=== PATIENT | female | born 1960 | race American Indian/Alaskan Native ===

== ENCOUNTER 2017-01-11 12:58 | Emergency (ER) | payer MEDICAID ==
[2017-01-11] MEDS ORDERED: MOTRIN PO ONE (14:55)
--- NOTE | 2017-01-11 14:58 | Emergency Department Report ---
Chief Complaint: Chest Pain Stated Complaint: SEVERE CHEST /BACK PAIN/ABD PAIN Time Seen by Provider: 01/11/17 14:52 - HPI History of Present Illness: 56-year-old -[place] female comes in complaint of chest pains in the both side of her chest since yesterday. She reports that she's been having a cough when she coughs her chest and rib cage hurts. Patient also complains of upper back pain she's had shortness of breathing some nausea denies any vomiting. She complains of upper abdominal pain but denies any vaginal bleeding or discharge and no painful urination. She does report that her she does have a nonproductive cough patient denies any fever or chills reports that the pain is getting worse when she coughs - Exam Vital Signs: Vital Signs 01/11/17 13:18 Temperature 98.5 F Pulse Rate 81 Respiratory 18 Rate Blood Pressure 140/59 O2 Sat by Pulse 97 Oximetry Physical Exam: Alert and oriented she does appear to be uncomfortable. Cardiac: Regular rate and rhythm respiratory clear to auscultation bilaterally abdomen soft nontender nondistended. Extremities 1+ edema bilateral MSE screening note: Focused history and physical exam performed. Due to findings the following was ordered: She has been evaluated by this provider in fast track. CXR x-rays CBC BMP troponin CK-MB has been ordered. Will be evaluated by a Main ER. ED Disposition for MSE Condition: Stable
--- NOTE | 2017-01-11 16:09 | XRay Report ---
Chest 2 views: Compared to 11/15/16. History: Chest pain with cough. Findings: Borderline cardiomegaly. Trachea is midline. Mild pulmonary venous congestion. No consolidation or pleural effusion. Impression: Probable mild pulmonary venous congestion.
[2017-01-11 21:11] LABS: Hemoglobin 13.9 gm/dl (10.1-14.3); Mean Corpuscular HGB Conc 32 % (30-34); Mean Corpuscular Hemoglobin 28 pg (28-32); Mean Corpuscular Volume 85 fl (79-97); Red Blood Count 5.07 M/mm3 (3.65-5.03); Red Cell Distribution Width 13.5 % (13.2-15.2); White Blood Count 4.9 K/mm3 (4.5-11.0)
[2017-01-11 21:15] LABS: Platelet Count 172 K/mm3 (140-440)
[2017-01-11 21:33] LABS: Alanine Aminotransferase 39 units/L (7-56); Albumin 4.2 g/dL (3.9-5); Albumin/Globulin Ratio 1.6 %; Alkaline Phosphatase 62 units/L (35-129); Anion Gap 23 mmol/L; BUN/Creatinine Ratio 14.44; Bilirubin,Total 0.2 mg/dL (0.1-1.2); Blood Urea Nitrogen 13 mg/dL (7-17); Calcium 9.1 mg/dL (8.4-10.2); Carbon Dioxide 21 mmol/L (22-30); Chloride 90.4 mmol/L (98-107); Creatine Kinase 240 units/L (30-135); Glucose 220 mg/dL (65-100); Potassium 4.6 mmol/L (3.6-5.0); Sodium 130 mmol/L (137-145); Total Protein 6.9 g/dL (6.3-8.2)
[2017-01-12] MEDS ORDERED: DILAUDID IV ONE (00:38)
[2017-01-12] MEDS ORDERED: PEPCID IV ONE (00:38)
[2017-01-12] MEDS ORDERED: ZOFRAN IV ONE (00:38)
[2017-01-12] MEDS ORDERED: DUONEB 0.5 MG-3 MG/3 ML SOLN IH ONE (00:40)
[2017-01-12 01:13] LABS: Bacteria,Urine 1+ /HPF (Negative); Bilirubin,Urine NEG (Negative); Blood,Urine SM (Negative); Ketones,Urine NEG (Negative); Leukocyte Esterase,Urine LG (Negative); Mucus,Urine FEW /HPF; Nitrite,Urine NEG (Negative); Protein,Urine <15 mg/dL mg/dL (Negative); Urobilinogen,Urine < 2.0 mg/dL (<2.0)
--- NOTE | 2017-01-12 01:26 | Ultrasound Report ---
FINAL REPORT PROCEDURE: US ABDOMEN LIMITED TECHNIQUE: Real-time sonography in multiple planes of the gallbladder fossa and CBD with imaging of the adjacent liver, pancreas, and right kidney was performed with image documentation. CPT 75719 HISTORY: ruq, epigastric pain COMPARISON: No prior studies are available for comparison. FINDINGS: Liver: Normal size and echotexture with no evidence of cystic or solid mass lesion. Gallbladder: There is sludge in the gallbladder. There is no wall thickening or pericholecystic fluid.. Intrahepatic bile ducts: Normal . Extrahepatic bile ducts: Normal . Pancreas: Normal as visualized with suboptimal depiction of the pancreatic tail. Right kidney: Normal echotexture. No focal renal mass, calculus, or hydronephrosis. Other: No free fluid. IMPRESSION: There is gallbladder sludge. There are no stones, wall thickening or pericholecystic fluid.
--- NOTE | 2017-01-12 01:39 | Emergency Department Report ---
ED General Adult HPI - General Chief complaint: Chest Pain Stated complaint: SEVERE CHEST /BACK PAIN/ABD PAIN Time Seen by Provider: 01/11/17 14:52 Source: patient Mode of arrival: Ambulatory Limitations: No Limitations - History of Present Illness Initial comments: 56-year-old female the past medical history CHF, COPD, CVA with residual left- sided defect, diabetes, GERD, CAD, and elevated cholesterol comes in with multiple complaints. Last several days patient has had a dry cough, bilateral rib pain worse with coughing and palpation, posterior thoracic pain worse with movement and palpation, epigastric and right upper quadrant pain worse with palpation. Pain overall rated 8/10 in intensity and described as aching. Positive nausea without vomiting. No reports of fever, dysuria, or diarrhea. Positive shortness of breath and wheezing reported. Patient had an outpatient stress test at [place] on the which she reports was normal. Patient taken Vicodin at home without pain relief. Patient states she did receive her flu shot. No reports of fever Severity scale (0 -10): 6 - Related Data Home Medications Medication Instructions Recorded Confirmed Last Taken Albuterol Sulfate [Proventil HFA] 1 - 2 puff IH Q4H PRN 08/01/13 09/27/16 Budesoni/Formotero 160-4.5(Nf) 2 puff IH BID 08/01/13 09/27/16 09/26/16 [Symbicort 160-4.5 (Nf)] Clopidogrel [Plavix] 75 mg PO DAILY 08/01/13 09/27/16 09/26/16 Ipratropium (Nf) [Atrovent HFA 2 puff IH Q6HR PRN 08/01/13 09/27/16 09/26/16 17MCG/PUFF] Isosorbide Mononitrate [Isosorbide 60 mg PO DAILY 08/01/13 09/27/16 09/26/16 Mononitrate ER (IMDUR)] Lisinopril [Zestril TAB] 10 mg PO DAILY 08/01/13 09/27/16 09/26/16 Metoprolol Xl [Metoprolol 50 mg PO DAILY 08/01/13 09/27/16 09/26/16 SUCCINATE ER TAB] metFORMIN [Glucophage] 1,000 mg PO BID 09/09/27/16 09/26/16 Aspirin 325 mg PO DAILY 07/16/16 09/27/16 09/26/16 HumuLIN 70-30 Vial 100 units SQ QPM 07/16/16 09/27/16 09/26/16 HumuLIN 70-30 Vial 190 units SQ Q8AM 07/16/16 09/27/16 09/26/16 Previous Rx's Medication Instructions Recorded Last Taken Type Pravastatin Sodium [Pravastatin] 20 mg PO QHS #30 tablet 08/03/13 09/26/16 Rx Fenofibrate [Tricor] 48 mg PO DAILY tablet 07/16/16 09/26/16 Rx Omeprazole 40 mg PO DAILY #30 capsule. 07/16/16 09/26/16 Rx Benzonatate [Tessalon Perles] 100 mg PO Q8HR #30 capsule 11/16/16 Unknown Rx HYDROcodone/APAP 5-325 [[place] 1 each PO Q6HR PRN #20 tablet 11/16/16 Unknown Rx 5/325] Levofloxacin [Levaquin] 750 mg PO QDAY #7 tablet 11/16/16 Unknown Rx Azithromycin [Zithromax Z-ANDREY] 1 dose PO DAILY 5 Days 01/12/17 Unknown Rx Benzonatate [Tessalon Perles] 100 mg PO Q8HR PRN #30 capsule 01/12/17 Unknown Rx Prednisone [predniSONE 10 mg 10 mg PO .TAPER #1 tab.ds.pk 01/12/17 Unknown Rx (6-Day Pack, 21 Tabs)] oxyCODONE /ACETAMINOPHEN [Percocet 1 tab PO Q6HR PRN #20 tablet 01/12/17 Unknown Rx 5/325] Allergies Allergy/AdvReac Type Severity Reaction Status Date / Time latex Allergy Unknown Unknown Unverified 07/31/13 19:18 Penicillins AdvReac Mild Rash Verified 01/11/17 15:01 green tomato Allergy Rash Uncoded 11/15/16 19:43 ED Review of Systems ROS: Stated complaint: SEVERE CHEST /BACK PAIN/ABD PAIN Other details as noted in HPI Comment: All other systems reviewed and negative Other: Constitutional: No fevers chills or weight loss Eyes: No eye pain visual changes or discharge ENT: No ear pain or throat pain Neck: Denies pain Respiratory: As per HPI Cardiovascular: As per HPI GI: As per HPI : Denies dysuria Musculoskeletal: Denies bjoint swelling Skin: Denies rash, lesions, erythema Neurologic: Positive frontal headache Psychiatric: Denies suicidal ideation, hallucinations ED Past Medical Hx - Past Medical History Previous Medical History?: Yes Hx Hypertension: Yes Hx CVA: Yes (left side weakness) Hx Heart Attack/AMI: Yes Hx Congestive Heart Failure: Yes Hx Diabetes: Yes Hx GERD: Yes Hx COPD: Yes Additional medical history: high cholesterol - Surgical History Past Surgical History?: Yes Additional Surgical History: tonsillectomy, , right ankle - Social History Smoking Status: Never Smoker Substance Use Type: None - Medications Home Medications: Home Medications Medication Instructions Recorded Confirmed Last Taken Type Albuterol Sulfate [Proventil HFA] 1 - 2 puff IH Q4H PRN 08/01/13 09/27/16 History Budesoni/Formotero 160-4.5(Nf) 2 puff IH BID 08/01/13 09/27/16 09/26/16 History [Symbicort 160-4.5 (Nf)] Clopidogrel [Plavix] 75 mg PO DAILY 08/01/13 09/27/16 09/26/16 History Ipratropium (Nf) [Atrovent HFA 2 puff IH Q6HR PRN 08/01/13 09/27/16 09/26/16 History 17MCG/PUFF] Isosorbide Mononitrate [Isosorbide 60 mg PO DAILY 08/01/13 09/27/16 09/26/16 History Mononitrate ER (IMDUR)] Lisinopril [Zestril TAB] 10 mg PO DAILY 08/01/13 09/27/16 09/26/16 History Metoprolol Xl [Metoprolol 50 mg PO DAILY 08/01/13 09/27/16 09/26/16 History SUCCINATE ER TAB] metFORMIN [Glucophage] 1,000 mg PO BID 08/01/13 09/27/16 09/26/16 History Pravastatin Sodium [Pravastatin] 20 mg PO QHS #30 tablet 08/03/13 09/27/1609/26 Rx Aspirin 325 mg PO DAILY 07/16/16 09/27/16 09/26/16 History Fenofibrate [Tricor] 48 mg PO DAILY tablet 07/16/16 09/27/16 09/26/16 Rx HumuLIN 70-30 Vial 100 units SQ QPM 07/16/16 09/27/16 09/26/16 History HumuLIN 70-30 Vial 190 units SQ Q8AM 07/16/16 09/27/16 09/26/16 History Omeprazole 40 mg PO DAILY #30 capsule. 07/16/16 09/27/16 09/26/16 Rx Benzonatate [Tessalon Perles] 100 mg PO Q8HR #30 capsule 11/16/16 Unknown Rx HYDROcodone/APAP 5-325 [[place] 1 each PO Q6HR PRN #20 tablet 11/16/16 Unknown Rx 5/325] Levofloxacin [Levaquin] 750 mg PO QDAY #7 tablet 11/16/16 Unknown Rx Azithromycin [Zithromax Z-ANDREY] 1 dose PO DAILY 5 Days 01/12/17 Unknown Rx Benzonatate [Tessalon Perles] 100 mg PO Q8HR PRN #30 capsule 01/12/17 Unknown Rx Prednisone [predniSONE 10 mg 10 mg PO .TAPER #1 tab.ds.pk 01/12/17 Unknown Rx (6-Day Pack, 21 Tabs)] oxyCODONE /ACETAMINOPHEN [Percocet 1 tab PO Q6HR PRN #20 tablet 01/12/17 Unknown Rx 5/325] ED Physical Exam - General Limitations: No Limitations - Other Other exam information: General: No limitations, patient is alert in no acute distress Head exam: Atraumatic, normocephalic Eyes exam: Normal appearance, nonicteric sclera ENT: Moist mucous membrane Neck exam: Normal inspection, full range of motion, no meningismus nontender Respiratory exam: Mild expiratory wheezing without tachypnea or accessory muscle use Left-sided rib tenderness and bilateral posterior thoracic tenderness Cardiovascular: Normal rate and rhythm, normal heart sounds Abdomen: Soft, nondistended, and right upper quadrant and epigastric tenderness , with normal bowel sounds, no rebound, or guarding Extremity: Full range of motion normal inspection no deformity Back: Normal Inspection, full range of motion, no tenderness Neurologic: Alert, oriented x3, cranial nerves intact, residual left-sided weakness at baseline per patient Psychiatric: normal affect, normal mood Skin: Warm, dry, intact ED Course Vital Signs 01/11/17 01/11/17 01/11/17 13:18 16:02 23:10 Temperature 98.5 F Pulse Rate 81 Respiratory 18 18 18 Rate Blood Pressure 140/59 Blood Pressure [Left] O2 Sat by Pulse 97 98 Oximetry 01/11/17 01/12/17 01/12/17 23:30 01:17 01:47 Temperature 98.8 F Pulse Rate 82 Respiratory 20 18 18 Rate Blood Pressure Blood Pressure 136/84 [Left] O2 Sat by Pulse 98 Oximetry 01/12/17 02:00 Temperature 98.7 F Pulse Rate 90 Respiratory 20 Rate Blood Pressure Blood Pressure 142/88 [Left] O2 Sat by Pulse 99 Oximetry - Reevaluation(s) Reevaluation #1: 01/12/17 01:52 She reports feeling better after ED treatment and is currently pain-free. Still has some mild residual wheezing therefore additional nebs ordered. ED Medical Decision Making - Lab Data Result diagrams: 01/11/17 14:54 01/11/17 20:54 Lab Results 01/11/17 01/11/17 01/12/17 Range/Units 14:54 20:54 00:36 WBC 4.9 (4.5-11.0) K/mm3 RBC 5.07 H (3.65-5.03) M/mm3 Hgb 13.9 (10.1-14.3) gm/dl Hct 43.0 H (30.3-42.9) % MCV 85 (79-97) fl MCH 28 (28-32) pg MCHC 32 (30-34) % RDW 13.5 (13.2-15.2) % Plt Count 172 (140-440) K/mm3 Sodium 130 L (137-145) mmol/L Potassium 4.6 (3.6-5.0) mmol/L Chloride 90.4 L (98-107) mmol/L Carbon Dioxide 21 L (22-30) mmol/L Anion Gap 23 mmol/L BUN 13 (7-17) mg/dL Creatinine 0.9 (0.7-1.2) mg/dL Estimated GFR > 60 ml/min BUN/Creatinine Ratio 14.44 % Glucose 220 H (65-100) mg/dL Calcium 9.1 (8.4-10.2) mg/dL Total Bilirubin 0.2 (0.1-1.2) mg/dL AST 31 (5-40) units/L ALT 39 (7-56) units/L Alkaline Phosphatase 62 (35-129) units/L Total Creatine Kinase 240 H (30-135) units/L CK-MB (CK-2) 2.0 (0.0-4.0) ng/mL CK-MB (CK-2) Rel Index 0.8 (0-4) Troponin T < 0.010 (0.00-0.029) ng/mL NT-Pro-B Natriuret Pep 32.74 (0-900) pg/mL Total Protein 6.9 (6.3-8.2) g/dL Albumin 4.2 (3.9-5) g/dL Albumin/Globulin Ratio 1.6 % Urine Color (Yellow) Urine Turbidity (Clear) Urine pH (5.0-7.0) Ur Specific [place] (1.003-1.030) Urine Protein (Negative) mg/dL Urine Glucose (UA) (Negative) mg/dL Urine Ketones (Negative) mg/dL Urine Blood (Negative) Urine Nitrite (Negative) Urine Bilirubin (Negative) Urine Urobilinogen (<2.0) mg/dL Ur Leukocyte Esterase (Negative) Urine WBC (Auto) (0.0-6.0) /HPF Urine RBC (Auto) (0.0-6.0) /HPF U Epithel Cells (Auto) (0-13.0) /HPF Urine Bacteria (Auto) (Negative) /HPF Urine Mucus /HPF 01/12/17 Range/Units 00:50 WBC (4.5-11.0) K/mm3 RBC (3.65-5.03) M/mm3 Hgb (10.1-14.3) gm/dl Hct (30.3-42.9) % MCV (79-97) fl MCH (28-32) pg MCHC (30-34) % RDW (13.2-15.2) % Plt Count (140-440) K/mm3 Sodium (137-145) mmol/L Potassium (3.6-5.0) mmol/L Chloride (98-107) mmol/L Carbon Dioxide (22-30) mmol/L Anion Gap mmol/L BUN (7-17) mg/dL Creatinine (0.7-1.2) mg/dL Estimated GFR ml/min BUN/Creatinine Ratio % Glucose (65-100) mg/dL Calcium (8.4-10.2) mg/dL Total Bilirubin (0.1-1.2) mg/dL AST (5-40) units/L ALT (7-56) units/L Alkaline Phosphatase (35-129) units/L Total Creatine Kinase (30-135) units/L CK-MB (CK-2) (0.0-4.0) ng/mL CK-MB (CK-2) Rel Index (0-4) Troponin T (0.00-0.029) ng/mL NT-Pro-B Natriuret Pep (0-900) pg/mL Total Protein (6.3-8.2) g/dL Albumin (3.9-5) g/dL Albumin/Globulin Ratio % Urine Color Straw (Yellow) Urine Turbidity Clear (Clear) Urine pH 6.0 (5.0-7.0) Ur Specific [place] 1.000 L (1.003-1.030) Urine Protein <15 mg/dl (Negative) mg/dL Urine Glucose (UA) >=500 (Negative) mg/dL Urine Ketones Neg (Negative) mg/dL Urine Blood Sm (Negative) Urine Nitrite Neg (Negative) Urine Bilirubin Neg (Negative) Urine Urobilinogen < 2.0 (<2.0) mg/dL Ur Leukocyte Esterase Lg (Negative) Urine WBC (Auto) 3.0 (0.0-6.0) /HPF Urine RBC (Auto) 9.0 (0.0-6.0) /HPF U Epithel Cells (Auto) 3.0 (0-13.0) /HPF Urine Bacteria (Auto) 1+ (Negative) /HPF Urine Mucus Few /HPF - Radiology Data Radiology results: report reviewed Chest x-ray: Probable mild pulmonary venous congestion. However, BNP is normal and previous x-rays reveal increased interstitial markings therefore likely chronic. No reports of infiltrate Abdominal ultrasound: There is gallbladder sludge. No cholecystitis - Medical Decision Making Patient has reproducible chest wall pain likely secondary to cough. No signs of RI and patient reports recent unremarkable stress test. Patient will be treated for biliary colic, COPD exacerbation, and acute bronchitis. Z-Andrey will be given addition to symptomatic treatment - Differential Diagnosis viral syndrome, pneumonia, bronchitis, sinusitis, cholecystitis, UTI Critical Care Time: No Critical care attestation.: If time is entered above; I have spent that time in minutes in the direct care of this critically ill patient, excluding procedure time. ED Disposition Clinical Impression: Acute bronchitis with COPD, Chest wall pain, Biliary colic Disposition: DISCHARGED TO HOME OR SELFCARE Is pt being admited?: No Does the pt Need Aspirin: No Condition: Stable Instructions: Chest Pain (ED), Biliary Colic (ED), Acute Bronchitis (ED) Additional Instructions: Take The medication as prescribed. Return if symptoms worsen. Prescriptions: Azithromycin [Zithromax Z-ANDREY] 1 dose PO DAILY 5 Days Benzonatate [Tessalon Perles] 100 mg PO Q8HR PRN #30 capsule PRN Reason: Cough oxyCODONE /ACETAMINOPHEN [Percocet 5/325] 1 tab PO Q6HR PRN #20 tablet PRN Reason: Pain Prednisone [predniSONE 10 mg (6-Day Pack, 21 Tabs)] 10 mg PO .TAPER #1 tab.ds.pk Referrals: PRIMARY CARE, [Primary Care Provider] - 3-5 Days Time of Disposition: 02:57
[2017-01-12] MEDS ORDERED: ZITHROMAX PO ONE (01:43)
[2017-01-12] MEDS ORDERED: PROVENTIL IH ONE (01:52)
[2017-01-12 02:07] VITALS: BP 142/88
== END 2017-01-12 03:21 | disposition home or self-care (01) ==
LOC: ED 12:58
DX: J44.0 Chronic obstructive pulmonary disease with (acute) lower respiratory infection (principal); J20.9 Acute bronchitis, unspecified; R07.89 Other chest pain; K80.50 Calculus of bile duct without cholangitis or cholecystitis without obstruction; I50.9 Heart failure, unspecified; I10 Essential (primary) hypertension; I63.9 Cerebral infarction, unspecified; E11.9 Type 2 diabetes mellitus without complications; K21.9 Gastro-esophageal reflux disease without esophagitis; E78.00 Pure hypercholesterolemia, unspecified; I25.10 Atherosclerotic heart disease of native coronary artery without angina pectoris; Z88.0 Allergy status to penicillin; Z91.040 Latex allergy status; Z91.018 Allergy to other foods; Z79.4 Long term (current) use of insulin
CPT/HCPCS: 36415; 71020; 76705; 80053; 81001; 82550; 82553; 83880; 84484; 85027; 93005; 93010; 96374; 96375; 99285; J1170; J2405; J2930

== ENCOUNTER 2018-11-17 16:47 | Inpatient (IN) | payer MEDICARE ==
[2018-11-17 17:40] LABS: Basophils # (Auto) 0.1 K/mm3 (0.0-0.1); Basophils % (Auto) 0.7 % (0.0-1.8); Eosinophils # (Auto) 0.3 K/mm3 (0.0-0.4); Eosinophils % (Auto) 3.7 % (0.0-4.3); Hematocrit 38.9 % (30.3-42.9); Hemoglobin 12.8 gm/dl (10.1-14.3); Lymphocytes % (Auto) 40.5 % (13.4-35.0); Mean Corpuscular HGB Conc 33 % (30-34); Mean Corpuscular Volume 83 fl (79-97); Monocytes # (Auto) 0.6 K/mm3 (0.0-0.8); Monocytes % (Auto) 8.3 % (0.0-7.3); Platelet Count 253 K/mm3 (140-440); Red Blood Count 4.67 M/mm3 (3.65-5.03); Red Cell Distribution Width 14.2 % (13.2-15.2)
[2018-11-17 17:53] LABS: INR 1.01 (0.87-1.13)
[2018-11-17 17:54] LABS: Partial Thromboplastin Time 23.4 Sec. (24.2-36.6)
[2018-11-17 17:59] LABS: BUN/Creatinine Ratio 18; Blood Urea Nitrogen 20 mg/dL (7-17); Calcium 9.8 mg/dL (8.4-10.2); Hemolysis Index 4
--- NOTE | 2018-11-17 18:11 | Emergency Department Report ---
ED Shortness of Breath HPI - General Chief Complaint: Dyspnea/Respdistress Stated Complaint: CHEST PAIN Time Seen by Provider: 11/17/18 18:08 Source: patient Mode of arrival: Ambulatory Limitations: No Limitations - History of Present Illness MD Complaint: shortness of breath, chest pain -: Gradual, days(s) (3) Severity: moderate Pain Scale: 5 Quality: dull, aching Consistency: constant Improves With: nothing Worsens With: nothing Known History Of: COPD, congestive heart failure Associated Symptoms: chest pain Treatments Prior to Arrival: none - Related Data Home Oxygen Therapy: Yes Home Oxygen Amount: 2 Liters Home Medications Medication Instructions Recorded Confirmed Last Taken Albuterol Sulfate [Proventil HFA] 1 - 2 puff IH Q4H PRN 08/01/13 11/17/18 09/18/18 Budesoni/Formotero 160-4.5(Nf) 2 puff IH BID 08/01/13 11/17/18 09/18/18 [Symbicort 160-4.5 (Nf)] Insulin NPH/Regular [NovoLIN 70/30] 150 unit SQ QPM 08/16/17 11/17/18 09/17/18 Insulin NPH/Regular [NovoLIN 70/30] 200 unit SQ QAM 08/16/17 11/17/18 09/17/18 Fluticasone [Flonase] 1 spray NS QDAY 11/17/18 11/17/18 Unknown ISOSORBIDE MONOnitrate [Imdur ER] 30 mg PO DAILY 11/17/18 11/17/18 Unknown Lisinopril [Prinivil] 10 mg PO DAILY 11/17/18 11/17/18 Unknown Metoprolol Succinate [Toprol Xl] 25 mg PO DAILY 11/17/18 11/17/18 Unknown NIFEdipine [Procardia] 3 tab PO DAILY 11/17/18 11/17/18 Unknown Nitroglycerin [Nitrostat] 0.4 mg SL Q5MIN PRN 11/17/18 11/17/18 Unknown Potassium Chloride [Klor-Con M20] 1 tab PO DAILY 11/17/18 11/17/18 Unknown Rosuvastatin (Nf) [Crestor] 2 tab PO DAILY 11/17/18 11/17/18 Unknown Torsemide [Demadex] 100 mg PO QDAY 11/17/18 11/17/18 Unknown Previous Rx's Medication Instructions Recorded Last Taken Type Aspirin [Adult Low Dose Aspirin EC] 81 mg PO DAILY #30 tablet. 08/20/17 09/18/18 Rx Clopidogrel [Plavix] 75 mg PO QDAY #30 tablet 08/20/17 09/18/18 Rx Allergies Allergy/AdvReac Type Severity Reaction Status Date / Time Penicillins Allergy Mild Rash Verified 09/18/18 13:37 latex Allergy Unknown Unknown Verified 01/24/18 09:36 green tomato Allergy Rash Uncoded 01/24/18 09:36 ED Review of Systems ROS: Stated complaint: CHEST PAIN Other details as noted in HPI Comment: All other systems reviewed and negative Constitutional: denies: chills, fever Eyes: denies: eye pain, eye discharge, vision change ENT: denies: ear pain, throat pain Respiratory: orthopnea, shortness of breath, SOB with exertion, SOB at rest, wheezing. denies: cough Cardiovascular: chest pain, edema. denies: palpitations Endocrine: no symptoms reported Gastrointestinal: denies: abdominal pain, nausea, diarrhea Genitourinary: denies: urgency, dysuria, discharge Musculoskeletal: denies: back pain, joint swelling, arthralgia Skin: denies: rash, lesions Neurological: headache. denies: weakness, paresthesias Psychiatric: denies: anxiety, depression Hematological/Lymphatic: denies: easy bleeding, easy bruising ED Past Medical Hx - Past Medical History Hx Hypertension: Yes Hx CVA: Yes (x4,left-sided weakness) Hx Heart Attack/AMI: Yes (2000) Hx Congestive Heart Failure: Yes Hx Diabetes: Yes Hx Deep Vein Thrombosis: Yes Hx GERD: Yes Hx Arthritis: Yes Hx Kidney Stones: No Hx Asthma: Yes Hx COPD: Yes Hx Tuberculosis: No Additional medical history: high cholesterol - Surgical History Hx Coronary Stent: Yes (x1) Additional Surgical History: tonsillectomy, , right ankle - Social History Smoking Status: Former Smoker Substance Use Type: None - Medications Home Medications: Home Medications Medication Instructions Recorded Confirmed Last Taken Type Albuterol Sulfate [Proventil HFA] 1 - 2 puff IH Q4H PRN 08/01/13 11/17/18 09/18/18 History Budesoni/Formotero 160-4.5(Nf) 2 puff IH BID 0911/17/18 09/18/18 History [Symbicort 160-4.5 (Nf)] Insulin NPH/Regular [NovoLIN 70/30] 150 unit SQ QPM 08/16/17 11/17/18 09/17/18 History Insulin NPH/Regular [NovoLIN 70/30] 200 unit SQ QAM 08/16/17 11/17/18 09/17/18 History Aspirin [Adult Low Dose Aspirin EC] 81 mg PO DAILY #30 tablet. 08/20/17 11/17/18 09/18/18 Rx Clopidogrel [Plavix] 75 mg PO QDAY #30 tablet 08/20/17 11/17/18 09/18/18 Rx Fluticasone [Flonase] 1 spray NS QDAY 11/17/18 11/17/18 Unknown History ISOSORBIDE MONOnitrate [Imdur ER] 30 mg PO DAILY 11/17/18 11/17/18 Unknown History Lisinopril [Prinivil] 10 mg PO DAILY 11/17/18 11/17/18 Unknown History Metoprolol Succinate [Toprol Xl] 25 mg PO DAILY 11/17/18 11/17/18 Unknown History NIFEdipine [Procardia] 3 tab PO DAILY 11/17/18 11/17/18 Unknown History Nitroglycerin [Nitrostat] 0.4 mg SL Q5MIN PRN 11/17/18 11/17/18 Unknown History Potassium Chloride [Klor-Con M20] 1 tab PO DAILY 11/17/18 11/17/18 Unknown History Rosuvastatin (Nf) [Crestor] 2 tab PO DAILY 11/17/18 11/17/18 Unknown History Torsemide [Demadex] 100 mg PO QDAY 11/17/18 11/17/18 Unknown History ED Physical Exam - General Limitations: No Limitations General appearance: alert, in no apparent distress - Head Head exam: Present: atraumatic, normocephalic - Eye Eye exam: Present: normal appearance, PERRL - ENT ENT exam: Present: normal exam, mucous membranes moist - Neck Neck exam: Present: normal inspection - Respiratory Respiratory exam: Present: respiratory distress, wheezes, rales, rhonchi - Cardiovascular Cardiovascular Exam: Present: regular rate, normal rhythm, normal heart sounds. Absent: systolic murmur, diastolic murmur, rubs, gallop - GI/Abdominal GI/Abdominal exam: Present: soft, distended, normal bowel sounds. Absent: tenderness, guarding, rebound - Extremities Exam Extremities exam: Present: normal inspection, full ROM, normal capillary refill, pedal edema (Trace) - Back Exam Back exam: Present: normal inspection - Neurological Exam Neurological exam: Present: alert, oriented X3, CN II-XII intact - Psychiatric Psychiatric exam: Present: normal affect, normal mood - Skin Skin exam: Present: warm, dry, intact, normal color. Absent: rash ED Course Vital Signs 11/17/18 11/17/18 11/17/18 17:01 18:19 18:52 Temperature 97.5 F L Pulse Rate 79 82 Pulse Rate [ Anterior] Respiratory 22 20 18 Rate Respiratory Rate [Anterior] Blood Pressure 112/41 Blood Pressure 141/80 [Left] O2 Sat by Pulse 100 99 Oximetry 11/17/18 11/17/18 20:15 21:33 Temperature 97.8 F Pulse Rate 69 Pulse Rate [ 70 Anterior] Respiratory 15 Rate Respiratory 18 Rate [Anterior] Blood Pressure Blood Pressure 97/56 [Left] O2 Sat by Pulse 97 Oximetry - Reevaluation(s) Reevaluation #1: 11/17/18 21:55 Patient refused ABG. - Consultations Consultation #1: 11/17/18 21:55 Dr Preston to admit. ED Medical Decision Making - Lab Data Result diagrams: 11/17/18 17:18 11/17/18 17:18 Lab Results 11/17/18 11/17/18 11/17/18 Range/Units 17:18 17:18 17:18 WBC 7.5 (4.5-11.0) K/mm3 RBC 4.67 (3.65-5.03) M/mm3 Hgb 12.8 (10.1-14.3) gm/dl Hct 38.9 (30.3-42.9) % MCV 83 (79-97) fl MCH 27 L (28-32) pg MCHC 33 (30-34) % RDW 14.2 (13.2-15.2) % Plt Count 253 (140-440) K/mm3 Lymph % (Auto) 40.5 H (13.4-35.0) % [place] % (Auto) 8.3 H (0.0-7.3) % Eos % (Auto) 3.7 (0.0-4.3) % Baso % (Auto) 0.7 (0.0-1.8) % Lymph # 3.0 (1.2-5.4) K/mm3 [place] # 0.6 (0.0-0.8) K/mm3 Eos # 0.3 (0.0-0.4) K/mm3 Baso # 0.1 (0.0-0.1) K/mm3 Seg Neutrophils % 46.8 (40.0-70.0) % Seg Neutrophils # 3.5 (1.8-7.7) K/mm3 PT (12.2-14.9) Sec. INR (0.87-1.13) APTT (24.2-36.6) Sec. Sodium 137 (137-145) mmol/L Potassium 4.3 (3.6-5.0) mmol/L Chloride 93.9 L (98-107) mmol/L Carbon Dioxide 30 (22-30) mmol/L Anion Gap 17 mmol/L BUN 20 H (7-17) mg/dL Creatinine 1.1 (0.7-1.2) mg/dL Estimated GFR > 60 ml/min BUN/Creatinine Ratio 18 % Glucose 96 (65-100) mg/dL Calcium 9.8 (8.4-10.2) mg/dL Troponin T < 0.010 (0.00-0.029) ng/mL NT-Pro-B Natriuret Pep 72.97 (0-900) pg/mL 11/17/ Range/Units 17:18 WBC (4.5-11.0) K/mm3 RBC (3.65-5.03) M/mm3 Hgb (10.1-14.3) gm/dl Hct (30.3-42.9) % MCV (79-97) fl MCH (28-32) pg MCHC (30-34) % RDW (13.2-15.2) % Plt Count (140-440) K/mm3 Lymph % (Auto) (13.4-35.0) % [place] % (Auto) (0.0-7.3) % Eos % (Auto) (0.0-4.3) % Baso % (Auto) (0.0-1.8) % Lymph # (1.2-5.4) K/mm3 [place] # (0.0-0.8) K/mm3 Eos # (0.0-0.4) K/mm3 Baso # (0.0-0.1) K/mm3 Seg Neutrophils % (40.0-70.0) % Seg Neutrophils # (1.8-7.7) K/mm3 PT 13.7 (12.2-14.9) Sec. INR 1.01 (0.87-1.13) APTT 23.4 L (24.2-36.6) Sec. Sodium (137-145) mmol/L Potassium (3.6-5.0) mmol/L Chloride (98-107) mmol/L Carbon Dioxide (22-30) mmol/L Anion Gap mmol/L BUN (7-17) mg/dL Creatinine (0.7-1.2) mg/dL Estimated GFR ml/min BUN/Creatinine Ratio % Glucose (65-100) mg/dL Calcium (8.4-10.2) mg/dL Troponin T (0.00-0.029) ng/mL NT-Pro-B Natriuret Pep (0-900) pg/mL - EKG Data -: EKG Interpreted by [facility] EKG shows normal: sinus rhythm Rate: normal (77) - EKG Data When compared to previous EKG there are: no significant change Interpretation: nonspecific ST-T wave michael 11/17/18 18:28 No STEMI. - Radiology Data Radiology results: report reviewed, image reviewed CXR showed increased pulmonary vascular markings and Cardiomegaly. - Medical Decision Making COPD Exacerbation. CHF. Chest pain. Critical Care Time: Yes Critical care time in (mins) excluding proc time.: 35 Critical care attestation.: If time is entered above; I have spent that time in minutes in the direct care of this critically ill patient, excluding procedure time. ED Disposition Clinical Impression: COPD exacerbation, SOB (shortness of breath) Chest pain Qualifiers: Chest pain type: unspecified Qualified Code(s): R07.9 - Chest pain, unspecified CHF (congestive heart failure) Qualifiers: Heart failure type: unspecified Heart failure chronicity: unspecified Qualified Code(s): I50.9 - Heart failure, unspecified COPD (chronic obstructive pulmonary disease) Qualifiers: COPD type: unspecified COPD Qualified Code(s): J44.9 - Chronic obstructive pulmonary disease, unspecified Disposition: 09 OP ADMIT IP TO THIS HOSP Is pt being admited?: Yes Does the pt Need Aspirin: Yes Condition: Stable Instructions: Chest Pain (ED), Chronic Obstructive Pulmonary Disease (ED), Chronic Bronchitis (ED) Referrals: PRIMARY CARE, [Primary Care Provider] - 3-5 Days Time of Disposition: 21:57
--- NOTE | 2018-11-17 18:13 | XRay Report ---
FINAL REPORT EXAM: XR CHEST ROUTINE 2V HISTORY: Shortness of breath TECHNIQUE: PA and lateral views of the chest Comparison: Chest x-ray dated July 15, [address] dated September 27, 2016 FINDINGS: There is prominence of the interstitial markings and the appearance of pulmonary emphysema in both nati ngs similar in appearance to the previous studies. The There is no evidence of focal infiltrate, pneumothorax or pleural fluid collection. The cardiac silhouette is enlarged similar in appearance to the previous study. The thoracic aorta and bony structures are unremarkable. IMPRESSION: 1. Prominence of the interstitial markings with evidence of pulmonary emphysema both lungs similar in appearance to the previous studies. 2. No definite evidence of an acute pulmonary process. If further imaging is required, CT may be help ful. 3. Enlarged cardiac silhouette not significantly changed.
[2018-11-17] MEDS ORDERED: LASIX IV ONE (18:26)
[2018-11-17] MEDS ORDERED: BABY ASPIRIN PO ONE (18:27)
[2018-11-17] MEDS ORDERED: PROVENTIL IH ONE (18:32)
[2018-11-17] MEDS ORDERED: ATROVENT IH ONE (18:32)
[2018-11-17] MEDS ORDERED: ZOFRAN IV ONE (18:33)
[2018-11-17] MEDS ORDERED: MORPHINE IV ONE (18:33)
[2018-11-17] MEDS ORDERED: SOLU-Medrol IV ONE (18:36)
[2018-11-17 18:52] LABS: Alanine Aminotransferase 31 units/L (7-56); Albumin 4.9 g/dL (3.9-5)
[2018-11-17 18:53] LABS: Bilirubin,Direct < 0.2 mg/dL (0-0.2)
[2018-11-17 19:39] LABS: Bilirubin,Urine NEG (Negative); Blood,Urine NEG (Negative); Color,Urine Straw (Yellow); Mucus,Urine FEW /HPF; Protein,Urine <15 mg/dL mg/dL (Negative); Urobilinogen,Urine < 2.0 mg/dL (<2.0)
--- NOTE | 2018-11-17 21:01 | Cat Scan Report ---
FINAL REPORT EXAM: CT ANGIO CHEST HISTORY: shortness of breath TECHNIQUE: Following administration of IV contrast axial helical imaging was performed through the c hest with sagittal coronal reformatted images and maximum intensity projection images obtained. Comparison: CT angiogram chest dated September 27, 2016 FINDINGS: There is bilateral pulmonary emphysema similar in appearance to the previous CT dated September 27 16. There is no significant change in the appearance of an approximately 4 millimeter nodule in the left upper lobe. There has been interval development of multiple pleural-based nodular densities in the lower lobes bi laterally, left greater than right. The largest measures approximately 1.6 centimeters in the maximum dimension. There is no evidence of pneumothorax or pleural fluid collection. The trachea and bronchi are patent. The heart is enlarged. There is the appearance of 2 coronary artery stents. The thoracic aorta is normal caliber. There are mildly prominent mediastinal lymph nodes. All appear to measure less than 1 centimeter in s ize. No filling defects are demonstrated within the pulmonary arteries to suggest the presence of pulmonar y artery emboli. The visualized portion the upper abdomen is notable for a calcified gallstone in the mildly distended gallbladder. The bony structures are unremarkable in appearance. IMPRESSION: 1. Pulmonary emphysema. 2. Interval development of pleural based nodular densities lower lobes bilaterally, left greater than right. Infectious and noninfectious etiologies need to be considered. If these are considered to be infectious in etiology, follow-up to resolution is recommended. If thes e are not considered to be infectious in etiology, referral to pulmonology for further evaluation is recommended. 3. No evidence of pulmonary artery emboli. 4. Cardiomegaly with evidence of coronary artery stents. 5. Gallstone within the gallbladder.
--- NOTE | 2018-11-17 23:30 | History and Physical Report ---
History of Present Illness Date of examination: 11/17/18 Date of admission: 11/17/18 21:59 Chief complaint: Shortness of breath History of present illness: Patient is a 58 yo black woman with a history of HTN, CVA with LHP, [place], CHF, EF 56% on stress test in 2017, DM, GERD, HLD, Nicotine Dependence, Obesity, CAD and end stage COPD on 2 liters of home O2 who presents severe constant progressive worsening sob x 3 days associated with nonproductive cough, bilater al jaw pains, decrease urinary outpatient. She denies chest pains to me but had in the past. She was here in September for chest pains and she also has been to [facility] for similar symptoms in October 2018. Also there is not aggravating or relieving factors to the sob. Pt denies fever, chills, palpitation, productive cough, BRBPR, Syncope, hemoptysis, prolonged immobility/travel, individual/family history of DVT/PE, or recent ill contacts. PMH: as hpi, also prolonged QT PSH: x 2, tonsillectomy, cardiac cath, right ankle surgery SH: quit smoking 2 year ago, drinks 2 beers weekly, no illegal drugs FH: mother had chf, cva at age 63, father of heart attack age 65, sister with CHF in 56yo, son age 29 of fatal arrhythmia ROS: Constitutional: denies: fever ENT: denies: throat or neck pain, +mild sore throat Respiratory: +cough, shortness of breath Cardiovascular: denies: chest pain Endocrine: denies unexplained weight loss or gain Gastrointestinal: denies: abdominal pain, nausea Genitourinary: denies: dysuria Rectal: denies no incontinence, no bleeding, no itching, no discharge Musculoskeletal: denies swelling, +myaglia, muscle weakness Skin: denies: rash Neurological: denies: headache Hematological/Lymphatic: denies: easy bleeding or easy bruising Allergic/Immunologic: no urticaria, no allergic rhinitis, no anaphylaxis Psych: denies sadness or hopelessness, SI/HI Gen: chronic debilitated, WDWN, NAD, Awake, Alert, Orientated HEENT: NCAT, EOMI, PERRL, OP Clear Neck: supple, no adenopathy, no thyromegaly, no JVD CVS/Heart: RRR, normal S1S2, pulses present bilaterally Chest/Lungs: diminished bs bilateral Symmetrical chest expansion, good air entry bilaterally GI/Abdomen: soft, NTND, good bowel sounds, no guarding or rebound /Bladder: no suprapubic tenderness, no CVA or paraspinal tenderness Extermity/Skin: trace leg edema, no obvious rash MSK: FROM x 3, weaker on the left from old stroke Neuro: CN 2-12 grossly intact, no new focal deficits Psych: calm Medications and Allergies Allergies Allergy/AdvReac Type Severity Reaction Status Date / Time Penicillins Allergy Mild Rash Verified 09/18/18 13:37 latex Allergy Unknown Unknown Verified 01/24/18 09:36 green tomato Allergy Rash Uncoded 01/24/18 09:36 Home Medications Medication Instructions Recorded Confirmed Last Taken Type Albuterol Sulfate [Proventil HFA] 1 - 2 puff IH Q4H PRN 08/01/13 11/17/18 09/18/18 History Budesoni/Formotero 160-4.5(Nf) 2 puff IH BID 08/01/13 11/17/18 09/18/18 History [Symbicort 160-4.5 (Nf)] Insulin NPH/Regular [NovoLIN 70/30] 150 unit SQ QPM 08/16/17 11/17/18 09/17/18 History Insulin NPH/Regular [NovoLIN 70/30] 200 unit SQ QAM 08/16/17 11/17/18 09/17/18 History Aspirin [Adult Low Dose Aspirin EC] 81 mg PO DAILY #30 tablet. 08/20/17 11/17/18 09/18/18 Rx Clopidogrel [Plavix] 75 mg PO QDAY #30 tablet 08/20/17 11/17/18 09/18/18 Rx Fluticasone [Flonase] 1 spray NS QDAY 11/17/18 11/17/18 Unknown History ISOSORBIDE MONOnitrate [Imdur ER] 30 mg PO DAILY 11/17/18 11/17/18 Unknown History Lisinopril [Prinivil] 10 mg PO DAILY 11/17/18 11/17/18 Unknown History Metoprolol Succinate [Toprol Xl] 25 mg PO DAILY 11/17/18 11/17/18 Unknown History NIFEdipine [Procardia] 3 tab PO DAILY 11/17/18 11/17/18 Unknown History Nitroglycerin [Nitrostat] 0.4 mg SL Q5MIN PRN 11/17/18 11/17/18 Unknown History Potassium Chloride [Klor-Con M20] 1 tab PO DAILY 11/17/18 11/17/18 Unknown History Rosuvastatin (Nf) [Crestor] 2 tab PO DAILY 11/17/18 11/17/18 Unknown History Torsemide [Demadex] 100 mg PO QDAY 11/17/18 11/17/18 Unknown History Exam - Constitutional Vitals: Temp Pulse Resp BP Pulse Ox 97.8 F 74 12 97/56 98 11/17/18 21:33 11/17/18 23:00 11/17/18 23:00 11/17/18 23:00 11/17/18 23:00 Results - Labs CBC & Chem 7: 11/17/18 17:18 11/17/18 17:18 Labs: Abnormal lab results 11/17/18 11/17/18 11/17/18 Range/Units 17:18 17:18 17:18 MCH 27 L (28-32) pg Lymph % (Auto) 40.5 H (13.4-35.0) % [place] % (Auto) 8.3 H (0.0-7.3) % APTT 23.4 L (24.2-36.6) Sec. Chloride 93.9 L (98-107) mmol/L BUN 20 H (7-17) mg/dL Assessment and Plan Patient is a 58 yo black woman with a history of HTN, CVA with LHP, [place], CHF, EF 56% on stress test in 2017, DM, GERD, HLD, Nicotine Dependence, Obesity, CAD and end stage COPD on 2 liters of home O2 who presents severe constant progressive worsening sob x 3 days associated with nonproductive cough, bilate ral jaw pains, decrease urinary outpatient. She denies chest pains to me but had in the past. She was here in September for chest pains and she also has been to [facility] for similar symptoms in October 2018. Also there is not aggravating or relieving factors to the sob. Pt denies fever, chills, palpitation, productive cough, BRBPR, Syncope, hemoptysis, prolonged immobility/travel, individual/family history of DVT/PE, or recent ill contacts. * CTA chest IMPRESSION: 1. Pulmonary emphysema. 2. Interval development of pleural based nodular densities lower lobes bilaterally, left greater than right. Infectious and noninfectious etiologies need to be considered. If these are considered to be infectious in etiology, follow-up to resolution is recommended. If these are not considered to be infectious in etiology, referral to pulmonology for further evaluation is recommended. 3. No evidence of pulmonary artery emboli. 4. Cardiomegaly with evidence of coronary artery stents. 5. Gallstone within the gallbladder. * 2v CXR IMPRESSION: 1. Prominence of the interstitial markings with evidence of pulmonary emphysema both lungs similar in appearance to the previous studies. 2. No definite evidence of an acute pulmonary process. If further imaging is required, CT may be helpful. 3. Enlarged cardiac silhouette not significantly changed. Acute on chronic hypoxic respiratory failure due to copd +/- diastolic heart failure: increase o2 supplementation and daily pulse ox, treat the copd Lung nodules: consult Pulmonary Acute COPD exacerbation: iv steroids, duoneb, abx (PCN allergies) Acute on chronic diastolic heart failure, mild: diuretics per home regimen, consult Cardiology, check pro-bnp and another Troponin T Hypertension: continue home regimen DVT prophylaxis: sq heparin full code Home reconciliation: done, procardia dose needs verifying Disposition: inpatient tele admission
[2018-11-18] MEDS: TYLENOL PO PRN (01:51)
[2018-11-18] MEDS: SOLU-Medrol IV SCH ×3 (01:51→18:00)
[2018-11-18 06:29] LABS: Hematocrit 36.8 % (30.3-42.9); Hemoglobin 12.2 gm/dl (10.1-14.3); Mean Corpuscular HGB Conc 33 % (30-34); Mean Corpuscular Volume 83 fl (79-97); Platelet Count 260 K/mm3 (140-440); Red Blood Count 4.43 M/mm3 (3.65-5.03)
[2018-11-18 06:53] LABS: BUN/Creatinine Ratio 19; Blood Urea Nitrogen 29 mg/dL (7-17); Calcium 9.1 mg/dL (8.4-10.2); Hemolysis Index 13
--- NOTE | 2018-11-18 09:36 | Progress Note ---
Assessment and Plan Assessment and plan: --Chronic Hypoxic Respiratory Failure; Due to COPD exacerbation, continue oxygen and nebulizers IV steroids IV antibiotics --Acute on chronic diastolic congestive heart failure;LVEF 56%[09/2018] Continue anti-failure medications, cardiology evaluation if needed Patient had negative recent stress test 2 months ago Negative heart cath one year ago --Hyperkalemia; calcium chloride, Kayexalate Closely monitor electrolytes --Pseudohyponatremia; secondary to hypoglycemia Closely monitor electrolytes and blood sugars --Acute kidney injury; due to vasomotor nephropathy Hold diuretics, closely monitor renal function, avoid nephrotoxins --Type 2 diabetes mellitus; on high doses of long-acting insulin at home Accu-Chek sliding scale coverage and ADA diet and insulin 7030 Check A1c --Hypertension; moderate control, continue current antihypertensives and when necessary medications --Morbid obesity; BMI 44.6, advised diet modification, weight reduction when stable --DVT prophylaxis; Lovenox Closely monitor the patient and adjust management as needed History Interval history: Patient examination medical records reviewed unControlled blood sugars, Noncompliant with diet Vital signs noted Hospitalist Physical - Constitutional Vitals: Temp Pulse Resp BP Pulse Ox 97.6 F 68 18 122/56 97 11/18/18 08:05 11/18/18 08:05 11/18/18 08:05 11/18/18 08:05 11/18/18 08:05 General appearance: Present: no acute distress, well-nourished, obese - EENT Eyes: Present: PERRL, EOM intact - Neck Neck: Present: supple, normal ROM - Respiratory Respiratory effort: normal Respiratory: bilateral: diminished, negative: rales, rhonchi, wheezing - Cardiovascular Rhythm: regular Heart Sounds: Present: S1 & S2 - Extremities Extremities: no ischemia, No edema - Abdominal General gastrointestinal: soft, non-tender, non-distended, normal bowel sounds - Integumentary Integumentary: Present: clear, warm - Psychiatric Psychiatric: appropriate mood/affect, cooperative - Neurologic Neurologic: CNII-XII intact, moves all extremities Results - Labs CBC & Chem 7: 11/18/18 05:44 11/19/18 05:07 Labs: Laboratory Last Values WBC 8.3 K/mm3 (4.5-11.0) 11/18/18 05:44 RBC 4.43 M/mm3 (3.65-5.03) 11/18/18 05:44 Hgb 12.2 gm/dl (10.1-14.3) 11/18/18 05:44 Hct 36.8 % (30.3-42.9) 11/18/18 05:44 MCV 83 fl (79-97) 11/18/18 05:44 MCH 28 pg (28-32) 11/18/18 05:44 MCHC 33 % (30-34) 11/18/18 05:44 RDW 14.0 % (13.2-15.2) 11/18/18 05:44 Plt Count 260 K/mm3 (140-440) 11/18/18 05:44 Lymph % (Auto) 40.5 % (13.4-35.0) H 11/17/18 17:18 [place] % (Auto) 8.3 % (0.0-7.3) H 11/17/18 17:18 Eos % (Auto) 3.7 % (0.0-4.3) 11/17/18 17:18 Baso % (Auto) 0.7 % (0.0-1.8) 11/17/18 17:18 Lymph # 3.0 K/mm3 (1.2-5.4) 11/17/18 17:18 [place] # 0.6 K/mm3 (0.0-0.8) 11/17/18 17:18 Eos # 0.3 K/mm3 (0.0-0.4) 11/17/18 17:18 Baso # 0.1 K/mm3 (0.0-0.1) 11/17/18 17:18 Seg Neutrophils % 46.8 % (40.0-70.0) 11/17/18 17:18 Seg Neutrophils # 3.5 K/mm3 (1.8-7.7) 11/17/18 17:18 PT 13.7 Sec. (12.2-14.9) 11/17/18 17:18 INR 1.01 (0.87-1.13) 11/17/18 17:18 APTT 23.4 Sec. (24.2-36.6) L 11/17/18 17:18 Sodium 132 mmol/L (137-145) L 11/18/18 05:44 Potassium 6.0 mmol/L (3.6-5.0) H D 11/18/18 05:44 Chloride 89.2 mmol/L (98-107) L 11/18/18 05:44 Carbon Dioxide 25 mmol/L (22-30) 11/18/18 05:44 Anion Gap 24 mmol/L 11/18/18 05:44 BUN 29 mg/dL (7-17) H 11/18/18 05:44 Creatinine 1.5 mg/dL (0.7-1.2) H 11/18/18 05:44 Estimated GFR 43 ml/min 11/18/18 05:44 BUN/Creatinine Ratio 19 % 11/18/18 05:44 Glucose 446 mg/dL (65-100) H 11/18/18 05:44 POC Glucose 365 (70-105) H 11/18/18 06:01 Calcium 9.1 mg/dL (8.4-10.2) 11/18/18 05:44 Total Bilirubin 0.30 mg/dL (0.1-1.2) 11/17/18 17:18 Direct Bilirubin < 0.2 mg/dL (0-0.2) 11/17/18 17:18 Indirect Bilirubin 0.1 mg/dL 11/17/18 17:18 AST 31 units/L (5-40) 11/17/18 17:18 ALT 31 units/L (7-56) 11/17/18 17:18 Alkaline Phosphatase 54 units/L (35-129) 11/17/18 17:18 Troponin T < 0.010 ng/mL (0.00-0.029) 11/18/18 05:44 NT-Pro-B Natriuret Pep 106.0 pg/mL (0-900) 11/18/18 05:44 Total Protein 7.6 g/dL (6.3-8.2) 11/17/18 17:18 Albumin 4.9 g/dL (3.9-5) 11/17/18 17:18 Albumin/Globulin Ratio 1.8 % 11/17/18 17:18 Urine Color Straw (Yellow) 11/17/18 19:20 Urine Turbidity Clear (Clear) 11/17/18 19:20 Urine pH 5.0 (5.0-7.0) 12/31/18 19:20 Ur Specific [place] 1.006 (1.003-1.030) 11/17/18 19:20 Urine Protein <15 mg/dl mg/dL (Negative) 11/17/18 19:20 Urine Glucose (UA) Neg mg/dL (Negative) 11/17/18 19:20 Urine Ketones Neg mg/dL (Negative) 11/17/18 19:20 Urine Blood Neg (Negative) 11/17/18 19:20 Urine Nitrite Neg (Negative) 11/17/18 19:20 Urine Bilirubin Neg (Negative) 11/17/18 19:20 Urine Urobilinogen < 2.0 mg/dL (<2.0) 11/17/18 19:20 Ur Leukocyte Esterase Neg (Negative) 11/17/18 19:20 Urine WBC (Auto) 1.0 /HPF (0.0-6.0) 11/17/18 19:20 Urine RBC (Auto) 3.0 /HPF (0.0-6.0) 11/17/18 19:20 U Epithel Cells (Auto) 3.0 /HPF (0-13.0) 11/17/18 19:20 Urine Mucus Few /HPF 11/17/18 19:20
--- NOTE | 2018-11-18 09:43 | Consultation ---
History of Present Illness Consult date: 11/18/18 Consult reason: shortness of breath History of present illness: Patient is a 58 yo black woman with a history of HTN, CVA with LHP, DC, CHF, EF 56% on stress test in 2017 with no sig ischemia or necrosis, DM, GERD, HLD,former smoker having quit 2 yr ago, Obesity, CAD,>?s/p remote mi,COPD on 2 liters of home O2 who presents severe constant progressive worsening sob x 3 days associated with nonproductive cough. Currently states she hurts all over.She was here in September for chest pains and she also has been to [facility] for similar symptoms in October 2018. ECG demonstrates sinus rhythm with no acute changes Past History Past Medical History: other (see hpi) Social history: denies: smoking (former smoker) Family history: CAD, stroke Medications and Allergies Allergies Allergy/AdvReac Type Severity Reaction Status Date / Time Penicillins Allergy Mild Rash Verified 09/18/18 13:37 latex Allergy Unknown Unknown Verified 01/24/18 09:36 green tomato Allergy Rash Uncoded 01/24/18 09:36 Home Medications Medication Instructions Recorded Confirmed Last Taken Type Albuterol Sulfate [Proventil HFA] 1 - 2 puff IH Q4H PRN 08/01/13 11/17/18 09/18/18 History Budesoni/Formotero 160-4.5(Nf) 2 puff IH BID 08/01/13 11/17/18 09/18/18 History [Symbicort 160-4.5 (Nf)] Insulin NPH/Regular [NovoLIN 70/30] 150 unit SQ QPM 08/16/17 11/17/18 09/17/18 History Insulin NPH/Regular [NovoLIN 70/30] 200 unit SQ QAM 08/16/17 11/17/18 09/17/18 History Aspirin [Adult Low Dose Aspirin EC] 81 mg PO DAILY #30 tablet. 08/20/17 11/17/18 09/18/18 Rx Clopidogrel [Plavix] 75 mg PO QDAY #30 tablet 08/20/17 11/17/18 09/18/18 Rx Fluticasone [Flonase] 1 spray NS QDAY 11/17/18 11/17/18 Unknown History ISOSORBIDE MONOnitrate [Imdur ER] 30 mg PO DAILY 11/17/18 11/17/18 Unknown History Lisinopril [Prinivil] 10 mg PO DAILY 11/17/18 11/17/18 Unknown History Metoprolol Succinate [Toprol Xl] 25 mg PO DAILY 11/17/18 11/17/18 Unknown History NIFEdipine [Procardia] 3 tab PO DAILY 11/17/18 11/17/18 Unknown History Nitroglycerin [Nitrostat] 0.4 mg SL Q5MIN PRN 11/17/18 11/17/18 Unknown History Potassium Chloride [Klor-Con M20] 1 tab PO DAILY 11/17/18 11/17/18 Unknown History Rosuvastatin (Nf) [Crestor] 2 tab PO DAILY 11/17/18 11/17/18 Unknown History Torsemide [Demadex] 100 mg PO QDAY 11/17/18 11/17/18 Unknown History Active Meds: Active Medications Acetaminophen (Tylenol) 650 mg PO Q6H PRN PRN Reason: Non Cardiac Pain or Temp>100.5 Last Admin: 11/18/18 01:51 Dose: 650 mg Documented by: Albuterol/Ipratropium (Duoneb *Not For Prn Use*) 1 ampul IH TIDRT [facility] Arformoterol Tartrate (Brovana Nebu) 15 mcg IH Q12HRT [facility] Aspirin (Halfprin Ec) 81 mg PO DAILY [facility] Atorvastatin Calcium (Lipitor) 80 mg PO QHS [facility] Budesonide (Pulmicort) 1 mg IH Q12HRT [facility] Clopidogrel Bisulfate (Plavix) 75 mg PO QDAY [facility] Fluticasone Propionate (Flonase) 50 mcg NS QDAY [facility] Heparin Sodium (Porcine) (Heparin) 5,000 unit SUB-Q Q12HR [facility] Levofloxacin/Dextrose (Levaquin 750mg/150ml) 750 mg in 150 mls @ 100 mls/hr IV Q24HR [facility]; Protocol Calcium Chloride 1,000 mg/ (Sodium Chloride) 110 mls @ 660 mls/hr IV ONCE ONE Stop: 11/18/18 10:09 Isosorbide Mononitrate (Imdur) 30 mg PO DAILY [facility] Lisinopril (Zestril) 10 mg PO DAILY [facility] Methylprednisolone Sodium Succinate (Solu-Medrol) 40 mg IV Q8H [facility] Last Admin: 11/18/18 01:51 Dose: 40 mg Documented by: Metoprolol Succinate (Toprol Xl) 25 mg PO DAILY [facility] Torsemide (Demadex) 100 mg PO QDAY [facility] Review of Systems Constitutional: no fever, no chills Eyes: bilateral: blurred vision (denies) Ears, nose, mouth and throat: no epistaxis Cardiovascular: no chest pain, no syncope Respiratory: shortness of breath, no hemoptysis Gastrointestinal: no abdominal pain Genitourinary Female: no flank pain Musculoskeletal: other (pain all over) Integumentary: no rash Neurological: no paralysis Psychiatric: no anxiety Endocrine: no cold intolerance, no heat intolerance Hematologic/Lymphatic: no easy bruising Allergic/Immunologic: no urticaria Physical Examination Vital Signs Temp Pulse Resp BP Pulse Ox 97.5 F L 79 22 112/41 100 11/17/18 17:01 11/17/18 17:01 11/17/18 17:01 11/17/18 17:01 11/17/18 17:01 General appearance: no acute distress HEENT: Positive: PERRL, Normocephaly Neck: Positive: neck supple, Carotid Upstroke (normal bilat). Negative: JVD/HJR, Bruit Cardiac: Positive: Reg Rate and Rhythm. Negative: S3 Lungs: Positive: Decreased Breath Sounds Neuro: Positive: Grossly Intact Abdomen: Positive: Soft. Negative: Tender Skin: Negative: Rash Extremities: Present: Other (periph pulses intact). Absent: edema Results 11/18/18 05:44 11/18/18 05:44 Cardiac Enzymes 11/17/18 Range/Units 17:18 AST 31 (5-40) units/L Coagulation 11/17/18 Range/Units 17:18 PT 13.7 (12.2-14.9) Sec. INR 1.01 (0.87-1.13) APTT 23.4 L (24.2-36.6) Sec. CBC 11/17/18 11/18/18 Range/Units 17:18 05:44 WBC 7.5 8.3 (4.5-11.0) K/mm3 RBC 4.67 4.43 (3.65-5.03) M/mm3 Hgb 12.8 12.2 (10.1-14.3) gm/dl Hct 38.9 36.8 (30.3-42.9) % Plt Count 253 260 (140-440) K/mm3 Lymph # 3.0 (1.2-5.4) K/mm3 [place] # 0.6 (0.0-0.8) K/mm3 Eos # 0.3 (0.0-0.4) K/mm3 Baso # 0.1 (0.0-0.1) K/mm3 Comprehensive Metabolic Panel 11/17/18 11/17/18 11/18/18 Range/Units 17:18 17:18 05:44 Sodium 137 132 L (137-145) mmol/L Potassium 4.3 6.0 H D (3.6-5.0) mmol/L Chloride 93.9 L 89.2 L (98-107) mmol/L Carbon Dioxide 30 25 (22-30) mmol/L BUN 20 H 29 H (7-17) mg/dL Creatinine 1.1 1.5 H (0.7-1.2) mg/dL Glucose 96 446 H (65-100) mg/dL Calcium 9.8 9.1 (8.4-10.2) mg/dL Direct Bilirubin < 0.2 (0-0.2) mg/dL Indirect Bilirubin 0.1 mg/dL AST 31 (5-40) units/L ALT 31 (7-56) units/L Alkaline Phosphatase 54 (35-129) units/L Total Protein 7.6 (6.3-8.2) g/dL Albumin 4.9 (3.9-5) g/dL Assessment and Plan pts sob appears to be resp in origin diastolic lv dysfunction could be a contributing factor given morbid obesity agree with current mgt agree with pulm consult
[2018-11-18] MEDS ORDERED: ROSUVASTATIN PO SCH (10:00)
[2018-11-18] MEDS ORDERED: CALCIUM CHLORIDE 1,000 MG in NACL 0.9% 100 ML IV ONE (10:00)
[2018-11-18] MEDS ORDERED: DEMADEX PO SCH (10:00)
[2018-11-18] MEDS ORDERED: K-DUR PO SCH (10:00)
[2018-11-18] MEDS ORDERED: NON-FORMULARY (Budesoni/Formotero 160-4.5(Nf) 2 PUFF) IH SCH (10:00)
[2018-11-18] MEDS: BROVANA NEBU IH SCH ×2 (10:08→21:21)
[2018-11-18] MEDS: PULMICORT IH SCH ×2 (10:09→21:21)
[2018-11-18] MEDS: DUONEB *Not for PRN Use IH SCH ×3 (10:09→21:23)
[2018-11-18] MEDS: FLONASE NS SCH (12:04)
[2018-11-18] MEDS: PLAVIX PO SCH (12:07)
[2018-11-18] MEDS: HumaLOG SUB-Q SCH ×3 (13:00→22:15)
[2018-11-18] MEDS ORDERED: KIONEX PO ONE (13:00)
[2018-11-18] MEDS: ZESTRIL PO SCH (13:10)
[2018-11-18] MEDS: IMDUR PO SCH (13:11)
[2018-11-18] MEDS: HALFPRIN EC PO SCH (13:11)
[2018-11-18] MEDS: LEVAQUIN 750MG/150ML 750 MG/150 ML BAG IV SCH (13:16)
[2018-11-18] MEDS: TOPROL XL PO SCH (13:48)
[2018-11-18] MEDS: KIONEX PO ONE ×2 (13:49→15:58)
[2018-11-18] MEDS: MORPHINE IV PRN (16:30)
[2018-11-18] MEDS: MILK OF MAGNESIA PO PRN (22:14)
[2018-11-19] MEDS ORDERED: D50W (25GM) Syringe IV PRN ×2 (00:16→00:20)
[2018-11-19] MEDS: HumaLOG SUB-Q SCH ×5 (00:54→21:35)
[2018-11-19] MEDS: HEPARIN SUB-Q SCH ×3 (00:54→21:29)
[2018-11-19] MEDS: SOLU-Medrol IV SCH ×3 (01:03→20:54)
[2018-11-19 06:14] LABS: Calcium 8.9 mg/dL (8.4-10.2)
[2018-11-19] MEDS: LEVAQUIN 750MG/150ML 750 MG/150 ML BAG IV SCH (09:31)
[2018-11-19] MEDS: HALFPRIN EC PO SCH (09:32)
[2018-11-19] MEDS: TOPROL XL PO SCH (09:32)
[2018-11-19] MEDS: IMDUR PO SCH (09:32)
[2018-11-19] MEDS: PLAVIX PO SCH (09:32)
[2018-11-19] MEDS: ZESTRIL PO SCH (09:32)
[2018-11-19] MEDS: FLONASE NS SCH (09:33)
[2018-11-19] MEDS: PULMICORT IH SCH ×2 (09:46→21:13)
[2018-11-19] MEDS: BROVANA NEBU IH SCH ×2 (09:46→21:13)
[2018-11-19] MEDS: DUONEB *Not for PRN Use IH SCH ×3 (09:46→21:13)
--- NOTE | 2018-11-19 12:14 | Progress Note ---
Assessment and Plan Assessment: Dyspnea Pulmonary nodules HTN CAD s/p PCI to the ostial LAD in 12/2017 DM Obesity COPD ALEXANDER H/o CVA Plan: s/p lexiscan MPI stress test 09/19/2018 which was negative. Echo done 02/2018 showed EF 45-50%, grade 2 diastolic dysfunction, trace MR. pts sob appears to be resp in origin. chest CTA shows interval development of pleural based nodular densities in lower lobes bilaterally, L>R. diastolic lv dysfunction could be a contributing factor given morbid obesity agree with current mgt agree with pulm consult The patient has been seen in conjunction with Dr. De León who agree with the assessment and plan of care. Subjective Date of service: 11/19/18 Principal diagnosis: dyspnea Interval history: pt resting comfortably in bed, states SOB improving. Objective Last Vital Signs Temp 98.2 F 11/19/18 11:15 Pulse 67 11/19/18 11:15 Resp 20 11/19/18 11:15 BP 142/45 11/19/18 11:15 Pulse Ox 98 11/19/18 11:15 - Physical Examination General: No Apparent Distress HEENT: Positive: PERRL, Normocephaly Neck: Positive: neck supple, Carotid Upstroke (normal bilat). Negative: JVD/HJR, Bruit Cardiac: Positive: Reg Rate and Rhythm, S1/S2 Lungs: Positive: Decreased Breath Sounds Neuro: Positive: Grossly Intact Abdomen: Positive: Soft. Negative: Tender Skin: Negative: Rash Extremities: Present: Other (periph pulses intact). Absent: edema - Labs and Meds Comprehensive Metabolic Panel 11/19/18 Range/Units 05:07 Sodium 132 L (137-145) mmol/L Potassium 5.1 H (3.6-5.0) mmol/L Chloride 91.1 L (98-107) mmol/L Carbon Dioxide 25 (22-30) mmol/L BUN 36 H (7-17) mg/dL Creatinine 1.5 H (0.7-1.2) mg/dL Glucose 478 H (65-100) mg/dL Calcium 8.9 (8.4-10.2) mg/dL - Imaging and Cardiology EKG: report reviewed, image reviewed Echo: report reviewed ( 02/2018 showed EF 45-50%, grade 2 diastolic dysfunction, trace MR. ) Cardiac cath: report reviewed (PCI to the ostial LAD in 12/2017)
--- NOTE | 2018-11-19 12:37 | Progress Note ---
Assessment and Plan Assessment and plan: Laboratory lipase 58-year-old female patient was admitted through emergency room with worsening shortness of breath, acute on chronic diastolic congestive heart failure, uncontrolled blood sugars. Patient is on very high doses of 7030 insulin at home Patient is noncompliant with diet, optimize insulin dose, A1c 10.2 Symptoms slightly improved, possible discharge home in 1-2 days if stable with a home health nurse Assessment and plan: --Type 2 diabetes mellitus; patient is on high doses of long-acting insulin at home [70/30 insulin 200 units a.m., 150 units p.m.] Noncompliant with diet, eats a lot of outside food, increase 70/30 to 100 units twice a day Advised to comply with diet and exercise, HbA1c 10.2 --Chronic Hypoxic Respiratory Failure; Due to COPD exacerbation, o2,nebulizers, tapering IV steroids, IV antibiotics --Acute on chronic diastolic congestive heart failure;LVEF 56%[09/2018] Continue anti-failure medications, cardiology following Patient had negative recent stress test 2 months ago Negative heart cath one year ago, symptoms significantly improved --Hyperkalemia; calcium chloride, Kayexalate,Improved --Pseudohyponatremia; secondary to hyperglycemia Optimize medications, follow electrolytes --Acute kidney injury; due to vasomotor nephropathy Hold diuretics, closely monitor renal function, avoid nephrotoxins --Hypertension; moderate control, continue current antihypertensives and when necessary medications --Morbid obesity; BMI 44.6, advised diet modification, weight reduction when stable --DVT prophylaxis; Lovenox Closely monitor the patient and adjust management as needed Plan of care reviewed with the patient and her nurse History Interval history: Patient seen and examined medical records reviewed Patient feels slightly better The patient has stable from a fall outside food Blood sugars uncontrolled, optimize insulin dose Alert awake oriented 3 Vital signs noted Hospitalist Physical - Constitutional Vitals: Temp Pulse Resp BP Pulse Ox 98.2 F 67 20 142/45 98 11/19/18 11:15 11/19/18 11:15 11/19/18 11:15 11/19/18 11:15 11/19/18 11:15 General appearance: Present: no acute distress, obese (morbidly obese) - EENT Eyes: Present: PERRL, EOM intact - Neck Neck: Present: supple, normal ROM - Respiratory Respiratory effort: normal Respiratory: bilateral: diminished, negative: rales, rhonchi, wheezing - Cardiovascular Rhythm: regular Heart Sounds: Present: S1 & S2 - Extremities Extremities: no ischemia, No edema - Abdominal General gastrointestinal: soft, non-tender, non-distended, normal bowel sounds - Integumentary Integumentary: Present: clear, warm - Psychiatric Psychiatric: appropriate mood/affect, cooperative - Neurologic Neurologic: CNII-XII intact, moves all extremities Results - Labs CBC & Chem 7: 11/18/18 05:44 11/19/18 05:07 Labs: Laboratory Last Values WBC 8.3 K/mm3 (4.5-11.0) 11/18/18 05:44 RBC 4.43 M/mm3 (3.65-5.03) 11/18/18 05:44 Hgb 12.2 gm/dl (10.1-14.3) 11/18/18 05:44 Hct 36.8 % (30.3-42.9) 11/18/18 05:44 MCV 83 fl (79-97) 11/18/18 05:44 MCH 28 pg (28-32) 11/18/18 05:44 MCHC 33 % (30-34) 11/18/18 05:44 RDW 14.0 % (13.2-15.2) 11/18/18 05:44 Plt Count 260 K/mm3 (140-440) 11/18/18 05:44 Lymph % (Auto) 40.5 % (13.4-35.0) H 11/17/18 17:18 [place] % (Auto) 8.3 % (0.0-7.3) H 11/17/18 17:18 Eos % (Auto) 3.7 % (0.0-4.3) 11/17/18 17:18 Baso % (Auto) 0.7 % (0.0-1.8) 11/17/18 17:18 Lymph # 3.0 K/mm3 (1.2-5.4) 11/17/18 17:18 [place] # 0.6 K/mm3 (0.0-0.8) 11/17/18 17:18 Eos # 0.3 K/mm3 (0.0-0.4) 11/17/18 17:18 Baso # 0.1 K/mm3 (0.0-0.1) 11/17/18 17:18 Seg Neutrophils % 46.8 % (40.0-70.0) 11/17/18 17:18 Seg Neutrophils # 3.5 K/mm3 (1.8-7.7) 11/17/18 17:18 PT 13.7 Sec. (12.2-14.9) 11/17/18 17:18 INR 1.01 (0.87-1.13) 11/17/18 17:18 APTT 23.4 Sec. (24.2-36.6) L 11/17/18 17:18 Sodium 132 mmol/L (137-145) L 11/19/18 05:07 Potassium 5.1 mmol/L (3.6-5.0) H 11/19/18 05:07 Chloride 91.1 mmol/L (98-107) L 11/19/18 05:07 Carbon Dioxide 25 mmol/L (22-30) 11/19/18 05:07 Anion Gap 21 mmol/L 11/19/18 05:07 BUN 36 mg/dL (7-17) H 11/19/18 05:07 Creatinine 1.5 mg/dL (0.7-1.2) H 11/19/18 05:07 Estimated GFR 43 ml/min 11/19/18 05:07 BUN/Creatinine Ratio 24 % 11/19/18 05:07 Glucose 478 mg/dL (65-100) H 11/19/18 05:07 POC Glucose 342 (70-105) H 11/19/18 11:05 Hemoglobin A1c 10.2 % (4-6) H 11/19/18 05:07 Calcium 8.9 mg/dL (8.4-10.2) 11/19/18 05:07 Total Bilirubin 0.30 mg/dL (0.1-1.2) 11/17/18 17:18 Direct Bilirubin < 0.2 mg/dL (0-0.2) 11/17/18 17:18 Indirect Bilirubin 0.1 mg/dL 11/17/18 17:18 AST 31 units/L (5-40) 11/17/18 17:18 ALT 31 units/L (7-56) 11/17/18 17:18 Alkaline Phosphatase 54 units/L (35-129) 11/17/18 17:18 Troponin T < 0.010 ng/mL (0.00-0.029) 11/18/18 05:44 NT-Pro-B Natriuret Pep 106.0 pg/mL (0-900) 11/18/18 05:44 Total Protein 7.6 g/dL (6.3-8.2) 11/17/18 17:18 Albumin 4.9 g/dL (3.9-5) 11/17/18 17:18 Albumin/Globulin Ratio 1.8 % 11/17/18 17:18 Urine Color Straw (Yellow) 11/17/18 19:20 Urine Turbidity Clear (Clear) 11/17/18 19:20 Urine pH 5.0 (5.0-7.0) 11/17/18 19:20 Ur Specific [place] 1.006 (1.003-1.030) 11/17/18 19:20 Urine Protein <15 mg/dl mg/dL (Negative) 11/17/18 19:20 Urine Glucose (UA) Neg mg/dL (Negative) 11/17/18 19:20 Urine Ketones Neg mg/dL (Negative) 11/17/18 19:20 Urine Blood Neg (Negative) 11/17/18 19:20 Urine Nitrite Neg (Negative) 11/17/18 19:20 Urine Bilirubin Neg (Negative) 11/17/18 19:20 Urine Urobilinogen < 2.0 mg/dL (<2.0) 11/17/18 19:20 Ur Leukocyte Esterase Neg (Negative) 11/17/18 19:20 Urine WBC (Auto) 1.0 /HPF (0.0-6.0) 11/17/18 19:20 Urine RBC (Auto) 3.0 /HPF (0.0-6.0) 11/17/18 19:20 U Epithel Cells (Auto) 3.0 /HPF (0-13.0) 11/17/18 19:20 Urine Mucus Few /HPF 11/17/18 19:20
--- NOTE | 2018-11-19 19:11 | Consultation ---
History of Present Illness Consult date: 11/19/18 Reason for consult: dyspnea, cough, chest pain, COPD History of present illness: PULMONARY CONSULTATION DR. ESCOBAR THANK YOU FOR ASKING US TO PARTICIPATE IN THE CARE OF THIS PATIENT. Patient is a 58 yo black woman with a history of HTN, CVA with LHP, ID, CHF, EF 56% on stress test in 2017, DM, GERD, HLD, Nicotine Dependence, Obesity, CAD and end stage COPD on 2 liters of home O2 who presents severe constant progressive worsening sob x 3 days associated with nonproductive cough, bilateral jaw pains, decrease urinary outpatient. She denies chest pains . She was here in September for chest pains and she also has been to [facility] for similar symptoms in October 2018. Also there is not aggravating or relieving factors to the sob. Pt denies fever, chills, palpitation, productive cough, BRBPR, Syncope, hemoptysis, prolonged immobility/travel, individual/family history of DVT/PE, or recent ill contacts. PATIENT HAS HISTORY OF SMOKING 1 PACK A DAY X 20 YEARS. Stopped smoking 2 years ago. History of drug abuse. Stopped many years ago. Denies alcohol abuse. 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 Allergic to pencillin and Latex. CHEST XRAY DONE 11/17/18 IMPRESSION: 1. Prominence of the interstitial markings with evidence of pulmonary emphysema both lungs similar in appearance to the previous studies. 2. No definite evidence of an acute pulmonary process. If further imaging is required, CT may be helpful. 3. Enlarged cardiac silhouette not significantly changed. CT ANGIO OF CHEST DONE 11/17/18 IMPRESSION: 1. Pulmonary emphysema. 2. Interval development of pleural based nodular densities lower lobes romana aterally, left greater than right. Infectious and noninfectious etiologies need to be considered. If these are considered to be infectious in etiology, follow-up to resolution is recommended. If these are not considered to be infectious in etiology, further evaluation is recommended. 3. No evidence of pulmonary artery emboli. 4. Cardiomegaly with evidence of coronary artery stents. 5. Gallstone within the gallbladder. Past History Past Medical History: CAD, COPD, other (see hpi) Social history: smoking Family history: CAD, stroke Medications and Allergies Allergies Allergy/AdvReac Type Severity Reaction Status Date / Time Penicillins Allergy Mild Rash Verified 09/18/18 13:37 latex Allergy Unknown Unknown Verified 01/24/18 09:36 green tomato Allergy Rash Uncoded 01/24/18 09:36 Home Medications Medication Instructions Recorded Confirmed Last Taken Type Albuterol Sulfate [Proventil HFA] 1 - 2 puff IH Q4H PRN 08/01/13 11/17/18 09/18/18 History Budesoni/Formotero 160-4.5(Nf) 2 puff IH BID 08/01/13 11/17/18 09/18/18 History [Symbicort 160-4.5 (Nf)] Insulin NPH/Regular [NovoLIN 70/30] 150 unit SQ QPM 08/16/17 11/17/18 09/17/18 History Insulin NPH/Regular [NovoLIN 70/30] 200 unit SQ QAM 08/16/17 11/17/18 09/17/18 History Aspirin [Adult Low Dose Aspirin EC] 81 mg PO DAILY #30 tablet. 08/20/17 11/17/18 09/18/18 Rx Clopidogrel [Plavix] 75 mg PO QDAY #30 tablet 08/20/17 11/17/18 09/18/18 Rx Fluticasone [Flonase] 1 spray NS QDAY 11/17/18 11/17/18 Unknown History ISOSORBIDE MONOnitrate [Imdur ER] 30 mg PO DAILY 11/17/18 11/17/18 Unknown History Lisinopril [Prinivil] 10 mg PO DAILY 11/17/18 11/17/18 Unknown History Metoprolol Succinate [Toprol Xl] 25 mg PO DAILY 11/17/18 11/17/18 Unknown History NIFEdipine [Procardia] 3 tab PO DAILY 11/17/18 11/17/18 Unknown History Nitroglycerin [Nitrostat] 0.4 mg SL Q5MIN PRN 11/17/18 11/17/18 Unknown History Potassium Chloride [Klor-Con M20] 1 tab PO DAILY 11/17/18 11/17/18 Unknown History Rosuvastatin (Nf) [Crestor] 2 tab PO DAILY 11/17/18 11/17/18 Unknown History Torsemide [Demadex] 100 mg PO QDAY 11/17/18 11/17/18 Unknown History Active Meds: Active Medications Acetaminophen (Tylenol) 650 mg PO Q6H PRN PRN Reason: Non Cardiac Pain or Temp>100.5 Last Admin: 11/18/18 01:51 Dose: 650 mg Documented by: Albuterol/Ipratropium (Duoneb *Not For Prn Use*) 1 ampul IH TIDRT [facility] Last Admin: 11/19/18 14:54 Dose: 1 ampul Documented by: Arformoterol Tartrate (Brovana Nebu) 15 mcg IH Q12HRT [facility] Last Admin: 11/19/18 09:46 Dose: 15 mcg Documented by: Aspirin (Halfprin Ec) 81 mg PO DAILY [facility] Last Admin: 11/19/18 09:32 Dose: 81 mg Documented by: Atorvastatin Calcium (Lipitor) 80 mg PO QHS [facility] Last Admin: 11/18/18 22:14 Dose: 80 mg Documented by: Budesonide (Pulmicort) 1 mg IH Q12HRT [facility] Last Admin: 11/19/18 09:46 Dose: 1 mg Documented by: Clopidogrel Bisulfate (Plavix) 75 mg PO QDAY [facility] Last Admin: 11/19/18 09:32 Dose: 75 mg Documented by: Dextrose (D50w (25gm) Syringe) 50 ml IV PRN PRN PRN Reason: Hypoglycemia Fluticasone Propionate (Flonase) 50 mcg NS QDAY [facility] Last Admin: 11/19/18 09:33 Dose: 50 mcg Documented by: Heparin Sodium (Porcine) (Heparin) 5,000 unit SUB-Q Q12HR [facility] Last Admin: 11/19/18 09:32 Dose: 5,000 unit Documented by: Levofloxacin/Dextrose (Levaquin 750mg/150ml) 750 mg in 150 mls @ 100 mls/hr IV Q24HR [facility]; Protocol Last Admin: 11/19/18 09:31 Dose: 100 mls/hr Documented by: Insulin Human Isoph/Insulin Regular (Humulin 70/30) 100 unit SUB-Q BIDDIAB [facility] Insulin Human Lispro (Humalog) 0 unit SUB-Q ACHS [facility]; Protocol Last Admin: 11/19/18 17:13 Dose: 10 unit Documented by: Isosorbide Mononitrate (Imdur) 30 mg PO DAILY [facility] Last Admin: 11/19/18 09:32 Dose: 30 mg Documented by: Lisinopril (Zestril) 10 mg PO DAILY [facility] Last Admin: 11/19/18 09:32 Dose: 10 mg Documented by: Magnesium Hydroxide (Milk Of Magnesia) 30 ml PO QDAY PRN PRN Reason: Constipation Last Admin: 11/18/18 22:14 Dose: 30 ml Documented by: Methylprednisolone Sodium Succinate (Solu-Medrol) 40 mg IV Q12H [facility] Metoprolol Succinate (Toprol Xl) 25 mg PO DAILY [facility] Last Admin: 11/19/18 09:32 Dose: 25 mg Documented by: Morphine Sulfate (Morphine) 2 mg IV Q6HR PRN PRN Reason: Pain, Moderate (4-6) Last Admin: 11/18/18 16:30 Dose: 2 mg Documented by: Review of Systems All systems: negative Physical Examination Vital signs: Vital Signs Temp Pulse Resp BP Pulse Ox 97.5 F L 79 22 112/41 100 11/17/18 17:01 11/17/18 17:01 11/17/18 17:01 11/17/18 17:01 11/17/18 17:01 General appearance: no acute distress, alert Eyes: non-icteric ENT: oropharynx moist Neck: supple, no JVD Ascultation: Bilateral: diminished breath sounds Cardiovascular: regular rate and rhythm Gastrointestinal: normoactive bowel sounds, soft, non-tender Integumentary: normal Extremities: no cyanosis, no edema, pink and warm Musculoskeletal: no deformities Gait: poor gait normal mental status, non-focal exam, pupils equal and round, CN II-XII normal anxious Results - Laboratory Findings CBC and BMP: 11/18/18 05:44 11/19/18 05:07 PT/INR, D-dimer PT 13.7 Sec. (12.2-14.9) 11/17/18 17:18 INR 1.01 (0.87-1.13) 11/17/18 17:18 Abnormal lab findings: Abnormal Labs 11/17/18 11/17/18 11/17/18 17:18 17:18 17:18 MCH 27 L Lymph % (Auto) 40.5 H [place] % (Auto) 8.3 H APTT 23.4 L Sodium Potassium Chloride 93.9 L BUN 20 H Creatinine Glucose POC Glucose Hemoglobin A1c 11/18/18 11/18/18 11/18/18 05:44 06:01 11:42 MCH Lymph % (Auto) [place] % (Auto) APTT Sodium 132 L Potassium 6.0 H D Chloride 89.2 L BUN 29 H Creatinine 1.5 H Glucose 446 H POC Glucose 365 H 429 H Hemoglobin A1c 11/18/18 11/18/18 11/18/18 16:21 20:46 23:47 MCH Lymph % (Auto) [place] % (Auto) APTT Sodium Potassium Chloride BUN Creatinine Glucose POC Glucose 406 H 433 H 359 H Hemoglobin A1c 11/19/18 11/19/18 11/19/18 05:07 05:07 05:44 MCH Lymph % (Auto) [place] % (Auto) APTT Sodium 132 L Potassium 5.1 H Chloride 91.1 L BUN 36 H Creatinine 1.5 H Glucose 478 H POC Glucose 385 H Hemoglobin A1c 10.2 H 11/19/18 11/19/18 11:05 16:00 MCH Lymph % (Auto) [place] % (Auto) APTT Sodium Potassium Chloride BUN Creatinine Glucose POC Glucose 342 H 425 H Hemoglobin A1c - Diagnostic Findings Chest x-ray: report reviewed, image reviewed CT scan - chest: report reviewed, image reviewed Assessment and Plan Patient is a 58 yo black woman with a history of HTN, CVA with LHP, ID, CHF, EF 56% on stress test in 2017, DM, GERD, HLD, Nicotine Dependence, Obesity, CAD and end stage COPD on 2 liters of home O2 who presents severe constant progressive worsening sob x 3 days associated with nonproductive cough, bilateral jaw pains, decrease urinary outpatient. She denies chest pains . She was here in September for chest pains and she also has been to [facility] for similar symptoms in October 2018. Also there is not aggravating or relieving factors to the sob. Pt denies fever, chills, palpitation, productive cough, BRBPR, Syncope, hemoptysis, prolonged immobility/travel, individual/family history of DVT/PE, or recent ill contacts. PATIENT HAS HISTORY OF SMOKING 1 PACK A DAY X 20 YEARS. Stopped smoking 2 years ago. History of drug abuse. Stopped many years ago. Denies alcohol abuse. 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 Allergic to pencillin and Latex. CHEST XRAY DONE 11/17/18 IMPRESSION: 1. Prominence of the interstitial markings with evidence of pulmonary emphysema both lungs similar in appearance to the previous studies. 2. No definite evidence of an acute pulmonary process. If further imaging is required, CT may be helpful. 3. Enlarged cardiac silhouette not significantly changed. CT ANGIO OF CHEST DONE 11/17/18 IMPRESSION: 1. Pulmonary emphysema. 2. Interval development of pleural based nodular densities lower lobes bilaterally, left greater than right. Infectious and noninfectious etiologies need to be considered. If these are considered to be infectious in etiology, follow-up to resolution is recommended. If these are not considered to be infectious in etiology, further evaluation is recommended. 3. No evidence of pulmonary artery emboli. 4. Cardiomegaly with evidence of coronary artery stents. 5. Gallstone within the gallbladder. - Patient Problems (1) COPD (chronic obstructive pulmonary disease) Current Visit: Yes Status: Acute Qualifiers: COPD type: unspecified COPD Qualified Code(s): J44.9 - Chronic obstructive pulmonary disease, unspecified Plan to address problem: O2 2 litres via nasal canula. Albuterol/atrovent aerosol treatments q 6 hours Continue I/V solumedrol. Continue S/C Heparin. Recommend Famotidine. Continue Levaquin. (2) CHF (congestive heart failure) Current Visit: Yes Status: Acute Qualifiers: Heart failure type: unspecified Heart failure chronicity: unspecified Qualified Code(s): I50.9 - Heart failure, unspecified Plan to address problem: Management as per cardiology. (3) Acute chest pain Current Visit: No Status: Acute Plan to address problem: Management as per cardiology. (4) Acute respiratory failure Current Visit: No Status: Acute Plan to address problem: O2 2 litres via nasal canula. Albuterol/atrovent aerosol treatments q 6 hours Continue I/V solumedrol. Continue S/C Heparin. Recommend Famotidine Continue levaquin. (5) Lung nodules Current Visit: Yes Status: Acute Plan to address problem: Pleural based nodules. If no improvement after treatment, may consider percutaneous needle biopsy of chest lesion.
[2018-11-20] MEDS: SOLU-Medrol IV SCH ×2 (05:20→18:18)
[2018-11-20] MEDS: BROVANA NEBU IH SCH ×2 (07:41→20:15)
[2018-11-20] MEDS: PULMICORT IH SCH ×2 (07:41→20:15)
[2018-11-20] MEDS: MORPHINE IV PRN ×2 (08:29→18:18)
[2018-11-20] MEDS: DUONEB *Not for PRN Use IH SCH ×3 (08:38→20:16)
[2018-11-20] MEDS: HumaLOG SUB-Q SCH ×4 (08:38→21:32)
--- NOTE | 2018-11-20 09:31 | Progress Note ---
Assessment and Plan Acute on Chronic Hypoxic Respiratory Failure AE-COPD Acute on chronic diastolic congestive heart failure; LVEF 56%[09/2018] Hyperkalemia Hyponatremia Acute kidney injury Type 2 diabetes mellitus Hypertension Morbid obesity; BMI 44.6, -Continue supplemental oxygen therapy -Heart failure measures -VTE prophylaxis -Bronchodilators -Antibiotics for severe AE-COPD -Accucheck with glycemic control -Life style modifications and weight loss -Short steroid course in view of heart failure and poorly controlled DM. Inhaled/nebulized steroids -Medical management of hyperkalemia Subjective Date of service: 11/20/18 Principal diagnosis: dyspnea Interval history: 58-year-old female patient was admitted through emergency room with worsening shortness of breath. Admitted with acute on chronic diastolic congestive heart failure, uncontrolled blood sugars. Seen and examined. Vitals, labs, medications, chart reviewed. Continues to have shortness of breath, on supplemental oxygen but denies any chest pain at this time. States her care is received at [facility] and she is has an appointment for tomorrow, which she had to cancel. Was on home oxygen Objective Vital Signs - 12hr 11/19/18 11/19/18 11/20/18 21:37 23:59 04:33 Temperature 98.0 F 98.6 F Pulse Rate Pulse Rate [ 66 Anterior] Respiratory 17 18 Rate Respiratory 18 Rate [Anterior] Blood Pressure 132/67 121/53 O2 Sat by Pulse Oximetry 11/20/18 11/20/18 07:42 08:10 Temperature 98.4 F Pulse Rate 70 Pulse Rate [ 70 Anterior] Respiratory 20 Rate Respiratory 17 Rate [Anterior] Blood Pressure 137/60 O2 Sat by Pulse 99 98 Oximetry Constitutional: alert, appears uncomfortable Eyes: non-icteric ENT: oropharynx moist Neck: supple, no JVD Effort: mildly labored Ascultation: Bilateral: diminished breath sounds, wheezes (basilar on forced expiration) Cardiovascular: regular rate and rhythm, other (S1,S2) Gastrointestinal: normoactive bowel sounds, soft, non-tender Integumentary: normal Extremities: no cyanosis, no edema, pink and warm Neurologic: normal mental status, non-focal exam, pupils equal and round, CN II- XII normal Psychiatric: mood appropriate, affect normal CBC and BMP: 11/18/18 05:44 11/21/18 09:51 ABG, PT/INR, D-dimer: PT/INR, D-dimer PT 13.7 Sec. (12.2-14.9) 11/17/18 17:18 INR 1.01 (0.87-1.13) 11/17/18 17:18 Abnormal lab findings: Abnormal Labs 11/17/18 11/17/18 11/17/18 17:18 17:18 17:18 MCH 27 L Lymph % (Auto) 40.5 H [place] % (Auto) 8.3 H APTT 23.4 L Sodium Potassium Chloride 93.9 L BUN 20 H Creatinine Glucose POC Glucose Hemoglobin A1c 11/18/18 11/18/18 11/18/18 05:44 06:01 11:42 MCH Lymph % (Auto) [place] % (Auto) APTT Sodium 132 L Potassium 6.0 H D Chloride 89.2 L BUN 29 H Creatinine 1.5 H Glucose 446 H POC Glucose 365 H 429 H Hemoglobin A1c 11/18/18 11/18/18 11/18/18 16:21 20:46 23:47 MCH Lymph % (Auto) [place] % (Auto) APTT Sodium Potassium Chloride BUN Creatinine Glucose POC Glucose 406 H 433 H 359 H Hemoglobin A1c 11/19/18 11/19/18 11/19/18 05:07 05:07 05:44 MCH Lymph % (Auto) [place] % (Auto) APTT Sodium 132 L Potassium 5.1 H Chloride 91.1 L BUN 36 H Creatinine 1.5 H Glucose 478 H POC Glucose 385 H Hemoglobin A1c 10.2 H 11/19/18 11/19/18 11/19/18 11:05 16:00 21:35 MCH Lymph % (Auto) [place] % (Auto) APTT Sodium Potassium Chloride BUN Creatinine Glucose POC Glucose 342 H 425 H 305 H Hemoglobin A1c 11/20/18 06:33 MCH Lymph % (Auto) [place] % (Auto) APTT Sodium Potassium Chloride BUN Creatinine Glucose POC Glucose 279 H Hemoglobin A1c Chest x-ray: image reviewed Allied health notes reviewed: nursing
[2018-11-20] MEDS: TOPROL XL PO SCH (10:16)
[2018-11-20] MEDS: HEPARIN SUB-Q SCH ×2 (10:16→21:32)
[2018-11-20] MEDS: HALFPRIN EC PO SCH (10:16)
[2018-11-20] MEDS: LEVAQUIN 750MG/150ML 750 MG/150 ML BAG IV SCH (10:16)
[2018-11-20] MEDS: PLAVIX PO SCH (10:16)
[2018-11-20] MEDS: IMDUR PO SCH (10:16)
[2018-11-20] MEDS: ZESTRIL PO SCH (10:16)
[2018-11-20] MEDS: FLONASE NS SCH (10:17)
--- NOTE | 2018-11-20 10:26 | Progress Note ---
Assessment and Plan Assessment: Acute heart failure with preserved EF - nearing/at euvolemia Acute on chronic respiratory failure Pulmonary nodules MABEL HTN CAD s/p PCI to the ostial LAD in 12/2017 DM Obesity COPD ALEXANDER H/o CVA Plan: s/p lexiscan MPI stress test 09/19/2018 which was negative. Echo done 02/2018 showed EF 45-50%, grade 2 diastolic dysfunction, trace MR. Follow pulmonary recs. Agree with present cardiac management. Await repeat BMP. The patient has been seen in conjunction with Dr. De León who agree with the assessment and plan of care. Subjective Date of service: 11/20/18 Principal diagnosis: dyspnea Interval history: pt sitting comfortably at bedside, states SOB nearly resolved. Objective Last Vital Signs Temp 98.4 F 11/20/18 08:10 Pulse 70 11/20/18 08:10 Resp 20 11/20/18 08:10 BP 137/60 11/20/18 08:10 Pulse Ox 98 11/20/18 08:10 - Physical Examination General: No Apparent Distress HEENT: Positive: PERRL, Normocephaly Neck: Positive: neck supple, Carotid Upstroke (normal bilat). Negative: JVD/HJR, Bruit Cardiac: Positive: Reg Rate and Rhythm, S1/S2 Lungs: Positive: Decreased Breath Sounds Neuro: Positive: Grossly Intact Abdomen: Positive: Soft. Negative: Tender Skin: Negative: Rash Extremities: Present: Other (periph pulses intact). Absent: edema - Imaging and Cardiology EKG: report reviewed, image reviewed Echo: report reviewed ( 02/2018 showed EF 45-50%, grade 2 diastolic dysfunction, trace MR. ) Cardiac cath: report reviewed (PCI to the ostial LAD in 12/2017)
[2018-11-20 10:45] LABS: Calcium 8.9 mg/dL (8.4-10.2)
--- NOTE | 2018-11-20 15:30 | Progress Note ---
Subjective Date of service: 11/20/18 Principal diagnosis: dyspnea Objective - Constitutional Vitals: Vital Signs - 12hr 11/20/18 11/20/18 11/20/18 04:33 07:42 08:10 Temperature 98.6 F 98.4 F Pulse Rate 70 Pulse Rate [ 70 Anterior] Respiratory 18 20 Rate Respiratory 17 Rate [Anterior] Blood Pressure 121/53 137/60 O2 Sat by Pulse 99 98 Oximetry 11/20/18 11:05 Temperature 97.9 F Pulse Rate 71 Pulse Rate [ Anterior] Respiratory 20 Rate Respiratory Rate [Anterior] Blood Pressure 141/63 O2 Sat by Pulse 100 Oximetry - Labs CBC & Chem 7: 11/18/18 05:44 11/20/18 10:06 Labs: Abnormal lab results 11/19/18 11/19/18 11/20/18 Range/Units 16:00 21:35 06:33 Sodium (137-145) mmol/L Chloride (98-107) mmol/L BUN (7-17) mg/dL Creatinine (0.7-1.2) mg/dL Glucose (65-100) mg/dL POC Glucose 425 H 305 H 279 H (70-105) 11/20/18 11/20/18 Range/Units 10:06 11:06 Sodium 133 L (137-145) mmol/L Chloride 90.6 L (98-107) mmol/L BUN 29 H (7-17) mg/dL Creatinine 1.4 H (0.7-1.2) mg/dL Glucose 395 H (65-100) mg/dL POC Glucose 356 H (70-105)
--- NOTE | 2018-11-20 16:23 | Progress Note ---
Assessment and Plan /Type 2 diabetes mellitus; uncontrolled patient is on high doses of long-acting insulin at home [70/30 insulin 200 units a.m., 150 units p.m.] Noncompliant with diet, adjust 70/30 to her home dose Advised to comply with diet and exercise, HbA1c 10.2 /Acute Chronic Hypoxic Respiratory Failure; Due to COPD exacerbation, cont o2,nebulizers, tapering IV steroids, IV antibiotics /Acute on chronic diastolic congestive heart failure; LVEF 56%[09/2018] Cardiology following Patient had negative recent stress test 2 months ago Negative heart cath one year ago, symptoms significantly improved medical Mx for now and optimized meds /Hyperkalemia; s/p calcium chloride, Kayexalate, cont to monitor /Pseudohyponatremia; secondary to hyperglycemia Optimize insulin, follow electrolytes /Acute kidney injury; due to vasomotor nephropathy Hold diuretics, closely monitor renal function, avoid nephrotoxins if no improvement, consult renal /Hypertension; moderately controled, continue current antihypertensives and when necessary medications /Morbid obesity; BMI 44.6, advised diet modification, weight reduction /DVT prophylaxis; Lovenox Closely monitor the patient and adjust management as needed Plan of care reviewed with the patient and her nurse possible d/c when BG improves and k level stabilizes Brief history: 58-year-old female patient was admitted through emergency room with worsening shortness of breath. Admitted with acute on chronic diastolic congestive heart failure, uncontrolled blood sugars. Patient is on very high doses of 7030 insulin at home, Patient is noncompliant with diet, optimize insulin dose, A1c 10.2. possible discharge home in 1-2 days if stable with a home health nurse. Subjective Date of service: 11/20/18 Principal diagnosis: dyspnea Interval history: Pt seen and examined Continue to c/o SOB, BG remained elevated Denies any chest pain Objective - Constitutional Vitals: Vital Signs - 12hr 11/20/18 11/20/18 11/20/18 04:33 07:42 08:10 Temperature 98.6 F 98.4 F Pulse Rate 70 Pulse Rate [ 70 Anterior] Respiratory 18 20 Rate Respiratory 17 Rate [Anterior] Blood Pressure 121/53 137/60 O2 Sat by Pulse 99 98 Oximetry 11/20/18 11/20/18 11/20/18 11:05 15:25 16:04 Temperature 97.9 F 97.9 F Pulse Rate 71 79 96 H Pulse Rate [ Anterior] Respiratory 20 20 Rate Respiratory Rate [Anterior] Blood Pressure 141/63 117/54 O2 Sat by Pulse 100 96 Oximetry General appearance: Present: no acute distress, obese - EENT Eyes: PERRL, EOM intact ENT: hearing intact, clear oral mucosa Ears: bilateral: normal - Neck Neck: supple, normal ROM - Respiratory Respiratory effort: normal Respiratory: bilateral: CTA - Cardiovascular Rhythm: regular Heart Sounds: Present: S1 & S2. Absent: gallop, rub Extremities: pulses intact, normal color, Full ROM Extremity abnormal: edema (trace) - Gastrointestinal General gastrointestinal: Present: soft, non-tender, non-distended, normal bowel sounds - Integumentary Integumentary: clear, warm, dry - Musculoskeletal Musculoskeletal: 1, strength equal bilaterally - Neurologic Neurologic: moves all extremities - Psychiatric Psychiatric: memory intact, appropriate mood/affect, intact judgment & insight - Labs CBC & Chem 7: 11/18/18 05:44 11/21/18 09:51 Labs: Abnormal lab results 11/19/18 11/19/18 11/20/18 Range/Units 16:00 21:35 06:33 Sodium (137-145) mmol/L Chloride (98-107) mmol/L BUN (7-17) mg/dL Creatinine (0.7-1.2) mg/dL Glucose (65-100) mg/dL POC Glucose 425 H 305 H 279 H (70-105) 11/20/18 11/20/18 Range/Units 10:06 11:06 Sodium 133 L (137-145) mmol/L Chloride 90.6 L (98-107) mmol/L BUN 29 H (7-17) mg/dL Creatinine 1.4 H (0.7-1.2) mg/dL Glucose 395 H (65-100) mg/dL POC Glucose 356 H (70-105) - Imaging and cardiology Chest x-ray: report reviewed CT scan - chest: report reviewed
[2018-11-20] MEDS: MILK OF MAGNESIA PO PRN (18:33)
[2018-11-21] MEDS: SOLU-Medrol IV SCH ×2 (06:30→17:01)
[2018-11-21] MEDS: HumaLOG SUB-Q SCH ×4 (08:04→22:15)
[2018-11-21] MEDS: MORPHINE IV PRN ×2 (08:05→17:00)
[2018-11-21] MEDS: PULMICORT IH SCH ×2 (08:58→21:12)
[2018-11-21] MEDS: BROVANA NEBU IH SCH ×2 (08:58→21:12)
[2018-11-21] MEDS: DUONEB *Not for PRN Use IH SCH ×3 (08:58→21:13)
--- NOTE | 2018-11-21 08:58 | Progress Note ---
Assessment and Plan Acute on Chronic Hypoxic Respiratory Failure AE-COPD Acute on chronic diastolic congestive heart failure;LVEF 56%[09/2018] Hyperkalemia Hyponatremia Acute kidney injury Type 2 diabetes mellitus Hypertension Morbid obesity; BMI 44.6 -Continue supplemental oxygen therapy -Heart failure measures -VTE prophylaxis -Bronchodilators -Antibiotics for severe AE-COPD to compelte 5 day course -Accucheck with glycemic control -Life style modifications and weight loss -PT/OT to increase activity -Will need pulmonary rehab as outpatient -Influenza and pneumonia vaccination per protocol -Start steroid taper -Medical management of hyperkalemia Subjective Date of service: 11/21/18 Principal diagnosis: dyspnea Interval history: 58-year-old female patient was admitted through emergency room with worsening shortness of breath. Admitted with acute on chronic diastolic congestive heart failure, uncontrolled blood sugars. Seen and examined. Vitals, labs, medications, chart reviewed. Continues to have shortness of breath but improving, on supplemental oxygen but denies any chest pain at this time. Objective Vital Signs - 12hr 11/20/18 11/20/18 11/21/18 23:32 23:35 04:11 Temperature 97.6 F 98.3 F 98.3 F Pulse Rate Respiratory 17 17 17 Rate Blood Pressure 99/33 130/77 125/61 O2 Sat by Pulse Oximetry 11/21/18 08:17 Temperature 98.2 F Pulse Rate 64 Respiratory 20 Rate Blood Pressure 132/43 O2 Sat by Pulse 100 Oximetry Constitutional: no acute distress, alert Eyes: non-icteric ENT: oropharynx moist Neck: supple, no JVD Effort: mildly labored Ascultation: Bilateral: diminished breath sounds Cardiovascular: regular rate and rhythm, other (S1,S2) Gastrointestinal: normoactive bowel sounds, soft, non-tender Integumentary: normal Extremities: no cyanosis, no edema, pink and warm Neurologic: normal mental status, non-focal exam, pupils equal and round, CN II- XII normal Psychiatric: anxious CBC and BMP: 11/18/18 05:44 11/21/18 09:51 ABG, PT/INR, D-dimer: PT/INR, D-dimer PT 13.7 Sec. (12.2-14.9) 11/17/18 17:18 INR 1.01 (0.87-1.13) 11/17/18 17:18 Abnormal lab findings: Abnormal Labs 11/17/18 11/17/18 11/17/18 17:18 17:18 17:18 MCH 27 L Lymph % (Auto) 40.5 H [place] % (Auto) 8.3 H APTT 23.4 L Sodium Potassium Chloride 93.9 L BUN 20 H Creatinine Glucose POC Glucose Hemoglobin A1c 11/18/18 11/18/18 11/18/18 05:44 06:01 11:42 MCH Lymph % (Auto) [place] % (Auto) APTT Sodium 132 L Potassium 6.0 H D Chloride 89.2 L BUN 29 H Creatinine 1.5 H Glucose 446 H POC Glucose 365 H 429 H Hemoglobin A1c 11/18/18 11/18/18 11/18/18 16:21 20:46 23:47 MCH Lymph % (Auto) [place] % (Auto) APTT Sodium Potassium Chloride BUN Creatinine Glucose POC Glucose 406 H 433 H 359 H Hemoglobin A1c 11/19/18 11/19/18 11/19/18 05:07 05:07 05:44 MCH Lymph % (Auto) [place] % (Auto) APTT Sodium 132 L Potassium 5.1 H Chloride 91.1 L BUN 36 H Creatinine 1.5 H Glucose 478 H POC Glucose 385 H Hemoglobin A1c 10.2 H 11/19/18 11/19/18 11/19/18 11:05 16:00 21:35 MCH Lymph % (Auto) [place] % (Auto) APTT Sodium Potassium Chloride BUN Creatinine Glucose POC Glucose 342 H 425 H 305 H Hemoglobin A1c 11/20/18 11/20/18 11/20/18 06:33 10:06 11:06 MCH Lymph % (Auto) [place] % (Auto) APTT Sodium 133 L Potassium Chloride 90.6 L BUN 29 H Creatinine 1.4 H Glucose 395 H POC Glucose 279 H 356 H Hemoglobin A1c 11/20/18 11/20/18 11/21/18 15:25 20:58 06:31 MCH Lymph % (Auto) [place] % (Auto) APTT Sodium Potassium Chloride BUN Creatinine Glucose POC Glucose 344 H 216 H 241 H Hemoglobin A1c Allied health notes reviewed: nursing
[2018-11-21] MEDS: IMDUR PO SCH (09:00)
[2018-11-21] MEDS: ZESTRIL PO SCH (09:00)
[2018-11-21] MEDS: HALFPRIN EC PO SCH (09:00)
[2018-11-21] MEDS: HEPARIN SUB-Q SCH ×2 (09:00→21:55)
[2018-11-21] MEDS: PLAVIX PO SCH (09:00)
[2018-11-21] MEDS: TOPROL XL PO SCH (09:00)
[2018-11-21] MEDS: LEVAQUIN 750MG/150ML 750 MG/150 ML BAG IV SCH (09:01)
[2018-11-21] MEDS: FLONASE NS SCH (09:08)
[2018-11-21] MEDS: MILK OF MAGNESIA PO PRN (09:10)
[2018-11-21 11:34] LABS: Calcium 9.2 mg/dL (8.4-10.2)
--- NOTE | 2018-11-21 11:51 | Progress Note ---
Assessment and Plan Assessment: Acute heart failure with preserved EF - nearing/at euvolemia Acute on chronic respiratory failure Pulmonary nodules MABEL HTN CAD s/p PCI to the ostial LAD in 12/2017 DM Obesity COPD ALEXANDER H/o CVA Plan: Currently stable cardiac status. Pt may discharge home from cardiology standpoint on home cardiac regimen. Follow pulmonary recs. Recommend pt follow up in our office with Dr. De León within 3-5 days of hospital discharge ([phone]). The patient has been seen in conjunction with Dr. De León who agree with the assessment and plan of care. Subjective Date of service: 11/21/18 Principal diagnosis: dyspnea Interval history: pt sitting comfortably at bedside, states SOB nearly resolved. Objective Last Vital Signs Temp 98.2 F 11/21/18 08:17 Pulse 69 11/21/18 09:20 Resp 18 11/21/18 09:20 BP 132/43 11/21/18 08:17 Pulse Ox 97 11/21/18 09:01 - Physical Examination General: No Apparent Distress HEENT: Positive: PERRL, Normocephaly Neck: Positive: neck supple, Carotid Upstroke (normal bilat). Negative: JVD/HJR, Bruit Cardiac: Positive: Reg Rate and Rhythm, S1/S2 Lungs: Positive: Decreased Breath Sounds Neuro: Positive: Grossly Intact Abdomen: Positive: Soft. Negative: Tender Skin: Negative: Rash Extremities: Present: Other (periph pulses intact). Absent: edema - Labs and Meds Comprehensive Metabolic Panel 11/21/18 Range/Units 09:51 Sodium 134 L (137-145) mmol/L Potassium 5.4 H (3.6-5.0) mmol/L Chloride 94.0 L (98-107) mmol/L Carbon Dioxide 26 (22-30) mmol/L BUN 26 H (7-17) mg/dL Creatinine 1.2 (0.7-1.2) mg/dL Glucose 339 H (65-100) mg/dL Calcium 9.2 (8.4-10.2) mg/dL - Imaging and Cardiology EKG: report reviewed, image reviewed Echo: report reviewed ( 02/2018 showed EF 45-50%, grade 2 diastolic dysfunction, trace MR. ) Cardiac cath: report reviewed (PCI to the ostial LAD in 12/2017) - Telemetry EKG Rhythm: Sinus Rhythm
[2018-11-21] MEDS ORDERED: KIONEX PO PRN (13:11)
--- NOTE | 2018-11-21 15:20 | Progress Note ---
Assessment and Plan /Hyperkalemia; s/p calcium chloride, cont Kayexalate as needed - give 15mg today, cont to monitor /Type 2 diabetes mellitus; uncontrolled patient is on high doses of long-acting insulin at home [70/30 insulin 200 units a.m., 150 units p.m.] Noncompliant with diet, adjust 70/30 to better control BG, kiko steroid Advised to comply with diet and exercise, HbA1c 10.2 /Acute on Chronic Hypoxic Respiratory Failure; Due to COPD exacerbation, cont o2,nebulizers, tapering IV steroids, IV antibiotics patient on 2l home O2 /Acute on chronic diastolic congestive heart failure; LVEF 56%[09/2018] Cardiology following Patient had negative recent stress test 2 months ago Negative heart cath one year ago, symptoms significantly improved medical Mx for now and optimize meds /Pseudohyponatremia; secondary to hyperglycemia Optimize insulin, follow electrolytes /Acute kidney injury; due to vasomotor nephropathy Hold diuretics, closely monitor renal function, avoid nephrotoxins if no improvement, will consult renal /Hypertension; moderately controled, continue current antihypertensives and when necessary medications /Morbid obesity; BMI 44.6, advised diet modification, weight reduction /DVT prophylaxis; Lovenox Closely monitor the patient and adjust management as needed Plan of care reviewed with the patient and her nurse possible d/c when BG improves and k level stabilizes PT consult Brief history: 58-year-old female patient was admitted through emergency room with worsening shortness of breath. Admitted with acute on chronic diastolic congestive heart failure, uncontrolled blood sugars. Patient is on very high doses of 7030 insulin at home, Patient is noncompliant with diet, optimize insulin dose, A1c 10.2. possible discharge home when K level improves and BG stabilizes Physical exam: General appearance: Present: no acute distress, obese - EENT Eyes: PERRL, EOM intact ENT: hearing intact, clear oral mucosa Ears: bilateral: normal - Neck Neck: supple, normal ROM - Respiratory Respiratory effort: normal Respiratory: bilateral: CTA - Cardiovascular Rhythm: regular Heart Sounds: Present: S1 & S2. Absent: gallop, rub Extremities: pulses intact, normal color, Full ROM Extremity abnormal: edema (trace) - Gastrointestinal General gastrointestinal: Present: soft, non-tender, non-distended, normal bowel sounds - Integumentary Integumentary: clear, warm, dry - Musculoskeletal Musculoskeletal: 1, strength equal bilaterally - Neurologic Neurologic: moves all extremities - Psychiatric Psychiatric: memory intact, appropriate mood/affect, intact judgment & insight Subjective Date of service: 11/21/18 Principal diagnosis: dyspnea Interval history: Pt seen and examined Continue to c/o SOB with exertion, BG improved, K level 5.5 today Denies any chest pain Objective - Constitutional Vitals: Vital Signs - 12hr 11/21/18 11/21/18 11/21/18 04:11 08:17 08:59 Temperature 98.3 F 98.2 F Pulse Rate 64 Pulse Rate [ 71 Anterior] Respiratory 17 20 Rate Respiratory 20 Rate [Anterior] Blood Pressure 125/61 132/43 O2 Sat by Pulse 100 Oximetry 11/21/18 11/21/18 09:01 09:20 Temperature Pulse Rate Pulse Rate [ 69 Anterior] Respiratory Rate Respiratory 18 Rate [Anterior] Blood Pressure O2 Sat by Pulse 97 Oximetry - Labs CBC & Chem 7: 11/18/18 05:44 11/22/18 13:21 Labs: Abnormal lab results 11/20/18 11/20/18 11/21/18 Range/Units 15:25 20:58 06:31 Sodium (137-145) mmol/L Potassium (3.6-5.0) mmol/L Chloride (98-107) mmol/L BUN (7-17) mg/dL Glucose (65-100) mg/dL POC Glucose 344 H 216 H 241 H (70-105) 11/21/18 11/21/18 Range/Units 09:51 11:50 Sodium 134 L (137-145) mmol/L Potassium 5.4 H (3.6-5.0) mmol/L Chloride 94.0 L (98-107) mmol/L BUN 26 H (7-17) mg/dL Glucose 339 H (65-100) mg/dL POC Glucose 267 H (70-105)
[2018-11-22] MEDS: MORPHINE IV PRN ×2 (03:45→20:25)
[2018-11-22] MEDS: SOLU-Medrol IV SCH (05:10)
[2018-11-22] MEDS: HumaLOG SUB-Q SCH ×4 (08:30→23:02)
[2018-11-22] MEDS: BROVANA NEBU IH SCH ×2 (10:26→20:00)
[2018-11-22] MEDS: HALFPRIN EC PO SCH (10:26)
[2018-11-22] MEDS: LEVAQUIN 750MG/150ML 750 MG/150 ML BAG IV SCH (10:26)
[2018-11-22] MEDS: TOPROL XL PO SCH (10:27)
[2018-11-22] MEDS: PLAVIX PO SCH (10:27)
[2018-11-22] MEDS: IMDUR PO SCH (10:27)
[2018-11-22] MEDS: PULMICORT IH SCH ×2 (10:27→20:00)
[2018-11-22] MEDS: HEPARIN SUB-Q SCH ×2 (10:27→23:02)
[2018-11-22] MEDS: ZESTRIL PO SCH (10:27)
[2018-11-22] MEDS: FLONASE NS SCH (10:28)
[2018-11-22] MEDS: TYLENOL PO PRN (12:30)
--- NOTE | 2018-11-22 13:57 | Progress Note ---
Assessment and Plan Acute on Chronic Hypoxemic Respiratory Failure AE-COPD Acute on chronic diastolic congestive heart failure;LVEF 56%[09/2018] Hyperkalemia Hyponatremia Acute kidney injury Type 2 diabetes mellitus Hypertension Morbid obesity; BMI 44.6 - give Kayexalate 30 gms p.o. now - mag citrate tonight if no BM - deploy BIPAP 14/8 qhs - Continue supplemental oxygen therapy to keep sats > 90% - Heart failure measures - VTE prophylaxis - Bronchodilators - Antibiotics for severe AE-COPD to compelte 5 day course - Accucheck with glycemic control - Life style modifications and weight loss - PT/OT to increase activity - Will need pulmonary rehab as outpatient - Influenza and pneumonia vaccination per protocol - Start steroid taper - Medical management of hyperkalemia ... re-evaluate in am & prn Subjective Date of service: 11/22/18 Principal diagnosis: Ac on Ch Hypoxemic Resp Failure; AE-COPD; Ac on Ch HFpEF; Hyperkalemia Interval history: Patient is seen today for: Acute on Chronic Hypoxemic Respiratory Failure; AE- COPD; Acute on chronic diastolic congestive heart failure;LVEF 56%[09/2018]; Hyperkalemia; ALEXANDER Seen and examined at bedside; 24hour events reviewed; nursing and respiratory care staff consulted; no adverse overnight events reported to me; states she remains constipated; breathing is a little better; remains on oxygen; also states she is on home CPAP; no N/V/F/C Objective Vital Signs - 12hr 11/22/18 11/22/18 11/22/18 03:45 04:15 04:48 Temperature 98.1 F Pulse Rate 64 Pulse Rate [ Anterior] Respiratory 18 18 20 Rate Respiratory Rate [Anterior] Blood Pressure 120/50 O2 Sat by Pulse 97 Oximetry 11/22/18 11/22/18 11/22/18 08:35 10:24 10:43 Temperature 98.6 F Pulse Rate 69 Pulse Rate [ 72 Anterior] Respiratory 18 Rate Respiratory 18 Rate [Anterior] Blood Pressure 100/50 O2 Sat by Pulse 98 100 Oximetry 11/22/18 10:45 Temperature Pulse Rate Pulse Rate [ 74 Anterior] Respiratory Rate Respiratory 16 Rate [Anterior] Blood Pressure O2 Sat by Pulse Oximetry Constitutional: no acute distress, alert, other (middle aged AAF morbidly obese with mildly increased respiratory effort at rest) Eyes: non-icteric ENT: oropharynx moist, other (mallampatti 3) Neck: supple, no JVD, other (large neck circumference) Effort: mildly labored Ascultation: Bilateral: diminished breath sounds, rhonchi (inspiratory in bases) Percussion: Bilateral: not dull Cardiovascular: regular rate and rhythm, other (S1,S2) Gastrointestinal: normoactive bowel sounds, soft, non-tender, non-distended Integumentary: normal Extremities: no cyanosis, no edema, pulses normal, no ischemia or petechiae Neurologic: normal mental status, non-focal exam, pupils equal and round, CN II- XII normal Psychiatric: mood appropriate, affect normal CBC and BMP: 11/18/18 05:44 11/22/18 13:21 ABG, PT/INR, D-dimer: PT/INR, D-dimer PT 13.7 Sec. (12.2-14.9) 11/17/18 17:18 INR 1.01 (0.87-1.13) 11/17/18 17:18 Abnormal lab findings: Abnormal Labs 11/17/18 11/17/18 11/17/18 17:18 17:18 17:18 MCH 27 L Lymph % (Auto) 40.5 H [place] % (Auto) 8.3 H APTT 23.4 L Sodium Potassium Chloride 93.9 L BUN 20 H Creatinine Glucose POC Glucose Hemoglobin A1c 11/18/18 11/18/18 11/18/18 05:44 06:01 11:42 MCH Lymph % (Auto) [place] % (Auto) APTT Sodium 132 L Potassium 6.0 H D Chloride 89.2 L BUN 29 H Creatinine 1.5 H Glucose 446 H POC Glucose 365 H 429 H Hemoglobin A1c 11/18/18 11/18/18 11/18/18 16:21 20:46 23:47 MCH Lymph % (Auto) [place] % (Auto) APTT Sodium Potassium Chloride BUN Creatinine Glucose POC Glucose 406 H 433 H 359 H Hemoglobin A1c 11/19/18 11/19/18 11/19/18 05:07 05:07 05:44 MCH Lymph % (Auto) [place] % (Auto) APTT Sodium 132 L Potassium 5.1 H Chloride 91.1 L BUN 36 H Creatinine 1.5 H Glucose 478 H POC Glucose 385 H Hemoglobin A1c 10.2 H 01/01/0611/19/18 11/19/18 11:05 16:00 21:35 MCH Lymph % (Auto) [place] % (Auto) APTT Sodium Potassium Chloride BUN Creatinine Glucose POC Glucose 342 H 425 H 305 H Hemoglobin A1c 11/20/18 11/20/18 11/20/18 06:33 10:06 11:06 MCH Lymph % (Auto) [place] % (Auto) APTT Sodium 133 L Potassium Chloride 90.6 L BUN 29 H Creatinine 1.4 H Glucose 395 H POC Glucose 279 H 356 H Hemoglobin A1c 11/20/18 11/20/18 11/21/18 15:25 20:58 06:31 MCH Lymph % (Auto) [place] % (Auto) APTT Sodium Potassium Chloride BUN Creatinine Glucose POC Glucose 344 H 216 H 241 H Hemoglobin A1c 11/21/18 11/21/18 11/21/18 09:51 11:50 15:53 MCH Lymph % (Auto) [place] % (Auto) APTT Sodium 134 L Potassium 5.4 H Chloride 94.0 L BUN 26 H Creatinine Glucose 339 H POC Glucose 267 H 294 H Hemoglobin A1c 11/21/18 11/22/18 11/22/18 21:56 05:45 11:38 MCH Lymph % (Auto) [place] % (Auto) APTT Sodium Potassium Chloride BUN Creatinine Glucose POC Glucose 260 H 235 H 287 H Hemoglobin A1c Chest x-ray: image reviewed (nasilar increased intersttial markings) Allied health notes reviewed: nursing
[2018-11-22 13:58] LABS: BUN/Creatinine Ratio 25; Blood Urea Nitrogen 28 mg/dL (7-17); Calcium 8.8 mg/dL (8.4-10.2); Hemolysis Index 45
[2018-11-22] MEDS ORDERED: CITRATE OF MAGNESIA PO ONE (15:01)
[2018-11-22] MEDS ORDERED: KIONEX PO STA (15:01)
[2018-11-22] MEDS: DUONEB *Not for PRN Use IH SCH ×3 (15:55→20:01)
[2018-11-22] MEDS: MIRALAX 3350 PO SCH (17:29)
--- NOTE | 2018-11-22 18:05 | Progress Note ---
Assessment and Plan /Hyperkalemia; s/p calcium chloride, Kayexalate - give another 30mg kayexalate today, cont to monitor /Type 2 diabetes mellitus; uncontrolled patient is on high doses of long-acting insulin at home [70/30 insulin 200 units a.m., 150 units p.m.] Noncompliant with diet, adjust 70/30 to better control BG, kiko steroid Advised to comply with diet and exercise, HbA1c 10.2 /Acute on Chronic Hypoxic Respiratory Failure; Due to COPD exacerbation, cont o2,nebulizers, tapering IV steroids, IV antibiotics patient on 2l home O2, place on BiPAP as needed /Acute on chronic diastolic congestive heart failure; LVEF 56%[09/2018] Cardiology following Patient had negative recent stress test 2 months ago Negative heart cath one year ago, symptoms significantly improved medical Mx for now and optimize meds /Pseudohyponatremia; secondary to hyperglycemia Optimize insulin, follow electrolytes /Acute kidney injury; due to vasomotor nephropathy Hold diuretics, closely monitor renal function, avoid nephrotoxins if no improvement, will consult renal /Hypertension; moderately controled, continue current antihypertensives and when necessary medications /Morbid obesity; BMI 44.6, advised diet modification, weight reduction /DVT prophylaxis; Lovenox Closely monitor the patient and adjust management as needed Plan of care reviewed with the patient and her nurse possible d/c when BG improves and k level stabilizes PT consult Brief history: 58-year-old female patient was admitted through emergency room with worsening shortness of breath. Admitted with acute on chronic diastolic congestive heart failure, uncontrolled blood sugars. Patient is on very high doses of 7030 insulin at home, Patient is noncompliant with diet, optimize insulin dose, A1c 10.2. possible discharge home when K level improves and BG stabilizes Physical exam: General appearance: Present: no acute distress, obese - EENT Eyes: PERRL, EOM intact ENT: hearing intact, clear oral mucosa Ears: bilateral: normal - Neck Neck: supple, normal ROM - Respiratory Respiratory effort: normal Respiratory: bilateral: CTA - Cardiovascular Rhythm: regular Heart Sounds: Present: S1 & S2. Absent: gallop, rub Extremities: pulses intact, normal color, Full ROM Extremity abnormal: edema (trace) - Gastrointestinal General gastrointestinal: Present: soft, non-tender, non-distended, normal bowel sounds - Integumentary Integumentary: clear, warm, dry - Musculoskeletal Musculoskeletal: 1, strength equal bilaterally - Neurologic Neurologic: moves all extremities - Psychiatric Psychiatric: memory intact, appropriate mood/affect, intact judgment & insight Subjective Date of service: 11/22/18 Principal diagnosis: dyspnea Interval history: Pt seen and examined Continue to c/o SOB with exertion, BG improved, K level still elevated Denies any chest pain Objective - Constitutional Vitals: Vital Signs - 12hr 11/22/18 11/22/18 11/22/18 08:35 10:24 10:43 Temperature 98.6 F Pulse Rate 69 Pulse Rate [ 72 Anterior] Respiratory 18 Rate Respiratory 18 Rate [Anterior] Blood Pressure 100/50 O2 Sat by Pulse 98 100 Oximetry 11/22/18 11/22/18 11/22/18 10:45 15:56 16:03 Temperature Pulse Rate Pulse Rate [ 74 80 73 Anterior] Respiratory Rate Respiratory 16 20 18 Rate [Anterior] Blood Pressure O2 Sat by Pulse Oximetry - Labs CBC & Chem 7: 11/18/18 05:44 11/23/18 04:43 Labs: Abnormal lab results 11/21/18 11/21/18 11/22/18 Range/Units 15:53 21:56 05:45 Sodium (137-145) mmol/L Potassium (3.6-5.0) mmol/L Chloride (98-107) mmol/L BUN (7-17) mg/dL Glucose (65-100) mg/dL POC Glucose 294 H 260 H 235 H (70-105) 11/22/18 11/22/18 Range/Units 11:38 13:21 Sodium 128 L (137-145) mmol/L Potassium 5.2 H (3.6-5.0) mmol/L Chloride 90.8 L (98-107) mmol/L BUN 28 H (7-17) mg/dL Glucose 404 H (65-100) mg/dL POC Glucose 287 H (70-105)
[2018-11-22] MEDS: COLACE PO SCH (22:54)
[2018-11-23 05:12] LABS: BUN/Creatinine Ratio 22; Blood Urea Nitrogen 24 mg/dL (7-17); Calcium 8.6 mg/dL (8.4-10.2); Hemolysis Index 15
[2018-11-23] MEDS: HumaLOG SUB-Q SCH ×3 (08:02→17:06)
[2018-11-23] MEDS: MORPHINE IV PRN ×2 (08:11→14:24)
[2018-11-23] MEDS: DUONEB *Not for PRN Use IH SCH ×2 (08:55→14:00)
[2018-11-23] MEDS: BROVANA NEBU IH SCH (08:55)
[2018-11-23] MEDS: PULMICORT IH SCH (08:55)
[2018-11-23] MEDS ORDERED: DELTASONE PO SCH (10:00)
[2018-11-23] MEDS: ZESTRIL PO SCH (10:18)
[2018-11-23] MEDS: MIRALAX 3350 PO SCH (10:18)
[2018-11-23] MEDS: HALFPRIN EC PO SCH (10:18)
[2018-11-23] MEDS: HEPARIN SUB-Q SCH (10:19)
[2018-11-23] MEDS: LEVAQUIN 750MG/150ML 750 MG/150 ML BAG IV SCH (10:19)
[2018-11-23] MEDS: COLACE PO SCH (10:19)
[2018-11-23] MEDS: IMDUR PO SCH (10:19)
[2018-11-23] MEDS: TOPROL XL PO SCH (10:25)
[2018-11-23] MEDS: PLAVIX PO SCH (10:25)
[2018-11-23] MEDS: FLONASE NS SCH (10:35)
--- NOTE | 2018-11-23 12:54 | Progress Note ---
Assessment and Plan Acute on Chronic Hypoxemic Respiratory Failure AE-COPD Acute on chronic diastolic congestive heart failure;LVEF 56%[09/2018] Hyperkalemia Hyponatremia Acute kidney injury Type 2 diabetes mellitus Hypertension Morbid obesity; BMI 44.6 - continue BIPAP 14/8 qhs - Continue supplemental oxygen therapy to keep sats > 90% - Heart failure measures - VTE prophylaxis - Bronchodilators - Antibiotics for severe AE-COPD to compelte 5 day course - Accucheck with glycemic control - Life style modifications and weight loss - PT/OT to increase activity - Will need pulmonary rehab as outpatient - Influenza and pneumonia vaccination per protocol - Start steroid taper - Medical management of hyperkalemia ... re-evaluate in am & prn Subjective Date of service: 11/23/18 Principal diagnosis: Ac on Ch Hypoxemic Resp Failure; AE-COPD; Ac on Ch HFpEF; Hyperkalemia Interval history: Patient is seen today for: Acute on Chronic Hypoxemic Respiratory Failure; AE- COPD; Acute on chronic diastolic congestive heart failure;LVEF 56%[09/2018]; Hyperkalemia; ALEXANDER Seen and examined at bedside; 24hour events reviewed; nursing and respiratory care staff consulted; no adverse overnight events reported to me; had a light BM; feels better; denies acute chest pains; NO N/V/F/C Objective Vital Signs - 12hr 11/23/18 11/23/18 11/23/18 04:24 08:32 08:55 Temperature 98.1 F 97.9 F Pulse Rate 61 69 Pulse Rate [ 76 Anterior] Respiratory 16 20 Rate Respiratory 18 Rate [Anterior] Blood Pressure 110/44 131/50 O2 Sat by Pulse 98 100 Oximetry 11/23/18 11/23/18 11/23/18 09:03 10:00 10:18 Temperature Pulse Rate Pulse Rate [ 78 Anterior] Respiratory Rate Respiratory 18 Rate [Anterior] Blood Pressure 131/50 O2 Sat by Pulse 98 Oximetry 11/23/18 11/23/18 10:19 10:25 Temperature Pulse Rate Pulse Rate [ Anterior] Respiratory Rate Respiratory Rate [Anterior] Blood Pressure 131/50 131/52 O2 Sat by Pulse Oximetry Constitutional: no acute distress, alert, other (middle aged AAF morbidly obese with mildly increased respiratory effort at rest) Eyes: non-icteric ENT: oropharynx moist, other (mallampatti 3) Neck: supple, no JVD, other (large neck circumference) Effort: mildly labored Ascultation: Bilateral: diminished breath sounds, rhonchi (inspiratory in bases) Percussion: Bilateral: not dull Cardiovascular: regular rate and rhythm, other (S1,S2) Gastrointestinal: normoactive bowel sounds, soft, non-tender, non-distended Integumentary: normal Extremities: no cyanosis, no edema, pulses normal, no ischemia or petechiae Neurologic: normal mental status, non-focal exam, pupils equal and round, CN II- XII normal Psychiatric: mood appropriate, affect normal CBC and BMP: 11/18/18 05:44 11/23/18 04:43 ABG, PT/INR, D-dimer: PT/INR, D-dimer PT 13.7 Sec. (12.2-14.9) 11/17/18 17:18 INR 1.01 (0.87-1.13) 11/17/18 17:18 Abnormal lab findings: Abnormal Labs 11/17/18 11/17/18 11/17/18 17:18 17:18 17:18 MCH 27 L Lymph % (Auto) 40.5 H [place] % (Auto) 8.3 H APTT 23.4 L Sodium Potassium Chloride 93.9 L Carbon Dioxide BUN 20 H Creatinine Glucose POC Glucose Hemoglobin A1c 11/18/18 11/18/18 11/18/18 05:44 06:01 11:42 MCH Lymph % (Auto) [place] % (Auto) APTT Sodium 132 L Potassium 6.0 H D Chloride 89.2 L Carbon Dioxide BUN 29 H Creatinine 1.5 H Glucose 446 H POC Glucose 365 H 429 H Hemoglobin A1c 11/18/18 11/18/18 11/18/18 16:21 20:46 23:47 MCH Lymph % (Auto) [place] % (Auto) APTT Sodium Potassium Chloride Carbon Dioxide BUN Creatinine Glucose POC Glucose 406 H 433 H 359 H Hemoglobin A1c 11/19/18 11/19/18 11/19/18 05:07 05:07 05:44 MCH Lymph % (Auto) [place] % (Auto) APTT Sodium 132 L Potassium 5.1 H Chloride 91.1 L Carbon Dioxide BUN 36 H Creatinine 1.5 H Glucose 478 H POC Glucose 385 H Hemoglobin A1c 10.2 H 11/19/18 11/19/18 11/19/18 11:05 16:00 21:35 MCH Lymph % (Auto) [place] % (Auto) APTT Sodium Potassium Chloride Carbon Dioxide BUN Creatinine Glucose POC Glucose 342 H 425 H 305 H Hemoglobin A1c 11/20/18 11/20/18 11/20/18 06:33 10:06 11:06 MCH Lymph % (Auto) [place] % (Auto) APTT Sodium 133 L Potassium Chloride 90.6 L Carbon Dioxide BUN 29 H Creatinine 1.4 H Glucose 395 H POC Glucose 279 H 356 H Hemoglobin A1c 11/20/18 11/20/18 11/21/18 15:25 20:58 06:31 MCH Lymph % (Auto) [place] % (Auto) APTT Sodium Potassium Chloride Carbon Dioxide BUN Creatinine Glucose POC Glucose 344 H 216 H 241 H Hemoglobin A1c 11/21/18 11/21/18 11/21/18 09:51 11:50 15:53 MCH Lymph % (Auto) [place] % (Auto) APTT Sodium 134 L Potassium 5.4 H Chloride 94.0 L Carbon Dioxide BUN 26 H Creatinine Glucose 339 H POC Glucose 267 H 294 H Hemoglobin A1c 11/21/18 11/22/18 11/22/18 21:56 05:45 11:38 MCH Lymph % (Auto) [place] % (Auto) APTT Sodium Potassium Chloride Carbon Dioxide BUN Creatinine Glucose POC Glucose 260 H 235 H 287 H Hemoglobin A1c 11/22/18 11/22/18 11/22/18 13:21 16:27 21:10 MCH Lymph % (Auto) [place] % (Auto) APTT Sodium 128 L Potassium 5.2 H Chloride 90.8 L Carbon Dioxide BUN 28 H Creatinine Glucose 404 H POC Glucose 306 H 227 H Hemoglobin A1c 11/23/18 11/23/18 04:43 05:30 MCH Lymph % (Auto) [place] % (Auto) APTT Sodium 136 L D Potassium Chloride 96.8 L Carbon Dioxide 31 H D BUN 24 H Creatinine Glucose 177 H POC Glucose 131 H Hemoglobin A1c Allied health notes reviewed: nursing
--- NOTE | 2018-11-23 13:51 | Discharge Summary ---
Providers - Providers Date of Admission: 11/17/18 21:59 Date of discharge: 11/23/18 Attending physician: DOMINGO HERNANDEZ 11/18/18 00:54 Consult to Physician [CONS] Routine Comment: Consulting Provider: MÓNICA PEPPER Physician Instructions: Reason For Exam: lung nodules 11/18/18 00:56 Consult to Physician [CONS] Routine Comment: Consulting Provider: DALIA LOCKWOOD Physician Instructions: Reason For Exam: Evaluate for heart failure 11/19/18 00:16 Consult to Dietitian/Nutrition [CONS] Routine Physician Instructions: Reason For Exam: Reason for Consult: Diet education 11/19/18 00:20 Consult to Dietitian/Nutrition [CONS] Routine Physician Instructions: Reason For Exam: Reason for Consult: Diet education 11/21/18 15:37 Physical Therapy Evaluation and Treat [CONS] Routine Comment: Reason For Exam: placement Primary care physician: ANNUAL GREENHOUSE MANAGER Hospitalization Condition: Stable Pertinent studies: CTA chest: 1. Pulmonary emphysema. 2. Interval development of pleural based nodular densities lower lobes bilaterally, left greater than right. Infectious and noninfectious etiologies need to be considered. If these are considered to be infectious in etiology, follow-up to resolution is recommended. If these are not considered to be infectious in etiology, referral to pulmonology for further evaluation is recommended. 3. No evidence of pulmonary artery emboli. 4. Cardiomegaly with evidence of coronary artery stents. 5. Gallstone within the gallbladder. CXR 1. Prominence of the interstitial markings with evidence of pulmonary emphysema both lungs similar in appearance to the previous studies. 2. No definite evidence of an acute pulmonary process. If further imaging is required, CT may be helpful. 3. Enlarged cardiac silhouette not significantly changed. Hospital course: Brief history: 58-year-old female patient was admitted through emergency room with worsening shortness of breath. Admitted with acute on chronic diastolic congestive heart failure, uncontrolled blood sugars. Patient is on very high doses of 70/30 insulin at home, Patient is noncompliant with diet, counselled, optimized insulin dose, A1c 10.2. Discharged home after K level improved and BG stabilized. discharge diagnosis and management: /Hyperkalemia; likely med induced s/p calcium chloride, Kayexalate - resolved /Type 2 diabetes mellitus; uncontrolled patient is on high doses of long-acting insulin at home [70/30 insulin 200 units a.m., 150 units p.m.] Noncompliant with diet, adjusted 70/30 to better control BG, Advised to comply with diet and exercise, HbA1c 10.2 /Acute on Chronic Hypoxic Respiratory Failure; Due to COPD exacerbation, managed with o2,nebulizers, tapering IV steroids, IV antibiotics and BiPAP as needed patient on 2l home O2, /Lung nodules ?, noted on CT chest, pleural based thickening ? 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 /Acute on chronic diastolic congestive heart failure; LVEF 56%[09/2018] Cardiology was following Patient had negative recent stress test 2 months ago Negative heart cath one year ago, symptoms significantly improved medical Mx for now and optimized meds will cont lasix as needed for edema /Pseudohyponatremia; secondary to hyperglycemia Optimized insulin, followed electrolytes, resolved /Acute kidney injury; due to vasomotor nephropathy Held diuretics, closely monitored renal function, avoided nephrotoxins /Hypertension; moderately controlled, stable with BB, imdur /Morbid obesity; BMI 44.6, advised diet modification, weight reduction /DVT prophylaxis; Lovenox Physical exam: General appearance: Present: no acute distress, obese - EENT Eyes: PERRL, EOM intact ENT: hearing intact, clear oral mucosa Ears: bilateral: normal - Neck Neck: supple, normal ROM - Respiratory Respiratory effort: normal Respiratory: bilateral: CTA - Cardiovascular Rhythm: regular Heart Sounds: Present: S1 & S2. Absent: gallop, rub Extremities: pulses intact, normal color, Full ROM Extremity abnormal: edema (trace) - Gastrointestinal General gastrointestinal: Present: soft, non-tender, non-distended, normal bowel sounds - Integumentary Integumentary: clear, warm, dry - Musculoskeletal Musculoskeletal: 1, strength equal bilaterally - Neurologic Neurologic: moves all extremities - Psychiatric Psychiatric: memory intact, appropriate mood/affect, intact judgment & insight Disposition: DC-01 TO HOME OR SELFCARE Time spent for discharge: 34 minutes Core Measure Documentation - Palliative Care Palliative Care/ Comfort Measures: Not Applicable - Core Measures Any of the following diagnoses?: history only Exam - Constitutional Vitals: Temp Pulse Resp BP Pulse Ox 97.9 F 78 18 131/52 98 11/23/18 08:32 11/23/18 09:03 11/23/18 09:03 11/23/18 10:25 11/23/18 10:00 Plan Activity: advance as tolerated (with walker) Weight Bearing Status: Non-Weight Bearing Diet: low fat, diabetic Special Instructions: record daily BP diary, record blood sugar diary, smoking cessation Prescriptions: Furosemide [Lasix TAB] 40 mg PO QDAY PRN #30 tablet PRN Reason: Edema predniSONE [Deltasone] 10 mg PO QDAY #5 tab
[2018-11-23 14:40] VITALS: BP 101/52
[2018-11-23] MEDS: MILK OF MAGNESIA PO PRN (17:14)
== END 2018-11-23 19:11 | disposition home or self-care (01) | DRG 291 ==
LOC: ED 16:47 → 4A 21:59
PROVIDERS: ADMIT Internal Medicine; ATTEND Internal Medicine
DX: I11.0 Hypertensive heart disease with heart failure (principal); N17.0 Acute kidney failure with tubular necrosis; J96.21 Acute and chronic respiratory failure with hypoxia; J44.1 Chronic obstructive pulmonary disease with (acute) exacerbation; E87.1 Hypo-osmolality and hyponatremia; Z68.42 Body mass index [BMI] 45.0-49.9, adult; I69.354 Hemiplegia and hemiparesis following cerebral infarction affecting left non-dominant side; I50.33 Acute on chronic diastolic (congestive) heart failure; E11.649 Type 2 diabetes mellitus with hypoglycemia without coma; E87.5 Hyperkalemia; E66.01 Morbid (severe) obesity due to excess calories; G47.33 Obstructive sleep apnea (adult) (pediatric); R91.1 Solitary pulmonary nodule; K21.9 Gastro-esophageal reflux disease without esophagitis; I25.10 Atherosclerotic heart disease of native coronary artery without angina pectoris; M19.90 Unspecified osteoarthritis, unspecified site; Z91.11 Patient's noncompliance with dietary regimen; Z71.3 Dietary counseling and surveillance; Z99.81 Dependence on supplemental oxygen; I25.2 Old myocardial infarction; Z87.891 Personal history of nicotine dependence; Z72.89 Other problems related to lifestyle; Z82.49 Family history of ischemic heart disease and other diseases of the circulatory system; Z82.3 Family history of stroke; Z91.040 Latex allergy status; Z88.0 Allergy status to penicillin; Z91.018 Allergy to other foods; Z79.82 Long term (current) use of aspirin; Z79.899 Other long term (current) drug therapy; Z79.4 Long term (current) use of insulin; Z86.718 Personal history of other venous thrombosis and embolism
CPT/HCPCS: 36415; 71046; 71275; 80048; 80076; 81001; 82962; 83036; 83880; 84484; 85025; 85027; 85610; 85730; 93005; 93010; 94640; 94760; G0378; A9270-GY; G8978-GP; G8979-GP; G8980-GP; J1644; J1815; J1940; J1956; J2270; J2405; J2920; J2930; J7512; Q9967

== ENCOUNTER 2019-03-10 21:00 | Inpatient (IN) | payer MEDICARE ==
[2019-03-10] MEDS ORDERED: PROVENTIL IH ONE (21:07)
[2019-03-10] MEDS ORDERED: SOLU-Medrol IV ONE (21:08)
--- NOTE | 2019-03-10 21:10 | Emergency Department Report ---
Chief Complaint: Chest Pain Stated Complaint: CHEST PAIN, HEADACHE, ABDOMINAL PAIN - HPI History of Present Illness: PROGRESSIVE SOB ON HER HOME OXYGEN 2L NC OFF AND ON WORSE TONIGHT SEE EMR NO HOME STEROIDS TO MAIN MSE screening note: Focused history and physical exam performed. Due to findings the following was ordered: ED Disposition for MSE Condition: Stable
[2019-03-10 21:43] LABS: Basophils # (Auto) 0.1 K/mm3 (0.0-0.1); Basophils % (Auto) 1.2 % (0.0-1.8); Eosinophils # (Auto) 0.3 K/mm3 (0.0-0.4); Hematocrit 34.8 % (30.3-42.9); Hemoglobin 12.2 gm/dl (10.1-14.3); Lymphocytes # (Auto) 3.5 K/mm3 (1.2-5.4); Lymphocytes % (Auto) 40.4 % (13.4-35.0); Mean Corpuscular HGB Conc 35 % (30-34); Mean Corpuscular Volume 82 fl (79-97); Monocytes # (Auto) 0.7 K/mm3 (0.0-0.8); Monocytes % (Auto) 8.2 % (0.0-7.3); Platelet Count 317 K/mm3 (140-440); Red Blood Count 4.23 M/mm3 (3.65-5.03); Red Cell Distribution Width 13.9 % (13.2-15.2)
[2019-03-10 22:03] LABS: Alanine Aminotransferase 24 units/L (7-56); Albumin 4.7 g/dL (3.9-5); BUN/Creatinine Ratio 18; Blood Urea Nitrogen 28 mg/dL (7-17); Calcium 9.9 mg/dL (8.4-10.2); Hemolysis Index 14
--- NOTE | 2019-03-10 22:28 | XRay Report ---
PROCEDURE: XR CHEST ROUTINE 2V TECHNIQUE: PA and lateral chest radiographs were obtained. HISTORY: Chest Pain COMPARISONS: None. FINDINGS: Heart: Mild degree cardiomegaly is noted. Mediastinum/Vessels: Normal. Lungs/Pleural space: Normal. Bony thorax: No acute osseous abnormality. IMPRESSION: Mild degree cardiomegaly No acute pulmonary infiltrate. This document is electronically signed by Dennys Grant MD., March 10 2019 10:26:28 PM ET
[2019-03-10] MEDS ORDERED: LASIX IV ONE (23:47)
[2019-03-10] MEDS ORDERED: MORPHINE IV ONE (23:48)
[2019-03-10] MEDS ORDERED: ZOFRAN IV ONE (23:48)
--- NOTE | 2019-03-10 23:54 | Emergency Department Report ---
ED Chest Pain HPI - General Chief Complaint: Chest Pain Stated Complaint: CHEST PAIN, HEADACHE, ABDOMINAL PAIN Time Seen by Provider: 03/10/19 21:10 Source: patient Mode of arrival: Ambulatory Limitations: No Limitations - History of Present Illness Initial Comments: Patient is 58 years old female with history of COPD, congestive heart failure, diabetes and hypertension. Patient also had a coronary artery disease with a stent put in last year. Patient presented to the ER complaining of chest pain and shortness of breath since last night. Patient was released from [facility] 3 weeks ago for same symptoms. Patient denied any cough, fever or chills. No nausea or vomiting. MD Complaint: chest pain -: Last night Onset: during rest Pain Location: substernal Severity scale (0 -10): 5 Quality: heaviness Improves With: nothing Worsens With: nothing - Related Data Home Medications Medication Instructions Recorded Confirmed Last Taken Albuterol Sulfate [Proventil HFA] 1 - 2 puff IH Q4H PRN 08/01/13 11/17/18 09/18/18 Budesoni/Formotero 160-4.5(Nf) 2 puff IH BID 08/01/13 11/17/18 09/18/18 [Symbicort 160-4.5 (Nf)] Insulin NPH/Regular [NovoLIN 70/30] 150 unit SQ QPM 08/16/17 11/17/18 09/17/18 Insulin NPH/Regular [NovoLIN 70/30] 200 unit SQ QAM 08/16/17 11/17/18 09/17/18 Fluticasone [Flonase] 1 spray NS QDAY 11/17/18 11/17/18 Unknown ISOSORBIDE MONOnitrate [Imdur ER] 30 mg PO DAILY 11/17/18 11/17/18 Unknown Metoprolol Succinate [Toprol Xl] 25 mg PO DAILY 11/17/18 11/17/18 Unknown Nitroglycerin [Nitrostat] 0.4 mg SL Q5MIN PRN 11/17/18 11/17/18 Unknown Rosuvastatin (Nf) [Crestor] 2 tab PO DAILY 11/17/18 11/17/18 Unknown Glipizide/Metformin HCl 1,000 mg PO BID 11/19/18 11/19/18 11/17/18 [glipiZIDE-Metformin 5-500 mg] 1000 Previous Rx's Medication Instructions Recorded Last Taken Type Aspirin [Adult Low Dose Aspirin EC] 81 mg PO DAILY #30 tablet. 08/20/17 09/18/18 Rx Clopidogrel [Plavix] 75 mg PO QDAY #30 tablet 08/20/17 09/18/18 Rx Furosemide [Lasix TAB] 40 mg PO QDAY PRN #30 tablet 11/23/18 Unknown Rx predniSONE [Deltasone] 10 mg PO QDAY #5 tab 11/23/18 Unknown Rx Allergies Allergy/AdvReac Type Severity Reaction Status Date / Time Penicillins Allergy Mild Rash Verified 09/18/18 13:37 latex Allergy Unknown Unknown Verified 01/24/18 09:36 green tomato Allergy Rash Uncoded 01/24/18 09:36 Heart Score - HEART Score History: Moderately suspicious EKG: Non-specific Age: 45-65 Risk factors: > 3 risk factors or hx of atherosclerotic disease Troponin: < normal limit HEART Score: 5 - Critical Actions Critical Actions: 4-6 pts:12-16.6% risk of adverse cardiac event. Should be admitted ED Review of Systems ROS: Stated complaint: CHEST PAIN, HEADACHE, ABDOMINAL PAIN Other details as noted in HPI Comment: All other systems reviewed and negative Constitutional: denies: chills, fever Respiratory: cough, shortness of breath, SOB with exertion, SOB at rest. denies: wheezing Cardiovascular: chest pain. denies: palpitations Gastrointestinal: denies: abdominal pain, nausea, vomiting, diarrhea, constipation, hematemesis Musculoskeletal: denies: back pain Neurological: denies: headache, weakness, numbness, paresthesias, confusion, abnormal gait ED Past Medical Hx - Past Medical History Previous Medical History?: Yes Hx Hypertension: Yes Hx CVA: Yes (x4,left-sided weakness) Hx Heart Attack/AMI: Yes Hx Congestive Heart Failure: Yes Hx Diabetes: Yes Hx Deep Vein Thrombosis: Yes Hx GERD: Yes Hx Arthritis: Yes Hx Kidney Stones: No Hx Asthma: Yes Hx COPD: Yes (Home O2 2L) Hx Tuberculosis: No Additional medical history: high cholesterol - Surgical History Past Surgical History?: Yes Hx Coronary Stent: Yes Additional Surgical History: tonsillectomy, , right ankle - Social History Smoking Status: Never Smoker Substance Use Type: None - Medications Home Medications: Home Medications Medication Instructions Recorded Confirmed Last Taken Type Albuterol Sulfate [Proventil HFA] 1 - 2 puff IH Q4H PRN 08/01/13 11/17/18 09/18/18 History Budesoni/Formotero 160-4.5(Nf) 2 puff IH BID 08/01/13 11/17/18 09/18/18 History [Symbicort 160-4.5 (Nf)] Insulin NPH/Regular [NovoLIN 70/30] 150 unit SQ QPM 08/16/17 11/17/18 09/17/18 History Insulin NPH/Regular [NovoLIN 70/30] 200 unit SQ QAM 08/16/17 11/17/18 09/17/18 History Aspirin [Adult Low Dose Aspirin EC] 81 mg PO DAILY #30 tablet. 08/20/17 11/17/18 09/18/18 Rx Clopidogrel [Plavix] 75 mg PO QDAY #30 tablet 08/20/17 11/17/18 09/18/18 Rx Fluticasone [Flonase] 1 spray NS QDAY 11/17/18 11/17/18 Unknown History ISOSORBIDE MONOnitrate [Imdur ER] 30 mg PO DAILY 11/17/18 11/17/18 Unknown History Metoprolol Succinate [Toprol Xl] 25 mg PO DAILY 11/17/18 11/17/18 Unknown History Nitroglycerin [Nitrostat] 0.4 mg SL Q5MIN PRN 11/17/18 11/17/18 Unknown History Rosuvastatin (Nf) [Crestor] 2 tab PO DAILY 11/17/18 11/17/18 Unknown History Glipizide/Metformin HCl 1,000 mg PO BID 11/19/18 11/19/18 11/17/18 History [glipiZIDE-Metformin 5-500 mg] 1000 Furosemide [Lasix TAB] 40 mg PO QDAY PRN #30 tablet 11/23/18 Unknown Rx predniSONE [Deltasone] 10 mg PO QDAY #5 tab 11/23/18 Unknown Rx ED Physical Exam - General Limitations: No Limitations General appearance: alert, in no apparent distress - Head Head exam: Present: atraumatic, normocephalic, normal inspection - Eye Eye exam: Present: normal appearance, PERRL - ENT ENT exam: Present: normal exam, normal orophraynx, mucous membranes moist - Neck Neck exam: Present: normal inspection, full ROM. Absent: tenderness, meningismus, lymphadenopathy, thyromegaly - Respiratory Respiratory exam: Present: normal lung sounds bilaterally - Cardiovascular Cardiovascular Exam: Present: regular rate, normal rhythm, normal heart sounds - GI/Abdominal GI/Abdominal exam: Present: soft, normal bowel sounds. Absent: distended, tenderness, guarding, rebound, rigid, organomegaly, mass, bruit, pulsatile mass, hernia - Extremities Exam Extremities exam: Present: normal inspection, full ROM, normal capillary refill, pedal edema. Absent: calf tenderness - Back Exam Back exam: Present: normal inspection, full ROM. Absent: CVA tenderness (R), CVA tenderness (L), muscle spasm, rash noted - Neurological Exam Neurological exam: Present: alert, oriented X3, CN II-XII intact, normal gait, reflexes normal - Skin Skin exam: Present: warm, intact, normal color ED Course Vital Signs 03/10/19 21:06 Temperature 98.0 F Pulse Rate 77 Respiratory 16 Rate Blood Pressure 120/63 O2 Sat by Pulse 99 Oximetry DAVE score - Dave Score Age > 65: (0) No Aspirin use within the Past 7 Days: (1) Yes 3 or more CAD Risk Factors: (1) Yes 2 or more Angina events in past 24 hrs: (1) Yes Known CAD with more than 50% Stenosis: (0) No Elevated Cardiac Markers: (0) No ST Deviation Greater than 0.5mm: (0) No DAVE Score: 3 ED Medical Decision Making - Lab Data Result diagrams: 03/10/19 21:22 03/10/19 21:22 - EKG Data -: EKG Interpreted by De EKG shows normal: sinus rhythm Rate: normal - EKG Data Interpretation: no acute changes - Radiology Data Radiology results: report reviewed Chest x-ray showed cardiomegaly and mild pulmonary congestion. - Medical Decision Making Patient is 58 years old female with history of COPD, congestive heart failure, diabetes and hypertension. Patient also had a coronary artery disease with a s tent put in last year. Patient presented to the ER complaining of chest pain and shortness of breath since last night. Patient was released from [facility] 3 weeks ago for same symptoms. Patient denied any cough, fever or chills. No nausea or vomiting. EKG did not show any ST elevation. First set of troponin is negative. Chest x- ray is unremarkable. I discussed the patient is Dr. Rehman, he agreed to admit the patient to medical service. Critical care attestation.: If time is entered above; I have spent that time in minutes in the direct care of this critically ill patient, excluding procedure time. ED Disposition Clinical Impression: Chest pain Disposition: OP ADMIT IP TO THIS HOSP Is pt being admited?: Yes Condition: Stable Instructions: Chest Pain (ED)
[2019-03-11] MEDS ORDERED: SOLU-Medrol ONE (00:33)
[2019-03-11] MEDS ORDERED: ZOFRAN IV PRN (06:28)
[2019-03-11] MEDS ORDERED: NITROSTAT SL PRN (06:29)
[2019-03-11] MEDS ORDERED: TYLENOL PO PRN (06:30)
[2019-03-11] MEDS ORDERED: MORPHINE ONE (06:44)
[2019-03-11] MEDS: MORPHINE IV PRN (06:46)
[2019-03-11 08:31] LABS: Bilirubin,Urine NEG (Negative); Blood,Urine NEG (Negative); Color,Urine Straw (Yellow); Hyaline Casts,Urine 1 /LPF; Protein,Urine <15 mg/dL mg/dL (Negative); Urobilinogen,Urine < 2.0 mg/dL (<2.0)
--- NOTE | 2019-03-11 09:54 | Consultation ---
History of Present Illness Consult date: 03/11/19 Requesting physician: LINDA LEUNG Consult reason: chest pain History of present illness: The pt is a 58 YO female with a past medical history of CAD s/p PCI to the ostial LAD in 12/2017, HFpEF, HTN, DM, COPD, CVA x4, CKD, heart failure, ALEXANDER, former smoker. She is followed in our office by Dr. De León. She presented with complaints of chest pain, SOB and generalized swelling for several days prior to arrival and low BPs associated with some dizziness for several week prior to arrival. She describes her chest pain as an intermittent midsternal pressure which is aggravated by deep inspiration. She denies any palpitations, n/v, diaphoresis or syncope. Of note, pt recently discharged from [place] following treatment for HFpEF, MABEL, chest pain. Echo done 12/2018 showed EF 50%, mild LVH, mildly dilated LA, trace MR. Cotton MPI stress test 09/19/2018 which was negative. Past History Past Medical History: CAD, diabetes, heart failure, hypertension Medications and Allergies Allergies Allergy/AdvReac Type Severity Reaction Status Date / Time Penicillins Allergy Mild Rash Verified 09/18/18 13:37 latex Allergy Unknown Unknown Verified 01/24/18 09:36 green tomato Allergy Rash Uncoded 01/24/18 09:36 Home Medications Medication Instructions Recorded Confirmed Last Taken Type Albuterol Sulfate [Proventil HFA] 1 - 2 puff IH Q4H PRN 08/01/13 03/11/19 09/18/18 History Insulin NPH/Regular [NovoLIN 70/30] 150 unit SQ QPM 08/16/17 03/11/19 09/17/18 History ISOSORBIDE MONOnitrate [Imdur ER] 30 mg PO DAILY 11/17/18 03/11/19 Unknown History Albuterol 90 mcg INHALATION PRN 03/11/19 03/11/19 Unknown History Aspirin [Adult Aspirin] 81 mg PO DAILY 03/11/19 03/11/19 Unknown History Clopidogrel [Plavix] 75 mg PO DAILY 03/11/19 03/11/19 Unknown History Flonase 50 mcg INHALATION DAILY 03/11/19 03/11/19 Unknown History Insulin Regular, Human [Humulin R 200 units SUB-Q PCHS 03/11/19 03/11/19 Unknown History U-500 Kwikpen] Lisinopril [Zestril TAB] 10 mg PO DAILY 03/11/19 03/11/19 Unknown History Metoprolol Xl [Metoprolol 25 mg PO DAILY 03/11/19 03/11/19 Unknown History SUCCINATE ER TAB] Nitroglycerin 0.4 mg PO PRN 03/11/19 03/11/19 Unknown History Potassium Chloride 40 meq PO DAILY 03/11/19 03/11/19 Unknown History Rosuvastatin Calcium 40 mg PO HS 03/11/19 03/11/19 Unknown History Symbicort 160-4.5 Mcg Inhaler 1 - 2 puff INHALATION BID 03/11/19 03/11/19 Unknown History Torsemide [Demadex] 100 tab PO DAILY 03/11/19 03/11/19 Unknown History metOLazone [Metolazone] 5 mg PO 2XW 03/11/19 03/11/19 Unknown History Active Meds: Active Medications Acetaminophen (Tylenol) 650 mg PO Q4H PRN PRN Reason: Headache Aspirin (Aspirin) 325 mg PO QDAY REPLACED BY [facility] Heparin Sodium (Porcine) (Heparin) 5,000 unit SUB-Q Q12HR REPLACED BY [facility] Morphine Sulfate (Morphine) 2 mg IV Q3H PRN PRN Reason: Pain, Moderate (4-6) Last Admin: 03/11/19 06:46 Dose: 2 mg Documented by: Nitroglycerin (Nitrostat) 0.4 mg SL .Q5MIN PRN PRN Reason: Chest Pain Nitroglycerin (Nitro-Bid 2%) 0.5 inch TP QIDNTG REPLACED BY [facility]; Protocol Ondansetron HCl (Zofran) 4 mg IV Q8H PRN PRN Reason: Nausea And Vomiting Review of Systems Constitutional: no fever, no chills, no sweats Ears, nose, mouth and throat: no ear pain, no nose pain, no sinus pressure, no sinus pain Cardiovascular: chest pain, orthopnea, lightheadedness, shortness of breath, dyspnea on exertion, paroxysmal nocturnal dyspnea, decreased exercise tolerance, no palpitations, no rapid/irregular heart beat, no edema, no syncope, no high blood pressure Respiratory: shortness of breath, dyspnea on exertion, no cough, no congestion, no wheezing, no pain on inspiration Gastrointestinal: no abdominal pain, no nausea, no vomiting, no diarrhea, no constipation, no change in bowel habits Genitourinary Female: no dyspareunia, no dysmenorrhea, no pelvic pain, no flank pain, no dysuria, no urinary frequency Musculoskeletal: no neck stiffness, no neck pain, no shooting arm pain, no arm numbness/tingling, no low back pain, no shooting leg pain Integumentary: no rash, no pruritis, no redness, no sores, no wounds Neurological: no head injury, no paralysis, no weakness, no parathesias, no numbness, no tingling, no seizures, no syncope Psychiatric: no anxiety Endocrine: no cold intolerance, no heat intolerance Hematologic/Lymphatic: no easy bruising, no easy bleeding Allergic/Immunologic: no urticaria, no wheezing Physical Examination Vital Signs Temp Pulse Resp BP Pulse Ox 98.0 F 77 16 120/63 99 03/10/19 21:06 03/10/19 21:06 03/10/19 21:06 03/10/19 21:06 03/10/19 21:06 General appearance: no acute distress HEENT: Positive: PERRL, Normocephaly, Mucus Membranes Moist Neck: Positive: neck supple, trachea midline Cardiac: Positive: Reg Rate and Rhythm, S1/S2 Lungs: Positive: Decreased Breath Sounds Neuro: Positive: Grossly Intact Abdomen: Positive: Soft. Negative: Tender Skin: Negative: Rash, Wound Musculoskeletal: No Pain Extremities: Present: edema (trace BLE) Results 03/10/19 21:22 03/11/19 08:15 Cardiac Enzymes 03/10/19 Range/Units 21:22 AST 28 (5-40) units/L CBC 03/10/19 Range/Units 21:22 WBC 8.6 (4.5-11.0) K/mm3 RBC 4.23 (3.65-5.03) M/mm3 Hgb 12.2 (10.1-14.3) gm/dl Hct 34.8 (30.3-42.9) % Plt Count 317 (140-440) K/mm3 Lymph # 3.5 (1.2-5.4) K/mm3 [place] # 0.7 (0.0-0.8) K/mm3 Eos # 0.3 (0.0-0.4) K/mm3 Baso # 0.1 (0.0-0.1) K/mm3 Comprehensive Metabolic Panel 03/10/19 03/11/19 Range/Units 21:22 08:15 Sodium 128 L 121 L D (137-145) mmol/L Potassium 4.5 6.3 H* D (3.6-5.0) mmol/L Chloride 86.2 L 83.1 L (98-107) mmol/L Carbon Dioxide 23 22 (22-30) mmol/L BUN 28 H 37 H (7-17) mg/dL Creatinine 1.6 H 1.9 H (0.7-1.2) mg/dL Glucose 119 H 450 H (65-100) mg/dL Calcium 9.9 9.0 (8.4-10.2) mg/dL AST 28 (5-40) units/L ALT 24 (7-56) units/L Alkaline Phosphatase 47 (35-129) units/L Total Protein 7.6 (6.3-8.2) g/dL Albumin 4.7 (3.9-5) g/dL - Imaging and Cardiology Echo: report reviewed (12/2018 showed EF 50%, mild LVH, mildly dilated LA, trace MR. ) EKG: report reviewed, image reviewed EKG interpretations - Telemetry EKG Rhythm: Sinus Rhythm - EKG Sinus rhythms and dysrhythmias: sinus rhythm Assessment and Plan Acute heart failure with preserved EF Echo done 12/2018 showed EF 50%, mild LVH, mildly dilated LA, trace MR. Cont ASA 81, plavix, statin, Toprol XL. Hold Imdur in setting of recent reported hypotension. Hold home ACEI in setting of renal insufficiency and hyperkalemia. Initiate 1500mL fluid restriction and obtain strict I&Os and daily weights. Will defer volume optimization to nephrology in setting of renal insufficiency and hyperkalemia. MABEL on ? CKD / Hyperkalemia Await nephrology consultation. Monitor renal indices. Hyponatermia Chest pain - ? pleuritic Pt reports pain is aggravated by deep inspiration. Pain currently resolved. Lexiscan MPI stress test 09/19/2018 which was negative. ECG with NAF. Haider negative for AMI. H/o HTN Pt reports episodes of hypotension and dizziness recently. Will cautiously resume home medication regimen and monitor. CAD s/p PCI to the ostial LAD in 12/2017 Cont ASA 81, plavix, statin, Toprol XL. Hold Imdur in setting of recent reported hypotension. COPD / Chronic respiratory failure H/o pulmonary nodules HTN DM Obesity ALEXANDER H/o CVA The patient has been seen in conjunction with Dr. Adame who agree with the assessment and plan of care.
[2019-03-11] MEDS ORDERED: ASPIRIN PO SCH (10:00)
--- NOTE | 2019-03-11 10:11 | History and Physical Report ---
CHIEF COMPLAINT: Chest pain. HISTORY OF PRESENT ILLNESS: The patient is a 58-year-old female with multiple medical problems including COPD, congestive heart failure, diabetes mellitus, hypertension, presented with complaint of chest pain going on for about 24 hours. Pain is pressure like in the precordial and retrosternal area and is associated with shortness of breath. The patient was released from [facility] about 3 weeks ago for the same symptoms and also had cardiac catheterization done in January at [facility] and also stress test done before the cardiac catheterization for the same complaint. There is no history of fever or chills. No history of cough and no history of nausea or vomiting. PAST MEDICAL HISTORY: Pertinent for hypertension, cerebrovascular accident with left sided weakness, coronary artery disease, status post myocardial infarction, congestive heart failure, diabetes mellitus, deep vein thrombosis. Also, the patient has past history of gastroesophageal reflux disease, arthritis, asthma, COPD, home O2 dependent, high cholesterol. PAST SURGICAL HISTORY: Pertinent for coronary stent placement, tonsillectomy, , right ankle surgery. FAMILY HISTORY: Noncontributory. SOCIAL HISTORY: The patient does not smoke, does not drink alcohol, and does not use illicit drugs. MEDICATIONS: The patient is on albuterol inhaler 1-2 puffs every 4 hours and Symbicort 2 puffs by inhalation twice daily. The patient is on 70/30 insulin NPH/regular 150 units subcutaneous in the night and 200 units subcutaneous in the morning. The patient is also on aspirin 81 mg by mouth daily, Plavix 75 mg by mouth daily, fluticasone 1 spray nasally daily. The patient is on isosorbide mononitrate 30 mg by mouth daily and metoprolol succinate 25 mg by mouth daily. The patient is also on Nitrostat 0.4 sublingual every 5 minutes as needed for chest pain and on Crestor 2 tablets by mouth daily. The patient is also on glipizide/metformin 5/500 one by mouth twice daily. The patient is on Lasix 40 mg by mouth daily and prednisone 10 mg daily. It is not clear whether the patient is still taking prednisone. ALLERGIES: The patient is allergic to PENICILLIN, LATEX, and GREEN TOMATO. REVIEW OF SYSTEMS: CONSTITUTIONAL: There is no fever, no chills, no diaphoresis. HEENT: There is no headache or sore throat. CARDIOVASCULAR SYSTEM: Chest pain is present. No orthopnea. RESPIRATORY SYSTEM: Shortness of breath is present. No cough. GASTROINTESTINAL SYSTEM: There is no nausea, no vomiting, no abdominal pain, diarrhea, or constipation. NEUROLOGICAL SYSTEM: There is no numbness, no dizziness, no altered mental status. MUSCULOSKELETAL SYSTEM: There is no joint pain or swelling. DERMATOLOGICAL SYSTEM: There is no skin rash or itching. GENITOURINARY SYSTEM: There is no dysuria, hematuria, or flank pain. Rest of system review is normal. PHYSICAL EXAMINATION: GENERAL: At the time of exam, the patient was found to be alert, oriented x 3, and not in acute distress. VITAL SIGNS: Shows temperature of 98 degrees Fahrenheit, pulse of 77, respirations 16, blood pressure 120/63, O2 sat of 99% on room air. HEENT: Showed pupils to be equal, round, reactive to light and accommodating. Extraocular muscles are intact. NECK: Neck is supple with no JVD or carotid bruit. CARDIOVASCULAR SYSTEM: Showed normal first and second heart sounds with no gallops or murmurs. RESPIRATORY SYSTEM: Show good air entry on both sides of the lung with no abnormal breath sounds. GASTROINTESTINAL SYSTEM: Show abdomen to be full, soft, nontender with no organomegaly or rigidity. NEUROLOGIC: Shows no focal deficits. MUSCULOSKELETAL SYSTEM: Show no joint swelling or tenderness. DERMATOLOGICAL SYSTEM: Show no skin rash. GENITOURINARY SYSTEM: Showing no costovertebral angle tenderness. PERTINENT LABORATORY AND IMAGING STUDIES: The patient had chest x-ray done that shows mild degree of cardiomegaly with no active pulmonary infiltrates. Lab results: The patient has CBC done that shows normal white count, normal hemoglobin and normal hematocrit with CBC differential showing elevated lymphocyte count of 40.4% and elevated monocyte count of 8.2%. The patient's chemistry shows low sodium of 128, elevated BUN of 28, and elevated creatinine of 1.6. Troponin level came back normal. Brain natriuretic peptide level was unremarkable. DIAGNOSES: 1. Chest pain. 2. Hyponatremia. 3. Acute kidney injury. PLAN OF CARE: 1. The patient will be admitted to telemetry. 2. The patient will have serial cardiac enzymes involving troponin, total CK, and CK-MB checked q. 6 hours x 2 more levels. 3. The patient will have Cardiology consult with Dr. Goldman for management of chest pain with a history of recent cardiac catheterization and stress test. 4. The patient will have Nephrology consult with Ton Merritt for acute kidney injury with hyponatremia. 5. The patient will be on morphine 2 mg IV q. 3 hours as needed for pain and IV Zofran 4 mg q. 8 hours for nausea and vomiting. 6. The patient will be on nitro paste half inch to anterior chest wall q.i.d. and Nitrostat 0.4 mg sublingual every 5 minutes as needed for chest pain. Also, the patient will be on Tylenol 650 mg by mouth every 4 hours for fever and headache and will be on aspirin 325 mg by mouth daily. 7. The patient will be on oxygen via nasal cannula at 2 liters per minute. 8. The patient will be on heparin 5000 units subcutaneous q. 12 hours for DVT prophylaxis. 9. The patient will be on oxygen by nasal cannula at 2 liters per minute. JOB# [id number] OCN/NTS
[2019-03-11] MEDS ORDERED: HEPARIN ONE (10:32)
[2019-03-11] MEDS ORDERED: ASPIRIN ONE ×2 (10:32→10:33)
[2019-03-11] MEDS ORDERED: NITRO-BID 2% TP ONE ×2 (10:32→15:35)
[2019-03-11] MEDS: NITRO-BID 2% TP SCH ×3 (10:37→18:06)
[2019-03-11] MEDS: HEPARIN SUB-Q SCH ×2 (10:37→21:36)
[2019-03-11] MEDS ORDERED: KIONEX PO ONE (11:30)
[2019-03-11] MEDS: FLORINEF PO SCH (12:41)
[2019-03-11] MEDS ORDERED: NACL 0.9% 1000 ML 1,000 ML ONE (13:15)
--- NOTE | 2019-03-11 14:11 | Event Note ---
Date: 03/11/19
[2019-03-11] MEDS ORDERED: CALCIUM GLUCONATE 1,000 MG in NACL 0.9% 100 ML IV ONE ×2 (15:00→18:00)
[2019-03-11] MEDS ORDERED: NACL 0.9% IV ONE (15:15)
[2019-03-11] MEDS: NACL 0.9% 1000 ML 1,000 ML IV SCH (15:18)
--- NOTE | 2019-03-11 15:24 | Consultation ---
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. She reports she has been admitted congestive heart failure in December and in January was discharged on metolazone 5 mg on Saturday and and torsemide 100 mg daily and lisinopril She received a dose of Lasix in the emergency room with worsening creatinine 1.6-1.9, potassium elevated she denies any was in shortness of prednisone extremity edema denies any ongoing orthopnea or PND he received her last dose of metolazone on Saturday and she was only given 7 pills Past History Past Medical History: CAD, diabetes, heart failure, hypertension Medications and Allergies Allergies Allergy/AdvReac Type Severity Reaction Status Date / Time Penicillins Allergy Mild Rash Verified 09/18/18 13:37 latex Allergy Unknown Unknown Verified 01/24/18 09:36 green tomato Allergy Rash Uncoded 01/24/18 09:36 Home Medications Medication Instructions Recorded Confirmed Last Taken Type Albuterol Sulfate [Proventil HFA] 1 - 2 puff IH Q4H PRN 08/01/13 03/11/19 09/18/18 History Insulin NPH/Regular [NovoLIN 70/30] 150 unit SQ QPM 08/16/17 03/11/19 09/17/18 History ISOSORBIDE MONOnitrate [Imdur ER] 30 mg PO DAILY 11/17/18 03/11/19 Unknown History Albuterol 90 mcg INHALATION PRN 03/11/19 03/11/19 Unknown History Aspirin [Adult Aspirin] 81 mg PO DAILY 03/11/19 03/11/19 Unknown History Clopidogrel [Plavix] 75 mg PO DAILY 03/11/19 03/11/19 Unknown History Flonase 50 mcg INHALATION DAILY 03/11/19 03/11/19 Unknown History Insulin Regular, Human [Humulin R 200 units SUB-Q PCHS 03/11/19 03/11/19 Unknown History U-500 Kwikpen] Lisinopril [Zestril TAB] 10 mg PO DAILY 03/11/19 03/11/19 Unknown History Metoprolol Xl [Metoprolol 25 mg PO DAILY 03/11/19 03/11/19 Unknown History SUCCINATE ER TAB] Nitroglycerin 0.4 mg PO PRN 03/11/19 03/11/19 Unknown History Potassium Chloride 40 meq PO DAILY 03/11/19 03/11/19 Unknown History Rosuvastatin Calcium 40 mg PO HS 03/11/19 03/11/19 Unknown History Symbicort 160-4.5 Mcg Inhaler 1 - 2 puff INHALATION BID 03/11/19 03/11/19 Unknown History Torsemide [Demadex] 100 tab PO DAILY 03/11/19 03/11/19 Unknown History metOLazone [Metolazone] 5 mg PO 2XW 03/11/19 03/11/19 Unknown History Active Meds: Active Medications Acetaminophen (Tylenol) 650 mg PO Q4H PRN PRN Reason: Headache Aspirin (Baby Aspirin) 81 mg PO QDAY [facility] Atorvastatin Calcium (Lipitor) 80 mg PO QHS [facility] Clopidogrel Bisulfate (Plavix) 75 mg PO DAILY [facility] Fludrocortisone Acetate (Florinef) 0.2 mg PO QDAY [facility] Last Admin: 03/11/19 12:41 Dose: 0.2 mg Documented by: Heparin Sodium (Porcine) (Heparin) 5,000 unit SUB-Q Q12HR [facility] Last Admin: 03/11/19 10:37 Dose: 5,000 unit Documented by: Sodium Chloride (Nacl 0.9% 1000 Ml) 1,000 mls @ 100 mls/hr IV DIRECT [facility] Sodium Chloride (Nacl 0.9% 250ml) 300 mls @ 999 mls/hr IV ONCE ONE Stop: 03/11/19 15:33 Metoprolol Succinate (Toprol Xl) 25 mg PO DAILY [facility] Morphine Sulfate (Morphine) 2 mg IV Q3H PRN PRN Reason: Pain, Moderate (4-6) Last Admin: 03/11/19 06:46 Dose: 2 mg Documented by: Nitroglycerin (Nitrostat) 0.4 mg SL .Q5MIN PRN PRN Reason: Chest Pain Nitroglycerin (Nitro-Bid 2%) 0.5 inch TP QIDNTG [facility]; Protocol Last Admin: 03/11/19 10:37 Dose: 0.5 inch Documented by: Ondansetron HCl (Zofran) 4 mg IV Q8H PRN PRN Reason: Nausea And Vomiting Review of Systems Constitutional: weight loss Ears, nose, mouth and throat: no deferred, no ear pain Cardiovascular: no chest pain, no orthopnea, no shortness of breath Respiratory: no cough, no cough with sputum Gastrointestinal: no abdominal pain, no nausea, no vomiting Genitourinary Female: no dyspareunia, no dysmenorrhea Musculoskeletal: no neck stiffness, no neck pain Integumentary: no deferred, no rash Psychiatric: no anxiety, no memory loss Endocrine: no cold intolerance, no heat intolerance Hematologic/Lymphatic: no easy bruising Allergic/Immunologic: no urticaria Exam - Vital Signs Vital signs: Vital Signs Temp Pulse Resp BP Pulse Ox 98.0 F 77 16 120/63 99 03/10/19 21:06 03/10/19 21:06 03/10/19 21:06 03/10/19 21:06 03/10/19 21:06 - General Appearance General appearance: well-developed, well-nourished EENT: ATNC, PERRL, mucous membranes moist Neck: Present: neck supple Respiratory: Clear to Ascultation Heart: regular, S1S2 Gastrointestinal: Present: normal, normoactive bowel sounds Integumentary: no rash Neurologic: alert and oriented x3, CN 3-12 intact Musculoskeletal: Present: deferred, deformities Psychiatric: mood/affect appropriate Results - Lab Results 03/10/19 21:22 03/11/19 08:15 Most recent lab results Calcium 9.0 mg/dL (8.4-10.2) 03/11/19 08:15 - Image Kidney/bladder ultrasound: other (I reviewed chest x-ray without any overt edema) Assessment and Plan - Patient Problems (1) Acute kidney injury Current Visit: Yes Status: Acute Plan to address problem: Acute kidney injury Baseline creatinine unknown Current creatinine 1.9 mg/dl worsening Recent worsening renal function as well as over diuresis Chest x-ray is relatively clear and she has no overt edema We'll give a gentle bolus and then fluids at 100 mL an hour Recommend holding all diuretics for now hold JOSE inhibitor as well We'll obtain renal ultrasound Recheck renal function panel (2) CHF (congestive heart failure) Current Visit: No Status: Acute Qualifiers: Heart failure type: unspecified Heart failure chronicity: unspecified Qualified Code(s): I50.9 - Heart failure, unspecified Plan to address problem: Congestive heart failure she's not in acute exacerbation Will hold diuretics Cardiology following (3) COPD (chronic obstructive pulmonary disease) Current Visit: No Status: Acute Qualifiers: COPD type: unspecified COPD Qualified Code(s): J44.9 - Chronic obstructive pulmonary disease, unspecified Plan to address problem: COPD on home oxygen 2 L oxygen saturation 99 She has received Solu-Medrol Monitor respiratory status (4) Hyponatremia Current Visit: Yes Status: Acute Plan to address problem: Hyponatremia Na: 121 2/2 electrolyte loss with diuretics appears volume down on exam Fluid hydration as above. (5) Hyperkalemia, diminished renal excretion Current Visit: Yes Status: Acute Plan to address problem: Hyperkalemia secondary to acute kidney injury will give fludrocortisone 0.2mg po once Will give kayexalate Stop potassium chloride supplementation fluid hydration.
[2019-03-11 16:01] LABS: Calcium 8.9 mg/dL (8.4-10.2)
[2019-03-11] MEDS ORDERED: HumuLIN R IV ONE (16:49)
[2019-03-11] MEDS ORDERED: ZAROXOLYN PO SCH (17:00)
[2019-03-11] MEDS ORDERED: NACL 0.9% 500 ML 500 ML IV ONE (17:30)
--- NOTE | 2019-03-11 17:56 | History and Physical Report ---
History of Present Illness Date of admission: 03/11/19 00:50 Past History Past Medical History: CAD, diabetes, heart failure, hypertension Medications and Allergies Allergies Allergy/AdvReac Type Severity Reaction Status Date / Time Penicillins Allergy Mild Rash Verified 09/18/18 13:37 latex Allergy Unknown Unknown Verified 01/24/18 09:36 green tomato Allergy Rash Uncoded 01/24/18 09:36 Home Medications Medication Instructions Recorded Confirmed Last Taken Type Albuterol Sulfate [Proventil HFA] 1 - 2 puff IH Q4H PRN 08/01/13 03/11/19 09/18/18 History Insulin NPH/Regular [NovoLIN 70/30] 150 unit SQ QPM 08/16/17 03/11/19 09/17/18 History ISOSORBIDE MONOnitrate [Imdur ER] 30 mg PO DAILY 11/17/18 03/11/19 Unknown History Albuterol 90 mcg INHALATION PRN 03/11/19 03/11/19 Unknown History Aspirin [Adult Aspirin] 81 mg PO DAILY 03/11/19 03/11/19 Unknown History Clopidogrel [Plavix] 75 mg PO DAILY 03/11/19 03/11/19 Unknown History Flonase 50 mcg INHALATION DAILY 03/11/19 03/11/19 Unknown History Insulin Regular, Human [Humulin R 200 units SUB-Q PCHS 03/11/19 03/11/19 Unknown History U-500 Kwikpen] Lisinopril [Zestril TAB] 10 mg PO DAILY 03/11/19 03/11/19 Unknown History Metoprolol Xl [Metoprolol 25 mg PO DAILY 03/11/19 03/11/19 Unknown History SUCCINATE ER TAB] Nitroglycerin 0.4 mg PO PRN 03/11/19 03/11/19 Unknown History Potassium Chloride 40 meq PO DAILY 03/11/19 03/11/19 Unknown History Rosuvastatin Calcium 40 mg PO HS 03/11/19 03/11/19 Unknown History Symbicort 160-4.5 Mcg Inhaler 1 - 2 puff INHALATION BID 03/11/19 03/11/19 Unknown History Torsemide [Demadex] 100 tab PO DAILY 03/11/19 03/11/19 Unknown History metOLazone [Metolazone] 5 mg PO 2XW 04/24/19 04/24/19 Unknown History Active Meds: Active Medications Acetaminophen (Tylenol) 650 mg PO Q4H PRN PRN Reason: Headache Aspirin (Baby Aspirin) 81 mg PO QDAY [facility] Aspirin (Halfprin Ec) 81 mg PO DAILY [facility] Atorvastatin Calcium (Lipitor) 40 mg PO QHS [facility] Clopidogrel Bisulfate (Plavix) 75 mg PO DAILY [facility] Fludrocortisone Acetate (Florinef) 0.2 mg PO QDAY [facility] Last Admin: 03/11/19 12:41 Dose: 0.2 mg Documented by: Heparin Sodium (Porcine) (Heparin) 5,000 unit SUB-Q Q12HR [facility] Last Admin: 03/11/19 10:37 Dose: 5,000 unit Documented by: Sodium Chloride (Nacl 0.9% 1000 Ml) 1,000 mls @ 150 mls/hr IV DIRECT [facility] Last Admin: 03/11/19 15:18 Dose: 100 mls/hr Documented by: Sodium Chloride (Nacl 0.9% 500 Ml) 500 mls @ 999 mls/hr IV ONCE ONE Stop: 03/11/19 18:00 Calcium Gluconate 1,000 mg/ (Sodium Chloride) 110 mls @ 660 mls/hr IV ONCE ONE Stop: 03/11/19 18:09 Insulin Human Isoph/Insulin Regular (Humulin 70/30) 100 unit SUB-Q BIDDIAB [facility] Insulin Human Lispro (Humalog) 0 unit SUB-Q ACHS [facility]; Protocol Isosorbide Mononitrate (Imdur) 30 mg PO DAILY [facility] Metoprolol Succinate (Toprol Xl) 25 mg PO DAILY [facility] Morphine Sulfate (Morphine) 2 mg IV Q3H PRN PRN Reason: Pain, Moderate (4-6) Last Admin: 03/11/19 06:46 Dose: 2 mg Documented by: Nitroglycerin (Nitrostat) 0.4 mg SL .Q5MIN PRN PRN Reason: Chest Pain Nitroglycerin (Nitro-Bid 2%) 0.5 inch TP QIDNTG [facility]; Protocol Last Admin: 03/11/19 15:34 Dose: 0.5 inch Documented by: Ondansetron HCl (Zofran) 4 mg IV Q8H PRN PRN Reason: Nausea And Vomiting Exam - Constitutional Vitals: Temp Pulse Resp BP Pulse Ox 97.4 F L 83 16 114/51 100 03/11/19 17:38 03/11/19 17:38 03/11/19 17:38 03/11/19 17:38 03/11/19 17:38 Results - Labs CBC & Chem 7: 03/10/19 21:22 03/11/19 14:46 Labs: Abnormal lab results 03/10/19 03/10/19 03/11/19 Range/Units 21:22 21:22 08:15 MCHC 35 H (30-34) % Lymph % (Auto) 40.4 H (13.4-35.0) % [place] % (Auto) 8.2 H (0.0-7.3) % POC ABG pH (7.35-7.45) POC ABG pO2 (80-105) Sodium 128 L (137-145) mmol/L Potassium (3.6-5.0) mmol/L Chloride 86.2 L (98-107) mmol/L Carbon Dioxide (22-30) mmol/L BUN 28 H (7-17) mg/dL Creatinine 1.6 H (0.7-1.2) mg/dL Glucose 119 H (65-100) mg/dL POC Glucose (70-105) Total Creatine Kinase 290 H (30-135) units/L 03/11/19 03/11/19 03/11/19 Range/Units 08:15 10:00 14:46 MCHC (30-34) % Lymph % (Auto) (13.4-35.0) % [place] % (Auto) (0.0-7.3) % POC ABG pH 7.337 L (7.35-7.45) POC ABG pO2 64 L (80-105) Sodium 121 L D 117 L* (137-145) mmol/L Potassium 6.3 H* D 6.4 H* (3.6-5.0) mmol/L Chloride 83.1 L 76.7 L (98-107) mmol/L Carbon Dioxide 20 L (22-30) mmol/L BUN 37 H 43 H (7-17) mg/dL Creatinine 1.9 H 2.1 H (0.7-1.2) mg/dL Glucose 450 H 606 H* (65-100) mg/dL POC Glucose (70-105) Total Creatine Kinase (30-135) units/L 03/11/19 Range/Units 17:47 MCHC (30-34) % Lymph % (Auto) (13.4-35.0) % [place] % (Auto) (0.0-7.3) % POC ABG pH (7.35-7.45) POC ABG pO2 (80-105) Sodium (137-145) mmol/L Potassium (3.6-5.0) mmol/L Chloride (98-107) mmol/L Carbon Dioxide (22-30) mmol/L BUN (7-17) mg/dL Creatinine (0.7-1.2) mg/dL Glucose (65-100) mg/dL POC Glucose > 500 H (70-105) Total Creatine Kinase (30-135) units/L
--- NOTE | 2019-03-11 17:56 | Progress Note ---
Assessment and Plan Assessment and plan: --Atypical chest pain; rule out acute coronary syndrome Serial cardiac enzymes, cardiac medications, cardiology evaluated the patient --Hyperglycemia/hyperosmolar nonketotic state; Vigorous IV hydration, Accu-Cheks, sliding scale coverage, long-acting insulin Patient is on a high-dose of 70/30 insulin 200 units every morning 150 subcutaneous p.m., Hemoglobin A1c more than 10, diabetic education --Pseudohyponatremia ; due to severe hypoglycemia Monitor electrolytes --Hyperkalemia; Kayexalate, calcium gluconate Monitor electrolytes --Metabolic acidosis; gentle hydration --Acute kidney injury; secondary to ATN Management per nephrology --Medical noncompliance; diet and medications Strongly advised to comply with medications and diet --Morbid obesity; BMI 39.5 Advice at reduction in medically stable --Full CODE STATUS Cardiology evaluation and recommendation noted and appreciated Monitor closely and adjust management as needed Extended care for 31 minutes Plan of care reviewed with the patient and her nurse Critical care time 32 minutes History Interval history: Patient seen and examined medical records reviewed Patient was admitted early this morning. Worsening shortness of breath. Chest pain Initial workup is consistent with hyponatremia and hyperkalemia acute kidney injury Severe hypoglycemia/hyperosmolar state. Patient is noncompliant with medications Blood sugars ranging between 400s to 600 Cardiology evaluated the patient and recommended medical management Patient feels better no new complaints Vital signs normal. Hospitalist Physical - Constitutional Vitals: Temp Pulse Resp BP Pulse Ox 97.4 F L 83 16 114/51 100 03/11/19 17:38 03/11/19 17:38 03/11/19 17:38 03/11/19 17:38 03/11/19 17:38 General appearance: Present: no acute distress, well-nourished, obese (morbidly obese) - EENT Eyes: Present: PERRL, EOM intact - Neck Neck: Present: supple, normal ROM - Respiratory Respiratory effort: normal Respiratory: bilateral: diminished, negative: rales, rhonchi, wheezing - Cardiovascular Rhythm: regular Heart Sounds: Present: S1 & S2 - Extremities Extremities: no ischemia, No edema - Abdominal General gastrointestinal: soft, non-tender, non-distended, normal bowel sounds - Integumentary Integumentary: Present: clear, warm - Psychiatric Psychiatric: appropriate mood/affect, cooperative - Neurologic Neurologic: CNII-XII intact, moves all extremities Results - Labs CBC & Chem 7: 03/10/19 21:22 03/11/19 14:46 Labs: Laboratory Last Values WBC 8.6 K/mm3 (4.5-11.0) 03/10/19 21:22 RBC 4.23 M/mm3 (3.65-5.03) 03/10/19 21:22 Hgb 12.2 gm/dl (10.1-14.3) 03/10/19 21:22 Hct 34.8 % (30.3-42.9) 03/10/19 21:22 MCV 82 fl (79-97) 03/10/19 21: MCH 29 pg (28-32) 03/10/19 21: MCHC 35 % (30-34) H 03/10/19 21:22 RDW 13.9 % (13.2-15.2) 03/10/19 21: Plt Count 317 K/mm3 (140-440) 03/10/19 21:22 Lymph % (Auto) 40.4 % (13.4-35.0) H 03/10/19 21:22 Bertie % (Auto) 8.2 % (0.0-7.3) H 03/10/19 21:22 Eos % (Auto) 3.0 % (0.0-4.3) 03/10/19 21:22 Baso % (Auto) 1.2 % (0.0-1.8) 03/10/19 21: Lymph # 3.5 K/mm3 (1.2-5.4) 03/10/19 21:22 Bertie # 0.7 K/mm3 (0.0-0.8) 03/10/19 21:22 Eos # 0.3 K/mm3 (0.0-0.4) 03/10/19 21:22 Baso # 0.1 K/mm3 (0.0-0.1) 03/10/19 21: Seg Neutrophils % 47.2 % (40.0-70.0) 03/10/19 21: Seg Neutrophils # 4.1 K/mm3 (1.8-7.7) 03/10/19 21:22 POC ABG pH 7.337 (7.35-7.45) L 03/11/19 10:00 POC ABG pCO2 41.7 (35-45) 03/11/19 10:00 POC ABG pO2 64 (80-105) L 03/11/19 10:00 POC ABG HCO3 22.4 (22-26 mml/L) 03/11/19 10:00 POC ABG Total CO2 24 (23-27mmol/L) 03/11/19 10:00 POC ABG O2 Sat 91 03/11/19 10:00 POC ABG Base Excess -3 ((-2) - (+3)mmol/L) 03/11/19 10:00 FiO2 1 % 03/11/19 10:00 Sodium 117 mmol/L (137-145) L* 03/11/19 14:46 Potassium 6.4 mmol/L (3.6-5.0) H* 03/11/19 14:46 Chloride 76.7 mmol/L (98-107) L 03/11/19 14:46 Carbon Dioxide 20 mmol/L (22-30) L 03/11/19 14:46 Anion Gap 27 mmol/L 03/11/19 14:46 BUN 43 mg/dL (7-17) H 03/11/19 14:46 Creatinine 2.1 mg/dL (0.7-1.2) H 03/11/19 14:46 Estimated GFR 29 ml/min 03/11/19 14:46 BUN/Creatinine Ratio 20 % 03/11/19 14:46 Glucose 606 mg/dL (65-100) H* 03/11/19 14:46 POC Glucose > 500 (70-105) H 03/11/19 17:47 Calcium 8.9 mg/dL (8.4-10.2) 03/11/19 14:46 Total Bilirubin 0.20 mg/dL (0.1-1.2) 03/10/19 21:22 AST 28 units/L (5-40) 03/10/19 21:22 ALT 24 units/L (7-56) 03/10/19 21:22 Alkaline Phosphatase 47 units/L (35-129) 03/10/19 21:22 Total Creatine Kinase 290 units/L (30-135) H 03/11/19 08:15 CK-MB (CK-2) 3.0 ng/mL (0.0-4.0) 03/11/19 08:15 CK-MB (CK-2) Rel Index 1.0 (0-4) 03/11/19 08:15 Troponin T < 0.010 ng/mL (0.00-0.029) 03/11/19 08:15 NT-Pro-B Natriuret Pep 67.57 pg/mL (0-900) 03/11/19 00:20 Total Protein 7.6 g/dL (6.3-8.2) 03/10/19 21:22 Albumin 4.7 g/dL (3.9-5) 03/10/19 21:22 Albumin/Globulin Ratio 1.6 % 03/10/19 21:22 Lipase 55 units/L (13-60) 03/11/19 00:20 Urine Color Straw (Yellow) 03/11/19 08:00 Urine Turbidity Clear (Clear) 03/11/19 08:00 Urine pH 5.0 (5.0-7.0) 03/11/19 08:00 Ur Specific [place] 1.006 (1.003-1.030) 03/11/19 08:00 Urine Protein <15 mg/dl mg/dL (Negative) 03/11/19 08:00 Urine Glucose (UA) 50 mg/dL (Negative) 03/11/19 08:00 Urine Ketones Neg mg/dL (Negative) 03/11/19 08:00 Urine Blood Neg (Negative) 03/11/19 08:00 Urine Nitrite Neg (Negative) 03/11/19 08:00 Urine Bilirubin Neg (Negative) 03/11/19 08:00 Urine Urobilinogen < 2.0 mg/dL (<2.0) 03/11/19 08:00 Ur Leukocyte Esterase Neg (Negative) 03/11/19 08:00 Urine WBC (Auto) 1.0 /HPF (0.0-6.0) 03/11/19 08:00 Urine RBC (Auto) 1.0 /HPF (0.0-6.0) 03/11/19 08:00 U Epithel Cells (Auto) 1.0 /HPF (0-13.0) 03/11/19 08:00 Hyaline Casts 1 /LPF 03/11/19 08:00 Active Medications - Current Medications Current Medications: Generic Name Dose Route Start Last Admin Trade Name Freq PRN Reason Stop Dose Admin Acetaminophen 650 mg 03/11/19 06:30 Tylenol PO Q4H PRN Headache Aspirin 81 mg 03/12/19 10:00 Baby Aspirin PO QDAY [facility] Aspirin 81 mg 03/12/19 10:00 Halfprin Ec PO DAILY [facility] Atorvastatin Calcium 40 mg 03/11/19 22:00 Lipitor PO QHS [facility] Clopidogrel Bisulfate 75 mg 03/12/19 10:00 Plavix PO DAILY [facility] Fludrocortisone Acetate 0.2 mg 03/11/19 11:00 03/11/19 12:41 Florinef PO 0.2 mg QDAY [facility] Administration Heparin Sodium (Porcine) 5,000 unit 03/11/19 10:00 03/11/19 10:37 Heparin SUB-Q 5,000 unit Q12HR [facility] Administration Sodium Chloride 1,000 mls @ 150 mls/hr 03/11/19 11:00 03/11/19 15:18 Nacl 0.9% 1000 Ml IV 100 mls/hr DIRECT [facility] Administration Sodium Chloride 500 mls @ 999 mls/hr 03/11/19 17:30 Nacl 0.9% 500 Ml IV 03/11/19 18:00 ONCE ONE Calcium Gluconate 1,000 mg/ 110 mls @ 660 mls/hr 03/11/19 18:00 Sodium Chloride IV 03/11/19 18:09 ONCE ONE Insulin Human Isoph/Insulin Regular 100 unit 03/12/19 08:00 Humulin 70/30 SUB-Q BIDDIAB [facility] Insulin Human Lispro 0 unit 03/11/19 22:00 Humalog SUB-Q ACHS [facility] Protocol Isosorbide Mononitrate 30 mg 03/12/19 10:00 Imdur PO DAILY [facility] Metoprolol Succinate 25 mg 03/12/19 10:00 Toprol Xl PO DAILY [facility] Morphine Sulfate 2 mg 03/11/19 06:28 03/11/19 06:46 Morphine IV 2 mg Q3H PRN Administration Pain, Moderate (4-6) Nitroglycerin 0.4 mg 03/11/19 06:29 Nitrostat SL .Q5MIN PRN Chest Pain Nitroglycerin 0.5 inch 03/11/19 10:00 03/11/19 15:34 Nitro-Bid 2% TP 0.5 inch QIDNTG [facility] Administration Protocol Ondansetron HCl 4 mg 03/11/19 06:28 Zofran IV Q8H PRN Nausea And Vomiting
[2019-03-11 20:44] LABS: Creatine Kinase MB 3.6 ng/mL (0.0-4.0)
[2019-03-11] MEDS ORDERED: DUONEB *Not for PRN Use IH ONE (20:45)
[2019-03-11] MEDS: HumaLOG SUB-Q SCH (21:34)
[2019-03-11] MEDS ORDERED: NON-FORMULARY (Rosuvastatin Calcium [Rosuvastatin Calcium] 40 MG) PO SCH (22:00)
[2019-03-12] MEDS: NACL 0.9% 1000 ML 1,000 ML IV SCH (00:17)
[2019-03-12] MEDS: NITRO-BID 2% TP SCH ×3 (05:43→17:46)
--- NOTE | 2019-03-12 08:26 | Progress Note ---
Assessment and Plan Assessment and plan: --Atypical chest pain; rule out acute coronary syndrome Symptoms improved, first set of cardiac enzymes negative Continue cardiac medications, cardiology evaluated the patient --Hyperglycemia/hyperosmolar nonketotic state; blood sugars slightly improved Continue IV hydration, Accu-Cheks, sliding scale coverage, long-acting insulin Increase morning insulin to 150 units 70/30 Patient is on a high-dose of 70/30 insulin 200 units every morning 150 subcutaneous p.m., Hemoglobin A1c more than 10, diabetic education --Pseudohyponatremia ; significantly improved to normal range Sodium 133 today --Hyperkalemia; corrected --Metabolic acidosis; resolved --Acute kidney injury; secondary to ATN Creatinine trending down 2.1 - 1.5 Avoid Nephrotoxin --Medical noncompliance; diet and medications Strongly advised to comply with medications and diet --Morbid obesity; BMI 39.5 Advice at reduction in medically stable --Full CODE STATUS Cardiology evaluation and recommendation noted and appreciated Monitor closely and adjust management as needed Possible discharge in 1-2 days if stable History Interval history: Patient seen and examined medical records reviewed Patient complains of intermittent chest pain Blood sugars significantly improved still elevated Alert awake oriented Vital signs noted Hospitalist Physical - Constitutional Vitals: Temp Pulse Resp BP Pulse Ox 97.4 F L 70 16 112/45 100 03/12/19 03:52 03/12/19 06:05 03/12/19 03:52 03/12/19 03:52 03/12/19 03:52 General appearance: Present: no acute distress, well-nourished, obese (morbidly obese) - EENT Eyes: Present: PERRL, EOM intact - Neck Neck: Present: supple, normal ROM - Respiratory Respiratory effort: normal Respiratory: bilateral: diminished, negative: rales, rhonchi, wheezing - Cardiovascular Rhythm: regular Heart Sounds: Present: S1 & S2 - Extremities Extremities: no ischemia, No edema - Abdominal General gastrointestinal: soft, non-tender, non-distended, normal bowel sounds - Integumentary Integumentary: Present: clear, warm - Psychiatric Psychiatric: appropriate mood/affect, cooperative - Neurologic Neurologic: CNII-XII intact, moves all extremities Results - Labs CBC & Chem 7: 03/10/19 21:22 03/12/19 04:44 Labs: Laboratory Last Values WBC 8.6 K/mm3 (4.5-11.0) 03/10/19 21: RBC 4.23 M/mm3 (3.65-5.03) 03/10/19 21:22 Hgb 12.2 gm/dl (10.1-14.3) 03/10/19 21:22 Hct 34.8 % (30.3-42.9) 03/10/19 21:22 MCV 82 fl (79-97) 03/10/19 21:22 MCH 29 pg (28-32) 03/10/19 21:22 MCHC 35 % (30-34) H 03/10/19 21:22 RDW 13.9 % (13.2-15.2) 03/10/19 21:22 Plt Count 317 K/mm3 (140-440) 03/10/19 21:22 Lymph % (Auto) 40.4 % (13.4-35.0) H 03/10/19 21:22 [place] % (Auto) 8.2 % (0.0-7.3) H 03/10/19 21:22 Eos % (Auto) 3.0 % (0.0-4.3) 03/10/19 21:22 Baso % (Auto) 1.2 % (0.0-1.8) 03/10/19 21: Lymph # 3.5 K/mm3 (1.2-5.4) 03/10/19 21: [place] # 0.7 K/mm3 (0.0-0.8) 03/10/19 21: Eos # 0.3 K/mm3 (0.0-0.4) 03/10/19 21:22 Baso # 0.1 K/mm3 (0.0-0.1) 03/10/19 21: Seg Neutrophils % 47.2 % (40.0-70.0) 03/10/19 21: Seg Neutrophils # 4.1 K/mm3 (1.8-7.7) 03/10/19 21: POC ABG pH 7.337 (7.35-7.45) L 03/11/19 10:00 POC ABG pCO2 41.7 (35-45) 03/11/19 10:00 POC ABG pO2 64 (80-105) L 03/11/19 10:00 POC ABG HCO3 22.4 (22-26 mml/L) 03/11/19 10:00 POC ABG Total CO2 24 (23-27mmol/L) 03/11/19 10:00 POC ABG O2 Sat 91 03/11/19 10:00 POC ABG Base Excess -3 ((-2) - (+3)mmol/L) 03/11/19 10:00 FiO2 1 % 03/11/19 10:00 Sodium 133 mmol/L (137-145) L D 03/12/19 04:44 Potassium 4.2 mmol/L (3.6-5.0) D 03/12/19 04:44 Chloride 90.1 mmol/L (98-107) L 03/12/19 04:44 Carbon Dioxide 26 mmol/L (22-30) 03/12/19 04:44 Anion Gap 21 mmol/L 03/12/19 04:44 BUN 38 mg/dL (7-17) H 03/12/19 04:44 Creatinine 1.5 mg/dL (0.7-1.2) H 03/12/19 04:44 Estimated GFR 43 ml/min 03/12/19 04:44 BUN/Creatinine Ratio 25 % 03/12/19 04:44 Glucose 288 mg/dL (65-100) H 03/12/19 04:44 POC Glucose 222 (70-105) H 03/12/19 07:25 Calcium 9.0 mg/dL (8.4-10.2) 03/12/19 04:44 Total Bilirubin 0.20 mg/dL (0.1-1.2) 03/10/19 21:22 AST 28 units/L (5-40) 03/10/19 21:22 ALT 24 units/L (7-56) 03/10/19 21:22 Alkaline Phosphatase 47 units/L (35-129) 03/10/19 21:22 Total Creatine Kinase 327 units/L (30-135) H 03/11/19 19:53 CK-MB (CK-2) 3.6 ng/mL (0.0-4.0) 03/11/19 19:53 CK-MB (CK-2) Rel Index 1.1 (0-4) 03/11/19 19:53 Troponin T < 0.010 ng/mL (0.00-0.029) 03/11/19 19:53 NT-Pro-B Natriuret Pep 67.57 pg/mL (0-900) 03/11/19 00:20 Total Protein 7.6 g/dL (6.3-8.2) 03/10/19 21:22 Albumin 4.7 g/dL (3.9-5) 03/10/19 21:22 Albumin/Globulin Ratio 1.6 % 03/10/19 21:22 Lipase 55 units/L (13-60) 03/11/19 00:20 Urine Color Straw (Yellow) 03/11/19 08:00 Urine Turbidity Clear (Clear) 03/11/19 08:00 Urine pH 5.0 (5.0-7.0) 03/11/19 08:00 Ur Specific [place] 1.006 (1.003-1.030) 03/11/19 08:00 Urine Protein <15 mg/dl mg/dL (Negative) 03/11/19 08:00 Urine Glucose (UA) 50 mg/dL (Negative) 03/11/19 08:00 Urine Ketones Neg mg/dL (Negative) 03/11/19 08:00 Urine Blood Neg (Negative) 03/11/19 08:00 Urine Nitrite Neg (Negative) 03/11/19 08:00 Urine Bilirubin Neg (Negative) 03/11/19 08:00 Urine Urobilinogen < 2.0 mg/dL (<2.0) 03/11/19 08:00 Ur Leukocyte Esterase Neg (Negative) 03/11/19 08:00 Urine WBC (Auto) 1.0 /HPF (0.0-6.0) 03/11/19 08:00 Urine RBC (Auto) 1.0 /HPF (0.0-6.0) 03/11/19 08:00 U Epithel Cells (Auto) 1.0 /HPF (0-13.0) 03/11/19 08:00 Hyaline Casts 1 /LPF 03/11/19 08:00 Active Medications - Current Medications Current Medications: Generic Name Dose Route Start Last Admin Trade Name Freq PRN Reason Stop Dose Admin Acetaminophen 650 mg 03/11/19 06:30 Tylenol PO Q4H PRN Headache Albuterol/Ipratropium 1 ampul 03/12/19 08:00 Duoneb *Not For Prn Use* IH TIDRT [facility] Aspirin 81 mg 03/12/19 10:00 Baby Aspirin PO QDAY [facility] Atorvastatin Calcium 40 mg 03/11/19 22:00 03/11/19 21:35 Lipitor PO 40 mg QHS [facility] Administration Clopidogrel Bisulfate 75 mg 03/12/19 10:00 Plavix PO DAILY [facility] Fludrocortisone Acetate 0.2 mg 03/11/19 11:00 03/11/19 12:41 Florinef PO 0.2 mg QDAY [facility] Administration Heparin Sodium (Porcine) 5,000 unit 03/11/19 10:00 03/11/19 21:36 Heparin SUB-Q 5,000 unit Q12HR [facility] Administration Insulin Human Isoph/Insulin Regular 100 unit 03/12/19 08:00 Humulin 70/30 SUB-Q BIDDIAB [facility] Insulin Human Lispro 0 unit 03/11/19 22:00 03/11/19 21:34 Humalog SUB-Q 10 unit ACHS [facility] Administration Protocol Isosorbide Mononitrate 30 mg 03/12/19 10:00 Imdur PO DAILY [facility] Metoprolol Succinate 25 mg 03/12/19 10:00 Toprol Xl PO DAILY [facility] Morphine Sulfate 2 mg 03/11/19 06:28 03/11/19 06:46 Morphine IV 2 mg Q3H PRN Administration Pain, Moderate (4-6) Nitroglycerin 0.4 mg 03/11/19 06:29 Nitrostat SL .Q5MIN PRN Chest Pain Nitroglycerin 0.5 inch 03/11/19 10:00 03/12/19 05:43 Nitro-Bid 2% TP 0.5 inch QIDNTG [facility] Administration Protocol Ondansetron HCl 4 mg 03/11/19 06:28 Zofran IV Q8H PRN Nausea And Vomiting
[2019-03-12] MEDS: MORPHINE IV PRN ×3 (09:10→16:39)
[2019-03-12 09:42] LABS: Creatine Kinase MB 3.1 ng/mL (0.0-4.0)
[2019-03-12] MEDS: DUONEB *Not for PRN Use IH SCH ×3 (09:43→19:07)
[2019-03-12] MEDS ORDERED: DEMADEX PO SCH (10:00)
[2019-03-12] MEDS ORDERED: HALFPRIN EC PO SCH (10:00)
[2019-03-12] MEDS ORDERED: ZESTRIL PO SCH (10:00)
--- NOTE | 2019-03-12 10:05 | XRay Report ---
AP CHEST: HISTORY: Chest pain, CHF Compared to 03/10/19. AP view of the chest demonstrates a normal mediastinal and cardiac contour with clear lungs and normal bony and soft tissue structures. IMPRESSION: Unremarkable AP chest.
--- NOTE | 2019-03-12 10:35 | Progress Note ---
Assessment and Plan - Patient Problems (1) Acute kidney injury Current Visit: Yes Status: Acute Plan to address problem: Acute kidney injury:improving Baseline creatinine unknown Current creatinine 1.5mg/dl worsening Recent worsening renal function as well as over diuresis Chest x-ray is relatively clear and she has no overt edema We'll give a gentle bolus and then fluids at 100 mL an hour Recommend holding all diuretics for now hold JOSE inhibitor as well Will consider restarting diuretics in the am. Recheck renal function panel (2) CHF (congestive heart failure) Current Visit: No Status: Acute Qualifiers: Heart failure type: unspecified Heart failure chronicity: unspecified Qualified Code(s): I50.9 - Heart failure, unspecified Plan to address problem: Congestive heart failure she's not in acute exacerbation Will hold diuretics Cardiology following (3) COPD (chronic obstructive pulmonary disease) Current Visit: No Status: Acute Qualifiers: COPD type: unspecified COPD Qualified Code(s): J44.9 - Chronic obstructive pulmonary disease, unspecified Plan to address problem: COPD on home oxygen 2 L oxygen saturation 99 She has received Solu-Medrol Monitor respiratory status (4) Hyponatremia Current Visit: Yes Status: Acute Plan to address problem: Hyponatremia Na: 133 2/2 electrolyte loss with diuretics and volume depletion appears volume down on exam Fluid hydration. (5) Hyperkalemia, diminished renal excretion Current Visit: Yes Status: Acute Plan to address problem: Hyperkalemia secondary to acute kidney injury:resolved received fludrocortisone 0.2mg po once received kayexalate Stop potassium chloride supplementation fluid hydration. 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 Patient seen today , doing well denies any orthopnea or PND received intravenous fluid overnight denies any chest pain , orthopnea Objective - Vital Signs Vital signs: Vital Signs - 12hr 03/11/19 03/12/19 03/12/19 23:42 03:52 06:05 Temperature 98.2 F 97.4 F L Pulse Rate 107 H 70 70 Respiratory 12 16 Rate Blood Pressure 104/49 112/45 O2 Sat by Pulse 97 100 Oximetry 03/12/19 08:16 Temperature 98.8 F Pulse Rate 84 Respiratory 16 Rate Blood Pressure 106/49 O2 Sat by Pulse 95 Oximetry - General Appearance General appearance: well-developed EENT: ATNC Neck: no JVD Respiratory: Present: Decreased Breath Sounds Cardiology: regular, S1S2 Gastrointestinal: normal, normoactive bowel sounds Integumentary: no rash Neurologic: alert and oriented x3, CN 3-12 intact Psychiatric: mood/affect appropriate - Lab 03/10/19 21:22 03/12/19 04:44 Most recent lab results Calcium 9.0 mg/dL (8.4-10.2) 03/12/19 04:44 - Imaging Chest x-ray: image reviewed (i reviewed cxr with hazy opacities , cardiomegaly. ) Medications & Allergies - Medications Allergies/Adverse Reactions: Allergies Penicillins Allergy (Mild, Verified 09/18/18 13:37) Rash latex Allergy (Unknown, Verified 01/24/18 09:36) Unknown green tomato Allergy (Uncoded 01/24/18 09:36) Rash Home Medications: Home Medications Medication Instructions Recorded Confirmed Last Taken Type Albuterol Sulfate [Proventil HFA] 1 - 2 puff IH Q4H PRN 08/01/13 03/11/19 09/18/18 History Insulin NPH/Regular [NovoLIN 70/30] 150 unit SQ QPM 08/16/17 03/11/19 09/17/18 History ISOSORBIDE MONOnitrate [Imdur ER] 30 mg PO DAILY 11/17/18 03/11/19 Unknown History Albuterol 90 mcg INHALATION PRN 03/11/19 03/11/19 Unknown History Aspirin [Adult Aspirin] 81 mg PO DAILY 03/11/19 03/11/19 Unknown History Clopidogrel [Plavix] 75 mg PO DAILY 03/11/19 03/11/19 Unknown History Flonase 50 mcg INHALATION DAILY 03/11/19 03/11/19 Unknown History Insulin Regular, Human [Humulin R 200 units SUB-Q PCHS 03/11/19 03/11/19 Unknown History U-500 Kwikpen] Lisinopril [Zestril TAB] 10 mg PO DAILY 03/11/19 03/11/19 Unknown History Metoprolol Xl [Metoprolol 25 mg PO DAILY 03/11/19 03/11/19 Unknown History SUCCINATE ER TAB] Nitroglycerin 0.4 mg PO PRN 03/11/19 03/11/19 Unknown History Potassium Chloride 40 meq PO DAILY 03/11/19 03/11/19 Unknown History Rosuvastatin Calcium 40 mg PO HS 03/11/19 03/11/19 Unknown History Symbicort 160-4.5 Mcg Inhaler 1 - 2 puff INHALATION BID 03/11/19 03/11/19 Un known History Torsemide [Demadex] 100 tab PO DAILY 03/11/19 03/11/19 Unknown History metOLazone [Metolazone] 5 mg PO 2XW 03/11/19 03/11/19 Unknown History Active Medications: Generic Name Dose Route Start Last Admin Trade Name Freq PRN Reason Stop Dose Admin Acetaminophen 650 mg 03/11/19 06:30 Tylenol PO Q4H PRN Headache Albuterol/Ipratropium 1 ampul 03/12/19 08:00 03/12/19 09:43 Duoneb *Not For Prn Use* IH 1 ampul TIDRT [facility] Administration Aspirin 81 mg 03/12/19 10:00 Baby Aspirin PO QDAY [facility] Atorvastatin Calcium 40 mg 03/11/19 22:00 03/11/19 21:35 Lipitor PO 40 mg QHS [facility] Administration Clopidogrel Bisulfate 75 mg 03/12/19 10:00 Plavix PO DAILY [facility] Fludrocortisone Acetate 0.2 mg 03/11/19 11:00 03/11/19 12:41 Florinef PO 0.2 mg QDAY [facility] Administration Heparin Sodium (Porcine) 5,000 unit 03/11/19 10:00 03/11/19 21:36 Heparin SUB-Q 5,000 unit Q12HR [facility] Administration Insulin Human Isoph/Insulin Regular 100 unit 03/12/19 08:00 03/12/19 09:10 Humulin 70/30 SUB-Q 100 unit BIDDIAB [facility] Administration Insulin Human Lispro 0 unit 03/11/19 22:00 03/11/19 21:34 Humalog SUB-Q 10 unit ACHS [facility] Administration Protocol Isosorbide Mononitrate 30 mg 03/12/19 10:00 Imdur PO DAILY [facility] Metoprolol Succinate 25 mg 03/12/19 10:00 Toprol Xl PO DAILY [facility] Morphine Sulfate 2 mg 03/11/19 06:28 03/12/19 09:10 Morphine IV 2 mg Q3H PRN Administration Pain, Moderate (4-6) Nitroglycerin 0.4 mg 03/11/19 06:29 Nitrostat SL .Q5MIN PRN Chest Pain Nitroglycerin 0.5 inch 03/11/19 10:00 03/12/19 05:43 Nitro-Bid 2% TP 0.5 inch QIDNTG [facility] Administration Protocol Ondansetron HCl 4 mg 03/11/19 06:28 Zofran IV Q8H PRN Nausea And Vomiting
[2019-03-12] MEDS: FLORINEF PO SCH (11:00)
[2019-03-12] MEDS: BABY ASPIRIN PO SCH (11:07)
[2019-03-12] MEDS: PLAVIX PO SCH (11:07)
[2019-03-12] MEDS: IMDUR PO SCH (11:07)
[2019-03-12] MEDS: HEPARIN SUB-Q SCH ×2 (11:08→21:21)
[2019-03-12] MEDS: TOPROL XL PO SCH (11:15)
[2019-03-12] MEDS: HumaLOG SUB-Q SCH ×4 (11:18→21:22)
--- NOTE | 2019-03-12 12:38 | Progress Note ---
Assessment and Plan Acute heart failure with preserved EF Echo done 12/2018 showed EF 50%, mild LVH, mildly dilated LA, trace MR. Cont ASA 81, plavix, statin, Toprol XL, Imdur. Hold home ACEI in setting of renal insufficiency and recent hyperkalemia. Cont fluid restriction and strict I&Os and daily weights. Will defer volume optimization to nephrology in setting of renal insufficiency and hyperkalemia. MABEL on CKD / Hyperkalemia Renal indices improving. Diuretics held. Nephrology following. Hyponatremia/Hyperkalemia Improving ??? overdiuresis from recent hospitalization from CHF hold diuretics Renal following Chest pain - ? pleuritic atypical/currently chest pain free No EKG changes CAD (significant ostial LAD disease) MPI 10/05: no ischemia H/o HTN CAD s/p PCI to the ostial LAD in 12/2017 Cont ASA 81, plavix, statin, Toprol XL, Imdur. COPD / Chronic respiratory failure H/o pulmonary nodules HTN DM Obesity ALEXANDER H/o CVA The patient has been seen in conjunction with Dr. Adame who agree with the assessment and plan of care. Subjective Date of service: 03/12/19 Principal diagnosis: hf; cp Interval history: pt ambulating around unit, states she feels much better today. had a bout of chest pain this AM which was relieved by IV morphine. Objective Vital Signs Temp Pulse Pulse Resp Resp BP BP 03/12/19 08:16 98.8 F 84 16 106/49 03/12/19 06:05 70 03/12/19 03:52 97.4 F L 70 16 112/45 03/11/19 23:42 98.2 F 107 H 12 104/49 03/11/19 20:52 03/11/19 20:51 80 16 03/11/19 19:50 98.2 F 75 12 106/44 03/11/19 18:11 03/11/19 17:38 97.4 F L 83 16 114/51 03/11/19 15:48 87 12 105/40 03/11/19 15:44 82 108/56 03/11/19 15:20 108/56 03/11/19 15:10 68 15 108/56 03/11/19 15:00 92 H 21 108/56 03/11/19 14:50 83 16 108/56 03/11/19 14:40 79 12 108/56 03/11/19 14:30 84 13 108/56 03/11/19 14:20 83 15 108/56 03/11/19 14:10 89 20 108/56 03/11/19 14:00 93 H 19 89/44 03/11/19 13:50 89 17 89/44 03/11/19 13:42 86 15 114/66 03/11/19 13:20 88 22 114/66 03/11/19 13:10 65 17 114/66 03/11/19 13:00 98 H 18 114/66 03/11/19 12:50 114/66 03/11/19 12:42 97.9 F 87 18 114/66 144/66 Pulse Ox 03/12/19 08:16 95 03/12/19 06:05 03/12/19 03:52 100 03/11/19 23:42 97 03/11/19 20:52 96 03/11/19 20:51 03/11/19 19:50 100 03/11/19 18:11 100 03/11/19 17:38 100 03/11/19 15:48 98 03/11/19 15:44 03/11/19 15:20 90 03/11/19 15:10 92 03/11/19 15:00 89 03/11/19 14:50 97 03/11/19 14:40 99 03/11/19 14:30 03/11/19 14:20 97 03/11/19 14:10 98 03/11/19 14:00 95 03/11/19 13:50 97 03/11/19 13:42 77 L 03/11/19 13:20 98 03/11/19 13:10 94 03/11/19 13:00 95 03/11/19 12:50 91 03/11/19 12:42 96 - Physical Examination General: No Apparent Distress HEENT: Positive: PERRL, Normocephaly, Mucus Membranes Moist Neck: Positive: neck supple Cardiac: Positive: Reg Rate and Rhythm, S1/S2 Lungs: Positive: Decreased Breath Sounds Neuro: Positive: Grossly Intact Abdomen: Positive: Soft. Negative: Tender Skin: Negative: Rash, Wound Musculoskeletal: No Pain Extremities: Present: edema (trace BLE) - Labs and Meds Cardiac Enzymes 03/11/19 03/11/1903/12/19 Range/Units 08:15 19:53 09:04 CK-MB (CK-2) 3.0 3.6 3.1 (0.0-4.0) ng/mL Comprehensive Metabolic Panel 03/11/19 03/11/19 03/12/19 Range/Units 14:46 19:53 04:44 Sodium 117 L* 133 L D (137-145) mmol/L Potassium 6.4 H* 4.2 D (3.6-5.0) mmol/L Chloride 76.7 L 90.1 L (98-107) mmol/L Carbon Dioxide 20 L 26 (22-30) mmol/L BUN 43 H 38 H (7-17) mg/dL Creatinine 2.1 H 1.5 H (0.7-1.2) mg/dL Glucose 606 H* 472 H 288 H (65-100) mg/dL Calcium 8.9 9.0 (8.4-10.2) mg/dL - Imaging and Cardiology EKG: report reviewed, image reviewed Echo: report reviewed (12/2018 showed EF 50%, mild LVH, mildly dilated LA, trace MR. ) - EKG Sinus rhythms and dysrhythmias: sinus rhythm
[2019-03-12] MEDS ORDERED: HumaLOG SUB-Q ONE ×4 (13:42→16:00)
[2019-03-13] MEDS: NITRO-BID 2% TP SCH ×6 (05:22→17:30)
[2019-03-13 06:10] LABS: BUN/Creatinine Ratio 23; Blood Urea Nitrogen 23 mg/dL (7-17); Calcium 9.3 mg/dL (8.4-10.2); Hemolysis Index 28
[2019-03-13] MEDS: DUONEB *Not for PRN Use IH SCH ×2 (07:49→13:32)
--- NOTE | 2019-03-13 07:53 | Discharge Summary ---
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 Chest pain Initial workup is consistent with hyponatremia and hyperkalemia acute kidney injury Severe hypoglycemia/hyperosmolar state.Patient is noncompliant with medications Work up consistent with Hyperosmolar hyperglycemia with Blood sugars ranged between 400s to 600 Managed with high insulin.Patient advised to comply with medications and diet. Cardiology evaluated the patient and recommended medical management. Today patient is comfortable,no new complaints Stable at discharge. Discharge Diagnosis: --Atypical chest pain; rule out acute coronary syndrome Symptoms improved, first set of cardiac enzymes negative Continue cardiac medications, cardiology evaluated the patient --Hyperglycemia/hyperosmolar nonketotic state; blood sugars slightly improved Continue IV hydration, Accu-Cheks, sliding scale coverage, long-acting insulin Increase morning insulin to 150 units 70/30 Patient is on a high-dose of 70/30 insulin 200 units every morning 150 subcutaneous p.m., Hemoglobin A1c more than 10, diabetic education --Pseudohyponatremia ; significantly improved --Hyperkalemia; corrected --Metabolic acidosis; resolved --Acute kidney injury; secondary to ATN Creatinine trending down 2.1 - 1.5 Avoid Nephrotoxin --Medical noncompliance; diet and medications Strongly advised to comply with medications and diet --Morbid obesity; BMI 39.5 Advice at reduction in medically stable --Full CODE STATUS f/u Cardiology per schedule Patient is stable at discharge Disposition: TO HOME OR SELFCARE Time spent for discharge: 32 min Core Measure Documentation - Palliative Care Palliative Care/ Comfort Measures: Not Applicable - Core Measures Any of the following diagnoses?: none Exam - Constitutional Vitals: Temp Pulse Resp BP Pulse Ox 97.8 F 65 18 110/52 100 03/13/19 07:30 03/13/19 07:30 03/13/19 07:30 03/13/19 07:30 03/13/19 07:30 General appearance: Present: no acute distress, obese - EENT Eyes: Present: PERRL, EOM intact - Neck Neck: Present: supple, normal ROM - Respiratory Respiratory effort: normal Respiratory: bilateral: diminished, negative: rales, rhonchi, wheezing - Cardiovascular Rhythm: regular Heart Sounds: Present: S1 & S2 - Extremities Extremities: no ischemia, No edema - Abdominal General gastrointestinal: Present: soft, non-tender, non-distended, normal bowel sounds - Integumentary Integumentary: Present: clear, warm - Musculoskeletal Musculoskeletal: strength equal bilaterally - Psychiatric Psychiatric: appropriate mood/affect, cooperative - Neurologic Neurologic: CNII-XII intact, moves all extremities Plan Activity: advance as tolerated Diet: diabetic Additional Instructions: Advised to see private fulling machine operator for better control of blood sugars. Advised weight reduction and medically stable [facility] - 7 Days STORMY QUINN MD [Staff Physician] - 7 Days LINDY GOMEZ MD [Staff Physician] - 7 Days Prescriptions: Fludrocortisone [Florinef] 0.2 mg PO QDAY #14 tablet
[2019-03-13] MEDS: HumaLOG SUB-Q SCH ×3 (08:04→16:43)
[2019-03-13] MEDS: HEPARIN SUB-Q SCH (09:56)
[2019-03-13] MEDS: PLAVIX PO SCH (09:56)
[2019-03-13] MEDS: BABY ASPIRIN PO SCH (09:57)
[2019-03-13] MEDS ORDERED: DEMADEX PO SCH (10:00)
[2019-03-13] MEDS: IMDUR PO SCH (10:07)
[2019-03-13] MEDS: TOPROL XL PO SCH (10:08)
--- NOTE | 2019-03-13 10:18 | Progress Note ---
Assessment and Plan - Patient Problems (1) Acute kidney injury Current Visit: Yes Status: Acute Plan to address problem: Acute kidney injury:improving Baseline creatinine unknown Current creatinine 1.0mg/dl Recent worsening renal function as well as over diuresis Chest x-ray is relatively clear and she has no overt edema We'll give a gentle bolus and then fluids at 100 mL an hour Recommend holding all diuretics for now hold JOSE inhibitor as well Will restart torsemide 100mg PO daily stop metolazone. Recheck renal function panel (2) CHF (congestive heart failure) Current Visit: No Status: Acute Qualifiers: Heart failure type: unspecified Heart failure chronicity: unspecified Qualified Code(s): I50.9 - Heart failure, unspecified Plan to address problem: Congestive heart failure she's not in acute exacerbation resume torsemide 100mg PO daily. Cardiology following (3) COPD (chronic obstructive pulmonary disease) Current Visit: No Status: Acute Qualifiers: COPD type: unspecified COPD Qualified Code(s): J44.9 - Chronic obstructive pulmonary disease, unspecified Plan to address problem: COPD on home oxygen 2 L oxygen saturation 99 She has received Solu-Medrol Monitor respiratory status (4) Hyponatremia Current Visit: Yes Status: Acute Plan to address problem: Hyponatremia Na: 133 2/2 electrolyte loss with diuretics and volume depletion Will resume diuretics. 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 Patient seen today , doing well denies any orthopnea or PND trace edema. Objective - Vital Signs Vital signs: Vital Signs - 12hr 03/12/19 03/13/19 03/13/19 23:24 04:25 07:30 Temperature 98.5 F 98.1 F 97.8 F Pulse Rate 63 66 65 Pulse Rate [ Anterior Bilateral Throughout] Respiratory 12 12 18 Rate Respiratory Rate [Anterior Bilateral Throughout] Blood Pressure 118/55 112/45 110/52 O2 Sat by Pulse 97 93 100 Oximetry 03/13/19 03/13/19 03/13/19 07:49 07:59 09:41 Temperature Pulse Rate Pulse Rate [ 64 66 Anterior Bilateral Throughout] Respiratory Rate Respiratory 18 18 Rate [Anterior Bilateral Throughout] Blood Pressure O2 Sat by Pulse 100 99 Oximetry 03/13/19 09:57 Temperature Pulse Rate 78 Pulse Rate [ Anterior Bilateral Throughout] Respiratory Rate Respiratory Rate [Anterior Bilateral Throughout] Blood Pressure 102/51 O2 Sat by Pulse Oximetry - General Appearance General appearance: well-developed, well-nourished EENT: ATNC, PERRL Neck: no JVD Respiratory: Present: Decreased Breath Sounds Cardiology: regular, irregular Gastrointestinal: normal, normoactive bowel sounds Integumentary: no rash Neurologic: no focal deficit, alert and oriented x3, CN 3-12 intact Psychiatric: mood/affect appropriate - Lab 03/10/19 21:22 03/13/19 04:27 Most recent lab results Calcium 9.3 mg/dL (8.4-10.2) 03/13/19 04:27 Phosphorus 3.00 mg/dL (2.5-4.5) 03/13/19 04:27 Magnesium 1.80 mg/dL (1.7-2.3) 03/13/19 04:27 - Imaging Chest x-ray: image reviewed (i reviewed CXR with bilateral patchy opacities. ) Medications & Allergies - Medications Allergies/Adverse Reactions: Allergies Penicillins Allergy (Mild, Verified 09/18/18 13:37) Rash latex Allergy (Unknown, Verified 01/24/18 09:36) Unknown green tomato Allergy (Uncoded 01/24/18 09:36) Rash Home Medications: Home Medications Medication Instructions Recorded Confirmed Last Taken Type Albuterol Sulfate [Proventil HFA] 1 - 2 puff IH Q4H PRN 08/01/13 03/11/19 09/18/18 History Insulin NPH/Regular [NovoLIN 70/30] 150 unit SQ QPM 08/16/17 03/11/19 09/17/18 History ISOSORBIDE MONOnitrate [Imdur ER] 30 mg PO DAILY 11/17/18 03/11/19 Unknown History Aspirin [Adult Aspirin] 81 mg PO DAILY 03/11/19 03/11/19 Unknown History Clopidogrel [Plavix] 75 mg PO DAILY 03/11/19 03/11/19 Unknown History Flonase 50 mcg INHALATION DAILY 03/11/19 03/11/19 Unknown History Insulin Regular, Human [Humulin R 200 units SUB-Q PCHS 03/11/19 03/11/19 Unknown History U-500 Kwikpen] Lisinopril [Zestril TAB] 10 mg PO DAILY 03/11/19 03/11/19 Unknown History Metoprolol Xl [Metoprolol 25 mg PO DAILY 03/11/19 03/11/19 Unknown History SUCCINATE ER TAB] Nitroglycerin 0.4 mg PO PRN 03/11/19 03/11/19 Unknown History Potassium Chloride 40 meq PO DAILY 03/11/19 03/11/19 Unknown History Rosuvastatin Calcium 40 mg PO HS 03/11/19 03/11/19 Unknown History Symbicort 160-4.5 Mcg Inhaler 1 - 2 puff INHALATION BID 03/11/19 03/11/19 Unk nown History Torsemide [Demadex] 100 tab PO DAILY 03/11/19 03/11/19 Unknown History metOLazone [Metolazone] 5 mg PO 2XW 03/11/19 03/11/19 Unknown History Fludrocortisone [Florinef] 0.2 mg PO QDAY #14 tablet 03/13/19 Unknown Rx Active Medications: Generic Name Dose Route Start Last Admin Trade Name Freq PRN Reason Stop Dose Admin Acetaminophen 650 mg 03/11/19 06:30 Tylenol PO Q4H PRN Headache Albuterol/Ipratropium 1 ampul 03/12/19 08:00 03/13/19 07:49 Duoneb *Not For Prn Use* IH 1 ampul TIDRT ROCIO Administration Aspirin 81 mg 03/12/19 10:00 03/13/19 09:57 Baby Aspirin PO 81 mg QDAY ROCIO Administration Atorvastatin Calcium 40 mg 03/11/19 22:00 03/12/19 21:21 Lipitor PO 40 mg QHS ROCIO Administration Clopidogrel Bisulfate 75 mg 03/12/19 10:00 03/13/19 09:56 Plavix PO 75 mg DAILY ROCIO Administration Heparin Sodium (Porcine) 5,000 unit 03/11/19 10:00 03/13/19 09:56 Heparin SUB-Q 5,000 unit Q12HR ROCIO Administration Insulin Human Isoph/Insulin Regular 100 unit 03/12/19 08:00 03/13/19 08:04 Humulin 70/30 SUB-Q Not Given BIDDIAB [facility] Insulin Human Lispro 0 unit 03/11/19 22:00 03/13/19 08:04 Humalog SUB-Q Not Given ACHS [facility] Protocol Isosorbide Mononitrate 30 mg 03/12/19 10:00 03/12/19 11:07 Imdur PO 30 mg DAILY [facility] Administration Metoprolol Succinate 25 mg 03/12/19 10:00 03/12/19 11:15 Toprol Xl PO Not Given DAILY [facility] Morphine Sulfate 2 mg 03/11/19 06:28 03/12/19 16:39 Morphine IV 2 mg Q3H PRN Administration Pain, Moderate (4-6) Nitroglycerin 0.4 mg 03/11/19 06:29 Nitrostat SL .Q5MIN PRN Chest Pain Nitroglycerin 0.5 inch 03/11/19 10:00 03/13/19 09:57 Nitro-Bid 2% TP 0.5 inch QIDNTG [facility] Administration Protocol Ondansetron HCl 4 mg 03/11/19 06:28 Zofran IV Q8H PRN Nausea And Vomiting Torsemide 100 mg 03/13/19 10:00 Demadex PO DAILY@0900 [facility]
[2019-03-13] MEDS: MORPHINE IV PRN (11:03)
--- NOTE | 2019-03-13 11:32 | Progress Note ---
Assessment and Plan Acute heart failure with preserved EF Clinically improving. Echo done 12/2018 showed EF 50%, mild LVH, mildly dilated LA, trace MR. Cont ASA 81, plavix, statin, Toprol XL, Imdur. Home ACEI held in setting of renal insufficiency and recent hyperkalemia. Home torsemide resumed today per nephrology. MABEL on CKD / Hyperkalemia Renal indices improving. Torsemide resumed. Nephrology following. Hyponatremia/Hyperkalemia Improving ??? overdiuresis from recent hospitalization from CHF torsemide resumed Renal following Chest pain - ? pleuritic atypical/currently chest pain free No EKG changes CAD (significant ostial LAD disease) MPI 10/05: no ischemia H/o HTN CAD s/p PCI to the ostial LAD in 12/2017 Cont ASA 81, plavix, statin, Toprol XL, Imdur. COPD / Chronic respiratory failure H/o pulmonary nodules HTN DM Obesity ALEXANDER H/o CVA Currently stable cardiac status. Pt may discharge home from cardiology standpoint. Pt reports she has an appt with Dr. Montes De Oca next week. The patient has been seen in conjunction with Dr. Adame who agree with the assessment and plan of care. Subjective Date of service: 03/13/19 Principal diagnosis: hf; cp Interval history: pt ambulating around unit, states she feels much better today. no chest pain overnight. in SR on tele. Objective Last Vital Signs Temp 97.8 F 03/13/19 07:30 Pulse 71 03/13/19 10:59 Resp 18 03/13/19 07:59 BP 128/49 03/13/19 10:59 Pulse Ox 99 03/13/19 09:41 - Physical Examination General: No Apparent Distress HEENT: Positive: PERRL, Normocephaly, Mucus Membranes Moist Neck: Positive: neck supple Cardiac: Positive: Reg Rate and Rhythm, S1/S2 Lungs: Positive: Decreased Breath Sounds Neuro: Positive: Grossly Intact Abdomen: Positive: Soft. Negative: Tender Skin: Negative: Rash, Wound Musculoskeletal: No Pain Extremities: Present: edema (trace BLE) - Labs and Meds Comprehensive Metabolic Panel 03/13/19 Range/Units 04:27 Sodium 137 (137-145) mmol/L Potassium 3.8 (3.6-5.0) mmol/L Chloride 94.3 L (98-107) mmol/L Carbon Dioxide 25 (22-30) mmol/L BUN 23 H (7-17) mg/dL Creatinine 1.0 (0.7-1.2) mg/dL Glucose 166 H (65-100) mg/dL Calcium 9.3 (8.4-10.2) mg/dL - Imaging and Cardiology EKG: report reviewed, image reviewed Echo: report reviewed (12/2018 showed EF 50%, mild LVH, mildly dilated LA, trace MR. ) - EKG Sinus rhythms and dysrhythmias: sinus rhythm
[2019-03-13 13:56] VITALS: BP 102/51
== END 2019-03-13 17:39 | disposition home or self-care (01) | DRG 682 ==
LOC: ED 21:00 → 4A 03-11 00:50
PROVIDERS: ADMIT Internal Medicine; ATTEND Internal Medicine
PROC: 4A033R1 Measurement of Arterial Saturation, Peripheral, Percutaneous Approach (ICD-10-PCS; principal; 2019-03-11)
DX: N17.0 Acute kidney failure with tubular necrosis (principal); E11.00 Type 2 diabetes mellitus with hyperosmolarity without nonketotic hyperglycemic-hyperosmolar coma (NKHHC); E87.1 Hypo-osmolality and hyponatremia; I69.354 Hemiplegia and hemiparesis following cerebral infarction affecting left non-dominant side; I13.0 Hypertensive heart and chronic kidney disease with heart failure and stage 1 through stage 4 chronic kidney disease, or unspecified chronic kidney disease; E87.2 Acidosis; R07.9 Chest pain, unspecified; E87.5 Hyperkalemia; J44.9 Chronic obstructive pulmonary disease, unspecified; I50.9 Heart failure, unspecified; I25.10 Atherosclerotic heart disease of native coronary artery without angina pectoris; K21.9 Gastro-esophageal reflux disease without esophagitis; M19.90 Unspecified osteoarthritis, unspecified site; N18.9 Chronic kidney disease, unspecified; G47.33 Obstructive sleep apnea (adult) (pediatric); E11.22 Type 2 diabetes mellitus with diabetic chronic kidney disease; E66.01 Morbid (severe) obesity due to excess calories; Z95.5 Presence of coronary angioplasty implant and graft; Z88.0 Allergy status to penicillin; I25.2 Old myocardial infarction; Z86.718 Personal history of other venous thrombosis and embolism; Z91.040 Latex allergy status; Z79.899 Other long term (current) drug therapy; Z91.14 Patient's other noncompliance with medication regimen
CPT/HCPCS: 36415; 36600; 71045; 71046; 80048; 80053; 81001; 82550; 82553; 82803; 82947; 82962; 83690; 83735; 83880; 84100; 84484; 85025; 93005; 93010; 94640; 94760; 96365; 96375; G0378; A9270-GY; J0610; J1644; J1815; J1940; J2270; J2405; J2930; J7030; J7040; J7050

== ENCOUNTER 2019-06-23 16:09 | Observation (INO) | payer MEDICARE ==
[2019-06-23 17:52] LABS: Basophils # (Auto) 0.1 K/mm3 (0.0-0.1); Basophils % (Auto) 0.9 % (0.0-1.8); Eosinophils # (Auto) 0.2 K/mm3 (0.0-0.4); Eosinophils % (Auto) 2.3 % (0.0-4.3); Hematocrit 34.9 % (30.3-42.9); Hemoglobin 11.7 gm/dl (10.1-14.3); Lymphocytes # (Auto) 3.8 K/mm3 (1.2-5.4); Lymphocytes % (Auto) 39.7 % (13.4-35.0); Mean Corpuscular HGB Conc 33 % (30-34); Mean Corpuscular Volume 83 fl (79-97); Monocytes # (Auto) 0.8 K/mm3 (0.0-0.8); Monocytes % (Auto) 8.4 % (0.0-7.3); Platelet Count 289 K/mm3 (140-440); Red Blood Count 4.23 M/mm3 (3.65-5.03); Red Cell Distribution Width 14.2 % (13.2-15.2)
--- NOTE | 2019-06-23 17:55 | Event Note ---
ED Screening Note Date of service: 06/23/19 Time: 17:11 ED Screening Note: 58 y/o female comes in for chest pain started last night with SOB today. Pain radiates to her back. History of DM and lately low blood pressure. she is on isosobide and and metoprolol. History of CHF. This initial assessment/diagnostic orders/clinical plan/treatment(s) is/are subject to change based on patients health status, clinical progression and re- assessment by fellow clinical providers in the ED. Further treatment and workup at subsequent clinical providers discretion. Patient/guardian urged not to elope from the ED as their condition may be serious if not clinically assessed and managed. Initial orders include:
--- NOTE | 2019-06-23 17:56 | XRay Report ---
CHEST PA AND LATERAL VIEWS INDICATION: sob. COMPARISON: 03/12/2019. FINDINGS: Support devices: None. Heart: Within normal limits. Lungs/Pleura: There appears to be mild diffuse peribronchial cuffing, as evidenced by increased retic ular markings. No consolidation, significant effusion, or pneumothorax. IMPRESSION: 1. Increased reticular markings are suggestive of peribronchial cuffing. This can be seen in the sett ing of lower airways disease. No consolidation is seen. Signer Name: Jos Staley MD Signed: 06/23/2019 5:52 PM Workstation Name: [id number]
[2019-06-23 18:15] LABS: Albumin 4.7 g/dL (3.9-5); Calcium 10.6 mg/dL (8.4-10.2)
[2019-06-23] MEDS ORDERED: NACL 0.9% 500 ML 500 ML IV ONE ×2 (19:16→21:00)
[2019-06-23] MEDS ORDERED: MORPHINE IV ONE (19:51)
[2019-06-23] MEDS ORDERED: ZOFRAN IV ONE (19:51)
--- NOTE | 2019-06-23 19:56 | Emergency Department Report ---
ED Chest Pain HPI - General Chief Complaint: Chest Pain Stated Complaint: CHEST PAIN Time Seen by Provider: 06/23/19 17:10 Source: patient Mode of arrival: Ambulatory Limitations: No Limitations - History of Present Illness Initial Comments: Mrs. Castaneda is a 58-year-old female with history of congestive heart failure, diabetes mellitus, acute kidney injury, severe obesity, coronary artery disease, COPD who presents with chest fullness and diffuse bodyaches. She stated that her physician recently changed her blood pressure medications due to hypotension. The top number was 80 on yesterday at home. She feels as if her lungs are congested. She has been compliant with her medication. Her physicians are affiliated with [facility]. She recently moved back to [place] Complaint: chest pain -: Gradual, days(s) (2) Onset: during rest, during exertion Pain Location: left chest, right chest Severity: mild Severity scale (0 -10): 0 Quality: other (fullness congestion) Consistency: constant Improves With: nothing Worsens With: exertion - Related Data Home Medications Medication Instructions Recorded Confirmed Last Taken Albuterol Sulfate [Proventil HFA] 1 - 2 puff IH Q4H PRN 08/01/13 03/11/19 09/18/18 Insulin NPH/Regular [NovoLIN 70/30] 150 unit SQ QPM 08/16/17 03/11/19 09/17/18 ISOSORBIDE MONOnitrate [Imdur ER] 30 mg PO DAILY 11/17/18 03/11/19 Unknown Aspirin [Adult Aspirin] 81 mg PO DAILY 03/11/19 03/11/19 Unknown Clopidogrel [Plavix] 75 mg PO DAILY 03/11/19 03/11/19 Unknown Flonase 50 mcg INHALATION DAILY 03/11/19 03/11/19 Unknown Insulin Regular, Human [Humulin R 200 units SUB-Q PCHS 03/11/19 03/11/19 Unknown U-500 Kwikpen] Lisinopril [Zestril TAB] 10 mg PO DAILY 03/11/19 03/11/19 Unknown Metoprolol Xl [Metoprolol 25 mg PO DAILY 03/11/19 03/11/19 Unknown SUCCINATE ER TAB] Nitroglycerin 0.4 mg PO PRN 03/11/19 03/11/19 Unknown Potassium Chloride 40 meq PO DAILY 03/11/19 03/11/19 Unknown Rosuvastatin Calcium 40 mg PO HS 03/11/19 03/11/19 Unknown Symbicort 160-4.5 Mcg Inhaler 1 - 2 puff INHALATION BID 03/11/19 03/11/19 Unknown Torsemide [Demadex] 100 tab PO DAILY 03/11/19 03/11/19 Unknown metOLazone [Metolazone] 5 mg PO 2XW 03/11/19 03/11/19 Unknown Previous Rx's Medication Instructions Recorded Last Taken Type Fludrocortisone [Florinef] 0.2 mg PO QDAY #14 tablet 03/13/19 Unknown Rx Allergies Allergy/AdvReac Type Severity Reaction Status Date / Time Penicillins Allergy Mild Rash Verified 09/18/18 13:37 latex Allergy Unknown Unknown Verified 01/24/18 09:36 green tomato Allergy Rash Uncoded 01/24/18 09:36 Heart Score - HEART Score History: Slightly suspicious EKG: Non-specific Age: 45-65 Risk factors: > 3 risk factors or hx of atherosclerotic disease Troponin: < normal limit HEART Score: 4 ED Review of Systems ROS: Stated complaint: CHEST PAIN Other details as noted in HPI Comment: All other systems reviewed and negative Constitutional: malaise. denies: fever Respiratory: shortness of breath. denies: cough Cardiovascular: chest pain Musculoskeletal: myalgia ED Past Medical Hx - Past Medical History Previous Medical History?: Yes Hx Hypertension: Yes Hx CVA: Yes (x4,left-sided weakness) Hx Heart Attack/AMI: Yes Hx Congestive Heart Failure: Yes Hx Diabetes: Yes Hx Deep Vein Thrombosis: Yes Hx GERD: Yes Hx Arthritis: Yes Hx Kidney Stones: No Hx Asthma: Yes Hx COPD: Yes (Home O2 2L) Hx Tuberculosis: No Hx HIV: No Additional medical history: high cholesterol - Surgical History Past Surgical History?: Yes Hx Coronary Stent: Yes Additional Surgical History: tonsillectomy, , right ankle - Social History Smoking Status: Never Smoker Substance Use Type: None - Medications Home Medications: Home Medications Medication Instructions Recorded Confirmed Last Taken Type Albuterol Sulfate [Proventil HFA] 1 - 2 puff IH Q4H PRN 08/01/13 03/11/19 09/18/18 History Insulin NPH/Regular [NovoLIN 70/30] 150 unit SQ QPM 08/16/17 03/11/19 09/17/18 History ISOSORBIDE MONOnitrate [Imdur ER] 30 mg PO DAILY 11/17/18 03/11/19 Unknown History Aspirin [Adult Aspirin] 81 mg PO DAILY 03/11/19 03/11/19 Unknown History Clopidogrel [Plavix] 75 mg PO DAILY 03/11/19 03/11/19 Unknown History Flonase 50 mcg INHALATION DAILY 03/11/19 03/11/19 Unknown History Insulin Regular, Human [Humulin R 200 units SUB-Q PCHS 03/11/19 03/11/19 Unknown History U-500 Kwikpen] Lisinopril [Zestril TAB] 10 mg PO DAILY 03/11/19 03/11/19 Unknown History Metoprolol Xl [Metoprolol 25 mg PO DAILY 03/11/19 03/11/19 Unknown History SUCCINATE ER TAB] Nitroglycerin 0.4 mg PO PRN 03/11/19 03/11/19 Unknown History Potassium Chloride 40 meq PO DAILY 03/11/19 03/11/19 Unknown History Rosuvastatin Calcium 40 mg PO HS 03/11/19 03/11/19 Unknown History Symbicort 160-4.5 Mcg Inhaler 1 - 2 puff INHALATION BID 03/11/19 03/11/19 Unknown History Torsemide [Demadex] 100 tab PO DAILY 03/11/19 03/11/19 Unknown History metOLazone [Metolazone] 5 mg PO 2XW 03/11/19 03/11/19 Unknown History Fludrocortisone [Florinef] 0.2 mg PO QDAY #14 tablet 03/13/19 Unknown Rx ED Physical Exam - General Limitations: No Limitations General appearance: alert, in no apparent distress, obese - Head Head exam: Present: atraumatic, normocephalic - Eye Eye exam: Present: normal appearance - ENT ENT exam: Present: mucous membranes moist - Neck Neck exam: Present: normal inspection, full ROM - Respiratory Respiratory exam: Present: normal lung sounds bilaterally. Absent: respiratory distress, wheezes, rales, rhonchi - Cardiovascular Cardiovascular Exam: Present: regular rate, normal rhythm, normal heart sounds. Absent: systolic murmur, diastolic murmur, rubs, gallop - GI/Abdominal GI/Abdominal exam: Present: soft, normal bowel sounds. Absent: distended, tenderness, guarding, rebound - Extremities Exam Extremities exam: Present: normal inspection - Back Exam Back exam: Present: normal inspection - Neurological Exam Neurological exam: Present: alert, oriented X3 - Psychiatric Psychiatric exam: Present: normal affect, normal mood - Skin Skin exam: Present: warm, dry, intact, normal color. Absent: rash ED Course Vital Signs 06/23/19 06/23/19 06/23/19 17:03 19:01 19:28 Temperature 98.5 F Pulse Rate 81 71 Respiratory 18 18 15 Rate Blood Pressure 93/57 Blood Pressure 96/48 [Right] O2 Sat by Pulse 98 98 97 Oximetry 06/23/19 06/23/19 06/23/19 20:28 21:32 21:45 Temperature Pulse Rate 71 68 82 Respiratory 14 15 17 Rate Blood Pressure Blood Pressure 95/48 67/31 65/35 [Right] O2 Sat by Pulse 97 100 99 Oximetry 06/23/19 06/23/19 22:11 22:28 Temperature Pulse Rate 74 77 Respiratory 17 17 Rate Blood Pressure Blood Pressure 83/41 81/24 [Right] O2 Sat by Pulse 100 100 Oximetry DAVE score - Dave Score Age > 65: (0) No Aspirin use within the Past 7 Days: (1) Yes 3 or more CAD Risk Factors: (1) Yes 2 or more Angina events in past 24 hrs: (1) Yes Known CAD with more than 50% Stenosis: (0) No Elevated Cardiac Markers: (0) No ST Deviation Greater than 0.5mm: (0) No DAVE Score: 3 ED Medical Decision Making - Lab Data Result diagrams: 06/23/19 17:29 06/23/19 17:29 Laboratory Results - last 24 hr 06/23/19 06/23/19 17:29 17:29 WBC 9.7 RBC 4.23 Hgb 11.7 Hct 34.9 MCV 83 MCH 28 MCHC 33 RDW 14.2 Plt Count 289 Lymph % (Auto) 39.7 H [place] % (Auto) 8.4 H Eos % (Auto) 2.3 Baso % (Auto) 0.9 Lymph # 3.8 [place] # 0.8 Eos # 0.2 Baso # 0.1 Seg Neutrophils % 48.7 Seg Neutrophils # 4.7 Sodium 140 Potassium 3.9 Chloride 92.6 L Carbon Dioxide 30 Anion Gap 21 BUN 37 H Creatinine 2.1 H Estimated GFR 29 BUN/Creatinine Ratio 18 Glucose 104 H Calcium 10.6 H Total Bilirubin 0.20 AST 24 ALT 22 Alkaline Phosphatase 66 NT-Pro-B Natriuret Pep 85.25 Total Protein 8.2 Albumin 4.7 Albumin/Globulin Ratio 1.3 - EKG Data 06/23/19 19:53 EKG obtained 1618 NSR rate 80 bpm nl axis nl intervals no ST elevation nonspecific T wave pattern - Medical Decision Making Procedure Note: Ultrasound Guided perippheral IV access Under clean conditions, I was able to placed 20 ga in antecubital vein under direction visualization with vascular probe. Venous return. Flusehd easily. 1. chest fullness/dyspnea: possibly COPD, GERD, atypical for ACS with recent cardiac evaluation at our hospital without indication of cardiac ischemia/ACS, no distress or indication of CHF 2. hypotension/MABEL: will need IVF and evaluation of medications, admitted to hospitalist service Critical Care Time: Yes Critical care time in (mins) excluding proc time.: 40 Critical care attestation.: If time is entered above; I have spent that time in minutes in the direct care of this critically ill patient, excluding procedure time. 40 minutes of critical care time excluding procedures were used in the care of the patient. Patient required multiple assessments and interventions. I reviewed the electronic medical record. I spoke with consultants involved in the care of the patient. ED Disposition Clinical Impression: MABEL (acute kidney injury), Hypotension, Chest pain, SOB (shortness of breath), COPD (chronic obstructive pulmonary disease), CHF (congestive heart failure) Disposition: OP ADMIT IP TO THIS HOSP Is pt being admited?: Yes Does the pt Need Aspirin: No Condition: Stable
[2019-06-23] MEDS ORDERED: NACL 0.9% 1000 ML 1,000 ML IV ONE (21:49)
[2019-06-23] MEDS ORDERED: TYLENOL PO PRN (22:26)
[2019-06-23] MEDS ORDERED: ZOFRAN IV PRN (22:26)
[2019-06-23] MEDS ORDERED: SODIUM CHLORIDE FLUSH SYRINGE 10 ML IV PRN (22:26)
--- NOTE | 2019-06-23 22:26 | History and Physical Report ---
History of Present Illness Date of examination: 06/23/19 History of present illness: 58 -year-old woman with history of HTN, DM, CHF, CAD, COPD, CKD, ALEXANDER comes emergency room with complaints of chest pain located in the right chest intermittent every 3 seconds, heavy, intensity 5/10, radiating to the posterior neck, relieved with medication given in the emergency room. Denies nausea vomiting. She was taken off her lisinopril because low pressure was not adequate. She toojk her antihypertensive this morning, blood pressure of 120. She had a stress test done less than 6 months ago Review Of Systems: Constitutional: no weight loss, fever, chills Ears, eyes, nose, mouth and throat: no nasal congestion, no nasal discharge, no sinus pressure, blurry vision, diplopia Neck: No neck pain or rigidity. Cardiovascular: No palpitations, +chest pain Respiratory: No +hortness of breath, no cough Gastrointestinal: No hematochezia, abdominal pain Genitourinary : no dysuria, frequency , hematuria Musculoskeletal: no muscle ache , joint pain Integumentary: no rash, no pruritis Neurological: no parathesias, focal weakness Endocrine: no cold or heat intolerance, no polyuria or polydipsia Hematologic/Lymphatic: no easy bruising, no easy bleeding, no gland swelling Allergic/Immunologic: no urticaria, no angioedema. PAST MEDICAL HISTORY: HTN, DM, CHF, CAD, COPD, CKD, ALEXANDER PAST SURGICAL HISTORY:Tonsillectomy, FAMILY HISTORY:hypertension, diabetes SOCIAL HISTORY: Denies tobacco, drugs, alcohol Medications and Allergies Allergies Allergy/AdvReac Type Severity Reaction Status Date / Time Penicillins Allergy Mild Rash Verified 09/18/18 13:37 latex Allergy Unknown Unknown Verified 01/24/18 09:36 green tomato Allergy Rash Uncoded 01/24/18 09:36 Home Medications Medication Instructions Recorded Confirmed Last Taken Type Albuterol Sulfate [Proventil HFA] 1 - 2 puff IH Q4H PRN 08/01/13 06/23/19 09/18/18 History Insulin NPH/Regular [NovoLIN 70/30] 150 unit SQ QPM 08/16/17 06/23/19 09/17/18 History ISOSORBIDE MONOnitrate [Imdur ER] 30 mg PO DAILY 11/17/18 06/23/19 Unknown History Aspirin [Adult Aspirin] 81 mg PO DAILY 03/11/19 06/23/19 Unknown History Clopidogrel [Plavix] 75 mg PO DAILY 03/11/19 06/23/19 Unknown History Flonase 50 mcg INHALATION DAILY 03/11/19 06/23/19 Unknown History Insulin Regular, Human [Humulin R 200 units SUB-Q PCHS 03/11/19 06/23/19 Unknown History U-500 Kwikpen] Metoprolol Xl [Metoprolol 25 mg PO DAILY 03/11/19 06/23/19 Unknown History SUCCINATE ER TAB] Nitroglycerin 0.4 mg PO PRN 03/11/19 06/23/19 Unknown History Potassium Chloride 40 meq PO DAILY 03/11/19 06/23/19 Unknown History Rosuvastatin Calcium 40 mg PO HS 03/11/19 06/23/19 Unknown History Symbicort 160-4.5 Mcg Inhaler 1 - 2 puff INHALATION BID 03/11/19 06/23/19 Unknown History Torsemide [Demadex] 100 tab PO DAILY 03/11/19 06/23/19 Unknown History Doxycycline Hyclate [Doxycycline 100 mg PO Q12HR 06/23/19 06/23/19 Unknown History Hyclate TAB] Spironolactone 25 mg PO DAILY 06/23/19 06/23/19 Unknown History Active Meds: Active Medications Sodium Chloride (Nacl 0.9% 1000 Ml) 1,000 mls @ 999 mls/hr IV BOLUS ONE Stop: 06/23/19 22:49 Last Admin: 06/23/19 21:57 Dose: 999 mls/hr Documented by: Exam - Constitutional Vitals: Temp Pulse Resp BP Pulse Ox 98.5 F 74 17 83/41 100 06/23/19 17:03 06/23/19 22:11 06/23/19 22:11 06/23/19 22:11 06/23/19 22:11 Results - Labs CBC & Chem 7: 06/23/19 17:29 06/24/19 03:20 Labs: Abnormal lab results 06/23/19 06/23/19 Range/Units 17:29 17:29 Lymph % (Auto) 39.7 H (13.4-35.0) % [place] % (Auto) 8.4 H (0.0-7.3) % Chloride 92.6 L (98-107) mmol/L BUN 37 H (7-17) mg/dL Creatinine 2.1 H (0.7-1.2) mg/dL Glucose 104 H (65-100) mg/dL Calcium 10.6 H (8.4-10.2) mg/dL Assessment and Plan Assessment Hypotension secondary to antihypertensives, r/o underlying infection Chest pain acute renal insufficiency Coronary artery disease Hypertension Diabetes CHF, stable COPD History of CVA Admits medicine Continue IV fluid, check UA, d-dimer Check cardiac enzymes, consult cardiology Start percocet continue appropriate outpatient medications start DVT prophylaxis Hold antihypertensives Addendum UA positive, start IV levaquin
[2019-06-23] MEDS ORDERED: D50W (25GM) Syringe IV PRN (22:35)
[2019-06-23] MEDS ORDERED: NACL 0.45% 1000 ML 1,000 ML IV ONE (22:51)
[2019-06-23] MEDS: NACL 0.45% 1000 ML 500 ML IV SCH (22:58)
[2019-06-23 23:52] LABS: Bilirubin,Urine NEG (Negative); Blood,Urine SM (Negative); Color,Urine Straw (Yellow); Mucus,Urine FEW /HPF; Urobilinogen,Urine < 2.0 mg/dL (<2.0)
[2019-06-24] MEDS: PERCOCET 5/325 PO PRN ×3 (01:22→19:39)
[2019-06-24] MEDS ORDERED: PERCOCET 5/325 ONE (01:23)
[2019-06-24] MEDS ORDERED: LEVAQUIN 750MG/150ML 750 MG/150 ML BAG IV ONE ×2 (01:27→01:40)
[2019-06-24 03:40] LABS: Calcium 9.6 mg/dL (8.4-10.2)
[2019-06-24 06:52] LABS: Basophils # (Auto) 0.1 K/mm3 (0.0-0.1); Basophils % (Auto) 0.8 % (0.0-1.8); Eosinophils # (Auto) 0.2 K/mm3 (0.0-0.4); Eosinophils % (Auto) 2.3 % (0.0-4.3); Hematocrit 32.1 % (30.3-42.9); Hemoglobin 10.7 gm/dl (10.1-14.3); Lymphocytes # (Auto) 4.2 K/mm3 (1.2-5.4); Lymphocytes % (Auto) 43.7 % (13.4-35.0); Mean Corpuscular HGB Conc 33 % (30-34); Mean Corpuscular Volume 82 fl (79-97); Monocytes # (Auto) 0.9 K/mm3 (0.0-0.8); Monocytes % (Auto) 9.6 % (0.0-7.3); Platelet Count 244 K/mm3 (140-440); Red Blood Count 3.92 M/mm3 (3.65-5.03); Red Cell Distribution Width 14.4 % (13.2-15.2)
[2019-06-24] MEDS: HumaLOG SUB-Q SCH ×4 (09:20→22:29)
[2019-06-24] MEDS ORDERED: LEVAQUIN 750MG/150ML 750 MG/150 ML BAG IV SCH (10:00)
[2019-06-24] MEDS: LOVENOX SUB-Q SCH (10:22)
[2019-06-24] MEDS: SODIUM CHLORIDE FLUSH SYRINGE 10 ML IV SCH ×2 (10:23→22:35)
--- NOTE | 2019-06-24 10:59 | Consultation ---
History of Present Illness Consult date: 06/24/19 Requesting physician: NATALYA SAXENA Consult reason: chest pain History of present illness: The pt is a 58 YO female with a past medical history of CAD s/p PCI to the ostial LAD in 12/2017, HFpEF, HTN, DM, COPD requiring home O2, CVA x4, CKD, heart failure, ALEXANDER, former smoker. She is followed at [facility] by Dr. Montes De Oca and Dr. Abel Saxena. She presented with complaints of low BPs associated with some dizziness for the past several days. She states her SBP was 60 yesterday and thus she decided to seek medical attention. She also c/o some intermittent right sided chest pain for the past several days which sometimes starts in her upper back and then radiates into her chest and vise versa. The pain has no clear aggravating or alleviating factors. She denies any palpitations, n/v, diaphoresis or syncope. Pt's most recent hospitalization was at [facility] where she was discharged on 05/18/2019 following treatment for HFpEF, COPD, MABEL on CKD. Per [facility] discharge summary, pt was aggressively diuresed and put out 16.5L during that admission. At her post hospital follow-up with Dr. Abel Saxena, her lisinopril was d/c'd as her BPs were soft, however, pt states that she has still been taking this medication. Echo done 05/14/2019 showed EF 55-60%, mild LVH, grade 1 diastolic dysfunction, mildly enlarged RV cavity size, mildly reduced RV systolic function. Cardiac PET done 01/2019 was negative for significant ischemia, EF 47% at rest and 56% with stress. Past History Past Medical History: CAD, COPD, diabetes, heart failure, hypertension Past Surgical History: PTCA Social history: smoking (former). denies: alcohol abuse, prescription drug abuse Medications and Allergies Allergies Allergy/AdvReac Type Severity Reaction Status Date / Time Penicillins Allergy Mild Rash Verified 09/18/18 13:37 latex Allergy Unknown Unknown Verified 01/24/18 09:36 green tomato Allergy Rash Uncoded 01/24/18 09:36 Home Medications Medication Instructions Recorded Confirmed Last Taken Type Albuterol Sulfate [Proventil HFA] 1 - 2 puff IH Q4H PRN 08/01/13 06/23/19 09/18/18 History Insulin NPH/Regular [NovoLIN 70/30] 150 unit SQ QPM 08/16/17 06/23/19 09/17/18 History ISOSORBIDE MONOnitrate [Imdur ER] 30 mg PO DAILY 11/17/18 06/23/19 Unknown History Aspirin [Adult Aspirin] 81 mg PO DAILY 03/11/19 06/23/19 Unknown History Clopidogrel [Plavix] 75 mg PO DAILY 03/11/19 06/23/19 Unknown History Flonase 50 mcg INHALATION DAILY 03/11/19 06/23/19 Unknown History Insulin Regular, Human [Humulin R 200 units SUB-Q HS 03/11/19 06/23/19 Unknown History U-500 Kwikpen] Metoprolol Xl [Metoprolol 25 mg PO DAILY 03/11/19 06/23/19 Unknown History SUCCINATE ER TAB] Nitroglycerin 0.4 mg PO PRN 03/11/19 06/23/19 Unknown History Potassium Chloride 40 meq PO DAILY 03/11/19 06/23/19 Unknown History Rosuvastatin Calcium 40 mg PO HS 03/11/19 06/23/19 Unknown History Symbicort 160-4.5 Mcg Inhaler 1 - 2 puff INHALATION BID 03/11/19 06/23/19 Unknown History Torsemide [Demadex] 100 tab PO DAILY 03/11/19 06/23/19 Unknown History Doxycycline Hyclate [Doxycycline 100 mg PO Q12HR 06/23/19 06/23/19 Unknown History Hyclate TAB] Spironolactone 25 mg PO DAILY 06/23/19 06/23/19 Unknown History Active Meds: Active Medications Acetaminophen (Tylenol) 650 mg PO Q4H PRN PRN Reason: Pain MILD(1-3)/Fever >100.5/[place]ILSON Dextrose (D50w (25gm) Syringe) 50 ml IV PRN PRN PRN Reason: Hypoglycemia Enoxaparin Sodium (Lovenox) 30 mg SUB-Q QDAY [facility] Last Admin: 06/24/19 10:22 Dose: 30 mg Documented by: Sodium Chloride (Nacl 0.45% 1000 Ml) 500 mls @ 75 mls/hr IV DIRECT [facility] Last Admin: 06/23/19 22:58 Dose: 75 mls/hr Documented by: Levofloxacin/Dextrose (Levaquin 750mg/150ml) 750 mg in 150 mls @ 100 mls/hr IV Q48HR [facility]; Protocol Insulin Human Lispro (Humalog) 0 unit SUB-Q ACHS [facility]; Protocol Last Admin: 06/24/19 09:20 Dose: 4 unit Documented by: Ondansetron HCl (Zofran) 4 mg IV Q8H PRN PRN Reason: Nausea And Vomiting Oxycodone/Acetaminophen (Percocet 5/325) 1 tab PO Q6H PRN PRN Reason: Pain, Moderate (4-6) Last Admin: 06/24/19 10:22 Dose: 1 tab Documented by: Sodium Chloride (Sodium Chloride Flush Syringe 10 Ml) 10 ml IV BID [facility] Last Admin: 06/24/19 10:23 Dose: 10 ml Documented by: Sodium Chloride (Sodium Chloride Flush Syringe 10 Ml) 10 ml IV PRN PRN PRN Reason: LINE FLUSH Review of Systems Constitutional: no weight loss, no weight gain, no fever, no chills, no sweats Ears, nose, mouth and throat: no ear pain, no nose pain, no sinus pressure, no sinus pain Cardiovascular: chest pain, lightheadedness, no orthopnea, no palpitations, no rapid/irregular heart beat, no edema, no syncope, no shortness of breath, no dyspnea on exertion, no high blood pressure, no leg edema Respiratory: no cough, no shortness of breath, no dyspnea on exertion, no congestion, no wheezing Gastrointestinal: no abdominal pain, no nausea, no vomiting, no diarrhea, no constipation, no change in bowel habits Genitourinary Female: no pelvic pain, no flank pain, no dysuria, no urinary frequency, no urgency Musculoskeletal: no neck stiffness, no neck pain, no shooting arm pain, no arm numbness/tingling, no shooting leg pain Integumentary: no rash, no pruritis, no redness, no sores, no wounds Neurological: other (dizziness), no head injury, no paralysis, no weakness, no parathesias, no numbness, no tingling, no seizures, no syncope Psychiatric: no anxiety Endocrine: no cold intolerance, no heat intolerance Hematologic/Lymphatic: no easy bruising, no easy bleeding Allergic/Immunologic: no urticaria, no wheezing Physical Examination Vital Signs Temp Pulse Resp BP Pulse Ox 98.5 F 81 18 93/57 98 06/23/19 17:03 08/06/19 17:03 06/23/19 17:03 06/23/19 17:03 06/23/19 17:03 General appearance: no acute distress HEENT: Positive: PERRL, Normocephaly, Mucus Membranes Moist Neck: Positive: neck supple, trachea midline Cardiac: Positive: Reg Rate and Rhythm, S1/S2 Lungs: Positive: Decreased Breath Sounds Neuro: Positive: Grossly Intact Abdomen: Negative: Tender Skin: Negative: Rash, Wound Musculoskeletal: No Pain Extremities: Absent: edema Results 06/24/19 05:25 06/24/19 03:20 Cardiac Enzymes 06/23/19 Range/Units 17:29 AST 24 (5-40) units/L CBC 06/23/19 06/24/19 Range/Units 17:29 05:25 WBC 9.7 9.6 (4.5-11.0) K/mm3 RBC 4.23 3.92 (3.65-5.03) M/mm3 Hgb 11.7 10.7 (10.1-14.3) gm/dl Hct 34.9 32.1 (30.3-42.9) % Plt Count 289 244 (140-440) K/mm3 Lymph # 3.8 4.2 (1.2-5.4) K/mm3 [place] # 0.8 0.9 H (0.0-0.8) K/mm3 Eos # 0.2 0.2 (0.0-0.4) K/mm3 Baso # 0.1 0.1 (0.0-0.1) K/mm3 Comprehensive Metabolic Panel 06/23/19 06/24/19 Range/Units 17:29 03:20 Sodium 140 141 (137-145) mmol/L Potassium 3.9 4.3 (3.6-5.0) mmol/L Chloride 92.6 L 97.1 L (98-107) mmol/L Carbon Dioxide 30 26 (22-30) mmol/L BUN 37 H 36 H (7-17) mg/dL Creatinine 2.1 H 1.9 H (0.7-1.2) mg/dL Glucose 104 H 181 H (65-100) mg/dL Calcium 10.6 H 9.6 (8.4-10.2) mg/dL AST 24 (5-40) units/L ALT 22 (7-56) units/L Alkaline Phosphatase 66 (35-129) units/L Total Protein 8.2 (6.3-8.2) g/dL Albumin 4.7 (3.9-5) g/dL - Imaging and Cardiology Echo: report reviewed (05/14/2019 showed EF 55-60%, mild LVH, grade 1 diastolic dysfunction, mildly enlarged RV cavity size, mildly reduced RV systolic function. ) EKG: report reviewed, image reviewed EKG interpretations - Telemetry EKG Rhythm: Sinus Rhythm - EKG Sinus rhythms and dysrhythmias: sinus rhythm Assessment and Plan Hypotension / dizziness Pt's most recent hospitalization was at [facility] where she was discharged on 05/18/2019 following treatment for HFpEF, COPD, MABEL on CKD. Per [facility] discharge summary, pt was aggressively diuresed and put out 16.5L during that admission. At her post hospital follow-up with Dr. Abel Saxena, her lisinopril was d/c'd as her BPs were soft, however, pt states that she has still been taking this medication. BPs improving s/p IVF. Cont to hold home Toprol, imdur, torsemide, aldactone and observe BP response. Consider cautious reintroduction of home Toprol and Imdur if/when BPs permit. History of heart failure with preserved EF Echo done 05/14/2019 showed EF 55-60%, mild LVH, grade 1 diastolic dysfunction, mildly enlarged RV cavity size, mildly reduced RV systolic function. No current clinical evidence of acute decompensation. Pt is s/p multiple IVF boluses. Monitor for volume overload. MABEL on CKD Serum Cr 1.4 upon d/c from [facility] on 05/18/2019. Serum Cr 2.1 on admission. Hold home torsemide and aldactone and monitor renal indices. Pt is s/p multiple IVF boluses. Consider nephrology consultation per primary. Chest pain - ? musculoskeletal atypical/currently chest pain free No EKG changes CAD (significant ostial LAD disease) Cardiac PET 01/2019: no ischemia CAD s/p PCI to the ostial LAD in 12/2017 Cont ASA 81, plavix, statin. COPD / Chronic respiratory failure H/o pulmonary nodules HTN DM Obesity ALEXANDER H/o CVA The patient has been seen in conjunction with Dr. Adame who agree with the assessment and plan of care.
[2019-06-24] MEDS: PLAVIX PO SCH (12:10)
--- NOTE | 2019-06-24 13:35 | Progress Note ---
Assessment and Plan Assessment and plan: Acute kidney injury on CKD. Patient with previous creatinine in February of 1.0. Continue to hold diuretics. Follow-up BMP in morning. Symptomatic hypotension/presyncope. Etiology likely secondary to volume depletion/dehydration. Hold diuretics as above. Chronic HFpEF. Compensated. CAD status post PCI. recent negative Cardiac PET 01/2019. COPD. Compensated. Chronic hypoxemic respiratory failure. Patient on home O2. Continue O2 to maintain sats greater than 92% Diabetes mellitus type II. Continue Accu-Cheks and sliding scale insulin. ALEXANDER. History Interval history: No new issues overnight. Hospitalist Physical - Constitutional Vitals: Temp Pulse Resp BP Pulse Ox 98.0 F 73 18 119/45 100 06/24/19 13:26 06/24/19 03:38 06/24/19 13:26 06/24/19 13:26 06/24/19 03:38 General appearance: Present: no acute distress - EENT Eyes: Present: PERRL, EOM intact ENT: hearing intact, clear oral mucosa, dentition normal - Neck Neck: Present: supple, normal ROM - Respiratory Respiratory effort: normal Respiratory: bilateral: CTA - Cardiovascular Rhythm: regular Heart Sounds: Present: S1 & S2. Absent: gallop, rub - Extremities Extremities: no ischemia, No edema, Full ROM - Abdominal General gastrointestinal: soft, non-tender, non-distended, normal bowel sounds - Integumentary Integumentary: Present: clear, warm, dry - Neurologic Neurologic: CNII-XII intact, moves all extremities Results - Labs CBC & Chem 7: 06/24/19 05:25 06/24/19 03:20 Labs: Laboratory Last Values WBC 9.6 K/mm3 (4.5-11.0) 06/24/19 05:25 RBC 3.92 M/mm3 (3.65-5.03) 06/24/19 05:25 Hgb 10.7 gm/dl (10.1-14.3) 06/24/19 05:25 Hct 32.1 % (30.3-42.9) 06/24/19 05:25 MCV 82 fl (79-97) 06/24/19 05:25 MCH 27 pg (28-32) L 06/24/19 05:25 MCHC 33 % (30-34) 06/24/19 05:25 RDW 14.4 % (13.2-15.2) 06/24/19 05:25 Plt Count 244 K/mm3 (140-440) 06/24/19 05:25 Lymph % (Auto) 43.7 % (13.4-35.0) H 06/24/19 05:25 [place] % (Auto) 9.6 % (0.0-7.3) H 06/24/19 05:25 Eos % (Auto) 2.3 % (0.0-4.3) 06/24/19 05:25 Baso % (Auto) 0.8 % (0.0-1.8) 06/24/19 05:25 Lymph # 4.2 K/mm3 (1.2-5.4) 06/24/19 05:25 [place]oup # 0.9 K/mm3 (0.0-0.8) H 06/24/19 05:25 Eos # 0.2 K/mm3 (0.0-0.4) 06/24/19 05:25 Baso # 0.1 K/mm3 (0.0-0.1) 06/24/19 05:25 Seg Neutrophils % 43.6 % (40.0-70.0) 06/24/19 05:25 Seg Neutrophils # 4.2 K/mm3 (1.8-7.7) 06/24/19 05:25 145.68 ng/mlDDU (0-234) 06/23/19 23:41 Sodium 141 mmol/L (137-145) 06/24/19 03:20 Potassium 4.3 mmol/L (3.6-5.0) 06/24/19 03:20 Chloride 97.1 mmol/L (98-107) L 06/24/19 03:20 Carbon Dioxide 26 mmol/L (22-30) 06/24/19 03:20 22 mmol/L 06/24/19 03:20 BUN 36 mg/dL (7-17) H 06/24/19 03:20 1.9 mg/dL (0.7-1.2) H 06/24/19 03:20 Estimated GFR 33 ml/min 06/24/19 03:20 19 % 06/24/19 03:20 Glucose 181 mg/dL (65-100) H 06/24/19 03:20 POC Glucose 282 (70-105) H 06/24/19 11:51 Calcium 9.6 mg/dL (8.4-10.2) 06/24/19 03:20 0.20 mg/dL (0.1-1.2) 06/23/19 17:29 AST 24 units/L (5-40) 06/23/19 17:29 ALT 22 units/L (7-56) 06/23/19 17:29 66 units/L (35-129) 06/23/19 17:29 NT-Pro-B Natriuret Pep 85.25 pg/mL (0-900) 06/23/19 17:29 8.2 g/dL (6.3-8.2) 06/23/19 17:29 4.7 g/dL (3.9-5) 06/23/19 17:29 1.3 % 06/23/19 17:29 Straw (Yellow) 06/23/19 23:05 Clear (Clear) 06/23/19 23:05 6.0 (5.0-7.0) 06/23/19 23:05 Ur Specific [place] 1.008 (1.003-1.030) 06/23/19 23:05 30 mg/dl mg/dL (Negative) 06/23/19 23:05 Neg mg/dL (Negative) 06/23/19 23:05 Neg mg/dL (Negative) 06/23/19 23:05 Sm (Negative) 06/23/19 23:05 Neg (Negative) 06/23/19 23:05 Neg (Negative) 06/23/19 23:05 < 2.0 mg/dL (<2.0) 06/23/19 23:05 Ur Leukocyte Esterase Neg (Negative) 06/23/19 23:05 1.0 /HPF (0.0-6.0) 06/23/19 23:05 2.0 /HPF (0.0-6.0) 06/23/19 23:05 U Epithel Cells (Auto) 1.0 /HPF (0-13.0) 06/23/19 23:05 Few /HPF 06/23/19 23:05 Active Medications - Current Medications Current Medications: Generic Name Dose Route Start Last Admin Trade Name Freq PRN Reason Stop Dose Admin Acetaminophen 650 mg 06/23/19 22:26 Tylenol PO Q4H PRN Pain MILD(1-3)/Fever >100.5/WILSON Aspirin 81 mg 06/25/19 10:00 Halfprin Ec PO DAILY ON LICENSE OF [facility] Atorvastatin Calcium 40 mg 06/24/19 22:00 Lipitor PO QHS ROCIO Clopidogrel Bisulfate 75 mg 06/24/19 12:00 06/24/19 12:10 Plavix PO 75 mg DAILY ROCIO Administration Dextrose 50 ml 06/23/19 22:35 D50w (25gm) Syringe IV PRN PRN Hypoglycemia Enoxaparin Sodium 30 mg 06/24/19 10:00 06/24/19 10:22 Lovenox SUB-Q 30 mg QDAY ROCIO Administration Sodium Chloride 500 mls @ 75 mls/hr 06/23/19 23:00 06/23/19 22:58 Nacl 0.45% 1000 Ml IV 75 mls/hr DIRECT ROCIO Administration Levofloxacin/Dextrose 750 mg in 150 mls @ 100 mls/hr 06/25/19 10:00 Levaquin 750mg/150ml IV Q48HR ON LICENSE OF [facility] Protocol Insulin Human Lispro 0 unit 06/24/19 07:30 06/24/19 09:20 Humalog SUB-Q 4 unit ACHS ROCIO Administration Protocol Ondansetron HCl 4 mg 06/23/19 22:26 Zofran IV Q8H PRN Nausea And Vomiting Oxycodone/Acetaminophen 1 tab 06/23/19 22:26 06/24/19 10:22 Percocet 5/325 PO 1 tab Q6H PRN Administration Pain, Moderate (4-6) Sodium Chloride 10 ml 06/24/19 10:00 06/24/19 10:23 Sodium Chloride Flush Syringe 10 Ml IV 10 ml BID ROCIO Administration Sodium Chloride 10 ml 06/23/19 22:26 Sodium Chloride Flush Syringe 10 Ml IV PRN PRN LINE FLUSH
[2019-06-24 13:36] LABS: Creatine Kinase MB 3.3 ng/mL (0.0-4.0)
[2019-06-25] MEDS: NACL 0.45% 1000 ML 500 ML IV SCH (03:40)
[2019-06-25] MEDS: HumaLOG SUB-Q SCH ×3 (08:05→17:00)
--- NOTE | 2019-06-25 09:15 | Discharge Summary ---
Providers - Providers Date of Admission: 06/23/19 22:26 Date of discharge: 06/25/19 Attending physician: PARVEZ CAMACHO 06/23/19 22:26 Consult to Physician [CONS] Routine Comment: Consulting Provider: LINDY GOMEZ Physician Instructions: Reason For Exam: cp 06/24/19 09:57 Midline [Consult to PICC Line RN] [CONS] Stat Reason For Exam: IV access need fluids BP low Type Line:: Midline Primary care physician: LAVELLE CERVANTES Hospitalization Reason for admission: hypotension Condition: Stable Hospital course: The pt is a 58 YO female with a past medical history of CAD s/p PCI to the ostial LAD in 12/2017, HFpEF, HTN, DM, COPD requiring home O2, CVA x4, CKD, heart failure, ALEXANDER, former smoker. She is followed at [facility] by Dr. Montes De Oca and Dr. Abel Saxena. She presented with complaints of low BPs associated with some dizziness for the past several days. She stated her SBP was 60 the day [employer] and thus she decided to seek medical attention. She also c/o some intermittent right sided chest pain for the past several days which sometimes starts in her upper back and then radiates into her chest and vise versa. The pain has no clear aggravating or alleviating factors. She denied any palpitations, n/v, diaphoresis or syncope. Pt's most recent hospitalization was at [facility] where she was discharged on 05/18/2019 following treatment for HFpEF, COPD, MABEL on CKD. Per [facility] discharge summary, pt was aggressively diuresed and put out 16.5L during that admission. The patient was admitted with diagnosis of presyncope/symptomatic hypotension secondary to dehydration/vasomotor nephropathy/MABEL on CKD and volume depletion. Her medications of Imdur, Toprol, torsemide and Aldactone were held. The patient's blood pressure improved with IV fluid hydration. Prior to discharge, cardiology resumed home Toprol XL 25mg daily, d/c Imdur, d/c aldactone and reduce home torsemide dosage to 40mg daily, cont home KCL supplementation 20mEq daily. Do not resume lisinopril, as previously recommended by Dr. Abel Saxena. Patient's creatinine returned to her baseline at discharge. Pt scheduled to see [facility] [employer] Dr. Thierry Grady on 06/30/19. Patient is also to follow-up at [facility] heart failure clinic tomorrow at 9:45 AM. Dedicated discharge time 32 minutes. Disposition: [id number] TO HOME OR SELFCARE Time spent for discharge: 32 - Discharge Diagnoses (1) Acute kidney injury Status: Acute (2) COPD (chronic obstructive pulmonary disease) Status: Acute Qualifiers: (3) Chest pain Status: Acute Qualifiers: Comment: She has had extensive cardiac work up in the recent past at [place]. It will be prudent to get these records for review before engaging in further cardiac testing. (4) Hypotension Status: Acute (5) SOB (shortness of breath) Status: Acute (6) Diabetes Status: Acute (7) Hx of coronary artery disease Status: Acute Core Measure Documentation - Palliative Care Palliative Care/ Comfort Measures: Not Applicable - Core Measures Any of the following diagnoses?: none Exam - Constitutional Vitals: Temp Pulse Resp BP Pulse Ox 97.4 F L 69 18 136/55 94 06/25/19 04:06/25/19 04:06/25/19 04:06/25/19 04:06/25/19 04:19 General appearance: Present: no acute distress, well-nourished - EENT Eyes: Present: PERRL ENT: hearing intact, clear oral mucosa - Neck Neck: Present: supple, normal ROM - Respiratory Respiratory effort: normal Respiratory: bilateral: CTA - Cardiovascular Heart Sounds: Present: S1 & S2. Absent: rub, click - Extremities Extremities: pulses symmetrical, No edema Peripheral Pulses: within normal limits - Abdominal General gastrointestinal: Present: soft, non-tender, non-distended, normal bowel sounds Female genitourinary: Present: normal - Integumentary Integumentary: Present: clear, warm, dry - Musculoskeletal Musculoskeletal: gait normal, strength equal bilaterally - Psychiatric Psychiatric: appropriate mood/affect, intact judgment & insight - Neurologic Neurologic: CNII-XII intact, moves all extremities Plan Activity: advance as tolerated Weight Bearing Status: Weight Bear as Tolerated Diet: low fat, low cholesterol, low salt, diabetic Additional Instructions: Resume home Toprol XL 25mg daily, d/c Imdur, d/c aldactone and reduce home torsemide dosage to 40mg daily, cont home KCL supplementation 20mEq daily. Do not resume lisinopril, as previously recommended by Dr. Abel Saxena. Follow up with: LAVELLE CERVANTES MD [Primary Care Provider] - 3-5 Days ARA LANDON MD [Staff Physician] - 7 Days Prescriptions: Aspirin [Adult Aspirin] 81 mg PO DAILY #30 tablet. Torsemide [Demadex] 40 mg PO DAILY #30 tablet Flonase 50 mcg INHALATION DAILY 30 Days Metoprolol Xl [Metoprolol SUCCINATE ER TAB] 25 mg PO DAILY #30 tablet oxyCODONE /ACETAMINOPHEN [Percocet 5/325 mg] 1 tab PO Q6H PRN #10 tablet PRN Reason: Pain, Moderate (4-6) Clopidogrel [Plavix] 75 mg PO DAILY #30 tablet Rosuvastatin Calcium 40 mg PO HS #30 tablet Symbicort 160-4.5 Mcg Inhaler 1 - 2 puff INHALATION BID 30 Days
[2019-06-25 09:37] LABS: Calcium 9.6 mg/dL (8.4-10.2)
[2019-06-25] MEDS: PLAVIX PO SCH (09:40)
[2019-06-25] MEDS: SODIUM CHLORIDE FLUSH SYRINGE 10 ML IV SCH (09:40)
[2019-06-25] MEDS: LOVENOX SUB-Q SCH (09:40)
[2019-06-25] MEDS ORDERED: HALFPRIN EC PO SCH (10:00)
[2019-06-25] MEDS ORDERED: LEVAQUIN 750MG/150ML 750 MG/150 ML BAG IV SCH (10:00)
--- NOTE | 2019-06-25 10:54 | Progress Note ---
Assessment and Plan Symptomatic hypotension Likely from dehydration. Recent discharge for A/C HFpEF -16L. BPs improved s/p IVF. D/c IVF. Resume home Toprol XL 25mg daily, d/c Imdur, d/c aldactone and reduce home torsemide dosage to 40mg daily, cont home KCL supplementation 20mEq daily. Do not resume lisinopril, as previously recommended by Dr. Abel Saxena. Pending pt's BPs tolerate resumption of these medications, pt may discharge home this afternoon from cardiology standpoint. History of heart failure with preserved EF Echo done 05/14/2019 showed EF 55-60%, mild LVH, grade 1 diastolic dysfunction, mildly enlarged RV cavity size, mildly reduced RV systolic function. No current clinical evidence of acute decompensation. Pt is s/p multiple IVF boluses. Monitor for volume overload. MABEL on CKD Serum Cr 1.4 upon d/c from [facility] on 05/18/2019. Serum Cr 2.1 on admission. D/c aldactone and reduce home torsemide dosage to 40mg daily. Pt scheduled to see [employer] Dr. Thierry Grady on 06/30/19. Chest pain - ? musculoskeletal atypical/currently chest pain free No EKG changes CAD (significant ostial LAD disease) Cardiac PET 01/2019: no ischemia CAD s/p PCI to the ostial LAD in 12/2017 Cont ASA 81, plavix, statin. COPD / Chronic respiratory failure H/o pulmonary nodules HTN DM Obesity ALEXANDER H/o CVA BPs improved s/p IVF. D/c IVF. Resume home Toprol XL 25mg daily, d/c Imdur, d/c aldactone and reduce home torsemide dosage to 40mg daily, cont home KCL supplementation 20mEq daily. Do not resume lisinopril, as previously recommended by Dr. Abel Saxena. Pending pt's BPs tolerate resumption of these medications, pt may discharge home this afternoon from cardiology standpoint. Follow up with [facility] HF clinic tomorrow, 06/26/2019 @ 9:45AM. The patient has been seen in conjunction with Dr. Adame who agree with the assessment and plan of care. Subjective Date of service: 06/25/19 Principal diagnosis: hypotension; dizziness Interval history: pt resting up at bedside, states she is feeling much better today, dizziness resolved, BPs improved. currently receiving IVF. Objective Last Vital Signs Temp 97.8 F 06/25/19 09:22 Pulse 65 06/25/19 09:22 Resp 16 06/25/19 09:22 BP 136/60 06/25/19 09:22 Pulse Ox 99 06/25/19 09:22 - Physical Examination General: No Apparent Distress HEENT: Positive: PERRL, Normocephaly, Mucus Membranes Moist Neck: Positive: neck supple, trachea midline Cardiac: Positive: Reg Rate and Rhythm, S1/S2 Lungs: Positive: Decreased Breath Sounds Neuro: Positive: Grossly Intact Abdomen: Negative: Tender Skin: Negative: Rash, Wound Musculoskeletal: No Pain Extremities: Absent: edema - Labs and Meds Cardiac Enzymes 06/24/19 Range/Units 11:56 CK-MB (CK-2) 3.3 (0.0-4.0) ng/mL Comprehensive Metabolic Panel 06/25/19 Range/Units 08:50 Sodium 136 L (137-145) mmol/L Potassium 4.3 (3.6-5.0) mmol/L Chloride 98.1 (98-107) mmol/L Carbon Dioxide 28 (22-30) mmol/L BUN 22 H (7-17) mg/dL Creatinine 1.5 H (0.7-1.2) mg/dL Glucose 220 H (65-100) mg/dL Calcium 9.6 (8.4-10.2) mg/dL - Imaging and Cardiology EKG: report reviewed, image reviewed Echo: report reviewed (05/14/2019 showed EF 55-60%, mild LVH, grade 1 diastolic dysfunction, mildly enlarged RV cavity size, mildly reduced RV systolic function. ) - EKG Sinus rhythms and dysrhythmias: sinus rhythm
[2019-06-25] MEDS: PERCOCET 5/325 PO PRN (10:56)
[2019-06-25] MEDS ORDERED: TOPROL XL PO SCH (11:00)
[2019-06-25 16:43] VITALS: BP 122/60
[2019-06-26] MEDS ORDERED: DEMADEX PO SCH (10:00)
== END 2019-06-25 19:26 | disposition home or self-care (01) ==
LOC: ED 16:09 → 4A 22:26
PROVIDERS: ADMIT Internal Medicine; ATTEND Hospitalist
DX: R07.89 Other chest pain (principal); I13.0 Hypertensive heart and chronic kidney disease with heart failure and stage 1 through stage 4 chronic kidney disease, or unspecified chronic kidney disease; N18.9 Chronic kidney disease, unspecified; I50.9 Heart failure, unspecified; N17.9 Acute kidney failure, unspecified; I25.10 Atherosclerotic heart disease of native coronary artery without angina pectoris; E11.22 Type 2 diabetes mellitus with diabetic chronic kidney disease; J44.9 Chronic obstructive pulmonary disease, unspecified; Z86.73 Personal history of transient ischemic attack (TIA), and cerebral infarction without residual deficits
CPT/HCPCS: 36415; 71046; 80048; 80053; 81001; 82550; 82553; 82962; 83880; 84484; 85025; 85379; 93005; 93010; 96365; 96366; 96372; 99291; A9270; G0378; J1650; J1956; J2270; J2405; J7030; J7040

== ENCOUNTER 2019-07-29 08:53 | Observation (INO) | payer MEDICARE ==
--- NOTE | 2019-07-29 10:26 | Emergency Department Report ---
ED Chest Pain HPI - General Chief Complaint: Chest Pain Stated Complaint: DAVIDE Time Seen by Provider: 07/29/19 09:34 Source: patient, EMS Mode of arrival: Ambulatory Limitations: No Limitations - History of Present Illness Initial Comments: Patient is a 59-year-old female that presents emergency room with complaints of chest pain. Patient states the pain is in her right chest just below the right breast. Patient states penetrating to her back. Patient states the pain is a 6 out of 10 here. States the pain is worse with exertion and better with rest. Patient states she is also having difficulties breathing. Patient states she is having shortness of breath and dyspnea on exertion. Patient states her shortness respiratory distress and worse with exertion. Patient states her pain is worsened. Patient states starting yesterday. Patient states that she took a nitroglycerin and had little to no relief. Patient states she is on home oxygen . She states that in the past she's had MIs where she had right-sided chest pain She is also complaining of right upper quadrant pain. Patient states her rt upper quadrant pain is a 6 out of 10. MD Complaint: chest pain -: Sudden Onset: during rest Pain Location: right chest Pain Radiation: none Severity scale (0 -10): 6 Quality: sharp Consistency: constant Improves With: rest Worsens With: exertion re: dyspnea. denies: nausea, vomting, diaphoresis Other Symptoms: denies: cough, fever, syncope, rash, acid taste in mouth, leg swelling, palpitations, burping Treatments Prior to Arrival: nitroglycerin, oxygen Aspirin use within the Past 7 Days: (1) Yes - Related Data On Oral Contraceptives: No Home Medications Medication Instructions Recorded Confirmed Last Taken Albuterol Sulfate [Proventil HFA] 1 - 2 puff IH Q4H PRN 08/01/13 07/29/19 07/28/19 Insulin NPH/Regular [NovoLIN 70/30] 150 unit SQ QPM 08/16/17 07/29/19 07/28/19 Insulin Regular, Human [Humulin R 200 units SUB-Q PCHS 03/11/19 07/29/19 07/28/19 U-500 Kwikpen] Nitroglycerin 0.4 mg PO PRN 03/11/19 07/29/19 07/28/19 Insulin Aspart Prot/Aspart(Nf) 20 units SQ QPM 09/10/0607/29/19 07/28/19 [Novolog Mix 70/30] Metformin HCl [metFORMIN] 1,000 mg PO BID 07/29/19 07/29/19 07/28/19 Potassium Chloride [K-Dur] 20 meq PO QDAY 07/29/19 07/29/19 07/28/19 Previous Rx's Medication Instructions Recorded Last Taken Type Aspirin [Adult Aspirin] 81 mg PO DAILY #30 tablet. 06/25/19 07/28/19 Rx Metoprolol Xl [Metoprolol 25 mg PO DAILY #30 tablet 06/25/19 07/28/19 Rx SUCCINATE ER TAB] Rosuvastatin Calcium 40 mg PO HS #30 tablet 06/25/19 07/28/19 Rx Symbicort 160-4.5 Mcg Inhaler 1 - 2 puff INHALATION BID 30 Days 06/25/19 07/28/19 Rx Torsemide [Demadex] 40 mg PO DAILY #30 tablet 06/25/19 07/28/19 Rx Allergies Allergy/AdvReac Type Severity Reaction Status Date / Time Penicillins Allergy Mild Rash Verified 09/18/18 13:37 latex Allergy Unknown Unknown Verified 01/24/18 09:36 green tomato Allergy Rash Uncoded 01/24/18 09:36 Heart Score - HEART Score History: Moderately suspicious EKG: Non-specific Age: 45-65 Risk factors: > 3 risk factors or hx of atherosclerotic disease Troponin: < normal limit HEART Score: 5 ED Review of Systems ROS: Stated complaint: DAVIDE Other details as noted in HPI Comment: All other systems reviewed and negative Constitutional: denies: chills, fever Eyes: denies: eye pain, eye discharge, vision change ENT: denies: ear pain, throat pain Respiratory: shortness of breath, SOB with exertion, SOB at rest. denies: cough, wheezing Cardiovascular: chest pain. denies: palpitations Endocrine: no symptoms reported Gastrointestinal: abdominal pain. denies: nausea, diarrhea Genitourinary: denies: urgency, dysuria, discharge Musculoskeletal: denies: back pain, joint swelling, arthralgia Skin: denies: rash, lesions Neurological: denies: headache, weakness, paresthesias Psychiatric: denies: anxiety, depression Hematological/Lymphatic: denies: easy bleeding, easy bruising ED Past Medical Hx - Past Medical History Previous Medical History?: Yes Hx Hypertension: Yes Hx CVA: Yes (x4,left-sided weakness) Hx Heart Attack/AMI: Yes Hx Congestive Heart Failure: Yes Hx Diabetes: Yes Hx Deep Vein Thrombosis: No Hx GERD: Yes Hx Arthritis: Yes Hx Kidney Stones: No Hx Asthma: Yes Hx COPD: Yes (Home O2 2L) Hx Tuberculosis: No Hx HIV: No Additional medical history: high cholesterol - Surgical History Past Surgical History?: No Hx Coronary Stent: Yes Hx Pacemaker: No Hx Internal Defibrillator: No Additional Surgical History: tonsillectomy, , right ankle - Family History Family history: no significant - Social History Smoking Status: Former Smoker Substance Use Type: None - Medications Home Medications: Home Medications Medication Instructions Recorded Confirmed Last Taken Type Albuterol Sulfate [Proventil HFA] 1 - 2 puff IH Q4H PRN 08/01/13 07/29/19 07/28/19 History Insulin NPH/Regular [NovoLIN 70/30] 150 unit SQ QPM 08/16/17 07/29/19 07/28/19 History Insulin Regular, Human [Humulin R 200 units SUB-Q PCHS 03/11/19 07/29/19 07/28/19 History U-500 Kwikpen] Nitroglycerin 0.4 mg PO PRN 03/11/19 07/29/19 07/28/19 History Aspirin [Adult Aspirin] 81 mg PO DAILY #30 tablet. 06/25/19 07/29/19 07/28/19 Rx Metoprolol Xl [Metoprolol 25 mg PO DAILY #30 tablet 06/25/19 07/29/19 07/28/19 Rx SUCCINATE ER TAB] Rosuvastatin Calcium 40 mg PO HS #30 tablet 06/25/19 07/29/19 07/28/19 Rx Symbicort 160-4.5 Mcg Inhaler 1 - 2 puff INHALATION BID 30 Days 06/25/19 07/29/19 07/28/19 Rx Torsemide [Demadex] 40 mg PO DAILY #30 tablet 06/25/19 07/29/19 07/28/19 Rx Insulin Aspart Prot/Aspart(Nf) 20 units SQ QPM 07/29/19 07/29/19 07/28/19 History [Novolog Mix 70/30] Metformin HCl [metFORMIN] 1,000 mg PO BID 07/29/19 07/29/19 07/28/19 History Potassium Chloride [K-Dur] 20 meq PO QDAY 07/29/19 07/29/19 07/28/19 History ED Physical Exam - General Limitations: No Limitations General appearance: alert, in no apparent distress - Head Head exam: Present: atraumatic, normocephalic - Eye Eye exam: Present: normal appearance, PERRL Pupils: Present: normal accommodation - ENT ENT exam: Present: mucous membranes moist - Neck Neck exam: Present: normal inspection - Respiratory Respiratory exam: Present: normal lung sounds bilaterally. Absent: respiratory distress, wheezes, rales, chest wall tenderness - Cardiovascular Cardiovascular Exam: Present: regular rate, normal rhythm. Absent: systolic murmur, diastolic murmur, rubs, gallop - GI/Abdominal GI/Abdominal exam: Present: soft, normal bowel sounds. Absent: distended, tenderness, guarding - Extremities Exam Extremities exam: Present: normal inspection - Back Exam Back exam: Present: normal inspection - Neurological Exam Neurological exam: Present: alert, oriented X3 - Psychiatric Psychiatric exam: Present: normal affect, normal mood - Skin Skin exam: Present: warm, dry, intact, normal color. Absent: rash ED Course Vital Signs 07/29/19 07/29/19 07/29/19 09:19 09:31 09:45 Temperature 97.5 F L Pulse Rate 72 77 Respiratory 18 12 18 Rate Blood Pressure 134/68 Blood Pressure 114/68 [Right] O2 Sat by Pulse 97 96 96 Oximetry 07/29/19 07/29/19 07/29/19 10:56 13:32 15:24 Temperature 97.5 F L 98.5 F 98.2 F Pulse Rate 77 79 67 Respiratory 20 16 11 L Rate Blood Pressure Blood Pressure 121/48 119/45 114/52 [Right] O2 Sat by Pulse 98 98 100 Oximetry - Reevaluation(s) Reevaluation #1: PICC line placed. CT made aware of IV access. 07/29/19 12:32 Reevaluation #2: Discussed all results with patient. I discussed plan of care with patient. Patient will be admitted to the hospitalist service. Patient agrees plan of care. 07/29/19 15:43 - Consultations Consultation #1: Hospitalist consult for admission. Hospitalist admit patient. Bridge orders placed 07/29/19 15:44 DAVE score - Dave Score Age > 65: (0) No Aspirin use within the Past 7 Days: (1) Yes 3 or more CAD Risk Factors: (1) Yes 2 or more Angina events in past 24 hrs: (1) Yes Known CAD with more than 50% Stenosis: (0) No Elevated Cardiac Markers: (0) No ST Deviation Greater than 0.5mm: (0) No DAVE Score: 3 ED Medical Decision Making - Lab Data Result diagrams: 07/29/19 10:09 07/29/19 10:09 - EKG Data -: EKG Interpreted by Me EKG shows normal: sinus rhythm, axis, intervals, QRS complexes, ST-T waves Rate: normal - Radiology Data Radiology results: report reviewed CHEST 1 VIEW INDICATION: cp. COMPARISON: 07/29/2019. FINDINGS: Support devices: None. Heart: Within normal limits. Lungs/Pleura: No acute air space or interstitial disease. Additional findings: None. IMPRESSION: No acute abnormality. CT ABDOMEN AND PELVIS WITH CONTRAST HISTORY: Right upper quadrant pain, right chest pain COMPARISON: None. TECHNIQUE: Axial CT images were obtained through the abdomen and pelvis after 100 cc of Omnipaque 300 intravenously. Sagittal and coronal reformatted images. All CT scans at this location are performed using CT dose reduction for ALARA by means of automated exposure control. FINDINGS: CT ABDOMEN: Lung Bases: Clear. Liver: Mild diffuse fatty infiltration. Biliary: A 1.2 cm calcified gallstone is identified in the neck of the gallbladder. No abnormal dilatation or inflammation. Spleen: No significant abnormality. Unenlarged. Pancreas: No significant abnormality. Adrenals: No significant abnormality. Kidneys: No significant abnormality. Lymphatics: No lymphadenopathy. Vasculature: Moderate atherosclerotic plaques are noted in both common iliac arteries. Bowel/Peritoneum: No significant abnormality. No free air. No free fluid. CT PELVIS: : The bladder, distal ureters, uterus and adnexa are unremarkable. An intrauterine device is identified in the endometrial canal. Osseous Structures: Mild multilevel thoracolumbar spondylosis is identified. No evidence for acute fracture or suspicious bony lesion. Additional Findings: None IMPRESSION: No acute process. Mild fatty infiltration of the liver. Gallstone but no evidence for acute cholecystitis on CT. - Medical Decision Making Ration is a 59-year-old female that presents emergency room with right-sided chest pain and right upper quadrant pain. Patient has a significant history for CAD and DC. Patient also has history of stroke. Patient admitted to the spitalist service. Patient's labs unremarkable sent for CKD. Patient's CT shows gallstones. Patient's CTA is negative but shows cardiomegaly. Patient given multiple doses of pain medications. Patient also found to be hypoxic. - Differential Diagnosis pain. ACS. Gallstones. Right upper quadrant pain. Hypoxia Critical Care Time: Yes Critical care attestation.: If time is entered above; I have spent that time in minutes in the direct care of this critically ill patient, excluding procedure time. Critical Care Time: 35 minutes ED Disposition Clinical Impression: SOB (shortness of breath), COPD exacerbation, RUQ abdominal pain, Acute chest p ain, Hypoxia Chest pain Qualifiers: Chest pain type: unspecified Qualified Code(s): R07.9 - Chest pain, unspecified CKD (chronic kidney disease) Qualifiers: Chronic kidney disease stage: unspecified stage Qualified Code(s): N18.9 - Chronic kidney disease, unspecified Disposition: DC-09 OP ADMIT IP TO THIS HOSP Is pt being admited?: Yes Does the pt Need Aspirin: No Condition: Critical Time of Disposition: 15:43
[2019-07-29 10:36] LABS: Basophils # (Auto) 0.1 K/mm3 (0.0-0.1); Basophils % (Auto) 0.8 % (0.0-1.8); Eosinophils # (Auto) 0.2 K/mm3 (0.0-0.4); Eosinophils % (Auto) 2.6 % (0.0-4.3); Hematocrit 35.5 % (30.3-42.9); Hemoglobin 11.7 gm/dl (10.1-14.3); Lymphocytes # (Auto) 3.5 K/mm3 (1.2-5.4); Lymphocytes % (Auto) 40.8 % (13.4-35.0); Mean Corpuscular HGB Conc 33 % (30-34); Mean Corpuscular Volume 81 fl (79-97); Monocytes # (Auto) 0.7 K/mm3 (0.0-0.8); Monocytes % (Auto) 8.5 % (0.0-7.3); Platelet Count 279 K/mm3 (140-440); Red Blood Count 4.36 M/mm3 (3.65-5.03); Red Cell Distribution Width 14.8 % (13.2-15.2)
--- NOTE | 2019-07-29 10:42 | XRay Report ---
CHEST 1 VIEW INDICATION: cp. COMPARISON: 07/29/2019. FINDINGS: Support devices: None. Heart: Within normal limits. Lungs/Pleura: No acute air space or interstitial disease. Additional findings: None. IMPRESSION: No acute abnormality. Signer Name: Pravin Smith MD Signed: 07/29/2019 10:37 AM Workstation Name: [id number]
[2019-07-29 10:45] LABS: INR 1.03 (0.87-1.13)
[2019-07-29] MEDS ORDERED: DILAUDID IM ONE ×2 (10:51→15:26)
[2019-07-29 11:00] LABS: Alanine Aminotransferase 24 units/L (7-56); Albumin 4.6 g/dL (3.9-5); BUN/Creatinine Ratio 14; Blood Urea Nitrogen 27 mg/dL (7-17); Calcium 10.1 mg/dL (8.4-10.2); Hemolysis Index 4
--- NOTE | 2019-07-29 14:21 | Cat Scan Report ---
CT ABDOMEN AND PELVIS WITH CONTRAST HISTORY: Right upper quadrant pain, right chest pain COMPARISON: None. TECHNIQUE: Axial CT images were obtained through the abdomen and pelvis after 100 cc of Omnipaque 300 intravenously. Sagittal and coronal reformatted images. All CT scans at this location are performed using CT dose reduction for ALARA by means of automated exposure control. FINDINGS: CT ABDOMEN: Lung Bases: Clear. Liver: Mild diffuse fatty infiltration. Biliary: A 1.2 cm calcified gallstone is identified in the neck of the gallbladder. No abnormal dilat ation or inflammation. Spleen: No significant abnormality. Unenlarged. Pancreas: No significant abnormality. Adrenals: No significant abnormality. Kidneys: No significant abnormality. Lymphatics: No lymphadenopathy. Vasculature: Moderate atherosclerotic plaques are noted in both common iliac arteries. Bowel/Peritoneum: No significant abnormality. No free air. No free fluid. CT PELVIS: : The bladder, distal ureters, uterus and adnexa are unremarkable. An intrauterine device is identi fied in the endometrial canal. Osseous Structures: Mild multilevel thoracolumbar spondylosis is identified. No evidence for acute fr acture or suspicious bony lesion. Additional Findings: None IMPRESSION: No acute process. Mild fatty infiltration of the liver. Gallstone but no evidence for acute cholecystitis on CT. Signer Name: Colten Hewitt Jr, MD Signed: 07/29/2019 2:17 PM Workstation Name: [id number]
--- NOTE | 2019-07-29 15:17 | Cat Scan Report ---
CTA CHEST WITH CONTRAST INDICATION : Shortness of breath, dyspnea on exertion, hypoxia, right chest pain. TECHNIQUE: Axial imaging performed through the chest, with contrast bolus timing set to maximize opa cification of the pulmonary arteries. Sagittal and coronal reformatted images. 3-plane MIP reformatte d images were obtained. All CT scans at this location are performed using CT dose reduction for ALAR A by means of automated exposure control. 100 mL of intravenous contrast administered. COMPARISON: 11/17/2018 FINDINGS: Bolus: Contrast bolus timing is adequate. PTE: No filling defect is present to suggest PTE. Mediastinum: Mild cardiomegaly. No pericardial effusion. No pathologic mediastinal adenopathy. Lungs: The lungs are clear. Mild centrilobular emphysematous changes in the upper lung zones are kristyn pected. No infiltrate, pleural effusion or pneumothorax. Bones: Degenerative changes in the spine with nothing acute. Upper abdomen: Limited imaging of the upper abdomen shows nothing acute. IMPRESSION: No evidence for pulmonary embolus. Mild cardiomegaly. Mild emphysematous changes in the upper lobes. Signer Name: Colten Hewitt Jr, MD Signed: 07/29/2019 3:12 PM Workstation Name: [id number]
[2019-07-29] MEDS ORDERED: DILAUDID IV ONE (15:26)
[2019-07-29] MEDS ORDERED: PROAIR IH PRN (21:26)
[2019-07-29] MEDS ORDERED: SODIUM CHLORIDE FLUSH SYRINGE 10 ML IV PRN (21:28)
[2019-07-29] MEDS ORDERED: TYLENOL PO PRN (21:28)
[2019-07-29] MEDS ORDERED: ZOFRAN IV PRN (21:28)
[2019-07-29] MEDS ORDERED: PERCOCET 5/325 PO PRN (21:28)
[2019-07-29] MEDS ORDERED: PROVENTIL IH PRN (21:32)
[2019-07-29] MEDS ORDERED: SYMBICORT INHALATION SCH (22:00)
[2019-07-29] MEDS ORDERED: LANTUS SUB-Q SCH (22:00)
[2019-07-29] MEDS ORDERED: NITROSTAT SL SCH (22:00)
[2019-07-29] MEDS ORDERED: NON-FORMULARY (Metformin Hcl [Metformin] 1,000 MG) PO SCH (22:00)
[2019-07-29] MEDS ORDERED: NON-FORMULARY (Rosuvastatin Calcium [Rosuvastatin Calcium] 40 MG) PO SCH (22:00)
[2019-07-29] MEDS: TOPROL XL PO SCH (22:00)
[2019-07-29] MEDS ORDERED: PEPCID PO SCH (22:00)
[2019-07-29] MEDS: BROVANA NEBU IH SCH (22:16)
[2019-07-29] MEDS: PULMICORT IH SCH (22:19)
[2019-07-29] MEDS: DILAUDID IV PRN (22:40)
[2019-07-29] MEDS: SODIUM CHLORIDE FLUSH SYRINGE 10 ML IV SCH (22:44)
[2019-07-29] MEDS: HALFPRIN EC PO SCH (22:45)
[2019-07-29] MEDS: DEMADEX PO SCH (22:45)
[2019-07-29] MEDS ORDERED: MIRALAX 3350 PO PRN (22:59)
[2019-07-29] MEDS ORDERED: D50W (25GM) Syringe IV PRN (23:14)
[2019-07-29] MEDS: HumaLOG SUB-Q SCH (23:30)
[2019-07-30] MEDS: COLACE PO SCH ×2 (00:10→13:42)
[2019-07-30 05:54] LABS: Basophils % (Auto) 0.7 % (0.0-1.8); Eosinophils # (Auto) 0.2 K/mm3 (0.0-0.4); Eosinophils % (Auto) 2.9 % (0.0-4.3); Hematocrit 34.6 % (30.3-42.9); Hemoglobin 11.4 gm/dl (10.1-14.3); Lymphocytes # (Auto) 2.6 K/mm3 (1.2-5.4); Lymphocytes % (Auto) 38.1 % (13.4-35.0); Mean Corpuscular HGB Conc 33 % (30-34); Mean Corpuscular Volume 81 fl (79-97); Monocytes # (Auto) 0.7 K/mm3 (0.0-0.8); Monocytes % (Auto) 10.1 % (0.0-7.3); Platelet Count 255 K/mm3 (140-440); Red Blood Count 4.26 M/mm3 (3.65-5.03); Red Cell Distribution Width 14.3 % (13.2-15.2)
[2019-07-30 06:15] LABS: Albumin 4.2 g/dL (3.9-5); Calcium 9.3 mg/dL (8.4-10.2)
[2019-07-30] MEDS: DILAUDID IV PRN ×2 (06:53→14:07)
--- NOTE | 2019-07-30 07:01 | Event Note ---
Date: 07/29/19 See H/p in reports Chest pain -r/o Mi HTN CAD
[2019-07-30] MEDS ORDERED: LEXISCAN IV ONE (07:54)
[2019-07-30] MEDS ORDERED: NACL 0.9% 1000 ML 1,000 ML IV SCH (08:00)
--- NOTE | 2019-07-30 08:35 | Ultrasound Report ---
LIMITED RUQ ABDOMINAL ULTRASOUND INDICATION: Abdominal pain. COMPARISON: 01/12/2017 right upper quadrant ultrasound. FINDINGS: Pancreas: Obscured by bowel gas. Abdominal Aorta: No significant abnormality. IVC: No significant abnormality. Liver: The liver measures 15.9 cm in length. Moderate diffuse fatty infiltration is noted throughout the liver. No focal mass or surface nodularity.. Normal hepatopedal blood flow in the main portal ve in. Gallbladder: There is a mild degree of sludge in the gallbladder. A small shadowing stone is also pau ntified in the neck of the gallbladder. No abnormal distention. The gallbladder wall is unremarkable measuring 2.4 cm in thickness. No pericholecystic fluid.. Bile ducts: No intrahepatic biliary dilatation is appreciated.. The common bile duct is dilated up to 8.8 mm which is a new finding. No obvious choledocholithiasis on ultrasound. Right kidney: No significant abnormality visualized.. Free fluid: None. Additional Findings: None. IMPRESSION: Hepatic steatosis. Gallstone and small sludge in the gallbladder. The common bile duct is dilated up to 8.8 mm which is concerning for choledocholithiasis. Consider further evaluation with MRCP.. Signer Name: Colten Hewitt Jr, MD Signed: 07/30/2019 8:30 AM Workstation Name: [id number]
--- NOTE | 2019-07-30 09:22 | History and Physical Report ---
CHIEF COMPLAINT: Chest pain on the right side of one day. HISTORY OF PRESENT ILLNESS: A 59-year-old female with extensive coronary artery disease and stents in the past, comes in for right-sided chest pain and retrosternal chest pain. Chest pain radiates to the back. Also, complains of shortness of breath and dyspnea on exertion. There is shortness of breath on minimal exertion. The patient had acute MIs in the past. No exacerbating or relieving factors. No diaphoresis. No palpitations. Chest pain is about 6 on a scale of 1-10. PAST MEDICAL HISTORY: Significant for insulin-dependent diabetes, hypertension. Coronary artery disease. Cerebrovascular accident x 4 with slight left-sided weakness. PAST SURGICAL HISTORY: Significant for tonsillectomy, , right ankle surgery and coronary stents. SOCIAL HISTORY: Does not smoke. Former smoker. FAMILY HISTORY: Hypertension. REVIEW OF SYSTEMS: Significant for shortness of breath and chest pain, retrosternal and right-sided chest pain. Otherwise, review of systems negative. PHYSICAL EXAMINATION: GENERAL: Elderly female, cooperative during examination. VITAL SIGNS: Blood pressure is 102/44, temperature is 98, pulse is 73, respirations are 18, sats 100%. HEENT: Unremarkable. Pupils equal and reactive. NECK: Supple, no lymphadenopathy, no thyromegaly. LUNGS: Clear to auscultation and percussion. Good air entry. CARDIOVASCULAR: S1, S2 heard. No gallop, no murmur, no rub. Apical impulse in left fifth intercostal space and midclavicular line. ABDOMEN: Soft and benign. No hepatosplenomegaly. No guarding, no rigidity. Hernial orifices are normal. EXTREMITIES: Good pedal pulses. No pedal edema. CENTRAL NERVOUS SYSTEM: Alert and oriented x 4, nonfocal exam. SKIN: Normal. LABORATORY DATA: Significant for normal CBC, normal electrolytes, BUN and creatinine is 27 and 1.9, glucose is 192. Hemoglobin A1c is 9.2. EKG is reviewed. Normal sinus rhythm, no acute ST-T wave changes. Chest x-ray, no acute findings. Abdominal CAT scan, also no acute findings. ASSESSMENT AND PLAN: 1. Chest pain, rule out myocardial infarction, chest pain protocol. Cardiology consult requested. Lexiscan ordered. 2. Hypertension. Continue antihypertensives. 3. Coronary artery disease. Continue aspirin, metoprolol and nitroglycerin. 4. Hyperlipidemia. Continue rosuvastatin. 5. Insulin-dependent diabetes. Continue insulin coverage. 6. Obstructive airway disease. Continue Symbicort inhalers. 7. Deep venous thrombosis prophylaxis, Lovenox 40 mg subcutaneous daily. 8. Acute kidney injury. IV fluids for now and possible acute tubular necrosis versus vasomotor nephropathy. JOB# [id number] VSM/NTS MTDD
[2019-07-30] MEDS ORDERED: PEPCID PO SCH (10:00)
[2019-07-30] MEDS ORDERED: K-DUR PO SCH (10:00)
--- NOTE | 2019-07-30 10:25 | Consultation ---
History of Present Illness Consult date: 07/30/19 Requesting physician: LIZABETH MURPHY Consult reason: chest pain History of present illness: The pt is a 59 YO female with a past medical history of CAD s/p PCI to the ostial LAD in 12/2017, HFpEF, HTN with recent hypotension requiring reduction in home anti-hypertensives, DM, COPD requiring home O2, CVA x4, CKD, ALEXANDER, former smoker. She is followed at [place] by Dr. Montes De Oca and Dr. Abel Saxena. She presented with complaints of intermittent right sided chest pain for 2 days prior to arrival. The pain has no clear aggravating or alleviating factors. She denies any SOB, palpitations, n/v, diaphoresis or syncope. Echo done 05/14/2019 showed EF 55-60%, mild LVH, grade 1 diastolic dysfunction, mildly enlarged RV cavity size, mildly reduced RV systolic function. Cardiac PET done 01/2019 was negative for significant ischemia, EF 47% at rest and 56% with stress. Past History Past Medical History: CAD, COPD (home O2), diabetes, heart failure, hypertension, stroke, other (ckd; alexander) Social history: smoking (former). denies: alcohol abuse, prescription drug abuse Medications and Allergies Allergies Allergy/AdvReac Type Severity Reaction Status Date / Time Penicillins Allergy Mild Rash Verified 09/18/18 13:37 latex Allergy Unknown Unknown Verified 01/24/18 09:36 green tomato Allergy Rash Uncoded 01/24/18 09:36 Home Medications Medication Instructions Recorded Confirmed Last Taken Type Albuterol Sulfate [Proventil HFA] 1 - 2 puff IH Q4H PRN 08/01/13 07/29/19 07/28/19 History Insulin NPH/Regular [NovoLIN 70/30] 150 unit SQ QHS 08/16/17 07/30/19 07/28/19 History Insulin Regular, Human [Humulin R 200 units SUB-Q QAM 03/11/19 07/30/19 07/28/19 History U-500 Kwikpen] Nitroglycerin 0.4 mg PO PRN 03/11/19 07/29/19 07/28/19 History Aspirin [Adult Aspirin] 81 mg PO DAILY #30 tablet. 06/25/19 07/29/19 07/28/19 Rx Metoprolol Xl [Metoprolol 25 mg PO DAILY #30 tablet 06/25/19 07/29/19 07/28/19 Rx SUCCINATE ER TAB] Rosuvastatin Calcium 40 mg PO HS #30 tablet 06/25/19 07/29/19 07/28/19 Rx Symbicort 160-4.5 Mcg Inhaler 1 - 2 puff INHALATION BID 30 Days 06/25/19 07/29/19 07/28/19 Rx Torsemide [Demadex] 40 mg PO DAILY #30 tablet 06/25/19 07/29/19 07/28/19 Rx Insulin Aspart Prot/Aspart(Nf) 20 units SQ QDAC 07/29/19 07/30/19 07/28/19 History [Novolog Mix 70/30] Metformin HCl [metFORMIN] 1,000 mg PO BID 07/29/19 07/29/19 07/28/19 History Potassium Chloride [K-Dur] 20 meq PO QDAY 07/29/19 07/29/19 07/28/19 History Active Meds: Active Medications Acetaminophen (Tylenol) 650 mg PO Q4H PRN PRN Reason: Pain MILD(1-3)/Fever >100.5/WILSON Albuterol (Proventil) 2.5 mg IH Q4HRT PRN PRN Reason: Shortness Of Breath Arformoterol Tartrate (Brovana Nebu) 15 mcg IH Q12HRT [facility] Last Admin: 07/29/19 22:16 Dose: 15 mcg Documented by: Aspirin (Halfprin Ec) 81 mg PO DAILY [facility] Last Admin: 07/29/19 22:45 Dose: 81 mg Documented by: Atorvastatin Calcium (Lipitor) 40 mg PO QHS [facility] Last Admin: 07/29/19 22:46 Dose: 40 mg Documented by: Budesonide (Pulmicort) 1 mg IH Q12HRT [facility] Last Admin: 07/29/19 22:19 Dose: 0.5 mg Documented by: Dextrose (D50w (25gm) Syringe) 50 ml IV PRN PRN PRN Reason: Hypoglycemia Docusate Sodium (Colace) 100 mg PO BID [facility] Last Admin: 07/30/19 00:10 Dose: 100 mg Documented by: Enoxaparin Sodium (Lovenox) 30 mg SUB-Q QDAY@2200 [facility] Famotidine (Pepcid) 20 mg PO DAILY [facility] Hydromorphone HCl (Dilaudid) 0.5 mg IV Q3H PRN PRN Reason: Pain , Severe (7-10) Last Admin: 07/30/19 06:53 Dose: 0.5 mg Documented by: Sodium Chloride (Nacl 0.9% 1000 Ml) 1,000 mls @ 75 mls/hr IV DIRECT ROCIO Insulin Glargine (Lantus) 10 units SUB-Q QHS [facility] Last Admin: 07/29/19 23:00 Dose: 10 units Documented by: Insulin Human Lispro (Humalog) 0 unit SUB-Q ACHS [facility]; Protocol Last Admin: 07/29/19 23:30 Dose: 4 unit Documented by: Metoprolol Succinate (Toprol Xl) 25 mg PO DAILY [facility] Last Admin: 07/29/19 22:00 Dose: Not Given Documented by: Miscellaneous Medication (Metformin Hcl [Metformin]) 1,000 mg PO BID [facility] Nitroglycerin (Nitrostat) 0.4 mg SL PRN [facility] Ondansetron HCl (Zofran) 4 mg IV Q8H PRN PRN Reason: Nausea And Vomiting Oxycodone/Acetaminophen (Percocet 5/325) 1 tab PO Q6H PRN PRN Reason: Pain, Moderate (4-6) Polyethylene Glycol (Miralax 3350) 17 gm PO QDAY PRN PRN Reason: Constipation Potassium Chloride (K-Dur) 20 meq PO QDAY [facility] Sodium Chloride (Sodium Chloride Flush Syringe 10 Ml) 10 ml IV BID [facility] Last Admin: 07/29/19 22:44 Dose: 10 ml Documented by: Sodium Chloride (Sodium Chloride Flush Syringe 10 Ml) 10 ml IV PRN PRN PRN Reason: LINE FLUSH Torsemide (Demadex) 40 mg PO DAILY [facility] Last Admin: 07/29/19 22:45 Dose: 40 mg Documented by: Review of Systems Constitutional: no weight loss, no weight gain, no fever, no chills, no sweats Ears, nose, mouth and throat: no ear pain, no nose pain, no sinus pressure, no sinus pain Cardiovascular: chest pain, no orthopnea, no palpitations, no rapid/irregular heart beat, no edema, no syncope, no lightheadedness, no shortness of breath, no dyspnea on exertion Respiratory: no cough, no shortness of breath, no dyspnea on exertion, no congestion, no wheezing, no pain on inspiration Gastrointestinal: no abdominal pain, no nausea, no vomiting, no diarrhea, no constipation, no change in bowel habits Genitourinary Female: no pelvic pain, no flank pain, no dysuria, no urinary frequency, no urgency Musculoskeletal: no neck stiffness, no neck pain Integumentary: no rash, no pruritis, no redness, no sores, no wounds Neurological: no paralysis, no weakness, no parathesias, no numbness, no tingling, no seizures, no syncope Psychiatric: no anxiety Endocrine: no cold intolerance, no heat intolerance Hematologic/Lymphatic: no easy bruising, no easy bleeding Allergic/Immunologic: no urticaria, no wheezing Physical Examination Vital Signs Pulse Resp BP Pulse Ox 72 18 134/68 97 07/29/19 09:07/29/19 09:07/29/19 09:07/29/19 09: General appearance: no acute distress HEENT: Positive: PERRL, Normocephaly, Mucus Membranes Moist Neck: Positive: neck supple, trachea midline Cardiac: Positive: Reg Rate and Rhythm, S1/S2 Lungs: Positive: Decreased Breath Sounds Neuro: Positive: Grossly Intact Abdomen: Negative: Tender Skin: Negative: Rash Musculoskeletal: No Pain Extremities: Absent: edema Results 07/30/19 04:16 07/30/19 04:16 Cardiac Enzymes 07/29/19 07/30/19 Range/Units 10:09 04:16 AST 30 32 (5-40) units/L Coagulation 07/29/19 Range/Units 10:09 PT 13.2 (12.2-14.9) Sec. INR 1.03 (0.87-1.13) CBC 07/29/19 07/30/19 Range/Units 10:09 04:16 WBC 8.7 6.9 (4.5-11.0) K/mm3 RBC 4.36 4.26 (3.65-5.03) M/mm3 Hgb 11.7 11.4 (10.1-14.3) gm/dl Hct 35.5 34.6 (30.3-42.9) % Plt Count 279 255 (140-440) K/mm3 Lymph # 3.5 2.6 (1.2-5.4) K/mm3 [place] # 0.7 0.7 (0.0-0.8) K/mm3 Eos # 0.2 0.2 (0.0-0.4) K/mm3 Baso # 0.1 0.0 (0.0-0.1) K/mm3 Comprehensive Metabolic Panel 07/29/19 07/30/19 Range/Units 10:09 04:16 Sodium 138 134 L (137-145) mmol/L Potassium 4.3 3.5 L (3.6-5.0) mmol/L Chloride 95.0 L 89.7 L (98-107) mmol/L Carbon Dioxide 29 28 (22-30) mmol/L BUN 27 H 22 H (7-17) mg/dL Creatinine 1.9 H 1.4 H (0.7-1.2) mg/dL Glucose 192 H 373 H (65-100) mg/dL Calcium 10.1 9.3 (8.4-10.2) mg/dL AST 30 32 (5-40) units/L ALT 24 26 (7-56) units/L Alkaline Phosphatase 67 76 (35-129) units/L Total Protein 7.8 7.2 (6.3-8.2) g/dL Albumin 4.6 4.2 (3.9-5) g/dL - Imaging and Cardiology Echo: report reviewed (05/14/2019 showed EF 55-60%, mild LVH, grade 1 diastolic dysfunction, mildly enlarged RV cavity size, mildly reduced RV systolic function. ) EKG: report reviewed, image reviewed EKG interpretations - Telemetry EKG Rhythm: Sinus Rhythm - EKG Sinus rhythms and dysrhythmias: sinus rhythm Assessment and Plan S/p lexiscan MPI stress test this AM which was negative. Chest pain currently resolved. Currently stable cardiac status. Pt may discharge home from cardiology standpoint. Recommend pt follow up with her primary cardiology team at [place] within 1-2 weeks of hospital discharge. The patient has been seen in conjunction with Dr. Fatoumata Mena who agrees with the assessment and plan of care. - Patient Problems (1) Chest pain Current Visit: Yes Status: Acute Qualifiers: Chest pain type: unspecified Qualified Code(s): R07.9 - Chest pain, unspecified (2) Coronary artery disease Current Visit: Yes Status: Chronic Qualifiers: Associated angina: with stable angina (3) Stented coronary artery Current Visit: Yes Status: Chronic (4) Diabetes mellitus with hyperglycemia Current Visit: Yes Status: Chronic (5) CKD (chronic kidney disease) Current Visit: Yes Status: Chronic Qualifiers: Chronic kidney disease stage: unspecified stage Qualified Code(s): N18.9 - Chronic kidney disease, unspecified (6) COPD (chronic obstructive pulmonary disease) Current Visit: Yes Status: Chronic Qualifiers: (7) Sleep apnea Current Visit: Yes Status: Chronic (8) Obesity Current Visit: Yes Status: Chronic Qualifiers: Obesity type: unspecified obesity type Serious obesity comorbidity presence: with serious comorbidity Body mass index: unspecified BMI (9) History of CVA (cerebrovascular accident) Current Visit: Yes Status: Chronic
[2019-07-30 11:27] VITALS: BP 135/37
[2019-07-30] MEDS: HumaLOG SUB-Q SCH ×3 (11:36→17:54)
[2019-07-30] MEDS: DEMADEX PO SCH (11:44)
[2019-07-30] MEDS: TOPROL XL PO SCH (11:45)
[2019-07-30] MEDS: HALFPRIN EC PO SCH (11:45)
[2019-07-30] MEDS: SODIUM CHLORIDE FLUSH SYRINGE 10 ML IV SCH (13:42)
[2019-07-30] MEDS: BROVANA NEBU IH SCH (14:12)
[2019-07-30] MEDS: PULMICORT IH SCH (14:12)
--- NOTE | 2019-07-30 15:15 | Discharge Summary ---
Providers - Providers Date of Admission: 07/29/19 15:44 Date of discharge: 07/30/19 Attending physician: ROSARIO GUTIERRES 07/29/19 10:41 Midline [Consult to PICC Line RN] [CONS] Stat Reason For Exam: pt request, difficult stick Type Line:: Midline 07/29/19 21:28 Consult to Physician [CONS] Routine Comment: Consulting Provider: DALIA LOCKWOOD Physician Instructions: Reason For Exam: Chest pain Primary care physician: [facility] RITIKA SMART MD Hospitalization Reason for admission: chest pain Condition: Stable Pertinent studies: Abdominal ultrasound; hepatic steatosis gallbladder sludge and common bile duct is dilated up to 8.8 mm concerning for coronary due to cholelithiasis Consider further evaluation with MRCP CT abdomen and pelvis; no acute process Mild fatty infiltration of the liver Gallstones no evidence of acute cholecystitis on CT CT chest no evidence of PE, mild cardiomegaly Mild emphysematous changes in the upper lobes; Procedures: Stress test; negative for reversible ischemia Hospital course: Discharge diagnosis; --Atypical chest pain; probably noncardiac; resolved Stress test negative --Gastroesophageal reflux disease; probably the cause of chest pain, Pepcid --Type 2 diabetes mellitus; on high doses of insulin at home,Closely monitor --Morbid obesity; advised weight reduction and medically stable --Grade 1 diastolic dysfunction; well compensated Continue current management, follow cardiology upon discharge --Hypertension; moderate control Continue current antihypertensives and when necessary medications --Dyslipidemia; stable on lipid lowering medications --History of cholelithiasis; no cholecystitis, no symptoms Follow GI if needed Cleared by cardiology for discharge and follow-up as needed Patient is stable at discharge Disposition: DC-01 TO HOME OR SELFCARE Time spent for discharge: 32 min Core Measure Documentation - Palliative Care Palliative Care/ Comfort Measures: Not Applicable - Core Measures Any of the following diagnoses?: none Exam - Constitutional Vitals: Temp Pulse Resp BP Pulse Ox 97.4 F L 69 18 135/37 100 07/30/19 11:23 07/30/19 11:45 07/30/19 11:23 07/30/19 11:45 07/30/19 11:23 General appearance: Present: no acute distress, well-nourished - EENT Eyes: Present: PERRL, EOM intact - Neck Neck: Present: supple, normal ROM - Respiratory Respiratory effort: normal Respiratory: bilateral: diminished, negative: rales, rhonchi, wheezing - Cardiovascular Rhythm: regular Heart Sounds: Present: S1 & S2 - Extremities Extremities: no ischemia, No edema - Abdominal General gastrointestinal: Present: soft, non-tender, non-distended, normal bowel sounds - Integumentary Integumentary: Present: clear, warm - Musculoskeletal Musculoskeletal: strength equal bilaterally - Psychiatric Psychiatric: appropriate mood/affect, cooperative - Neurologic Neurologic: CNII-XII intact, moves all extremities Plan Activity: advance as tolerated Diet: diabetic, other (cardiac diet) Additional Instructions: You take very high doses of insulin at home, closely monitor blood sugars in consultation with PMD as needed. Advised weight reduction and medically stable Follow up with: [facility] MD RITIKA [Primary Care Provider] - 7 Days ARA LANDON MD [Staff Physician] - 7 Days Prescriptions: Famotidine [Pepcid] 20 mg PO DAILY #30 tablet oxyCODONE /ACETAMINOPHEN [Percocet 5/325 mg] 1 tab PO BID PRN #6 tablet PRN Reason: Pain, Moderate (4-6)
[2019-07-30] MEDS ORDERED: ASPART SQ SCH (18:00)
[2019-07-30] MEDS ORDERED: INSULIN ASPART PROT SQ SCH (18:00)
[2019-07-30] MEDS ORDERED: LOVENOX SUB-Q SCH ×2 (22:00)
--- NOTE | 2019-07-30 22:48 | Treadmill Report ---
NUCLEAR MYOCARDIAL PERFUSION SCAN REFERRING PHYSICIAN: Dr. Ram. PROTOCOL: The patient was brought to the stress lab in a post-absorptive state, 10 mCi of technetium-99 given at rest. The patient underwent rest imaging. The patient underwent Lexiscan stress test. At peak stress, the patient was given 26 mCi of technetium 99m. Shortly thereafter, the patient underwent stress imaging. Raw imaging reveals mild GI artifact. No significant motion artifact, technically difficult study due to body habitus and breast attenuation. Grossly no evidence of a significant fixed or reversible perfusion defect suggestive of prior infarction or ischemia. Gated wall motion reveals normal systolic thickening, calculated ejection fraction 65%, no TID. CONCLUSIONS: 1. Technically difficult study, grossly probably without significant degree of ischemia or prior infarction. 2. Normal left ventricular systolic performance without evidence of transient ischemic dilatation or stress-induced segmental wall motion abnormalities. Clinical correlation suggested. JOB# [id number] SOM/MELY
== END 2019-07-30 19:00 | disposition home or self-care (01) ==
LOC: ED 08:53 → 4A 15:44
PROVIDERS: ADMIT Internal Medicine; ATTEND Internal Medicine
DX: R07.89 Other chest pain (principal); N17.9 Acute kidney failure, unspecified; I13.0 Hypertensive heart and chronic kidney disease with heart failure and stage 1 through stage 4 chronic kidney disease, or unspecified chronic kidney disease; I50.9 Heart failure, unspecified; N18.9 Chronic kidney disease, unspecified; E11.22 Type 2 diabetes mellitus with diabetic chronic kidney disease; I25.10 Atherosclerotic heart disease of native coronary artery without angina pectoris; E78.5 Hyperlipidemia, unspecified; J44.9 Chronic obstructive pulmonary disease, unspecified; K21.9 Gastro-esophageal reflux disease without esophagitis; G47.33 Obstructive sleep apnea (adult) (pediatric); Z79.4 Long term (current) use of insulin; Z86.73 Personal history of transient ischemic attack (TIA), and cerebral infarction without residual deficits; Z95.1 Presence of aortocoronary bypass graft; Z98.891 History of uterine scar from previous surgery; Z87.891 Personal history of nicotine dependence
CPT/HCPCS: 36415; 71045; 71275; 74177; 76705; 78452; 80053; 82962; 83036; 83690; 84484; 85025; 85610; 87116; 93005; 93010; 93017; 94640; 94760; 96372; 96374; 96376; 99291; A9270; A9502; G0378; J1170; J2785; Q9967; J1815

== ENCOUNTER 2020-07-06 19:40 | Inpatient (IN) | payer MEDICARE ==
[2020-07-06] MEDS ORDERED: ASPIRIN 325 MG TAB PO ONE (20:40)
--- NOTE | 2020-07-06 20:40 | Event Note ---
ED Screening Note Date of service: 07/06/20 Time: 20:39 ED Screening Note: 59-year-old female presents the ED complaining of shortness of any chest pain radiating to back Past medical history of heart attack, This initial assessment/diagnostic orders/clinical plan/treatment(s) is/are subject to change based on patients health status, clinical progression and re- assessment by fellow clinical providers in the ED. Further treatment and workup at subsequent clinical providers discretion. Patient/guardian urged not to elope from the ED as their condition may be serious if not clinically assessed and managed. Initial orders include: Labs, EKG, chest x-ray Main side effect
[2020-07-06 21:27] LABS: Basophils % (Auto) 0.2 % (0.0-1.8); Eosinophils # (Auto) 0.3 K/mm3 (0.0-0.4); Eosinophils % (Auto) 3.8 % (0.0-4.3); Hematocrit 35.4 % (30.3-42.9); Hemoglobin 11.6 gm/dl (10.1-14.3); Lymphocytes # (Auto) 3.5 K/mm3 (1.2-5.4); Lymphocytes % (Auto) 38.8 % (13.4-35.0); Mean Corpuscular HGB Conc 33 % (30-34); Mean Corpuscular Volume 85 fl (79-97); Monocytes # (Auto) 0.7 K/mm3 (0.0-0.8); Monocytes % (Auto) 8.2 % (0.0-7.3); Platelet Count 241 K/mm3 (140-440); Red Blood Count 4.18 M/mm3 (3.65-5.03); Red Cell Distribution Width 15.5 % (13.2-15.2)
--- NOTE | 2020-07-06 21:35 | XRay Report ---
CHEST 1 VIEW INDICATION: Chest Pain. COMPARISON: 05/17/2020 FINDINGS: SUPPORT DEVICES: Stable satisfactory device positioning. HEART: Within normal limits. LUNGS/PLEURA: Mild interstitial edema with no effusion. ADDITIONAL FINDINGS: None. IMPRESSION: 1. Mild interstitial edema. Signer Name: Hernan Isidro MD Signed: 07/06/2020 9:31 PM Workstation Name: [id number]
[2020-07-06 21:52] LABS: BUN/Creatinine Ratio 15; Blood Urea Nitrogen 15 mg/dL (7-17); Calcium 9.1 mg/dL (8.4-10.2); Hemolysis Index 6
--- NOTE | 2020-07-06 23:36 | Emergency Department Report ---
ED Chest Pain HPI - General Chief Complaint: Dyspnea/Respdistress Stated Complaint: SOB/CHEST PAIN/JOINT PAIN PUI?: No Time Seen by Provider: 07/06/20 23:15 Source: patient Mode of arrival: Ambulatory Limitations: No Limitations - History of Present Illness Initial Comments: Patient is a 59-year-old female that presents emergency room with complaints of chest pain or shortness of breath. Patient states that he is also having generalized edema. Patient states she was recently at [place] and was discharged on the eighth. Patient states she feels like they let her go home too soon. Patient states her symptoms are worsening. Patient states her chest pain started yesterday. Patient states that her shortness of breath and chest pain are worse with exertion and better with rest. Patient complaining of dyspnea on exertion. Patient states she has a pulse oximetry at home and she is requiring 4 to 5 L of oxygen instead of her normal 2 L of oxygen. Patient states her chest pain is in her left chest. Patient states her chest pain is a 6 out of 10. MD Complaint: chest pain, other (sob/beltrán) Onset: during rest Pain Location: substernal, left chest Severity: severe Severity scale (0 -10): 6 Quality: pressure Consistency: constant Improves With: rest Worsens With: exertion re: dyspnea. denies: nausea, vomting, diaphoresis, sense of impending doom Other Symptoms: leg swelling. denies: cough, fever, syncope, rash, acid taste in mouth, palpitations, burping Treatments Prior to Arrival: aspirin, oxygen Aspirin use within the Past 7 Days: (1) Yes - Related Data On Oral Contraceptives: No Home Medications Medication Instructions Recorded Confirmed Last Taken Albuterol Sulfate [Proventil HFA] 1 - 2 puff IH QID PRN 08/01/13 05/19/20 2 Days Ago ~05/17/20 Insulin Regular, Human [Humulin R 65 units SUB-Q TID 03/11/19 05/19/20 2 Days A go U-500 Kwikpen] ~05/17/20 Nitroglycerin 0.4 mg PO PRN 03/11/19 05/19/20 2 Days Ago ~05/17/20 Metformin HCl [metFORMIN] 1,000 mg PO BID 07/29/19 05/19/20 2 Days Ago ~05/17/20 Bisacodyl [Laxative Suppository] 10 mg MA PRN PRN 05/18/20 05/19/20 2 Days Ago ~05/17/20 Diclofenac 1% [Diclofenac 1% 2 gm TRANSDERMA PRN PRN 05/18/20 05/19/20 2 Days Ago topical gel] ~05/17/20 Docusate Sodium [Colace CAP] 100 mg PO BID PRN 05/18/20 05/19/20 2 Days Ago ~05/17/20 Loratadine [Allergy Relief] 10 mg PO DAILY 05/18/20 05/19/20 2 Days Ago ~05/17/20 OXYCODONE hcl [Oxycodone] 5 mg PO Q4HR PRN 05/18/20 05/19/20 2 Days Ago ~05/17/20 hydrALAZINE [Apresoline TAB] 25 mg PO Q8HR PRN 05/18/20 05/19/20 2 Days Ago ~05/17/20 Previous Rx's Medication Instructions Recorded Last Taken Type Aspirin [Adult Aspirin] 81 mg PO DAILY #30 tablet. 06/25/19 2 Days Ago Rx ~05/17/20 Metoprolol Xl [Metoprolol 25 mg PO DAILY #30 tablet 06/25/19 2 Days Ago Rx SUCCINATE ER TAB] ~05/17/20 AtorvaSTATin [Lipitor] 40 mg PO QHS #30 tablet 11/25/19 2 Days Ago Rx ~05/17/20 Bumetanide [Bumex 1 mg tab] 1 mg PO BID #60 tab 11/26/19 2 Days Ago Rx ~05/17/20 Fluticasone [Flonase] 2 spray NS BID #1 bottle 05/19/20 Unknown Rx HYDROcodone/APAP 5-325 [[place] 1 each PO Q6HR PRN tablet 05/19/20 Unknown Rx 5-325 mg TAB] Ipratropium/Albuterol Sulfate 1 ampul IH Q6HR #90 ampul.neb 05/19/20 Unknown Rx [DUONEB *Not for PRN Use*] Symbicort 160-4.5 Mcg Inhaler 1 - 2 puff INHALATION BID 30 Days 05/19/20 Unknown Rx Allergies Allergy/AdvReac Type Severity Reaction Status Date / Time Penicillins Allergy Mild Rash Verified 09/18/18 13:37 latex Allergy Unknown Unknown Verified 01/24/18 09:36 green tomato Allergy Rash Uncoded 01/24/18 09:36 Heart Score - HEART Score History: Moderately suspicious EKG: Normal Age: 45-65 Risk factors: > 3 risk factors or hx of atherosclerotic disease Troponin: < normal limit HEART Score: 4 ED Review of Systems ROS: Stated complaint: SOB/CHEST PAIN/JOINT PAIN Other details as noted in HPI Constitutional: denies: chills, fever Eyes: denies: eye pain, eye discharge, vision change ENT: denies: ear pain, throat pain Respiratory: shortness of breath, SOB with exertion, SOB at rest. denies: cough, wheezing Cardiovascular: chest pain, dyspnea on exertion. denies: palpitations Endocrine: no symptoms reported Gastrointestinal: denies: abdominal pain, nausea, diarrhea Genitourinary: denies: urgency, dysuria, discharge Musculoskeletal: denies: back pain, joint swelling, arthralgia Skin: denies: rash, lesions Neurological: denies: headache, weakness, paresthesias Psychiatric: denies: anxiety, depression Hematological/Lymphatic: denies: easy bleeding, easy bruising ED Past Medical Hx - Past Medical History Previous Medical History?: Yes Hx Hypertension: Yes Hx CVA: Yes (x4,left-sided weakness) Hx Heart Attack/AMI: Yes Hx Congestive Heart Failure: Yes Hx Diabetes: Yes Hx Deep Vein Thrombosis: No Hx GERD: Yes Hx Arthritis: Yes Hx Kidney Stones: No Hx Asthma: Yes Hx COPD: Yes Hx Tuberculosis: No Hx HIV: No Additional medical history: high cholesterol - Surgical History Past Surgical History?: Yes Hx Coronary Stent: Yes (x1) Hx Pacemaker: No Hx Internal Defibrillator: No Hx Cholecystectomy: Yes Additional Surgical History: tonsillectomy, x2, right ankle. Loop recorder - Family History Family history: no significant - Social History Smoking Status: Former Smoker Substance Use Type: None - Medications Home Medications: Home Medications Medication Instructions Recorded Confirmed Last Taken Type Albuterol Sulfate [Proventil HFA] 1 - 2 puff IH QID PRN 08/01/13 05/19/20 2 Days Ago History ~05/17/20 Insulin Regular, Human [Humulin R 65 units SUB-Q TID 03/11/19 05/19/20 2 Days Ago History U-500 Kwikpen] ~05/17/20 Nitroglycerin 0.4 mg PO PRN 03/11/19 05/19/20 2 Days Ago History ~05/17/20 Aspirin [Adult Aspirin] 81 mg PO DAILY #30 tablet. 06/25/19 05/19/20 2 Days Ago Rx ~05/17/20 Metoprolol Xl [Metoprolol 25 mg PO DAILY #30 tablet 06/25/19 05/19/20 2 Days Ago Rx SUCCINATE ER TAB] ~05/17/20 Metformin HCl [metFORMIN] 1,000 mg PO BID 07/29/19 05/19/20 2 Days Ago History ~05/17/20 AtorvaSTATin [Lipitor] 40 mg PO QHS #30 tablet 11/25/19 05/19/20 2 Days Ago Rx ~05/17/20 Bumetanide [Bumex 1 mg tab] 1 mg PO BID #60 tab 11/26/19 05/19/20 2 Days Ago Rx ~05/17/20 Bisacodyl [Laxative Suppository] 10 mg MA PRN PRN 05/18/20 05/19/20 2 Days Ago History ~05/17/20 Diclofenac 1% [Diclofenac 1% 2 gm TRANSDERMA PRN PRN 05/18/20 05/19/20 2 Days Ago History topical gel] ~05/17/20 Docusate Sodium [Colace CAP] 100 mg PO BID PRN 05/18/20 05/19/20 2 Days Ago History ~05/17/20 Loratadine [Allergy Relief] 10 mg PO DAILY 05/18/20 05/19/20 2 Days Ago History ~05/17/20 OXYCODONE hcl [Oxycodone] 5 mg PO Q4HR PRN 05/18/20 05/19/20 2 Days Ago History ~05/17/20 hydrALAZINE [Apresoline TAB] 25 mg PO Q8HR PRN 05/18/20 05/19/20 2 Days Ago History ~05/17/20 Fluticasone [Flonase] 2 spray NS BID #1 bottle 05/19/20 Unknown Rx HYDROcodone/APAP 5-325 [[place]re[place] 1 each PO Q6HR PRN tablet 05/19/20 Unknown Rx 5-325 mg TAB] Ipratropium/Albuterol Sulfate 1 ampul IH Q6HR #90 ampul.neb 05/19/20 Unknown Rx [DUONEB *Not for PRN Use*] Symbicort 160-4.5 Mcg Inhaler 1 - 2 puff INHALATION BID 30 Days 05/19/20 Unknow n Rx ED Physical Exam - General Limitations: No Limitations General appearance: alert, in distress - Head Head exam: Present: atraumatic, normocephalic - Eye Eye exam: Present: normal appearance - ENT ENT exam: Present: mucous membranes moist - Neck Neck exam: Present: normal inspection - Respiratory Respiratory exam: Present: respiratory distress, decreased breath sounds - Cardiovascular Cardiovascular Exam: Present: regular rate, normal rhythm. Absent: systolic mur mur, diastolic murmur, rubs, gallop - GI/Abdominal GI/Abdominal exam: Present: soft, normal bowel sounds - Extremities Exam Extremities exam: Present: normal inspection - Back Exam Back exam: Present: normal inspection - Neurological Exam Neurological exam: Present: alert, oriented X3 - Psychiatric Psychiatric exam: Present: normal affect, normal mood - Skin Skin exam: Present: warm, dry, intact, normal color. Absent: rash ED Course Vital Signs 07/06/20 20:04 Temperature 98.4 F Pulse Rate 81 Respiratory 18 Rate Blood Pressure 151/57 O2 Sat by Pulse 98 Oximetry - Reevaluation(s) Reevaluation #1: I discussed all results with patient. I discussed plan of care with patient. Patient agrees with plan of care and admission. Patient to be admitted to the hospitalist service. 07/06/20 23:45 - Consultations Consultation #1: Hospitalist consulted for admission. Hospitalist to admit patient. 07/06/20 23:49 DAVE score - Dave Score Age > 65: (0) No Aspirin use within the Past 7 Days: (1) Yes 3 or more CAD Risk Factors: (1) Yes 2 or more Angina events in past 24 hrs: (1) Yes Known CAD with more than 50% Stenosis: (0) No Elevated Cardiac Markers: (0) No ST Deviation Greater than 0.5mm: (0) No DAVE Score: 3 ED Medical Decision Making - Lab Data Result diagrams: 07/06/20 20:55 07/06/20 20:55 - EKG Data -: EKG Interpreted by Me EKG shows normal: sinus rhythm, axis, intervals, QRS complexes, ST-T waves Rate: normal - Radiology Data Radiology results: report reviewed, image reviewed interpreted by me: No rib fractures noted, pulmonary edema noted, no free air noted CHEST 1 VIEW INDICATION: Chest Pain. COMPARISON: 05/17/2020 FINDINGS: SUPPORT DEVICES: Stable satisfactory device positioning. HEART: Within normal limits. LUNGS/PLEURA: Mild interstitial edema with no effusion. ADDITIONAL FINDINGS: None. IMPRESSION: 1. Mild interstitial edema. - Medical Decision Making Patient is a 59-year-old female that presents emergency room complaints of chest pain, shortness of breath and dyspnea on exertion. Patient also complains of needing increased amounts of oxygen. Patient is normally on 2 L and here she is on 4 to 5 L. Patient's oxygen improved with increased oxygen. Patient had labs and chest x-ray done. Patient's labs are unremarkable. Patient's x-ray here showed pulmonary edema and CHF changes. Patient given IV Lasix. Patient admitted to the hospital service for further evaluation treatment and management of her CHF exacerbation. - Differential Diagnosis Chest pain, beltrán/sob, CHF exacerbation, edema, hypoxia Critical Care Time: Yes Critical care time in (mins) excluding proc time.: 35 Critical care attestation.: If time is entered above; I have spent that time in minutes in the direct care of this critically ill patient, excluding procedure time. Critical Care Time: 35 minutes ED Disposition Clinical Impression: SOB (shortness of breath), BELTRÁN (dyspnea on exertion) CHF exacerbation Qualifiers: Heart failure type: unspecified Qualified Code(s): I50.9 - Heart failure, unspecified Acute and chronic respiratory failure ([id number]) Qualifiers: Respiratory failure complication: hypoxia Qualified Code(s): J96.21 - Acute and chronic respiratory failure with hypoxia Edema Qualifiers: Edema type: unspecified Qualified Code(s): R60.9 - Edema, unspecified Chest pain Qualifiers: Chest pain type: unspecified Qualified Code(s): R07.9 - Chest pain, unspecified Disposition: -09 OP ADMIT IP TO THIS HOSP Is pt being admited?: Yes Does the pt Need Aspirin: No Condition: Critical Time of Disposition: 23:47
[2020-07-06] MEDS ORDERED: FUROSEMIDE 40 MG/4 ML INJ IV ONE (23:37)
[2020-07-07] MEDS ORDERED: MAGNESIUM HYDROXIDE (MOM) ORAL LIQD UDC PO PRN (01:05)
[2020-07-07] MEDS ORDERED: NITROGLYCERIN 0.4 MG TAB SUBL SL PRN (01:05)
[2020-07-07] MEDS ORDERED: DEXTROSE 50% IN WATER (25GM) 50 ML SYRINGE IV PRN (01:05)
[2020-07-07] MEDS ORDERED: ONDANSETRON 4 MG/2 ML INJ IV PRN (01:05)
[2020-07-07] MEDS ORDERED: hydrALAZINE 20 MG/1 ML INJ IV PRN (01:05)
--- NOTE | 2020-07-07 01:33 | History and Physical Report ---
History of Present Illness Date of examination: 07/07/20 Date of admission: 07/06/20 23:49 Chief complaint: Chest pain Shortness of Breath History of present illness: 59-year-old female with known history of hypertension, COPD, coronary artery disease with MO in the past, hyperlipidemia presented to the emergency room today complaining of chest pain and shortness of breath. Chest pain and shortness of breath is said to be worse on exertion and improves upon resting. Patient denies any fever or chills, no nausea or vomiting, no abdominal pain, no headache or dizziness. She denies any sick contacts and no recent travel. She denies any contact with anyone COVID-19. Chest pain is said to be left-sided and on a scale of 10 is about 6/10 in severity. She has also had progressive swelling of her lower extremities. Work-up in the emergency room today including chest x-ray was consistent with CHF. Past History Past Medical History: arthritis, CAD, COPD, diabetes, GERD, hypertension, hyperlipidemia, other (astma) Past Surgical History: cholecystectomy, , tonsillectomy, Other (Right ankle surgery,Cardiac stent placement,cardiac stent placement) Social history: smoking (Former smoker) Family history: no significant family history Medications and Allergies Allergies Allergy/AdvReac Type Severity Reaction Status Date / Time Penicillins Allergy Mild Rash Verified 09/18/18 13:37 latex Allergy Unknown Unknown Verified 01/24/18 09:36 green tomato Allergy Rash Uncoded 01/24/18 09:36 Home Medications Medication Instructions Recorded Confirmed Last Taken Type Albuterol Sulfate [Proventil HFA] 1 - 2 puff IH QID PRN 08/01/13 05/19/20 2 Days Ago History ~05/17/20 Insulin Regular, Human [Humulin R 65 units SUB-Q TID 03/11/19 05/19/20 2 Days Ago History U-500 Kwikpen] ~05/17/20 Nitroglycerin 0.4 mg PO PRN 03/11/19 05/19/20 2 Days Ago History ~05/17/20 Aspirin [Adult Aspirin] 81 mg PO DAILY #30 tablet. 06/25/19 05/19/20 2 Days Ago Rx ~05/17/20 Metoprolol Xl [Metoprolol 25 mg PO DAILY #30 tablet 06/25/19 05/19/20 2 Days Ago Rx SUCCINATE ER TAB] ~05/17/20 Metformin HCl [metFORMIN] 1,000 mg PO BID 07/29/19 05/19/20 2 Days Ago History ~05/17/20 AtorvaSTATin [Lipitor] 40 mg PO QHS #30 tablet 11/25/19 05/19/20 2 Days Ago Rx ~05/17/20 Bumetanide [Bumex 1 mg tab] 1 mg PO BID #60 tab 11/26/19 05/19/20 2 Days Ago Rx ~05/17/20 Bisacodyl [Laxative Suppository] 10 mg IN PRN PRN 05/18/20 05/19/20 2 Days Ago History ~05/17/20 Diclofenac 1% [Diclofenac 1% 2 gm TRANSDERMA PRN PRN 05/18/20 05/19/20 2 Days Ago History topical gel] ~05/17/20 Docusate Sodium [Colace CAP] 100 mg PO BID PRN 05/18/20 05/19/20 2 Days Ago History ~05/17/20 Loratadine [Allergy Relief] 10 mg PO DAILY 05/18/20 05/19/20 2 Days Ago History ~05/17/20 OXYCODONE hcl [Oxycodone] 5 mg PO Q4HR PRN 05/18/20 05/19/20 2 Days Ago History ~05/17/20 hydrALAZINE [Apresoline TAB] 25 mg PO Q8HR PRN 05/18/20 05/19/20 2 Days Ago History ~05/17/20 Fluticasone [Flonase] 2 spray NS BID #1 bottle 05/19/20 Unknown Rx HYDROcodone/APAP 5-325 [[place] 1 each PO Q6HR PRN tablet 05/19/20 Unknown Rx 5-325 mg TAB] Ipratropium/Albuterol Sulfate 1 ampul IH Q6HR #90 ampul.neb 05/19/20 Unknown Rx [DUONEB *Not for PRN Use*] Symbicort 160-4.5 Mcg Inhaler 1 - 2 puff INHALATION BID 30 Days 05/19/20 Unknown Rx Active Meds: Active Medications Acetaminophen (Tylenol) 650 mg PO Q4H PRN PRN Reason: Pain MILD(1-3)/Fever >100.5/[place] Aspirin (Ecotrin) 325 mg PO QDAY [facility] Dextrose (D50w (25gm) Syringe) 50 ml IV Q30MIN PRN; Protocol PRN Reason: Hypoglycemia Furosemide (Lasix) 40 mg IV BID@0600,1800 [facility] Hydralazine HCl (Apresoline) 10 mg IV Q6HR PRN PRN Reason: FOR SBP > target Insulin Human Lispro (Humalog) 0 unit SUB-Q ACHS [facility]; Protocol Magnesium Hydroxide (Milk Of Magnesia) 30 ml PO Q4H PRN PRN Reason: Constipation Morphine Sulfate (Morphine) 2 mg IV Q5MIN PRN PRN Reason: Chest Pain unrelieved by NTG Nitroglycerin (Nitrostat) 0.4 mg SL .Q5MIN PRN PRN Reason: Chest Pain Ondansetron HCl (Zofran) 4 mg IV Q8H PRN PRN Reason: Nausea And Vomiting Sodium Chloride (Sodium Chloride Flush Syringe 10 Ml) 10 ml IV PRN PRN PRN Reason: LINE FLUSH Sodium Chloride (Sodium Chloride Flush Syringe 10 Ml) 10 ml IV BID [facility] Review of Systems Constitutional: no fever, no chills Ears, nose, mouth and throat: no nasal congestion, no sore throat Cardiovascular: chest pain, leg edema, no palpitations Respiratory: shortness of breath, no cough Gastrointestinal: no abdominal pain, no nausea, no vomiting, no diarrhea Genitourinary Female: no pelvic pain, no flank pain, no dysuria, no hematuria Musculoskeletal: no neck pain, no low back pain Integumentary: no rash, no pruritis Neurological: no headaches, no confusion Psychiatric: no anxiety, no depression Exam - Constitutional Vitals: Temp Pulse Resp BP Pulse Ox 98.4 F 71 16 107/51 100 07/06/20 20:04 07/07/20 01:20 07/07/20 01:20 07/07/20 01:20 07/07/20 01:20 General appearance: Present: no acute distress, well-nourished - EENT Eyes: Present: PERRL, EOM intact. Absent: scleral icterus ENT: hearing intact, clear oral mucosa, dentition normal - Neck Neck: Present: supple, normal ROM - Respiratory Respiratory effort: normal Respiratory: bilateral: CTA - Cardiovascular Rhythm: regular Heart Sounds: Present: S1 & S2. Absent: gallop, systolic murmur, diastolic murmur, rub - Extremities Extremities: no ischemia, pulses intact, pulses symmetrical, No edema, Full ROM Extremity abnormal: edema (1+ bilateral lower extremity edema) - Abdominal General gastrointestinal: Present: soft, non-tender, non-distended, normal bowel sounds - Integumentary Integumentary: Present: clear, warm, dry - Musculoskeletal Musculoskeletal: strength equal bilaterally - Psychiatric Psychiatric: appropriate mood/affect, intact judgment & insight, memory intact, cooperative - Neurologic Neurologic: CNII-XII intact, no focal deficits, moves all extremities HEART Score - HEART Score EKG: Normal Age: 45-65 Risk factors: > 3 risk factors or hx of atherosclerotic disease Troponin: Troponin T < 0.010 ng/mL (0.00-0.029) 07/06/20 23:32 Troponin: < normal limit Results - Labs CBC & Chem 7: 07/07/20 01:55 07/07/20 01:55 Labs: Abnormal lab results 07/06/20 07/06/20 Range/Units 20:55 20:55 RDW 15.5 H (13.2-15.2) % Lymph % (Auto) 38.8 H (13.4-35.0) % [place] % (Auto) 8.2 H (0.0-7.3) % Glucose 124 H (65-100) mg/dL Assessment and Plan - Patient Problems (1) CHF exacerbation Current Visit: Yes Status: Acute Qualifiers: Heart failure type: unspecified Qualified Code(s): I50.9 - Heart failure, unspecified Plan to address problem: Patient admitted and placed on telemetry. She has been started on diuretics. Will monitor input and output and also monitor daily weights. Patient will be scheduled for echocardiogram. (2) Chest pain Current Visit: Yes Status: Acute Qualifiers: Chest pain type: unspecified Qualified Code(s): R07.9 - Chest pain, unspecified Plan to address problem: We will check serial cardiac enzymes. Patient has been placed on aspirin, sublingual nitroglycerin and IV morphine as needed for chest pain. To place a consult to cardiology for evaluation and recommendation. Patient will be scheduled for stress test. (3) Hypertension Current Visit: No Status: Acute Qualifiers: Hypertension type: essential hypertension Qualified Code(s): I10 - Essential (primary) hypertension Plan to address problem: We will place patient on her routine home medications and monitor vital signs closely. (4) Hypoxia Current Visit: No Status: Acute Plan to address problem: Possibly secondary to the CHF exacerbation. Patient also has known history of COPD. We will keep O2 saturation greater or equal to 92%. (5) Diabetes Current Visit: No Status: Chronic Plan to address problem: We will monitor Accu-Cheks. (6) DVT prophylaxis Current Visit: No Status: Acute Plan to address problem: Patient has been placed on subcutaneous heparin. (7) Full code status Current Visit: No Status: Acute
[2020-07-07 02:30] LABS: BUN/Creatinine Ratio 14; Blood Urea Nitrogen 13 mg/dL (7-17); Calcium 9.2 mg/dL (8.4-10.2); Hemolysis Index 11
[2020-07-07 02:32] LABS: Basophils # (Auto) 0.1 K/mm3 (0.0-0.1); Basophils % (Auto) 0.8 % (0.0-1.8); Eosinophils # (Auto) 0.4 K/mm3 (0.0-0.4); Hematocrit 35.6 % (30.3-42.9); Hemoglobin 11.6 gm/dl (10.1-14.3); Lymphocytes # (Auto) 3.8 K/mm3 (1.2-5.4); Lymphocytes % (Auto) 43.7 % (13.4-35.0); Mean Corpuscular HGB Conc 33 % (30-34); Mean Corpuscular Volume 85 fl (79-97); Monocytes # (Auto) 0.8 K/mm3 (0.0-0.8); Monocytes % (Auto) 8.6 % (0.0-7.3); Platelet Count 242 K/mm3 (140-440); Red Cell Distribution Width 15.3 % (13.2-15.2)
[2020-07-07] MEDS: MORPHINE 2 MG/1 ML INJ IV PRN ×4 (03:15→22:21)
[2020-07-07 03:54] LABS: Chol/HDL Ratio 4.83 %
[2020-07-07] MEDS ORDERED: FUROSEMIDE 40 MG/4 ML INJ IV SCH (06:00)
[2020-07-07] MEDS: INSULIN LISPRO 100 UNIT/ML VIAL 3 mL SUB-Q SCH ×4 (08:21→22:24)
[2020-07-07] MEDS ORDERED: hydrALAZINE 25 MG TAB PO PRN (10:05)
--- NOTE | 2020-07-07 10:56 | Consultation ---
History of Present Illness Consult date: 07/07/20 Requesting physician: REAL MONGE Consult reason: chest pain, congestive heart failure History of present illness: The pt is a 59 YO female with a past medical history of CAD s/p PCI to the ostial LAD in 12/2017, HFpEF, choledocholithiasis s/p Lap Arely 04/26/20 at [facility], HTN, DM, COPD requiring home O2, CVA x4, loop recorder in situ (implanted on 10/26/2019 to evaluate for paroxysmal atrial fibrillation given recurrent CVAs), CKD, ALEXANDER, former smoker. She is followed at [facility] by Dr. Abel Saxena. She presented with complaints of progressively worsening SOB and chest pain for the past several weeks. She describes the pain as an intermittent midsternal pressure which is aggravated by deep inspiration. She denies any palpitations, n/v, diaphoresis or syncope. Of note, pt was hospitalized was at [facility] (discharged 06/07/2020) for acute pancreatitis of unclear etiology. TTE done 11/2019 showed EF 50-55%, mild LVH. Cardiac PET done 03/31/2020 showed primarily fixed perfusion defect along inferior wall, small amount of kimber-infarct ischemia present, normal LVEF. Lexiscan MPI stress test done 07/2019 was negative. Past History Past Medical History: arthritis, CAD, COPD, diabetes, GERD, hypertension, hyperlipidemia, other (astma) Past Surgical History: cholecystectomy, , tonsillectomy, Other (Right ankle surgery,Cardiac stent placement,cardiac stent placement) Social history: smoking (Former smoker) Family history: no significant family history Medications and Allergies Allergies Allergy/AdvReac Type Severity Reaction Status Date / Time Penicillins Allergy Mild Rash Verified 09/18/18 13:37 latex Allergy Unknown Unknown Verified 01/24/18 09:36 green tomato Allergy Rash Uncoded 01/24/18 09:36 Home Medications Medication Instructions Recorded Confirmed Last Taken Type Albuterol Sulfate [Proventil HFA] 1 - 2 puff IH QID PRN 08/01/13 05/19/20 2 Days Ago History ~05/17/20 Insulin Regular, Human [Humulin R 65 units SUB-Q TID 03/11/19 05/19/20 2 Days Ago History U-500 Kwikpen] ~05/17/20 Nitroglycerin 0.4 mg PO PRN 03/11/19 05/19/20 2 Days Ago History ~05/17/20 Aspirin [Adult Aspirin] 81 mg PO DAILY #30 tablet. 06/25/19 05/19/20 2 Days Ago Rx ~05/17/20 Metoprolol Xl [Metoprolol 25 mg PO DAILY #30 tablet 06/25/19 05/19/20 2 Days Ago Rx SUCCINATE ER TAB] ~05/17/20 Metformin HCl [metFORMIN] 1,000 mg PO BID 07/29/19 05/19/20 2 Days Ago History ~05/17/20 AtorvaSTATin [Lipitor] 40 mg PO QHS #30 tablet 11/25/19 05/19/20 2 Days Ago Rx ~05/17/20 Bumetanide [Bumex 1 mg tab] 1 mg PO BID #60 tab 11/26/19 05/19/20 2 Days Ago Rx ~05/17/20 Bisacodyl [Laxative Suppository] 10 mg PA PRN PRN 05/18/20 05/19/20 2 Days Ago History ~05/17/20 Diclofenac 1% [Diclofenac 1% 2 gm TRANSDERMA PRN PRN 05/18/20 05/19/20 2 Days Ago History topical gel] ~05/17/20 Docusate Sodium [Colace CAP] 100 mg PO BID PRN 05/18/20 05/19/20 2 Days Ago History ~05/17/20 Loratadine [Allergy Relief] 10 mg PO DAILY 05/18/20 05/19/20 2 Days Ago History ~05/17/20 OXYCODONE hcl [Oxycodone] 5 mg PO Q4HR PRN 05/18/20 05/19/20 2 Days Ago History ~05/17/20 hydrALAZINE [Apresoline TAB] 25 mg PO Q8HR PRN 05/18/20 05/19/20 2 Days Ago History ~05/17/20 Fluticasone [Flonase] 2 spray NS BID #1 bottle 05/19/20 Unknown Rx HYDROcodone/APAP 5-325 [[place] 1 each PO Q6HR PRN tablet 05/19/20 Unknown Rx 5-325 mg TAB] Ipratropium/Albuterol Sulfate 1 ampul IH Q6HR #90 ampul.neb 05/19/20 Unknown Rx [DUONEB *Not for PRN Use*] Symbicort 160-4.5 Mcg Inhaler 1 - 2 puff INHALATION BID 30 Days 05/19/20 Unkno wn Rx Active Meds: Active Medications Acetaminophen (Tylenol) 650 mg PO Q4H PRN PRN Reason: Pain MILD(1-3)/Fever >100.5/[facility] Aspirin (Halfprin Ec) 81 mg PO DAILY [facility] Bumetanide (Bumex) 1 mg IV BID@0600,1800 [facility] Dextrose (D50w (25gm) Syringe) 50 ml IV Q30MIN PRN; Protocol PRN Reason: Hypoglycemia Heparin Sodium (Porcine) (Heparin) 5,000 unit SUB-Q Q8HR [facility] Hydralazine HCl (Apresoline) 25 mg PO Q8HR PRN PRN Reason: Hypertension Insulin Human Lispro (Humalog) 0 unit SUB-Q ACHS [facility]; Protocol Last Admin: 07/07/20 08:21 Dose: Not Given Documented by: Magnesium Hydroxide (Milk Of Magnesia) 30 ml PO Q4H PRN PRN Reason: Constipation Metoprolol Succinate (Metoprolol Xl) 25 mg PO DAILY [facility] Morphine Sulfate (Morphine) 2 mg IV Q5MIN PRN PRN Reason: Chest Pain unrelieved by NTG Last Admin: 07/07/20 08:26 Dose: 2 mg Documented by: Nitroglycerin (Nitrostat) 0.4 mg SL .Q5MIN PRN PRN Reason: Chest Pain Ondansetron HCl (Zofran) 4 mg IV Q8H PRN PRN Reason: Nausea And Vomiting Sodium Chloride (Sodium Chloride Flush Syringe 10 Ml) 10 ml IV PRN PRN PRN Reason: LINE FLUSH Sodium Chloride (Sodium Chloride Flush Syringe 10 Ml) 10 ml IV BID [facility] Last Admin: 07/07/20 09:02 Dose: 10 ml Documented by: Review of Systems Constitutional: no fever, no chills, no sweats Ears, nose, mouth and throat: no ear pain, no nose pain, no sinus pressure, no sinus pain Cardiovascular: chest pain, orthopnea, edema, shortness of breath, dyspnea on exertion, leg edema, decreased exercise tolerance, no palpitations, no rapid/irregular heart beat, no syncope, no lightheadedness Respiratory: shortness of breath, dyspnea on exertion, pain on inspiration, no cough, no congestion, no wheezing Gastrointestinal: no abdominal pain, no nausea, no vomiting, no diarrhea, no constipation, no change in bowel habits Genitourinary Female: no pelvic pain, no flank pain, no dysuria, no urinary frequency, no urgency Musculoskeletal: no neck stiffness, no neck pain, no shooting arm pain, no arm numbness/tingling, no low back pain, no shooting leg pain Integumentary: no rash, no pruritis, no redness, no sores, no wounds Neurological: no head injury, no seizures, no syncope Endocrine: no cold intolerance, no heat intolerance Hematologic/Lymphatic: no easy bruising Allergic/Immunologic: no urticaria Physical Examination Vital Signs Temp Pulse Resp BP Pulse Ox 98.4 F 81 18 151/57 98 07/06/20 20:04 07/06/20 20:04 07/06/20 20:04 07/06/20 20:04 07/06/20 20:04 General appearance: no acute distress HEENT: Positive: PERRL, Normocephaly, Mucus Membranes Moist Neck: Positive: neck supple, trachea midline Cardiac: Positive: Reg Rate and Rhythm, S1/S2 Lungs: Positive: Decreased Breath Sounds, Oxygen Neuro: Positive: Grossly Intact Abdomen: Negative: Tender Skin: Negative: Rash Musculoskeletal: No Pain Extremities: Present: +1 Edema (BLE, nonpitting) Results 07/07/20 01:55 07/07/20 01:55 Lipids 07/07/20 Range/Units 01:55 Triglycerides 242 H (2-149) mg/dL Cholesterol 179 (50-199) mg/dL HDL Cholesterol 37 L (40-59) mg/dL Cholesterol/HDL Ratio 4.83 % CBC 07/06/20 07/07/20 Range/Units 20:55 01:55 WBC 9.1 8.8 (4.5-11.0) K/mm3 RBC 4.18 4.20 (3.65-5.03) M/mm3 Hgb 11.6 11.6 (10.1-14.3) gm/dl Hct 35.4 35.6 (30.3-42.9) % Plt Count 241 242 (140-440) K/mm3 Lymph # 3.5 3.8 (1.2-5.4) K/mm3 [place] # 0.7 0.8 (0.0-0.8) K/mm3 Eos # 0.3 0.4 (0.0-0.4) K/mm3 Baso # 0.0 0.1 (0.0-0.1) K/mm3 Comprehensive Metabolic Panel 07/06/20 07/07/20 Range/Units 20:55 01:55 Sodium 141 141 (137-145) mmol/L Potassium 3.8 3.7 (3.6-5.0) mmol/L Chloride 100.4 99.0 (98-107) mmol/L Carbon Dioxide 27 28 (22-30) mmol/L BUN 15 13 (7-17) mg/dL Creatinine 1.0 0.9 (0.6-1.2) mg/dL Glucose 124 H 173 H (65-100) mg/dL Calcium 9.1 9.2 (8.4-10.2) mg/dL - Imaging and Cardiology Echo: report reviewed (11/2019 showed EF 50-55%, mild LVH. ) EKG: report reviewed, image reviewed EKG interpretations - Telemetry EKG Rhythm: Sinus Rhythm - EKG Sinus rhythms and dysrhythmias: sinus rhythm Assessment and Plan Pt with questionable mild component HFrEF. Convert IV lasix to IV bumex for more adequate volume optimization. Resume home ASA 81, statin, Toprol XL, hydralazine. Pt's chest pain appears atypical with pleuritic features. AMI ruled out. Cardiac PET done 03/31/2020 showed primarily fixed perfusion defect along inferior wall, small amount of kimber-infarct ischemia present, normal LVEF. No plans for repeat stress test at this time. Obtain echo. Recommend pulmonary consultation per primary for COPD with apparent acute exacerbation and chronic respiratory failure. The patient has been seen in conjunction with Dr. Vieira who agrees with the assessment and plan of care. - Patient Problems (1) Acute heart failure with preserved ejection fraction Current Visit: Yes Status: Acute (2) COPD with acute exacerbation Current Visit: Yes Status: Acute (3) Chest pain Current Visit: Yes Status: Acute (4) Coronary artery disease Current Visit: Yes Status: Chronic Qualifiers: Associated angina: with stable angina (5) Stented coronary artery Current Visit: Yes Status: Chronic (6) History of CVA (cerebrovascular accident) Current Visit: Yes Status: Chronic (7) History of loop recorder Current Visit: Yes Status: Chronic (8) Diabetes Current Visit: Yes Status: Chronic (9) Chronic respiratory failure Current Visit: Yes Status: Chronic (10) CKD (chronic kidney disease) Current Visit: Yes Status: Chronic Qualifiers: Chronic kidney disease stage: unspecified stage Qualified Code(s): N18.9 - Chronic kidney disease, unspecified (11) Obesity Current Visit: Yes Status: Chronic Qualifiers: Obesity type: unspecified obesity type Serious obesity comorbidity presence: with serious comorbidity Body mass index: unspecified BMI (12) Sleep apnea Current Visit: Yes Status: Chronic (13) History of pancreatitis Current Visit: Yes Status: Chronic
--- NOTE | 2020-07-07 11:29 | Progress Note ---
Assessment and Plan Assessment and plan: Acute heart failure with preserved ejection fraction Pt with questionable mild component HFrEF. Cardiology converted IV lasix to IV bumex for more adequate volume optimization. COPD with acute exacerbation Bronchodilators/nebs. Pulm consult Acute on chronic hypoxic respiratory failure Etiology secondary to above Chest pain Pt's chest pain appears atypical with pleuritic features. AMI ruled out. Cardiac PET done 03/31/2020 showed primarily fixed perfusion defect along inferior wall, small amount of kimber-infarct ischemia present, normal LVEF. No plans for repeat stress test at this time. Obtain echo. Coronary artery disease Stented coronary artery History of CVA (cerebrovascular accident) History of loop recorder Diabetes mellitus type II Accuchecks and SSRI CKD (chronic kidney disease) Obesity Sleep apnea History of pancreatitis History Interval history: no new issues Hospitalist Physical - Constitutional Vitals: Temp Pulse Resp BP Pulse Ox 97.8 F 96 H 12 142/99 96 07/07/20 04:14 07/07/20 09:10 07/07/20 09:10 07/07/20 09:10 07/07/20 09:10 General appearance: Present: no acute distress - EENT Eyes: Present: PERRL, EOM intact ENT: hearing intact, clear oral mucosa, dentition normal - Neck Neck: Present: supple, normal ROM - Respiratory Respiratory effort: normal Respiratory: bilateral: CTA - Cardiovascular Rhythm: regular Heart Sounds: Present: S1 & S2. Absent: gallop, rub - Extremities Extremities: no ischemia, No edema, Full ROM - Abdominal General gastrointestinal: soft, non-tender, non-distended, normal bowel sounds - Integumentary Integumentary: Present: clear, warm, dry - Neurologic Neurologic: CNII-XII intact, moves all extremities HEART Score - HEART Score EKG: Normal Age: 45-65 Risk factors: > 3 risk factors or hx of atherosclerotic disease Troponin: Troponin T < 0.010 ng/mL (0.00-0.029) 07/07/20 07:36 Troponin: < normal limit Results - Labs CBC & Chem 7: 07/07/20 01:55 07/07/20 01:55 Labs: Laboratory Last Values WBC 8.8 K/mm3 (4.5-11.0) 07/07/20 01:55 RBC 4.20 M/mm3 (3.65-5.03) 07/07/20 01:55 Hgb 11.6 gm/dl (10.1-14.3) 07/07/20 01:55 Hct 35.6 % (30.3-42.9) 07/07/20 01:55 MCV 85 fl (79-97) 07/07/20 01:55 MCH 28 pg (28-32) 07/07/20 01:55 MCHC 33 % (30-34) 07/07/20 01:55 RDW 15.3 % (13.2-15.2) H 07/07/20 01:55 Plt Count 242 K/mm3 (140-440) 07/07/20 01:55 Lymph % (Auto) 43.7 % (13.4-35.0) H 07/07/20 01:55 [place] % (Auto) 8.6 % (0.0-7.3) H 07/07/20 01:55 Eos % (Auto) 4.0 % (0.0-4.3) 07/07/20 01:55 Baso % (Auto) 0.8 % (0.0-1.8) 07/07/20 01:55 Lymph # 3.8 K/mm3 (1.2-5.4) 07/07/20 01:55 [place] # 0.8 K/mm3 (0.0-0.8) 07/07/20 01:55 Eos # 0.4 K/mm3 (0.0-0.4) 07/07/20 01:55 Baso # 0.1 K/mm3 (0.0-0.1) 07/07/20 01:55 Seg Neutrophils % 42.9 % (40.0-70.0) 07/07/20 01:55 Seg Neutrophils # 3.8 K/mm3 (1.8-7.7) 07/07/20 01:55 Sodium 141 mmol/L (137-145) 07/07/20 01:55 Potassium 3.7 mmol/L (3.6-5.0) 07/07/20 01:55 Chloride 99.0 mmol/L (98-107) 07/07/20 01:55 Carbon Dioxide 28 mmol/L (22-30) 07/07/20 01:55 Anion Gap 18 mmol/L 07/07/20 01:55 BUN 13 mg/dL (7-17) 07/07/20 01:55 Creatinine 0.9 mg/dL (0.6-1.2) 07/07/20 01:55 Estimated GFR > 60 ml/min 07/07/20 01:55 BUN/Creatinine Ratio 14 % 07/07/20 01:55 Glucose 173 mg/dL (65-100) H 07/07/20 01:55 POC Glucose 154 (70-105) H 07/07/20 08:29 Calcium 9.2 mg/dL (8.4-10.2) 07/07/20 01:55 Troponin T < 0.010 ng/mL (0.00-0.029) 07/07/20 07:36 NT-Pro-B Natriuret Pep 93.87 pg/mL (0-900) 07/06/20 20:55 Triglycerides 242 mg/dL (2-149) H 07/07/20 01:55 Cholesterol 179 mg/dL (50-199) 07/07/20 01:55 LDL Cholesterol Direct 118 mg/dL (50-130) 07/07/20 01:55 HDL Cholesterol 37 mg/dL (40-59) L 07/07/20 01:55 Cholesterol/HDL Ratio 4.83 % 07/07/20 01:55 - Diagnostic Impressions Diagnostic Impressions: Echocardiogram 07/07/20 01:07 Transthoracic Echocardiogram Indication: Chest pain BP: 136/97 HR: 69 Conclusions *Global left ventricular systolic function is normal. *The estimated ejection fraction is 50-55%. *The right ventricular global systolic function is normal. *There is mild mitral regurgitation. *There is mild tricuspid regurgitation. *There is no evidence of aortic regurgitation. *There is no evidence of aortic stenosis. *There is mild tricuspid regurgitation. *The right ventricular systolic pressure is calculated at 27 mmHg. *There is no pericardial effusion. *Intravenous contrast was used to enhance endocardial border definition. Findings Left Ventricle: The left ventricular chamber size is normal. Global left ventricular wall motion and contractility are within normal limits. Global left ventricular systolic function is normal. The estimated ejection fraction is 50-55%. Abnormal left ventricular diastolic filling is observed, consistent with impaired relaxation. Left Atrium: The left atrial chamber size is normal. Right Ventricle: The right ventricular cavity size is normal. The right ventricular global systolic function is normal. Right Atrium: The right atrial cavity size is normal. Aortic Valve: The aortic valve leaflets are mildly thickened. There is no evidence of aortic regurgitation. There is no evidence of aortic stenosis. Mitral Valve: The mitral valve leaflets are mildly thickened. There is mild mitral regurgitation. Tricuspid Valve: The tricuspid valve is not well visualized. There is mild tricuspid regurgitation. The right ventricular systolic pressure is calculated at 27 mmHg. Pulmonic Valve: The pulmonic valve is not well visualized. Pericardium: There is no pericardial effusion. Aorta: The aorta appears normal. Venous: The inferior vena cava is not visualized. Contrast: Intravenous contrast was used to enhance endocardial border definition. Measurements Chambers 2D Name Value Normal Range IVSd (2D) 1.08 cm (0.6 - 1.1) LVPWd (2D) 1.01 cm (0.6 - 1.1) LVIDd (2D) 4.47 cm (3.7 - 5.6) LVIDs (2D) 3.2 cm (2 - 3.8) LV FS (2D) 28.45 % - EF Teichholz (2D) 55.04 % - Ao root diameter (2D) 2.91 cm (2 - 3.7) Volumes/Mass Name Value Normal Range LA ESV SP 4CH (A/L) 26.51 ml - LA ESV SP 2CH (A/L) 29.81 ml - LA ESV BP (A/L) 28.93 ml - LA ESV BP (A/L) index 14.84 ml/m2 - LA ESV SP 4CH (MOD) 23.26 ml - LA ESV SP 2CH (MOD) 29.04 ml - LA ESV BP (MOD) 26.68 ml - LA ESV BP (MOD) index 13.68 ml/m2 - Diastolic/Systolic Function Name Value Normal Range MV E-wave Vmax 0.94 m/sec - MV deceleration time 173.68 msec - MV A-wave Vmax 0.8 m/sec - MV E:A ratio 1.17 ratio - Aortic Valve Name Value Normal Range AV Vmax 1.52 m/sec - AV VTI 33.94 cm - AV peak gradient 9.27 mmHg - AV mean gradient 4.45 mmHg - LVOT diameter 2.09 cm - LVOT Vmax 1.14 m/sec - LVOT VTI 26.27 cm - LVOT peak gradient 5.22 mmHg - LVOT mean gradient 2.72 mmHg - SV LVOT 90 ml - BLANCHE (continuity Vmax) 2.57 cm2 - BLANCHE (continuity VTI) 2.65 cm2 - Mitral Valve Name Value Normal Range MR Vmax 4.7 m/sec - Tricuspid Valve Name Value Normal Range TR Vmax 2.44 m/sec - TR peak gradient 24 mmHg - RAP 3 mmHg - RVSP 27 mmHg - Pulmonic Valve/Qp:Qs Name Value Normal Range PV Vmax 0.8 m/sec - PV peak gradient 2.58 mmHg - PV acceleration time 110.37 msec - Mc/IV: Voiding Method Toilet IV Catheter Type [Left Hand] INT / Saline Lock Active Medications - Current Medications Current Medications: Generic Name Dose Route Start Last Admin Trade Name Freq PRN Reason Stop Dose Admin Acetaminophen 650 mg 07/07/20 01:05 Tylenol PO Q4H PRN Pain MILD(1-3)/Fever >100.5/[facility] Aspirin 81 mg 07/08/20 10:00 Halfprin Ec PO DAILY [facility] Atorvastatin Calcium 40 mg 07/07/20 22:00 Lipitor PO QHS [facility] Bumetanide 1 mg 07/07/20 18:00 Bumex IV BID@0600,1800 [facility] Dextrose 50 ml 07/07/20 01:05 D50w (25gm) Syringe IV Q30MIN PRN Hypoglycemia Protocol Heparin Sodium (Porcine) 5,000 unit 07/07/20 14:00 Heparin SUB-Q Q8HR [facility] Hydralazine HCl 25 mg 07/07/20 10:05 Apresoline PO Q8HR PRN Hypertension Insulin Human Lispro 0 unit 07/07/20 07:30 07/07/20 08:21 Humalog SUB-Q Not Given ACHS [facility] Protocol Magnesium Hydroxide 30 ml 07/07/20 01:05 Milk Of Magnesia PO Q4H PRN Constipation Metoprolol Succinate 25 mg 07/08/20 10:00 Metoprolol Xl PO DAILY [facility] Morphine Sulfate 2 mg 07/07/20 01:05 07/07/20 08:26 Morphine IV 2 mg Q5MIN PRN Administration Chest Pain unrelieved by NTG Nitroglycerin 0.4 mg 07/07/20 01:05 Nitrostat SL .Q5MIN PRN Chest Pain Ondansetron HCl 4 mg 07/07/20 01:05 Zofran IV Q8H PRN Nausea And Vomiting Sodium Chloride 10 ml 07/07/20 01:05 Sodium Chloride Flush Syringe 10 Ml IV PRN PRN LINE FLUSH Sodium Chloride 10 ml 07/07/20 10:00 07/07/20 09:02 Sodium Chloride Flush Syringe 10 Ml IV 10 ml BID ROCIO Administration
[2020-07-07 12:48] LABS: Alanine Aminotransferase 29 units/L (7-56); Albumin 4.4 g/dL (3.9-5)
[2020-07-07 12:50] LABS: Bilirubin,Direct < 0.2 mg/dL (0-0.2)
[2020-07-07] MEDS: HEPARIN 5,000 UNIT/1 ML VIAL SUB-Q SCH ×2 (15:26→22:25)
[2020-07-07] MEDS: BUMETANIDE 1 MG/4 ML INJ IV SCH (18:12)
[2020-07-08] MEDS: MORPHINE 2 MG/1 ML INJ IV PRN ×2 (03:40→21:14)
[2020-07-08 05:11] LABS: Basophils # (Auto) 0.1 K/mm3 (0.0-0.1); Basophils % (Auto) 1.7 % (0.0-1.8); Eosinophils # (Auto) 0.4 K/mm3 (0.0-0.4); Eosinophils % (Auto) 5.2 % (0.0-4.3); Hematocrit 36.3 % (30.3-42.9); Hemoglobin 11.8 gm/dl (10.1-14.3); Lymphocytes # (Auto) 2.8 K/mm3 (1.2-5.4); Lymphocytes % (Auto) 37.5 % (13.4-35.0); Mean Corpuscular HGB Conc 33 % (30-34); Mean Corpuscular Volume 86 fl (79-97); Monocytes # (Auto) 0.6 K/mm3 (0.0-0.8); Monocytes % (Auto) 7.9 % (0.0-7.3); Platelet Count 246 K/mm3 (140-440); Red Blood Count 4.25 M/mm3 (3.65-5.03); Red Cell Distribution Width 15.1 % (13.2-15.2)
[2020-07-08 05:12] LABS: BUN/Creatinine Ratio 18; Blood Urea Nitrogen 18 mg/dL (7-17); Calcium 8.9 mg/dL (8.4-10.2); Hemolysis Index 9
[2020-07-08 05:30] LABS: INR 0.98 (0.87-1.13)
[2020-07-08] MEDS: BUMETANIDE 1 MG/4 ML INJ IV SCH ×2 (06:07→17:07)
[2020-07-08] MEDS: HEPARIN 5,000 UNIT/1 ML VIAL SUB-Q SCH ×3 (06:07→23:18)
[2020-07-08] MEDS: INSULIN LISPRO 100 UNIT/ML VIAL 3 mL SUB-Q SCH ×3 (09:26→17:01)
[2020-07-08] MEDS: METOPROLOL SUCCINATE XL 25 MG TAB PO SCH (09:26)
[2020-07-08] MEDS: methylPREDNISolone Sod Succinate 40 MG/1 ML INJ IV SCH ×3 (09:27→23:18)
[2020-07-08] MEDS: ASPIRIN EC 81 MG TAB PO SCH (09:27)
[2020-07-08] MEDS: ALBUTEROL 2.5 MG/3 ML NEBU IH SCH ×2 (09:36→13:24)
[2020-07-08] MEDS ORDERED: ASPIRIN EC 325 MG TAB PO SCH (10:00)
--- NOTE | 2020-07-08 10:02 | Progress Note ---
Assessment and Plan tte reviewed - EF 50-55%, mild MR and TR, RVSP 27mmHg. 5 beat run NSVT noted around 2AM today, pt asymptomatic. Serum Mg 1.7 - give 1G mg today. Cont present cardiac management, including IV bumex, ASA 81, statin, Toprol XL, hydralazine. Pt's chest pain appears atypical with pleuritic features. AMI ruled out. Cardiac PET done 03/31/2020 showed primarily fixed perfusion defect along inferior wall, small amount of kimber-infarct ischemia present, normal LVEF. No plans for repeat stress test at this time. Pulmonary has been consulted. The patient has been seen in conjunction with Dr. Vieira who agrees with the assessment and plan of care. - Patient Problems (1) Acute heart failure with preserved ejection fraction Current Visit: Yes Status: Acute (2) COPD with acute exacerbation Current Visit: Yes Status: Acute (3) Chest pain Current Visit: Yes Status: Acute (4) Coronary artery disease Current Visit: Yes Status: Chronic Qualifiers: Associated angina: with stable angina (5) Stented coronary artery Current Visit: Yes Status: Chronic (6) History of CVA (cerebrovascular accident) Current Visit: Yes Status: Chronic (7) History of loop recorder Current Visit: Yes Status: Chronic (8) Diabetes Current Visit: Yes Status: Chronic (9) Chronic respiratory failure Current Visit: Yes Status: Chronic (10) CKD (chronic kidney disease) Current Visit: Yes Status: Chronic Qualifiers: Chronic kidney disease stage: unspecified stage Qualified Code(s): N18.9 - Chronic kidney disease, unspecified (11) Obesity Current Visit: Yes Status: Chronic Qualifiers: Obesity type: unspecified obesity type Serious obesity comorbidity presence: with serious comorbidity Body mass index: unspecified BMI (12) Sleep apnea Current Visit: Yes Status: Chronic (13) History of pancreatitis Current Visit: Yes Status: Chronic (14) NSVT Current Visit: Yes Status: Acute Subjective Date of service: 07/08/20 Principal diagnosis: COPD; HF Interval history: pt resting in bed, feeling better. in SR on tele with 5 beat run NSVT noted around 2AM today, pt asymptomatic. Objective Last Vital Signs Temp 98.5 F 07/08/20 07:25 Pulse 85 07/08/20 09:36 Resp 18 07/08/20 09:36 BP 124/72 07/08/20 09:26 Pulse Ox 99 07/08/20 07:25 - Physical Examination General: No Apparent Distress HEENT: Positive: PERRL, Normocephaly, Mucus Membranes Moist Neck: Positive: neck supple, trachea midline Cardiac: Positive: Reg Rate and Rhythm, S1/S2 Lungs: Positive: Decreased Breath Sounds Neuro: Positive: Grossly Intact Abdomen: Negative: Tender Skin: Negative: Rash Musculoskeletal: No Pain Extremities: Present: +1 Edema (BLE, nonpitting) - Labs and Meds Cardiac Enzymes 07/07/20 Range/Units 07:36 AST 32 (5-40) units/L Coagulation 07/08/20 Range/Units 04:23 PT 13.2 (12.2-14.9) Sec. INR 0.98 (0.87-1.13) CBC 07/08/20 Range/Units 04:23 WBC 7.4 (4.5-11.0) K/mm3 RBC 4.25 (3.65-5.03) M/mm3 Hgb 11.8 (10.1-14.3) gm/dl Hct 36.3 (30.3-42.9) % Plt Count 246 (140-440) K/mm3 Lymph # 2.8 (1.2-5.4) K/mm3 [place] # 0.6 (0.0-0.8) K/mm3 Eos # 0.4 (0.0-0.4) K/mm3 Baso # 0.1 (0.0-0.1) K/mm3 Comprehensive Metabolic Panel 07/07/20 07/08/20 Range/Units 07:36 04:23 Sodium 137 (137-145) mmol/L Potassium 4.3 (3.6-5.0) mmol/L Chloride 94.0 L (98-107) mmol/L Carbon Dioxide 29 (22-30) mmol/L BUN 18 H (7-17) mg/dL Creatinine 1.0 (0.6-1.2) mg/dL Glucose 310 H (65-100) mg/dL Calcium 8.9 (8.4-10.2) mg/dL Direct Bilirubin < 0.2 (0-0.2) mg/dL AST 32 (5-40) units/L ALT 29 (7-56) units/L Alkaline Phosphatase 78 (35-129) units/L Total Protein 7.3 (6.3-8.2) g/dL Albumin 4.4 (3.9-5) g/dL - Imaging and Cardiology EKG: report reviewed, image reviewed Echo: report reviewed (11/2019 showed EF 50-55%, mild LVH. ) - EKG Sinus rhythms and dysrhythmias: sinus rhythm
[2020-07-08] MEDS ORDERED: MAGNESIUM SULFATE 1 GM in SODIUM CHLORIDE 0.9% 50 ML IV ONE (10:30)
[2020-07-08] MEDS: ACETAMINOPHEN 325 MG TAB PO PRN (12:27)
--- NOTE | 2020-07-08 12:46 | Progress Note ---
Assessment and Plan Assessment and plan: Acute heart failure with preserved ejection fraction Pt with questionable mild component HFrEF. Cardiology converted IV lasix to IV bumex for more adequate volume optimization. COPD with acute exacerbation Bronchodilators/nebs. Pulm consult Acute on chronic hypoxic respiratory failure Etiology secondary to above Mild pulmonary hypertension chest pain Pt's chest pain appears atypical with pleuritic features. AMI ruled out. Cardiac PET done 03/31/2020 showed primarily fixed perfusion defect along inferior wall, small amount of kimber-infarct ischemia present, normal LVEF. No plans for repeat stress test at this time. Obtain echo. Coronary artery disease Stented coronary artery History of CVA (cerebrovascular accident) History of loop recorder Diabetes mellitus type II Accuchecks and SSRI CKD (chronic kidney disease) Obesity Sleep apnea History of pancreatitis 07/08/2020. Echocardiogram revealed EF of 50 to 55% with mild MR and TR. RVSP 27mmHg. Patient with mild hypomagnesemia with repletion per cardiology. Patient with episode of 5 beat run nonsustained ventricular tachycardia. Cont present cardiac management, including IV bumex, ASA 81, statin, Toprol XL, hydralazine. Cardiac PET done 03/31/2020 showed primarily fixed perfusion defect along inferior wall, small amount of kimber-infarct ischemia present, normal LVEF. No plans for repeat stress test at this time per cardiology. Pulmonary consultation pending for COPD and mild pulmonary hypertension. Added Solu- Medrol 40 mg every 8 hours History Interval history: no new issues. Patient still reporting shortness of breath with minimal exertion. Hospitalist Physical - Constitutional Vitals: Temp Pulse Resp BP Pulse Ox 98.5 F 85 18 124/72 99 07/08/20 07:25 07/08/20 09:36 07/08/20 09:36 07/08/20 09:26 07/08/20 07:25 General appearance: Present: no acute distress - EENT Eyes: Present: PERRL, EOM intact ENT: hearing intact, clear oral mucosa, dentition normal - Neck Neck: Present: supple, normal ROM - Respiratory Respiratory effort: normal Respiratory: bilateral: CTA - Cardiovascular Rhythm: regular Heart Sounds: Present: S1 & S2. Absent: gallop, rub - Extremities Extremities: no ischemia, No edema, Full ROM - Abdominal General gastrointestinal: soft, non-tender, non-distended, normal bowel sounds - Integumentary Integumentary: Present: clear, warm, dry - Neurologic Neurologic: CNII-XII intact, moves all extremities HEART Score - HEART Score EKG: Normal Age: 45-65 Risk factors: > 3 risk factors or hx of atherosclerotic disease Troponin: Troponin T < 0.010 ng/mL (0.00-0.029) 07/07/20 07:36 Troponin: < normal limit Results - Labs CBC & Chem 7: 07/08/20 04:23 07/08/20 04:23 Labs: Laboratory Last Values WBC 7.4 K/mm3 (4.5-11.0) 07/08/20 04:23 RBC 4.25 M/mm3 (3.65-5.03) 07/08/20 04:23 Hgb 11.8 gm/dl (10.1-14.3) 07/08/20 04:23 Hct 36.3 % (30.3-42.9) 07/08/20 04:23 MCV 86 fl (79-97) 07/08/20 04:23 MCH 28 pg (28-32) 07/08/20 04:23 MCHC 33 % (30-34) 07/08/20 04:23 RDW 15.1 % (13.2-15.2) 07/08/20 04:23 Plt Count 246 K/mm3 (140-440) 07/08/20 04:23 Lymph % (Auto) 37.5 % (13.4-35.0) H 07/08/20 04:23 Erath % (Auto) 7.9 % (0.0-7.3) H 07/08/20 04:23 Eos % (Auto) 5.2 % (0.0-4.3) H 07/08/20 04:23 Baso % (Auto) 1.7 % (0.0-1.8) 07/08/20 04:23 Lymph # 2.8 K/mm3 (1.2-5.4) 07/08/20 04:23 Erath # 0.6 K/mm3 (0.0-0.8) 07/08/20 04:23 Eos # 0.4 K/mm3 (0.0-0.4) 07/08/20 04:23 Baso # 0.1 K/mm3 (0.0-0.1) 07/08/20 04:23 Seg Neutrophils % 47.7 % (40.0-70.0) 07/08/20 04:23 Seg Neutrophils # 3.5 K/mm3 (1.8-7.7) 07/08/20 04:23 PT 13.2 Sec. (12.2-14.9) 07/08/20 04:23 INR 0.98 (0.87-1.13) 07/08/20 04:23 Sodium 137 mmol/L (137-145) 07/08/20 04:23 Potassium 4.3 mmol/L (3.6-5.0) 07/08/20 04:23 Chloride 94.0 mmol/L (98-107) L 07/08/20 04:23 Carbon Dioxide 29 mmol/L (22-30) 07/08/20 04:23 Anion Gap 18 mmol/L 07/08/20 04:23 BUN 18 mg/dL (7-17) H 07/08/20 04:23 Creatinine 1.0 mg/dL (0.6-1.2) 07/08/20 04:23 Estimated GFR > 60 ml/min 07/08/20 04:23 BUN/Creatinine Ratio 18 % 07/08/20 04:23 Glucose 310 mg/dL (65-100) H 07/08/20 04:23 POC Glucose 333 (70-105) H 07/08/20 11:43 Calcium 8.9 mg/dL (8.4-10.2) 07/08/20 04:23 Magnesium 1.70 mg/dL (1.7-2.3) 07/08/20 04:23 Total Bilirubin 0.20 mg/dL (0.1-1.2) 07/07/20 07:36 Direct Bilirubin < 0.2 mg/dL (0-0.2) 07/07/20 07:36 AST 32 units/L (5-40) 07/07/20 07:36 ALT 29 units/L (7-56) 07/07/20 07:36 Alkaline Phosphatase 78 units/L (35-129) 07/07/20 07:36 Troponin T < 0.010 ng/mL (0.00-0.029) 07/07/20 07:36 NT-Pro-B Natriuret Pep 93.87 pg/mL (0-900) 07/06/20 20:55 Total Protein 7.3 g/dL (6.3-8.2) 07/07/20 07:36 Albumin 4.4 g/dL (3.9-5) 07/07/20 07:36 Albumin/Globulin Ratio 1.5 % 07/07/20 07:36 Triglycerides 242 mg/dL (2-149) H 07/07/20 01:55 Cholesterol 179 mg/dL (50-199) 07/07/20 01:55 LDL Cholesterol Direct 118 mg/dL (50-130) 07/07/20 01:55 HDL Cholesterol 37 mg/dL (40-59) L 07/07/20 01:55 Cholesterol/HDL Ratio 4.83 % 07/07/20 01:55 Amylase 103 units/L (27-131) 07/07/20 07:36 Lipase 44 units/L (13-60) 07/07/20 07:36 Nasal Screen MRSA (PCR) Negative (Negative) 07/07/20 08:00 - Diagnostic Impressions Diagnostic Impressions: Echocardiogram 07/07/20 01:07 Transthoracic Echocardiogram Indication: Chest pain BP: 136/97 HR: 69 Conclusions *Global left ventricular systolic function is normal. *The estimated ejection fraction is 50-55%. *The right ventricular global systolic function is normal. *There is mild mitral regurgitation. *There is mild tricuspid regurgitation. *There is no evidence of aortic regurgitation. *There is no evidence of aortic stenosis. *There is mild tricuspid regurgitation. *The right ventricular systolic pressure is calculated at 27 mmHg. *There is no pericardial effusion. *Intravenous contrast was used to enhance endocardial border definition. Findings Left Ventricle: The left ventricular chamber size is normal. Global left ventricular wall motion and contractility are within normal limits. Global left ventricular systolic function is normal. The estimated ejection fraction is 50-55%. Abnormal left ventricular diastolic filling is observed, consistent with impaired relaxation. Left Atrium: The left atrial chamber size is normal. Right Ventricle: The right ventricular cavity size is normal. The right ventricular global systolic function is normal. Right Atrium: The right atrial cavity size is normal. Aortic Valve: The aortic valve leaflets are mildly thickened. There is no evidence of aortic regurgitation. There is no evidence of aortic stenosis. Mitral Valve: The mitral valve leaflets are mildly thickened. There is mild mitral regurgitation. Tricuspid Valve: The tricuspid valve is not well visualized. There is mild tricuspid regurgitation. The right ventricular systolic pressure is calculated at 27 mmHg. Pulmonic Valve: The pulmonic valve is not well visualized. Pericardium: There is no pericardial effusion. Aorta: The aorta appears normal. Venous: The inferior vena cava is not visualized. Contrast: Intravenous contrast was used to enhance endocardial border definition. Measurements Chambers 2D Name Value Normal Range IVSd (2D) 1.08 cm (0.6 - 1.1) LVPWd (2D) 1.01 cm (0.6 - 1.1) LVIDd (2D) 4.47 cm (3.7 - 5.6) LVIDs (2D) 3.2 cm (2 - 3.8) LV FS (2D) 28.45 % - EF Teichholz (2D) 55.04 % - Ao root diameter (2D) 2.91 cm (2 - 3.7) Volumes/Mass Name Value Normal Range LA ESV SP 4CH (A/L) 26.51 ml - LA ESV SP 2CH (A/L) 29.81 ml - LA ESV BP (A/L) 28.93 ml - LA ESV BP (A/L) index 14.84 ml/m2 - LA ESV SP 4CH (MOD) 23.26 ml - LA ESV SP 2CH (MOD) 29.04 ml - LA ESV BP (MOD) 26.68 ml - LA ESV BP (MOD) index 13.68 ml/m2 - Diastolic/Systolic Function Name Value Normal Range MV E-wave Vmax 0.94 m/sec - MV deceleration time 173.68 msec - MV A-wave Vmax 0.8 m/sec - MV E:A ratio 1.17 ratio - Aortic Valve Name Value Normal Range AV Vmax 1.52 m/sec - AV VTI 33.94 cm - AV peak gradient 9.27 mmHg - AV mean gradient 4.45 mmHg - LVOT diameter 2.09 cm - LVOT Vmax 1.14 m/sec - LVOT VTI 26.27 cm - LVOT peak gradient 5.22 mmHg - LVOT mean gradient 2.72 mmHg - SV LVOT 90 ml - BLANCHE (continuity Vmax) 2.57 cm2 - BLANCHE (continuity VTI) 2.65 cm2 - Mitral Valve Name Value Normal Range MR Vmax 4.7 m/sec - Tricuspid Valve Name Value Normal Range TR Vmax 2.44 m/sec - TR peak gradient 24 mmHg - RAP 3 mmHg - RVSP 27 mmHg - Pulmonic Valve/Qp:Qs Name Value Normal Range PV Vmax 0.8 m/sec - PV peak gradient 2.58 mmHg - PV acceleration time 110.37 msec - Mc/IV: Voiding Method Toilet IV Catheter Type [Left Hand] INT / Saline Lock Active Medications - Current Medications Current Medications: Generic Name Dose Route Start Last Admin Trade Name Freq PRN Reason Stop Dose Admin Acetaminophen 650 mg 07/07/20 01:05 07/08/20 12:27 Tylenol PO 650 mg Q4H PRN Administration Pain MILD(1-3)/Fever >100.5/WILSON Albuterol 2.5 mg 07/08/20 09:00 07/08/20 09:36 Proventil IH 2.5 mg TIDRT ROCIO Administration Aspirin 81 mg 07/08/20 10:00 07/08/20 09:27 Halfprin Ec PO 81 mg DAILY ROCIO Administration Atorvastatin Calcium 40 mg 07/07/20 22:00 07/07/20 22:21 Lipitor PO 40 mg QHS ROCIO Administration Bumetanide 1 mg 07/07/20 18:00 07/08/20 06:07 Bumex IV 1 mg BID@0600,1800 ROCIO Administration Dextrose 50 ml 07/07/20 01:05 D50w (25gm) Syringe IV Q30MIN PRN Hypoglycemia Protocol Heparin Sodium (Porcine) 5,000 unit 07/07/20 14:00 07/08/20 06:07 Heparin SUB-Q 5,000 unit Q8HR ROCIO Administration Hydralazine HCl 25 mg 07/07/20 10:05 Apresoline PO Q8HR PRN Hypertension Insulin Human Lispro 0 unit 07/07/20 07:30 07/08/20 12:10 Humalog SUB-Q 6 unit ACHS ROCIO Administration Protocol Magnesium Hydroxide 30 ml 07/07/20 01:05 07/07/20 18:22 Milk Of Magnesia PO 30 ml Q4H PRN Administration Constipation Methylprednisolone Sodium Succinate 40 mg 07/08/20 09:00 07/08/20 09:27 Solu-Medrol IV 40 mg Q8HR ROCIO Administration Metoprolol Succinate 25 mg 07/08/20 10:00 07/08/20 09:26 Metoprolol Xl PO 25 mg DAILY ROCIO Administration Morphine Sulfate 2 mg 07/07/20 01:05 07/08/20 03:40 Morphine IV 2 mg Q5MIN PRN Administration Chest Pain unrelieved by NTG Nitroglycerin 0.4 mg 07/07/20 01:05 Nitrostat SL .Q5MIN PRN Chest Pain Ondansetron HCl 4 mg 07/07/20 01:05 Zofran IV Q8H PRN Nausea And Vomiting Sodium Chloride 10 ml 07/07/20 01:05 Sodium Chloride Flush Syringe 10 Ml IV PRN PRN LINE FLUSH Sodium Chloride 10 ml 07/07/20 10:00 07/08/20 09:27 Sodium Chloride Flush Syringe 10 Ml IV 10 ml BID ROCIO Administration Nutrition/Malnutrition Assess - Dietary Evaluation Nutrition/Malnutrition Findings: Nutrition Notes Start: 07/07/20 14:08 Freq: Status: Active Protocol: Document 07/07/20 14:08 LM (Rec: 07/07/20 14:11 LM [id number]) Nutrition Notes Need for Assessment generated from: MD Order Initial or Follow up Brief Note Current Diagnosis COPD,Coronary Artery Disease, Diabetes,Hypertension,Heart Failure Subjective/Other Information MD consult for diet education. Pt not in room at time of visit. Nutrition Intervention Follow-Up By: 07/11/20 Additional Comments F/U for diet education/ assessment
--- NOTE | 2020-07-08 15:06 | Consultation ---
History of Present Illness Consult date: 07/08/20 Requesting physician: REAL MONGE Reason for consult: COPD History of present illness: PCCM CONSULT NOTE (Full dictation # [id number]) Please see dictated notes for full details Past History Past Medical History: arthritis, CAD, COPD, diabetes, GERD, hypertension, hyperlipidemia, other (astma) Past Surgical History: cholecystectomy, , tonsillectomy, Other (Right ankle surgery,Cardiac stent placement,cardiac stent placement) Social history: smoking (Former smoker) Family history: no significant family history Medications and Allergies Allergies Allergy/AdvReac Type Severity Reaction Status Date / Time Penicillins Allergy Mild Rash Verified 09/18/18 13:37 latex Allergy Unknown Unknown Verified 01/24/18 09:36 green tomato Allergy Rash Uncoded 01/24/18 09:36 Home Medications Medication Instructions Recorded Confirmed Last Taken Type Albuterol Sulfate [Proventil HFA] 1 - 2 puff IH QID PRN 08/01/13 07/07/20 2 Days Ago History ~05/17/20 Nitroglycerin 0.4 mg PO PRN 03/11/19 07/07/20 2 Days Ago History ~05/17/20 Aspirin [Adult Aspirin] 81 mg PO DAILY #30 tablet. 06/25/19 07/07/20 2 Days Ago Rx ~05/17/20 Metoprolol Xl [Metoprolol 25 mg PO DAILY #30 tablet 06/25/19 07/07/20 2 Days Ago Rx SUCCINATE ER TAB] ~05/17/20 Metformin HCl [metFORMIN] 1,000 mg PO BID 07/29/19 07/07/20 2 Days Ago History ~05/17/20 AtorvaSTATin [Lipitor] 40 mg PO QHS #30 tablet 11/25/19 07/07/20 2 Days Ago Rx ~05/17/20 Bumetanide [Bumex 1 mg tab] 1 mg PO BID #60 tab 11/26/19 07/07/20 2 Days Ago Rx ~05/17/20 Diclofenac 1% [Diclofenac 1% 2 gm TRANSDERMA PRN PRN 05/18/20 07/07/20 2 Days Ago History topical gel] ~05/17/20 hydrALAZINE [Apresoline TAB] 25 mg PO Q8HR PRN 05/18/20 07/07/20 2 Days Ago History ~05/17/20 Fluticasone [Flonase] 2 spray NS BID #1 bottle 05/19/20 07/07/20 Unknown Rx Ipratropium/Albuterol Sulfate 1 ampul IH Q6HR #90 ampul.neb 05/19/20 07/07/20 Unknown Rx [DUONEB *Not for PRN Use*] Symbicort 160-4.5 Mcg Inhaler 1 - 2 puff INHALATION BID 30 Days 05/19/20 07/07/20 Unknown Rx Active Meds: Active Medications Acetaminophen (Tylenol) 650 mg PO Q4H PRN PRN Reason: Pain MILD(1-3)/Fever >100.5/WILSON Last Admin: 07/08/20 12:27 Dose: 650 mg Documented by: Albuterol (Proventil) 2.5 mg IH TIDRT [facility] Last Admin: 07/08/20 13:24 Dose: 2.5 mg Documented by: Aspirin (Halfprin Ec) 81 mg PO DAILY [facility] Last Admin: 07/08/20 09:27 Dose: 81 mg Documented by: Atorvastatin Calcium (Lipitor) 40 mg PO QHS [facility] Last Admin: 07/07/20 22:21 Dose: 40 mg Documented by: Bumetanide (Bumex) 1 mg IV BID@0600,1800 [facility] Last Admin: 07/08/20 06:07 Dose: 1 mg Documented by: Dextrose (D50w (25gm) Syringe) 50 ml IV Q30MIN PRN; Protocol PRN Reason: Hypoglycemia Heparin Sodium (Porcine) (Heparin) 5,000 unit SUB-Q Q8HR [facility] Last Admin: 07/08/20 13:00 Dose: 5,000 unit Documented by: Hydralazine HCl (Apresoline) 25 mg PO Q8HR PRN PRN Reason: Hypertension Insulin Human Lispro (Humalog) 0 unit SUB-Q ACHS [facility]; Protocol Last Admin: 07/08/20 12:10 Dose: 6 unit Documented by: Magnesium Hydroxide (Milk Of Magnesia) 30 ml PO Q4H PRN PRN Reason: Constipation Last Admin: 07/07/20 18:22 Dose: 30 ml Documented by: Methylprednisolone Sodium Succinate (Solu-Medrol) 40 mg IV Q8HR [facility] Last Admin: 07/08/20 13:03 Dose: 40 mg Documented by: Metoprolol Succinate (Metoprolol Xl) 25 mg PO DAILY [facility] Last Admin: 07/08/20 09:26 Dose: 25 mg Documented by: Morphine Sulfate (Morphine) 2 mg IV Q5MIN PRN PRN Reason: Chest Pain unrelieved by NTG Last Admin: 07/08/20 03:40 Dose: 2 mg Documented by: Nitroglycerin (Nitrostat) 0.4 mg SL .Q5MIN PRN PRN Reason: Chest Pain Ondansetron HCl (Zofran) 4 mg IV Q8H PRN PRN Reason: Nausea And Vomiting Sodium Chloride (Sodium Chloride Flush Syringe 10 Ml) 10 ml IV PRN PRN PRN Reason: LINE FLUSH Sodium Chloride (Sodium Chloride Flush Syringe 10 Ml) 10 ml IV BID [facility] Last Admin: 07/08/20 09:27 Dose: 10 ml Documented by: Physical Examination Vital signs: Vital Signs Temp Pulse Resp BP Pulse Ox 98.4 F 81 18 151/57 98 07/06/20 20:04 07/06/20 20:04 07/06/20 20:04 07/06/20 20:04 07/06/20 20:04 Results - Laboratory Findings CBC and BMP: 07/08/20 04:23 07/08/20 04:23 PT/INR, D-dimer PT 13.2 Sec. (12.2-14.9) 07/08/20 04:23 INR 0.98 (0.87-1.13) 07/08/20 04:23 Abnormal lab findings: Abnormal Labs 07/06/20 07/06/20 07/07/20 20:55 20:55 01:55 RDW 15.5 H Lymph % (Auto) 38.8 H Morrison % (Auto) 8.2 H Eos % (Auto) Chloride BUN Glucose 124 H POC Glucose Triglycerides 242 H HDL Cholesterol 37 L 07/07/20 07/07/20 07/07/20 01:55 01:55 04:02 RDW 15.3 H Lymph % (Auto) 43.7 H Morrison % (Auto) 8.6 H Eos % (Auto) Chloride BUN Glucose 173 H POC Glucose 171 H Triglycerides HDL Cholesterol 07/07/20 07/07/20 07/07/20 08:29 11:52 16:42 RDW Lymph % (Auto) Morrison % (Auto) Eos % (Auto) Chloride BUN Glucose POC Glucose 154 H 184 H 281 H Triglycerides HDL Cholesterol 07/07/20 07/08/20 07/08/20 21:06 04:23 04:23 RDW Lymph % (Auto) 37.5 H Morrison % (Auto) 7.9 H Eos % (Auto) 5.2 H Chloride 94.0 L BUN 18 H Glucose 310 H POC Glucose 244 H Triglycerides HDL Cholesterol 07/08/20 07/08/20 07:26 11:43 RDW Lymph % (Auto) Morrison % (Auto) Eos % (Auto) Chloride BUN Glucose POC Glucose 312 H 333 H Triglycerides HDL Cholesterol
[2020-07-08] MEDS ORDERED: ALBUTEROL 2.5 MG/3 ML NEBU IH PRN (16:04)
--- NOTE | 2020-07-08 16:52 | Consultation ---
PULMONARY CONSULTATION NOTE CONSULTING PHYSICIAN: Dr. Bhandari. REASON FOR CONSULTATION: COPD. CHIEF COMPLAINT AND HISTORY OF PRESENT ILLNESS: The patient is a 59-year-old obese female with past medical history significant for home oxygen dependent COPD, came into the Emergency Room complaining of chest pain and tightness and shortness of breath. Of note, she also has a history of coronary artery disease. She complained with worsening of the chest pain on exertion, improved with rest. She denied fevers or chills. She denied nausea, vomiting, or overt aspiration. She denied any gross or streaky hemoptysis. She states she is compliant with her home bronchodilator therapy and oxygen therapy. She does have a history of obstructive sleep apnea, but is apparently not using her noninvasive ventilator at night. She had denied any contact with anyone with known COVID-19 infection. She was evaluated in the Emergency Room and workup was consistent according to the physician with congestive heart failure. We also asked to evaluate for possible COPD contribution. When I stopped by to see her, she was resting in bed, sitting on the side of the chair, feeling still short of breath. She admitted also to increasing feeling of bloating as well as increasing bipedal pitting edema in the past week prior to presentation. She denied anybody changing her home medications and denied any diuretic use at home as far as she can tell, she did say she was on a diuretic. It was changed to something new, but she could not remember what it was. With regards to tobacco abuse, she has a 10+ pack year tobacco smoking history, but quit smoking about 5 years ago after she was diagnosed with coronary artery disease and had a stent placed. This really is as much of the history of presentation as I have. PAST MEDICAL HISTORY: Arthritis, coronary artery disease, COPD, diabetes, GERD, obesity, hypertension, hyperlipidemia and obstructive sleep apnea. PAST SURGICAL HISTORY: She has had a cholecystectomy. She has had tonsillectomy. She has had a . She has had a cardiac stent placement. MEDICATIONS: She was on at the time I stopped by to see were reviewed. Pertinent medications included the following: Tylenol 650 mg p.o. q. 4 hours p.r.n. mild pain or fevers, albuterol 2.5 mg nebulized t.i.d., aspirin 81 mg p.o. daily, Lipitor 40 mg p.o. at bedtime, Bumex 1 mg IV b.i.d., heparin 5000 units subcutaneous q.8 hours, hydralazine 25 mg p.o. q. 8 hours, insulin via sliding scale, Solu-Medrol 40 mg IV q. 8 hours, metoprolol XL 25 mg p.o. daily, Nitrostat 0.4 mg sublingual q. 5 minutes p.r.n. chest pain, morphine sulfate p.r.n., Zofran 4 mg IV q. 8 hours p.r.n. nausea and vomiting. ALLERGIES: PENICILLINS AND TO LATEX. Nature of this allergy is unknown. DIET: Morbidly obese. Denies acute weight loss or gain in the preceding few weeks to months. FAMILY AND SOCIAL HISTORY: Lives in the community. She has a 10+ pack year remote tobacco smoking history. Denies alcohol or illicit drug use or abuse. FAMILY HISTORY: Otherwise, noncontributory. REVIEW OF SYSTEMS: No loss of consciousness. No new onset seizures. No new onset focal weakness. No gross hematochezia or melena. No gross hematuria or dysuria. No hematemesis. No hemoptysis. She denies palpitations. She denies heat or cold intolerance. Denies polydipsia or polyuria. Complete 13-system review of systems obtained. Pertinent positives and/or negatives as in body of history above, otherwise noncontributory. PHYSICAL EXAMINATION: VITAL SIGNS: On examination at presentation in the Emergency Room and really since she has been afebrile presentation, temperature 98.4 degrees Fahrenheit, pulse of 81, respiratory rate of 18, blood pressure 151/57, O2 sats were 98%, inspired oxygen concentration at that time was not recorded. When I stopped by to see her, O2 sats were 99%. That was on 4 liters nasal cannula. GENERAL: She is a morbidly obese, middle-aged female, normocephalic, atraumatic, talking to me with mildly increased respiratory effort at rest. HEAD, EYES, EARS, NOSE AND THROAT: Anicteric. No conjunctival erythema. Oropharynx was moist. Mallampati #4. No gross jugular venous distention, no thyromegaly. Grossly, there were no palpable lymph nodes in the supraclavicular or submandibular lymph node chains. She has a little bit of a Murphy's hump at the back of the neck, suggesting a significant systemic steroid use. LUNGS: Auscultation of both lung jensen revealed diminished bilateral breath sounds, prolonged expiratory phase; however, no active wheezing. HEART: Heart sounds 1 and 2 are heard, regular rate and rhythm at time of my evaluation without overt rubs or murmurs. ABDOMEN: Soft, full, protuberant. Bowel sounds positive, nontender, no palpable hepatosplenomegaly. EXTREMITIES: Without overt digital clubbing or cyanosis. She has 1+ bipedal pitting edema. Pedal pulses are 2+ bilaterally. NEUROLOGIC: Pupils are equal, round, about 4 mm, reactive to light. Extraocular muscle movements were intact. She moves all 4 extremities spontaneously. SKIN: Normal turgor in the areas examined without overt cellulitis or rash. PSYCHIATRIC: Her mood was appropriate. Affect was normal. LABORATORY DATA: From my review, white cell count 9100, hemoglobin 11.6, hematocrit 35.4, platelet count 241. Serum sodium 141, potassium 3.8, chloride 100, bicarbonate 27, BUN 15, creatinine 1.0, glucose was 124. Liver function tests essentially within normal limits. Amylase and lipase within normal limits. LDL cholesterol 118. MRSA screen was negative. A chest x-ray was done. I have reviewed the chest x-ray as well as the radiologist's interpretation. There is significant evidence of hyperinflation. There is gross cardiomegaly, increased interstitial markings do suggest an element of interstitial edema also. No gross pneumothorax, no gross bony fracture. She also had a 2D echocardiogram done. It was read as ejection fraction 50-55%, right ventricular systolic pressure was 27 mmHg. No pericardial effusion as well as diastolic dysfunction. ASSESSMENT: 1. Acute on chronic hypoxemic respiratory failure. 2. Acute chronic obstructive pulmonary disease exacerbation. 3. Acute congestive heart failure exacerbation. 4. Morbid obesity. 5. Obstructive sleep apnea, poorly treated. 6. History of diabetes. 7. Coronary artery disease. 8. Hyperlipidemia. 9. Gastroesophageal reflux disease. 10. Hypertension. 11. Arthritis. PLAN: I have encouraged continued tobacco abstinence. I have also encouraged that she use her BiPAP machine. However, I will not be deploying her on empiric BiPAP here. I have encouraged her to use her machine when she goes back home. Oxygen will be weaned to keep sats greater than or equal to about 88-92%, restrictive oxygen therapies in this lady during an acute COPD exacerbation. Of note, I will do bilateral lower extremity Dopplers as well as D-dimer as a workup for possible venous thromboembolic disorder contributing to this presentation. She is appropriately on DVT prophylaxis. She will be placed on GI prophylaxis. Acute coronary syndrome workup will be per the Cardiology team and hospitalist. I do agree with continued diuresis. Flu and pneumonia vaccination will be addressed per protocol. Thank you very much for the consult. I should mention weight loss has been counseled. We will follow along and make further recommendations as picture progresses/becomes clearer. JOB# [id number] DREW/MELY HERNANDEZ
--- NOTE | 2020-07-08 20:18 | Vascular Lab Report ---
DUPLEX DOPPLER LOWER EXTREMITY VEINS, BILATERAL INDICATION / CLINICAL INFORMATION: swelling. TECHNIQUE: Duplex doppler imaging was performed through the veins of both lower extremities using venous halley kalin and other maneuvers. COMPARISON: None available. FINDINGS: RIGHT COMMON FEMORAL VEIN: Negative. RIGHT FEMORAL VEIN: Negative. RIGHT POPLITEAL VEIN: Negative. RIGHT CALF VEINS: Negative. LEFT COMMON FEMORAL VEIN: Negative. LEFT FEMORAL VEIN: Negative. LEFT POPLITEAL VEIN: Negative. LEFT CALF VEINS: Negative. ADDITIONAL FINDINGS: None. IMPRESSION: 1. No sonographic evidence for DVT in either lower extremity. Signer Name: Jos Staley MD Signed: 07/08/2020 8:14 PM Workstation Name: [id number]
[2020-07-08] MEDS: ARFORMOTEROL 15 MCG/2 ML NEBU IH SCH (21:25)
[2020-07-08] MEDS: BUDESONIDE 0.5 MG/2 ML NEBU IH SCH (21:26)
[2020-07-08] MEDS ORDERED: SODIUM CHLORIDE 0.9% 250ML 250 ML IV ONE (22:42)
[2020-07-08] MEDS ORDERED: INSULIN LISPRO 100 UNIT/ML VIAL 3 mL SUB-Q ONE (23:15)
[2020-07-08] MEDS ORDERED: INSULIN GLARGINE 100 UNITS/ML SUB-Q ONE (23:15)
[2020-07-09] MEDS ORDERED: SODIUM CHLORIDE 0.9% 250ML 250 ML IV ONE (01:26)
[2020-07-09] MEDS ORDERED: INSULIN LISPRO 100 UNIT/ML VIAL 3 mL SUB-Q ONE ×2 (01:45→05:43)
[2020-07-09] MEDS: HEPARIN 5,000 UNIT/1 ML VIAL SUB-Q SCH ×3 (06:18→21:42)
[2020-07-09] MEDS: BUMETANIDE 1 MG/4 ML INJ IV SCH (06:18)
[2020-07-09] MEDS: INSULIN LISPRO 100 UNIT/ML VIAL 3 mL SUB-Q SCH ×5 (07:10→21:38)
[2020-07-09] MEDS: MORPHINE 2 MG/1 ML INJ IV PRN ×3 (07:43→20:05)
[2020-07-09] MEDS: ARFORMOTEROL 15 MCG/2 ML NEBU IH SCH ×2 (08:18→21:18)
[2020-07-09] MEDS: BUDESONIDE 0.5 MG/2 ML NEBU IH SCH ×2 (08:18→21:19)
[2020-07-09 08:30] LABS: BUN/Creatinine Ratio 25; Blood Urea Nitrogen 27 mg/dL (7-17); Calcium 9.1 mg/dL (8.4-10.2); Hemolysis Index 36
[2020-07-09] MEDS: METOPROLOL SUCCINATE XL 25 MG TAB PO SCH (09:42)
[2020-07-09] MEDS: ASPIRIN EC 81 MG TAB PO SCH (09:42)
[2020-07-09] MEDS: methylPREDNISolone Sod Succinate 40 MG/1 ML INJ IV SCH ×2 (09:42→21:37)
--- NOTE | 2020-07-09 10:00 | Progress Note ---
Assessment and Plan Pulm recs noted. BLE venous Dopplers neg for acute DVT. Convert IV Bumex to PO 1mg BID. Continue other present mgmt. Currently stable cardiac status. Pt may be discharged from a Cardiology perspective. Recommend follow-up with Primary Language Asst within 1-2 weeks of discharge. Pt seen in conjunction with Dr. Vieira, who agrees with the assessment and plan of care. - Patient Problems (1) Acute and chronic respiratory failure ([id number]) Current Visit: Yes Status: Acute Qualifiers: Respiratory failure complication: hypoxia Qualified Code(s): J96.21 - Acute and chronic respiratory failure with hypoxia (2) COPD exacerbation Current Visit: Yes Status: Acute (3) ALEXANDER (obstructive sleep apnea) Current Visit: Yes Status: Chronic (4) Chest pain Current Visit: Yes Status: Resolved Qualifiers: Chest pain type: unspecified Qualified Code(s): R07.9 - Chest pain, unspecified (5) NSVT (nonsustained ventricular tachycardia) Current Visit: Yes Status: Resolved (6) Acute on chronic heart failure with preserved ejection fraction (HFpEF) Current Visit: Yes Status: Chronic (7) CKD (chronic kidney disease) Current Visit: Yes Status: Chronic Qualifiers: Chronic kidney disease stage: unspecified stage Qualified Code(s): N18.9 - Chronic kidney disease, unspecified (8) Coronary artery disease Current Visit: Yes Status: Chronic Qualifiers: Associated angina: with stable angina (9) Stented coronary artery Current Visit: Yes Status: Chronic (10) History of CVA (cerebrovascular accident) Current Visit: Yes Status: Chronic (11) Hypertension Current Visit: Yes Status: Chronic Qualifiers: Hypertension type: essential hypertension Qualified Code(s): I10 - Essential (primary) hypertension (12) HLD (hyperlipidemia) Current Visit: Yes Status: Chronic Qualifiers: Hyperlipidemia type: mixed hyperlipidemia Qualified Code(s): E78.2 - Mixed hyperlipidemia (13) Diabetes mellitus with hyperglycemia Current Visit: Yes Status: Chronic (14) Tobacco abuse Current Visit: Yes Status: Chronic Subjective Date of service: 07/09/20 Principal diagnosis: COPD; HF exacerbation Interval history: Pt sitting up in chair comfortably upon exam. SOB significantly improved. She states she was able to ambulate yesterday much more easily. Tele reviewed - NSR 80-90s with no acute events noted. No further evidence VT. Objective Last Vital Signs Temp 97.5 F L 07/09/20 04:25 Pulse 81 07/09/20 08:45 Resp 20 07/09/20 08:45 BP 130/61 07/09/20 04:25 Pulse Ox 98 07/09/20 08:23 - Physical Examination General: No Apparent Distress HEENT: Positive: EOMI, Normocephaly, Mucus Membranes Moist Neck: Positive: neck supple, trachea midline. Negative: JVD/HJR Cardiac: Positive: Reg Rate and Rhythm, S1/S2 Lungs: Positive: Decreased Breath Sounds (bilaterally) Neuro: Positive: Grossly Intact Abdomen: Positive: Soft, Active Bowel Sounds. Negative: Tender Skin: Negative: Rash, Wound Musculoskeletal: No Pain, Normal Range of Motion Extremities: Present: upper extr. pulses, lower extr. pulses, edema (trace BLE edema) - Labs and Meds Comprehensive Metabolic Panel 07/09/20 Range/Units 07:02 Sodium 137 (137-145) mmol/L Potassium 4.7 (3.6-5.0) mmol/L Chloride 94.7 L (98-107) mmol/L Carbon Dioxide 24 (22-30) mmol/L BUN 27 H (7-17) mg/dL Creatinine 1.1 (0.6-1.2) mg/dL Glucose 459 H (65-100) mg/dL Calcium 9.1 (8.4-10.2) mg/dL - Imaging and Cardiology EKG: report reviewed, image reviewed Nuclear stress test: report reviewed (Cardiac PET 03/31/2020 - primarily fixed perfusion defect along inferior wall, small amount of kimber-infarct ischemia present; normal LVEF) Echo: report reviewed (07/07/2020 - EF 50-55%; mild MR; mild TR), other (11/2019 - EF 50-55%; mild LVH) - Telemetry EKG Rhythm: Sinus Rhythm - EKG Sinus rhythms and dysrhythmias: sinus rhythm
--- NOTE | 2020-07-09 10:36 | Progress Note ---
Assessment and Plan Assessment and plan: Acute heart failure with preserved ejection fraction Pt with questionable mild component HFrEF. Cardiology converted IV lasix to IV bumex for more adequate volume optimization. COPD with acute exacerbation Bronchodilators/nebs. Pulm consult Acute on chronic hypoxic respiratory failure Etiology secondary to above Mild pulmonary hypertension chest pain Pt's chest pain appears atypical with pleuritic features. AMI ruled out. Cardiac PET done 03/31/2020 showed primarily fixed perfusion defect along inferior wall, small amount of kimber-infarct ischemia present, normal LVEF. No plans for repeat stress test at this time. Obtain echo. Coronary artery disease Stented coronary artery History of CVA (cerebrovascular accident) History of loop recorder Diabetes mellitus type II Accuchecks and SSRI CKD (chronic kidney disease) Obesity Sleep apnea History of pancreatitis 07/08/2020. Echocardiogram revealed EF of 50 to 55% with mild MR and TR. RVSP 27mmHg. Patient with mild hypomagnesemia with repletion per cardiology. Patient with episode of 5 beat run nonsustained ventricular tachycardia. Cont present cardiac management, including IV bumex, ASA 81, statin, Toprol XL, hydralazine. Cardiac PET done 03/31/2020 showed primarily fixed perfusion defect along inferior wall, small amount of kimber-infarct ischemia present, normal LVEF. No plans for repeat stress test at this time per cardiology. Pulmonary consultation pending for COPD and mild pulmonary hypertension. Added Solu- Medrol 40 mg every 8 hours 07/09/2020. Bilateral lower extremity venous Dopplers were negative for acute DVT. Cardiology converted IV Bumex to p.o. 1 mg twice daily. Wean IV Solu-Medrol to 40 mg twice daily for COPD exacerbation. Await further recommendations from pulmonary. Diabetes mellitus uncontrolled secondary to steroids. Add Lantus 20 units daily. History Interval history: no new issues. Patient still reporting shortness of breath with minimal exertion. Hospitalist Physical - Constitutional Vitals: Temp Pulse Resp BP Pulse Ox 97.5 F L 81 20 130/61 98 07/09/20 04:25 07/09/20 08:45 07/09/20 08:45 07/09/20 04:25 07/09/20 08:23 General appearance: Present: no acute distress - EENT Eyes: Present: PERRL, EOM intact ENT: hearing intact, clear oral mucosa, dentition normal - Neck Neck: Present: supple, normal ROM - Respiratory Respiratory effort: normal Respiratory: bilateral: CTA - Cardiovascular Rhythm: regular Heart Sounds: Present: S1 & S2. Absent: gallop, rub - Extremities Extremities: no ischemia, No edema, Full ROM - Abdominal General gastrointestinal: soft, non-tender, non-distended, normal bowel sounds - Integumentary Integumentary: Present: clear, warm, dry - Neurologic Neurologic: CNII-XII intact, moves all extremities HEART Score - HEART Score EKG: Normal Age: 45-65 Risk factors: > 3 risk factors or hx of atherosclerotic disease Troponin: Troponin T < 0.010 ng/mL (0.00-0.029) 07/07/20 07:36 Troponin: < normal limit Results - Labs CBC & Chem 7: 07/08/20 04:23 07/09/20 07:02 Labs: Laboratory Last Values WBC 7.4 K/mm3 (4.5-11.0) 07/08/20 04:23 RBC 4.25 M/mm3 (3.65-5.03) 07/08/20 04:23 Hgb 11.8 gm/dl (10.1-14.3) 07/08/20 04:23 Hct 36.3 % (30.3-42.9) 07/08/20 04:23 MCV 86 fl (79-97) 07/08/20 04:23 MCH 28 pg (28-32) 07/08/20 04:23 MCHC 33 % (30-34) 07/08/20 04:23 RDW 15.1 % (13.2-15.2) 07/08/20 04:23 Plt Count 246 K/mm3 (140-440) 07/08/20 04:23 Lymph % (Auto) 37.5 % (13.4-35.0) H 07/08/20 04:23 [place] % (Auto) 7.9 % (0.0-7.3) H 07/08/20 04:23 Eos % (Auto) 5.2 % (0.0-4.3) H 07/08/20 04:23 Baso % (Auto) 1.7 % (0.0-1.8) 07/08/20 04:23 Lymph # 2.8 K/mm3 (1.2-5.4) 07/08/20 04:23 [place] # 0.6 K/mm3 (0.0-0.8) 07/08/20 04:23 Eos # 0.4 K/mm3 (0.0-0.4) 07/08/20 04:23 Baso # 0.1 K/mm3 (0.0-0.1) 07/08/20 04:23 Seg Neutrophils % 47.7 % (40.0-70.0) 07/08/20 04:23 Seg Neutrophils # 3.5 K/mm3 (1.8-7.7) 07/08/20 04:23 PT 13.2 Sec. (12.2-14.9) 07/08/20 04:23 INR 0.98 (0.87-1.13) 07/08/20 04:23 D-Dimer 186.19 ng/mlDDU (0-234) 07/08/20 17:19 Sodium 137 mmol/L (137-145) 07/09/20 07:02 Potassium 4.7 mmol/L (3.6-5.0) 07/09/20 07:02 Chloride 94.7 mmol/L (98-107) L 07/09/20 07:02 Carbon Dioxide 24 mmol/L (22-30) 07/09/20 07:02 Anion Gap 23 mmol/L 07/09/20 07:02 BUN 27 mg/dL (7-17) H 07/09/20 07:02 Creatinine 1.1 mg/dL (0.6-1.2) 07/09/20 07:02 Estimated GFR > 60 ml/min 07/09/20 07:02 BUN/Creatinine Ratio 25 % 07/09/20 07:02 Glucose 459 mg/dL (65-100) H 07/09/20 07:02 POC Glucose 443 (70-105) H 07/09/20 08:14 Calcium 9.1 mg/dL (8.4-10.2) 07/09/20 07:02 Magnesium 2.00 mg/dL (1.7-2.3) 07/09/20 07:02 Total Bilirubin 0.20 mg/dL (0.1-1.2) 07/07/20 07:36 Direct Bilirubin < 0.2 mg/dL (0-0.2) 07/07/20 07:36 AST 32 units/L (5-40) 07/07/20 07:36 ALT 29 units/L (7-56) 07/07/20 07:36 Alkaline Phosphatase 78 units/L (35-129) 07/07/20 07:36 Troponin T < 0.010 ng/mL (0.00-0.029) 07/07/20 07:36 NT-Pro-B Natriuret Pep 93.87 pg/mL (0-900) 07/06/20 20:55 Total Protein 7.3 g/dL (6.3-8.2) 07/07/20 07:36 Albumin 4.4 g/dL (3.9-5) 07/07/20 07:36 Albumin/Globulin Ratio 1.5 % 07/07/20 07:36 Triglycerides 242 mg/dL (2-149) H 07/07/20 01:55 Cholesterol 179 mg/dL (50-199) 07/07/20 01:55 LDL Cholesterol Direct 118 mg/dL (50-130) 07/07/20 01:55 HDL Cholesterol 37 mg/dL (40-59) L 07/07/20 01:55 Cholesterol/HDL Ratio 4.83 % 07/07/20 01:55 Amylase 103 units/L (27-131) 07/07/20 07:36 Lipase 44 units/L (13-60) 07/07/20 07:36 Nasal Screen MRSA (PCR) Negative (Negative) 07/07/20 08:00 - Diagnostic Impressions Diagnostic Impressions: Echocardiogram 07/07/20 01:07 Transthoracic Echocardiogram Indication: Chest pain BP: 136/97 HR: 69 Conclusions *Global left ventricular systolic function is normal. *The estimated ejection fraction is 50-55%. *The right ventricular global systolic function is normal. *There is mild mitral regurgitation. *There is mild tricuspid regurgitation. *There is no evidence of aortic regurgitation. *There is no evidence of aortic stenosis. *There is mild tricuspid regurgitation. *The right ventricular systolic pressure is calculated at 27 mmHg. *There is no pericardial effusion. *Intravenous contrast was used to enhance endocardial border definition. Findings Left Ventricle: The left ventricular chamber size is normal. Global left ventricular wall motion and contractility are within normal limits. Global left ventricular systolic function is normal. The estimated ejection fraction is 50-55%. Abnormal left ventricular diastolic filling is observed, consistent with impaired relaxation. Left Atrium: The left atrial chamber size is normal. Right Ventricle: The right ventricular cavity size is normal. The right ventricular global systolic function is normal. Right Atrium: The right atrial cavity size is normal. Aortic Valve: The aortic valve leaflets are mildly thickened. There is no evidence of aortic regurgitation. There is no evidence of aortic stenosis. Mitral Valve: The mitral valve leaflets are mildly thickened. There is mild mitral regurgitation. Tricuspid Valve: The tricuspid valve is not well visualized. There is mild tricuspid regurgitation. The right ventricular systolic pressure is calculated at 27 mmHg. Pulmonic Valve: The pulmonic valve is not well visualized. Pericardium: There is no pericardial effusion. Aorta: The aorta appears normal. Venous: The inferior vena cava is not visualized. Contrast: Intravenous contrast was used to enhance endocardial border definition. Measurements Chambers 2D Name Value Normal Range IVSd (2D) 1.08 cm (0.6 - 1.1) LVPWd (2D) 1.01 cm (0.6 - 1.1) LVIDd (2D) 4.47 cm (3.7 - 5.6) LVIDs (2D) 3.2 cm (2 - 3.8) LV FS (2D) 28.45 % - EF Teichholz (2D) 55.04 % - Ao root diameter (2D) 2.91 cm (2 - 3.7) Volumes/Mass Name Value Normal Range LA ESV SP 4CH (A/L) 26.51 ml - LA ESV SP 2CH (A/L) 29.81 ml - LA ESV BP (A/L) 28.93 ml - LA ESV BP (A/L) index 14.84 ml/m2 - LA ESV SP 4CH (MOD) 23.26 ml - LA ESV SP 2CH (MOD) 29.04 ml - LA ESV BP (MOD) 26.68 ml - LA ESV BP (MOD) index 13.68 ml/m2 - Diastolic/Systolic Function Name Value Normal Range MV E-wave Vmax 0.94 m/sec - MV deceleration time 173.68 msec - MV A-wave Vmax 0.8 m/sec - MV E:A ratio 1.17 ratio - Aortic Valve Name Value Normal Range AV Vmax 1.52 m/sec - AV VTI 33.94 cm - AV peak gradient 9.27 mmHg - AV mean gradient 4.45 mmHg - LVOT diameter 2.09 cm - LVOT Vmax 1.14 m/sec - LVOT VTI 26.27 cm - LVOT peak gradient 5.22 mmHg - LVOT mean gradient 2.72 mmHg - SV LVOT 90 ml - BLANCHE (continuity Vmax) 2.57 cm2 - BLANCHE (continuity VTI) 2.65 cm2 - Mitral Valve Name Value Normal Range MR Vmax 4.7 m/sec - Tricuspid Valve Name Value Normal Range TR Vmax 2.44 m/sec - TR peak gradient 24 mmHg - RAP 3 mmHg - RVSP 27 mmHg - Pulmonic Valve/Qp:Qs Name Value Normal Range PV Vmax 0.8 m/sec - PV peak gradient 2.58 mmHg - PV acceleration time 110.37 msec - Mc/IV: Voiding Method Toilet IV Catheter Type [Left Hand] INT / Saline Lock Active Medications - Current Medications Current Medications: Generic Name Dose Route Start Last Admin Trade Name Freq PRN Reason Stop Dose Admin Acetaminophen 650 mg 07/07/20 01:05 07/08/20 12:27 Tylenol PO 650 mg Q4H PRN Administration Pain MILD(1-3)/Fever >100.5/WILSON Albuterol 2.5 mg 07/08/20 16:04 Proventil IH Q4HRT PRN Shortness Of Breath Arformoterol Tartrate 15 mcg 07/08/20 20:00 07/09/20 08:18 Brovana Nebu IH 15 mcg Q12HRT ROCIO Administration Aspirin 81 mg 07/08/20 10:00 07/09/20 09:42 Halfprin Ec PO 81 mg DAILY ROCIO Administration Atorvastatin Calcium 40 mg 07/07/20 22:00 07/08/20 23:18 Lipitor PO 40 mg QHS ROCIO Administration Budesonide 0.5 mg 07/08/20 20:00 07/09/20 08:18 Pulmicort IH 0.5 mg Q12HRT ROCIO Administration Bumetanide 1 mg 07/09/20 18:00 Bumex PO 0600,1800 ROCIO Heparin Sodium (Porcine) 5,000 unit 07/07/20 14:00 07/09/20 06:18 Heparin SUB-Q 5,000 unit Q8HR ROCIO Administration Hydralazine HCl 25 mg 07/07/20 10:05 Apresoline PO Q8HR PRN Hypertension Insulin Glargine 20 units 07/09/20 12:00 Lantus SUB-Q DAILY ROCIO Insulin Human Lispro 0 unit 07/09/20 07:30 07/09/20 09:41 Humalog SUB-Q 10 unit ACHS ROCIO Administration Protocol Magnesium Hydroxide 30 ml 07/07/20 01:05 07/07/20 18:22 Milk Of Magnesia PO 30 ml Q4H PRN Administration Constipation Methylprednisolone Sodium Succinate 40 mg 07/08/20 22:00 07/09/20 09:42 Solu-Medrol IV 40 mg BID ROCIO Administration Metoprolol Succinate 25 mg 07/08/20 10:00 07/09/20 09:42 Metoprolol Xl PO 25 mg DAILY ROCIO Administration Morphine Sulfate 2 mg 07/07/20 01:05 07/09/20 07:43 Morphine IV 2 mg Q5MIN PRN Administration Chest Pain unrelieved by NTG Nitroglycerin 0.4 mg 07/07/20 01:05 Nitrostat SL .Q5MIN PRN Chest Pain Ondansetron HCl 4 mg 07/07/20 01:05 Zofran IV Q8H PRN Nausea And Vomiting Sodium Chloride 10 ml 07/07/20 01:05 Sodium Chloride Flush Syringe 10 Ml IV PRN PRN LINE FLUSH Sodium Chloride 10 ml 07/07/20 10:00 07/09/20 09:43 Sodium Chloride Flush Syringe 10 Ml IV 10 ml BID ROCIO Administration Nutrition/Malnutrition Assess - Dietary Evaluation Nutrition/Malnutrition Findings: Nutrition Notes Start: 07/07/20 14:08 Freq: Status: Active Protocol: Document 07/07/20 14:08 LM (Rec: 07/07/20 14:11 LM [id number]) Nutrition Notes Need for Assessment generated from: MD Order Initial or Follow up Brief Note Current Diagnosis COPD,Coronary Artery Disease, Diabetes,Hypertension,Heart Failure Subjective/Other Information MD consult for diet education. Pt not in room at time of visit. Nutrition Intervention Follow-Up By: 07/11/20 Additional Comments F/U for diet education/ assessment
[2020-07-09] MEDS: INSULIN GLARGINE 100 UNITS/ML SUB-Q SCH (12:22)
--- NOTE | 2020-07-09 17:24 | Progress Note ---
Assessment and Plan Acute on chronic hypoxemic respiratory failure. Acute chronic obstructive pulmonary disease exacerbation. Acute congestive heart failure exacerbation. Morbid obesity. Obstructive sleep apnea, poorly treated. History of diabetes. Coronary artery disease. Hyperlipidemia. Gastroesophageal reflux disease. Hypertension. Arthritis. - continue supplemental oxygen as needed to keep O2 sat's > 90% - continue bronchodilators (ALINA & LABA) with pulmonary hygiene per RT - continue systemic steroids with taper - continue inhaled corticosteroids - follow clinically off AB's - ACS w/up per cardiology - PT/OT as tolerated - mobility protocols for pressure ulcer prophylaxis - continue accuchecks with glycemic control per SSI for target BG < 180 mg/dl - GI & VTE prophylaxis - Flu & pneumovax addressed per protocol - continue other care per attending / other consultants ... re-evaluate in am & prn Subjective Date of service: 07/09/20 Principal diagnosis: COPD; HF exacerbation Interval history: Patient is seen today for: Acute on chronic hypoxemic respiratory failure; AE- COPD; AE-CHF; Morbid obesity; ALEXANDER; DM II; CAD; GERD Seen and examined at bedside; 24hour events reviewed; nursing and respiratory care staff consulted; no adverse overnight events reported to me; resting peace fully in bed; Objective Vital Signs - 12hr 07/09/20 07/09/20 07/09/20 06:00 07:43 08:23 Pulse Rate [ Bilateral Upper Lobe] Respiratory 20 Rate Respiratory Rate [Bilateral Upper Lobe] Respiratory 20 Rate [lower back] O2 Sat by Pulse 98 Oximetry 07/09/20 08:45 Pulse Rate [ 81 Bilateral Upper Lobe] Respiratory Rate Respiratory 20 Rate [Bilateral Upper Lobe] Respiratory Rate [lower back] O2 Sat by Pulse Oximetry Constitutional: no acute distress, other (middle aged obese female with mildly increased respiratory effort at rest) Eyes: non-icteric ENT: oropharynx moist, other (Mallampati 3) Neck: supple, no lymphadenopathy, no JVD Effort: mildly labored Ascultation: Bilateral: diminished breath sounds, rhonchi Percussion: Bilateral: not dull Cardiovascular: regular rate and rhythm Gastrointestinal: normoactive bowel sounds, soft, non-tender, non-distended (protuberant) Integumentary: normal Extremities: no cyanosis, pulses normal, no ischemia or petechiae, edema (1+) Neurologic: normal mental status, non-focal exam, pupils equal and round, motor strength normal and Psychiatric: mood appropriate, affect normal CBC and BMP: 07/08/20 04:23 07/09/20 07:02 ABG, PT/INR, D-dimer: PT/INR, D-dimer PT 13.2 Sec. (12.2-14.9) 07/08/20 04:23 INR 0.98 (0.87-1.13) 07/08/20 04:23 D-Dimer 186.19 ng/mlDDU (0-234) 07/08/20 17:19 Abnormal lab findings: Abnormal Labs 07/06/20 07/06/20 07/07/20 20:55 20:55 01:55 RDW 15.5 H Lymph % (Auto) 38.8 H [place] % (Auto) 8.2 H Eos % (Auto) Chloride BUN Glucose 124 H POC Glucose Triglycerides 242 H HDL Cholesterol 37 L 07/07/20 07/07/20 07/07/20 01:55 01:55 04:02 RDW 15.3 H Lymph % (Auto) 43.7 H [place] % (Auto) 8.6 H Eos % (Auto) Chloride BUN Glucose 173 H POC Glucose 171 H Triglycerides HDL Cholesterol 07/07/20 07/07/20 07/07/20 08:29 11:52 16:42 RDW Lymph % (Auto) [place] % (Auto) Eos % (Auto) Chloride BUN Glucose POC Glucose 154 H 184 H 281 H Triglycerides HDL Cholesterol 07/07/20 07/08/20 07/08/20 21:06 04:23 04:23 RDW Lymph % (Auto) 37.5 H [place] % (Auto) 7.9 H Eos % (Auto) 5.2 H Chloride 94.0 L BUN 18 H Glucose 310 H POC Glucose 244 H Triglycerides HDL Cholesterol 07/08/20 07/08/20 07/08/20 07:26 11:43 16:37 RDW Lymph % (Auto) [place] % (Auto) Eos % (Auto) Chloride BUN Glucose POC Glucose 312 H 333 H 416 H Triglycerides HDL Cholesterol 07/08/20 07/09/20 07/09/20 22:42 01:21 04:46 RDW Lymph % (Auto) [place] % (Auto) Eos % (Auto) Chloride BUN Glucose POC Glucose > 500 H 464 H 440 H Triglycerides HDL Cholesterol 07/09/20 07/09/20 07/09/20 07:02 08:14 11:45 RDW Lymph % (Auto) [place] % (Auto) Eos % (Auto) Chloride 94.7 L BUN 27 H Glucose 459 H POC Glucose 443 H > 500 H Triglycerides HDL Cholesterol 07/09/20 16:20 RDW Lymph % (Auto) [place] % (Auto) Eos % (Auto) Chloride BUN Glucose POC Glucose > 500 H Triglycerides HDL Cholesterol Chest x-ray: other (none today) Prior PFT's, U/S of legs: report reviewed (no DVT) Allied health notes reviewed: nursing
[2020-07-09] MEDS: BUMETANIDE 1 MG TAB PO SCH (18:07)
[2020-07-10] MEDS: BUMETANIDE 1 MG TAB PO SCH ×2 (05:21→20:24)
[2020-07-10] MEDS: HEPARIN 5,000 UNIT/1 ML VIAL SUB-Q SCH ×2 (05:22→15:56)
[2020-07-10] MEDS ORDERED: DEXTROSE 50% IN WATER (25GM) 50 ML SYRINGE IV PRN (08:05)
[2020-07-10] MEDS: INSULIN LISPRO 100 UNIT/ML VIAL 3 mL SUB-Q SCH ×2 (08:46→12:53)
[2020-07-10] MEDS ORDERED: INSULIN NPH/REGULAR 70/30 INJ SUB-Q SCH ×2 (09:00→20:00)
[2020-07-10] MEDS: MORPHINE 2 MG/1 ML INJ IV PRN ×2 (09:04→15:50)
[2020-07-10] MEDS: ASPIRIN EC 81 MG TAB PO SCH (09:08)
[2020-07-10] MEDS: METOPROLOL SUCCINATE XL 25 MG TAB PO SCH (09:09)
[2020-07-10] MEDS: INSULIN GLARGINE 100 UNITS/ML SUB-Q SCH (09:10)
[2020-07-10] MEDS: methylPREDNISolone Sod Succinate 40 MG/1 ML INJ IV SCH (09:12)
[2020-07-10] MEDS: BUDESONIDE 0.5 MG/2 ML NEBU IH SCH ×2 (09:23→21:25)
[2020-07-10] MEDS: ARFORMOTEROL 15 MCG/2 ML NEBU IH SCH ×2 (09:24→21:25)
[2020-07-10] MEDS: metFORMIN 500 MG TAB PO SCH ×2 (09:47→15:59)
--- NOTE | 2020-07-10 09:57 | Discharge Summary ---
Providers - Providers Date of Admission: 07/07/20 12:02 Date of discharge: 07/10/20 Attending physician: PARVEZ CAMACHO 07/07/20 Consult to Cardiac Rehabilitation [CONS] Routine Reason For Exam: Phase I 07/07/20 01:06 Consult to Cardiology [CONS] Routine Consulting Provider: CORNELIA DE DIOS Reason For Exam: chest pain 07/08/20 08:08 Consult to Physician [CONS] Routine Comment: Consulting Provider: MÓNICA PEPPER Physician Instructions: Reason For Exam: COPD Primary care physician: LEGISLATIVE DIRECTOR Hospitalization Reason for admission: SOB Condition: Critical Hospital course: The pt is a 59 YO female with a past medical history of CAD s/p PCI to the ostial LAD in 12/2017, HFpEF, choledocholithiasis s/p Lap Arely 04/26/20 at [place], HTN, DM, COPD requiring home O2, CVA x4, loop recorder in situ (implanted on 10/26/2019 to evaluate for paroxysmal atrial fibrillation given recurrent CVAs), CKD, ALEXANDER, former smoker who presented with complaints of progressively worsening SOB and chest pain for the past several weeks. She describes the pain as an intermittent midsternal pressure which is aggravated by deep inspiration. Patient has had a recent cardiac work-up that included TTE done 11/2019 showed EF 50-55%, mild LVH. Cardiac PET done 03/31/2020 showed primarily fixed perfusion defect along inferior wall, small amount of kimber-infarct ischemia present, normal LVEF. Lexiscan MPI stress test done 07/2019 was negative. The patient was admitted with diagnosis of acute on chronic hypoxic respiratory failure, acute COPD exacerbation and mild acute systolic heart failure and was seen by cardiology in consultation. Patient was initially treated with IV Lasix which was later transitioned to IV Bumex for more adequate volume optimization. Patient was resumed on her home ASA 81, statin, Toprol XL, hydralazine. Cardiology felt that the patient's chest pain was atypical with pleuritic features. AMI ruled out. Cardiology recommended pulmonary consultation per primary for COPD with apparent acute exacerbation and chronic respiratory failure. Pulmonary treat the patient with bronchodilators, pulmonary hygiene, systemic steroids and inhaled corticosteroids. Patient had improvement in her symptoms from requiring 5 L of oxygen on admission down to her home oxygen requirement of 2 L. Patient reported that she was back to her baseline respiratory saeed. Therefore, patient is felt to have received maximal hospital benefit for discharge. Dedicated discharge time 35 minutes. Disposition: DC-01 TO HOME OR SELFCARE Time spent for discharge: 35 - Discharge Diagnoses (1) Acute and chronic respiratory failure ([id number]) Status: Acute Qualifiers: Respiratory failure complication: hypoxia Qualified Code(s): J96.21 - Acute and chronic respiratory failure with hypoxia (2) Acute heart failure with preserved ejection fraction Status: Acute (3) CHF exacerbation Status: Acute Qualifiers: Heart failure type: unspecified Qualified Code(s): I50.9 - Heart failure, unspecified (4) COPD exacerbation Status: Acute (5) Acute on chronic heart failure with preserved ejection fraction (HFpEF) Status: Chronic (6) CKD (chronic kidney disease) Status: Chronic Qualifiers: Chronic kidney disease stage: unspecified stage Qualified Code(s): N18.9 - Chronic kidney disease, unspecified (7) Coronary artery disease Status: Chronic Qualifiers: Associated angina: with stable angina (8) Diabetes mellitus with hyperglycemia Status: Chronic (9) HLD (hyperlipidemia) Status: Chronic Qualifiers: Hyperlipidemia type: mixed hyperlipidemia Qualified Code(s): E78.2 - Mixed hyperlipidemia (10) Hypertension Status: Chronic Qualifiers: Hypertension type: essential hypertension Qualified Code(s): I10 - Essential (primary) hypertension (11) ALEXANDER (obstructive sleep apnea) Status: Chronic (12) Tobacco abuse Status: Chronic (13) Sleep apnea Status: Chronic Core Measure Documentation - Palliative Care Palliative Care/ Comfort Measures: Not Applicable - Core Measures Any of the following diagnoses?: none Exam - Constitutional Vitals: Temp Pulse Resp BP Pulse Ox 98.1 F 84 18 139/57 98 07/10/20 03:42 07/10/20 09:09 07/10/20 03:42 07/10/20 03:42 07/10/20 03:42 General appearance: Present: no acute distress, well-nourished - EENT Eyes: Present: PERRL ENT: hearing intact, clear oral mucosa - Neck Neck: Present: supple, normal ROM - Respiratory Respiratory effort: normal Respiratory: bilateral: CTA - Cardiovascular Heart Sounds: Present: S1 & S2. Absent: rub, click - Extremities Extremities: pulses symmetrical, No edema Peripheral Pulses: within normal limits - Abdominal General gastrointestinal: Present: soft, non-tender, non-distended, normal bowel sounds Female genitourinary: Present: normal - Integumentary Integumentary: Present: clear, warm, dry - Musculoskeletal Musculoskeletal: gait normal, strength equal bilaterally - Psychiatric Psychiatric: appropriate mood/affect, intact judgment & insight - Neurologic Neurologic: CNII-XII intact, moves all extremities Plan Activity: advance as tolerated Weight Bearing Status: Weight Bear as Tolerated Diet: low fat, low cholesterol, low salt Prescriptions: Aspirin [Adult Aspirin] 81 mg PO DAILY #30 tablet. hydrALAZINE [Apresoline TAB] 25 mg PO Q8HR PRN #90 PRN Reason: Hypertension Bumetanide [Bumex 1 mg tab] 1 mg PO BID #60 tab Ipratropium/Albuterol Sulfate [DUONEB *Not for PRN Use*] 1 ampul IH Q6HR #90 ampul.neb Fluticasone [Flonase] 2 spray NS BID #1 bottle AtorvaSTATin [Lipitor] 40 mg PO QHS #30 tablet Metformin HCl [metFORMIN] 1,000 mg PO BID #60 Metoprolol Xl [Metoprolol SUCCINATE ER TAB] 25 mg PO DAILY #30 tablet Prednisone [predniSONE 10 mg (6-Day Pack, 21 Tabs)] 10 mg PO .TAPER #1 tab.ds.pk Symbicort 160-4.5 Mcg Inhaler 1 - 2 puff INHALATION BID 30 Days Blood Sugar Diagnostic [Test Strips] 1 each MC TID #90 strip
--- NOTE | 2020-07-10 09:58 | Progress Note ---
Assessment and Plan Acute on chronic respiratory failure Morbid obesity COPD exacerbation Acute diastolic dysfunction failure Coronary arterial disease Atypical chest pain noncardiac Hypertension Hyperlipidemia Diabetes type 1 uncontrolled rec: Continue current medications diuretics pulmonary treatment monitor diabetes patient has a follow-up appointment with [facility] tomorrow patient wants to go home patient satisfied with her care here Subjective Date of service: 07/10/20 Principal diagnosis: COPD; HF exacerbation Interval history: Patient states shortness of breath has improved Objective Vital Signs Temp Pulse Pulse Resp Resp BP Pulse Ox 07/10/20 09:09 84 07/10/20 03:57 66 07/10/20 03:42 98.1 F 69 18 139/57 98 07/09/20 23:39 98.0 F 66 18 129/53 97 07/09/20 22:00 70 07/09/20 21:22 97 07/09/20 21:21 85 20 07/09/20 19:23 97.5 F L 71 18 152/50 97 07/09/20 16:03 97.7 F 86 18 134/63 99 07/09/20 12:43 97.7 F 94 H 18 132/70 95 - Physical Examination General: No Apparent Distress HEENT: Positive: EOMI, Normocephaly, Mucus Membranes Moist Neck: Positive: neck supple, trachea midline. Negative: JVD/HJR Cardiac: Positive: Reg Rate and Rhythm Lungs: Positive: Decreased Breath Sounds Neuro: Positive: Grossly Intact Abdomen: Positive: Soft, Active Bowel Sounds. Negative: Tender Skin: Negative: Rash, Wound Musculoskeletal: No Pain, Normal Range of Motion Extremities: Present: upper extr. pulses, lower extr. pulses - Labs and Meds Comprehensive Metabolic Panel 07/09/20 Range/Units 20:44 Glucose 583 H* (65-100) mg/dL - Imaging and Cardiology EKG: report reviewed, image reviewed Echo: report reviewed (07/07/2020 - EF 50-55%; mild MR; mild TR), other (11/2019 - EF 50-55%; mild LVH) - Telemetry EKG Rhythm: Sinus Rhythm - EKG Sinus rhythms and dysrhythmias: sinus rhythm - Allied health notes Allied health notes reviewed: nursing
[2020-07-10] MEDS ORDERED: NON-FORMULARY EACH (Metformin Hcl [Metformin] 1,000 MG) PO SCH (10:00)
[2020-07-10] MEDS ORDERED: SYMBICORT INHALATION SCH (10:00)
[2020-07-10] MEDS ORDERED: FLUTICASONE PROPIONATE NASAL SPRAY 16 GM NS SCH (10:00)
[2020-07-10] MEDS ORDERED: BUMETANIDE 1 MG TAB PO SCH (10:00)
[2020-07-10] MEDS ORDERED: INSULIN REGULAR, HUMAN 100 UNIT/ML 3ML VIAL SUB-Q ONE (16:30)
[2020-07-10 19:43] VITALS: BP 149/67
[2020-07-10] MEDS: ACETAMINOPHEN 325 MG TAB PO PRN (20:26)
[2020-07-11] MEDS ORDERED: INSULIN NPH/REGULAR 70/30 INJ SUB-Q SCH (17:00)
== END 2020-07-10 21:37 | disposition home or self-care (01) | DRG 291 ==
LOC: ED 19:40 → 4A 23:49 → OBSVTOIN 07-07 12:02
PROVIDERS: ADMIT Internal Medicine Geriatric Medicine; ATTEND Hospitalist
DX: I13.0 Hypertensive heart and chronic kidney disease with heart failure and stage 1 through stage 4 chronic kidney disease, or unspecified chronic kidney disease (principal); J96.21 Acute and chronic respiratory failure with hypoxia; I50.43 Acute on chronic combined systolic (congestive) and diastolic (congestive) heart failure; J44.1 Chronic obstructive pulmonary disease with (acute) exacerbation; Z68.41 Body mass index [BMI] 40.0-44.9, adult; I47.1 Supraventricular tachycardia; I69.354 Hemiplegia and hemiparesis following cerebral infarction affecting left non-dominant side; I25.10 Atherosclerotic heart disease of native coronary artery without angina pectoris; E11.22 Type 2 diabetes mellitus with diabetic chronic kidney disease; K21.9 Gastro-esophageal reflux disease without esophagitis; M19.90 Unspecified osteoarthritis, unspecified site; E66.01 Morbid (severe) obesity due to excess calories; E11.65 Type 2 diabetes mellitus with hyperglycemia; G47.33 Obstructive sleep apnea (adult) (pediatric); E78.2 Mixed hyperlipidemia; I27.20 Pulmonary hypertension, unspecified; N18.9 Chronic kidney disease, unspecified; Z87.891 Personal history of nicotine dependence; Z79.4 Long term (current) use of insulin; I25.2 Old myocardial infarction; Z90.49 Acquired absence of other specified parts of digestive tract; Z90.89 Acquired absence of other organs; Z91.040 Latex allergy status; Z88.0 Allergy status to penicillin; Z91.018 Allergy to other foods; Z79.82 Long term (current) use of aspirin; Z79.52 Long term (current) use of systemic steroids; Z95.5 Presence of coronary angioplasty implant and graft
CPT/HCPCS: 36415; 71045; 80048; 80061; 80076; 82150; 82947; 82962; 83690; 83735; 83880; 84484; 85025; 85379; 85610; 87641; 93005; 93306; 93970; 94640; 94760; G0378; A9270-GY; J1644; J1815; J1940; J2270; J2920; J3475; J7050

== ENCOUNTER 2021-03-28 18:59 | Emergency (ER) | payer MEDICARE ==
[2021-03-28 22:56] LABS: Basophils # (Auto) 0.1 K/mm3 (0.0-0.1); Basophils % (Auto) 0.5 % (0.0-1.8); Eosinophils # (Auto) 0.3 K/mm3 (0.0-0.4); Eosinophils % (Auto) 2.5 % (0.0-4.3); Hematocrit 33.9 % (30.3-42.9); Hemoglobin 11.4 gm/dl (10.1-14.3); Lymphocytes # (Auto) 3.7 K/mm3 (1.2-5.4); Lymphocytes % (Auto) 33.3 % (13.4-35.0); Mean Corpuscular HGB Conc 34 % (30-34); Mean Corpuscular Volume 86 fl (79-97); Monocytes % (Auto) 9.1 % (0.0-7.3); Platelet Count 295 K/mm3 (140-440); Red Blood Count 3.95 M/mm3 (3.65-5.03); Red Cell Distribution Width 14.1 % (13.2-15.2)
[2021-03-28 23:19] LABS: Alanine Aminotransferase 31 units/L (7-56); Albumin 4.2 g/dL (3.9-5); BUN/Creatinine Ratio 17; Blood Urea Nitrogen 15 mg/dL (7-17); Calcium 9.3 mg/dL (8.4-10.2); Hemolysis Index 1
[2021-03-29 01:52] LABS: Bilirubin,Urine NEG (Negative); Blood,Urine NEG (Negative); Color,Urine Yellow (Yellow); Mucus,Urine FEW /HPF; Protein,Urine <15 mg/dL mg/dL (Negative); Urobilinogen,Urine < 2.0 mg/dL (<2.0)
[2021-03-29 06:49] VITALS: BP 134/64
--- NOTE | 2021-03-29 10:38 | Emergency Department Report ---
ED General Adult HPI - General Chief complaint: Abdominal Pain Stated complaint: PAIN IN THE SIDE PUI?: No Source: EMS Mode of arrival: Ambulatory Limitations: No Limitations, Physical Limitation - History of Present Illness Initial comments: Ms. Castaneda is a pleasant 60-year-old female that comes to the emergency room with right flank pain. She has a history of chronic kidney disease stage IV and was concerned that something was wrong with her kidney. Prior to coming to the ER she took 2 Tylenol and the pain has now gone away. She denies any fever or chills. She denies any dysuria, Oz or hematuria. She denies any nausea vomiting or diaphoresis. She denies any chest pain or shortness of breath. She denies any exposure to Covid. -: Gradual, days(s) Quality: aching Consistency: intermittent Worsens with: movement Associated Symptoms: denies other symptoms - Related Data Home Medications Medication Instructions Recorded Confirmed Last Taken Albuterol Sulfate [Proventil HFA] 1 - 2 puff IH QID PRN 08/01/13 07/07/20 2 Days Ago ~05/17/20 Nitroglycerin 0.4 mg PO PRN 03/11/19 07/07/20 2 Days Ago ~05/17/20 Diclofenac 1% [Diclofenac 1% 2 gm TRANSDERMA PRN PRN 05/18/20 07/07/20 2 Days Ago topical gel] ~05/17/20 Previous Rx's Medication Instructions Recorded Last Taken Type Aspirin [Adult Aspirin] 81 mg PO DAILY #30 tablet. 07/10/20 Unknown Rx AtorvaSTATin [Lipitor] 40 mg PO QHS #30 tablet 07/10/20 Unknown Rx Blood Sugar Diagnostic [Test 1 each MC TID #90 strip 07/10/20 Unknown Rx Strips] Bumetanide [Bumex 1 mg tab] 1 mg PO 0600,1800 tablet 07/10/20 Unknown Rx Bumetanide [Bumex 1 mg tab] 1 mg PO BID #60 tab 07/10/20 Unknown Rx Fluticasone [Flonase] 2 spray NS BID #1 bottle 07/10/20 Unknown Rx Insulin Glargine [Lantus VIAL] 20 units SUB-Q DAILY units 07/10/20 Unknown Rx Ipratropium/Albuterol Sulfate 1 ampul IH Q6HR #90 ampul.neb 07/10/20 Unknown Rx [DUONEB *Not for PRN Use*] Metformin HCl [metFORMIN] 1,000 mg PO BID #60 07/10/20 Unknown Rx Metoprolol Xl [Metoprolol 25 mg PO DAILY #30 tablet 07/10/20 Unknown Rx SUCCINATE ER TAB] Prednisone [predniSONE 10 mg 10 mg PO .TAPER #1 tab.ds.pk 07/10/20 Unknown Rx (6-Day Pack, 21 Tabs)] Symbicort 160-4.5 Mcg Inhaler 1 - 2 puff INHALATION BID 30 Days 07/10/20 Unknown Rx hydrALAZINE [Apresoline TAB] 25 mg PO Q8HR PRN #90 07/10/20 Unknown Rx metFORMIN [Glucophage] 1,000 mg PO BIDDIAB tablet 07/10/20 Unknown Rx traMADoL [Ultram] 50 mg PO Q8H PRN #10 tablet 03/29/21 Unknown Rx Allergies Allergy/AdvReac Type Severity Reaction Status Date / Time Penicillins Allergy Mild Rash Verified 09/18/18 13:37 latex Allergy Unknown Unknown Verified 01/24/18 09:36 green tomato Allergy Rash Uncoded 01/24/18 09:36 ED Review of Systems ROS: Stated complaint: PAIN IN THE SIDE Other details as noted in HPI Comment: All other systems reviewed and negative ED Past Medical Hx - Past Medical History Previous Medical History?: Yes Hx Hypertension: Yes Hx CVA: Yes (x4,left-sided weakness) Hx Heart Attack/AMI: Yes Hx Congestive Heart Failure: Yes Hx Diabetes: Yes Hx Deep Vein Thrombosis: No Hx GERD: Yes Hx Arthritis: Yes Hx Kidney Stones: No Hx Asthma: Yes Hx COPD: Yes Hx Tuberculosis: No Hx HIV: No Additional medical history: high cholesterol - Surgical History Past Surgical History?: Yes Hx Coronary Stent: Yes Hx Pacemaker: No Hx Internal Defibrillator: No Hx Cholecystectomy: Yes Additional Surgical History: tonsillectomy, x2, right ankle. Loop recorder - Family History Family history: no significant - Social History Smoking Status: Former Smoker Substance Use Type: None - Medications Home Medications: Home Medications Medication Instructions Recorded Confirmed Last Taken Type Albuterol Sulfate [Proventil HFA] 1 - 2 puff IH QID PRN 08/01/13 07/07/20 2 Days Ago History ~05/17/20 Nitroglycerin 0.4 mg PO PRN 03/11/19 07/07/20 2 Days Ago History ~05/17/20 Diclofenac 1% [Diclofenac 1% 2 gm TRANSDERMA PRN PRN 05/18/20 07/07/20 2 Days Ago History topical gel] ~05/17/20 Aspirin [Adult Aspirin] 81 mg PO DAILY #30 tablet. 07/10/20 Unknown Rx AtorvaSTATin [Lipitor] 40 mg PO QHS #30 tablet 07/10/20 Unknown Rx Blood Sugar Diagnostic [Test 1 each MC TID #90 strip 07/10/20 Unknown Rx Strips] Bumetanide [Bumex 1 mg tab] 1 mg PO 0600,1800 tablet 07/10/20 Unknown Rx Bumetanide [Bumex 1 mg tab] 1 mg PO BID #60 tab 07/10/20 Unknown Rx Fluticasone [Flonase] 2 spray NS BID #1 bottle 07/10/20 Unknown Rx Insulin Glargine [Lantus VIAL] 20 units SUB-Q DAILY units 07/10/20 Unknown Rx Ipratropium/Albuterol Sulfate 1 ampul IH Q6HR #90 ampul.neb 07/10/20 Unknown Rx [DUONEB *Not for PRN Use*] Metformin HCl [metFORMIN] 1,000 mg PO BID #60 07/10/20 Unknown Rx Metoprolol Xl [Metoprolol 25 mg PO DAILY #30 tablet 07/10/20 Unknown Rx SUCCINATE ER TAB] Prednisone [predniSONE 10 mg 10 mg PO .TAPER #1 tab.ds.pk 07/10/20 Unknown Rx (6-Day Pack, 21 Tabs)] Symbicort 160-4.5 Mcg Inhaler 1 - 2 puff INHALATION BID 30 Days 07/10/20 Unknown Rx hydrALAZINE [Apresoline TAB] 25 mg PO Q8HR PRN #90 07/10/20 Unknown Rx metFORMIN [Glucophage] 1,000 mg PO BIDDIAB tablet 07/10/20 Unknown Rx traMADoL [Ultram] 50 mg PO Q8H PRN #10 tablet 03/29/21 Unknown Rx ED Physical Exam - General Limitations: No Limitations, Physical Limitation General appearance: alert, in no apparent distress - Head Head exam: Present: atraumatic, normocephalic - Eye Eye exam: Present: normal appearance - ENT ENT exam: Present: mucous membranes moist - Neck Neck exam: Present: normal inspection - Respiratory Respiratory exam: Present: normal lung sounds bilaterally. Absent: respiratory distress - Cardiovascular Cardiovascular Exam: Present: regular rate, normal rhythm. Absent: systolic murmur, diastolic murmur, rubs, gallop - GI/Abdominal GI/Abdominal exam: Present: soft, normal bowel sounds - Extremities Exam Extremities exam: Present: normal inspection - Back Exam Back exam: Present: normal inspection - Neurological Exam Neurological exam: Present: alert, oriented X3 - Psychiatric Psychiatric exam: Present: normal affect, normal mood - Skin Skin exam: Present: warm, dry, intact, normal color. Absent: rash ED Course Vital Signs 03/28/21 03/29/21 03/29/21 21:55 00:00 06:48 Temperature 99.0 F 98.0 F Pulse Rate 68 62 64 Respiratory 18 17 16 Rate Blood Pressure 140/69 Blood Pressure 151/71 134/64 [Right] O2 Sat by Pulse 98 100 100 Oximetry ED Medical Decision Making - Lab Data Result diagrams: 03/28/21 22:30 03/28/21 22:30 - Radiology Data Radiology results: report reviewed, image reviewed See report - Medical Decision Making Labs 03/28/21 03/28/21 03/29/21 22:30 22:30 00:05 WBC 11.2 H RBC 3.95 Hgb 11.4 Hct 33.9 MCV 86 MCH 29 MCHC 34 RDW 14.1 Plt Count 295 Lymph % (Auto) 33.3 [place] % (Auto) 9.1 H Eos % (Auto) 2.5 Baso % (Auto) 0.5 Lymph # (Auto) 3.7 [place] # (Auto) 1.0 H Eos # (Auto) 0.3 Baso # (Auto) 0.1 Seg Neutrophils % 54.6 Seg Neutrophils # 6.1 Sodium 138 Potassium 3.9 Chloride 97.5 L Carbon Dioxide 28 Anion Gap 16 BUN 15 Creatinine 0.9 Estimated GFR > 60 BUN/Creatinine Ratio 17 Glucose 79 POC Glucose 61 L Calcium 9.3 Total Bilirubin 0.20 AST 19 ALT 31 Alkaline Phosphatase 64 Total Protein 6.8 Albumin 4.2 Albumin/Globulin Ratio 1.6 Lipase 37 Urine Color Urine Turbidity Urine pH Ur Specific [place] Urine Protein Urine Glucose (UA) Urine Ketones Urine Blood Urine Nitrite Urine Bilirubin Urine Urobilinogen Ur Leukocyte Esterase Urine WBC (Auto) Urine RBC (Auto) U Epithel Cells (Auto) Urine Mucus Urine Yeast (Budding) 03/29/21 03/29/21 03/29/21 01:05 03:39 Unknown WBC RBC Hgb Hct MCV MCH MCHC RDW Plt Count Lymph % (Auto) [place] % (Auto) Eos % (Auto) Baso % (Auto) Lymph # (Auto) [place] # (Auto) Eos # (Auto) Baso # (Auto) Seg Neutrophils % Seg Neutrophils # Sodium Potassium Chloride Carbon Dioxide Anion Gap BUN Creatinine Estimated GFR BUN/Creatinine Ratio Glucose POC Glucose 97 107 H Calcium Total Bilirubin AST ALT Alkaline Phosphatase Total Protein Albumin Albumin/Globulin Ratio Lipase Urine Color Yellow Urine Turbidity Slightly-cloudy Urine pH 6.0 Ur Specific [place] 1.011 Urine Protein <15 mg/dl Urine Glucose (UA) Neg Urine Ketones Neg Urine Blood Neg Urine Nitrite Neg Urine Bilirubin Neg Urine Urobilinogen < 2.0 Ur Leukocyte Esterase Neg Urine WBC (Auto) 1.0 Urine RBC (Auto) 2.0 U Epithel Cells (Auto) 11.0 Urine Mucus Few Urine Yeast (Budding) 1+ Vital Signs 03/28/21 03/29/21 03/29/21 21:55 00:00 06:48 Temperature 99.0 F 98.0 F Pulse Rate 68 62 64 Respiratory 18 17 16 Rate Blood Pressure 140/69 Blood Pressure 151/71 134/64 [Right] O2 Sat by Pulse 98 100 100 Oximetry LABS NOTED UA NOTED XRAY NOTED ULTRAM WITH PAIN RELIEF AMBULATORY TAKING PO Patient being discharged home with discharge plan of care. She will follow-up with primary care as needed. - Differential Diagnosis Rule out kidney stone, cholecystitis, rule out pulmonary consolidation of t Critical care attestation.: If time is entered above; I have spent that time in minutes in the direct care of this critically ill patient, excluding procedure time. ED Disposition Clinical Impression: Musculoskeletal pain Disposition: DC-01 TO HOME OR SELFCARE Is pt being admited?: No Does the pt Need Aspirin: No Condition: Stable Instructions: Musculoskeletal Pain, Abdominal Pain (ED) Additional Instructions: CONTINUE HOME MEDS OVER THE COUNTER MEDS FOR MILD PAIN MEDICATION I GAVE TO YOU TODAY CAUTION AND DO NOT TAKE WHEN DRIVING OR WHEN YOU NEED TO BE ALERT Prescriptions: traMADoL [Ultram] 50 mg PO Q8H PRN #10 tablet PRN Reason: Pain Referrals: PRIMARY CARE, [Primary Care Provider] - 3-5 Days Time of Disposition: 11:44
[2021-03-29] MEDS ORDERED: traMADol 50 MG TAB PO ONE (10:42)
--- NOTE | 2021-03-29 11:26 | XRay Report ---
CHEST 2 VIEWS INDICATION / CLINICAL INFORMATION: Right side pain. COMPARISON: 07/06/20 FINDINGS: SUPPORT DEVICES: None. HEART / MEDIASTINUM: Heart is normal and stable. Implantable cardiac loop recorder is unchanged. LUNGS / PLEURA: No significant pulmonary or pleural abnormality. No pneumothorax. ADDITIONAL FINDINGS: No significant additional findings. IMPRESSION: 1. No acute findings. No change. Signer Name: Aruna Tucker MD Signed: 03/29/2021 11:21 AM Workstation Name: [email or web address]
== END 2021-03-29 12:05 | disposition home or self-care (01) ==
LOC: ED 18:59
DX: M79.10 Myalgia, unspecified site (principal); I11.0 Hypertensive heart disease with heart failure; I50.9 Heart failure, unspecified; Z86.73 Personal history of transient ischemic attack (TIA), and cerebral infarction without residual deficits; K21.9 Gastro-esophageal reflux disease without esophagitis; J45.909 Unspecified asthma, uncomplicated; G40.909 Epilepsy, unspecified, not intractable, without status epilepticus; J44.9 Chronic obstructive pulmonary disease, unspecified; Z87.891 Personal history of nicotine dependence; Z90.49 Acquired absence of other specified parts of digestive tract; Z79.82 Long term (current) use of aspirin; Z79.899 Other long term (current) drug therapy
CPT/HCPCS: 36415; 71046; 80053; 81001; 82962; 83690; 85025

== ENCOUNTER 2022-02-18 20:36 | Emergency (ER) | payer MEDICARE ==
[2022-02-18] MEDS ORDERED: FUROSEMIDE 40 MG/4 ML INJ IV ONE (21:17)
[2022-02-18] MEDS ORDERED: methylPREDNISolone Sod Succinate 125 MG/2 ML INJ IV ONE (21:17)
[2022-02-18] MEDS ORDERED: ALBUTEROL 2.5 MG/3 ML NEBU IH ONE (21:17)
[2022-02-18] MEDS ORDERED: IPRATROPIUM 0.02% NEBU 2.5 ML IH ONE (21:17)
[2022-02-18] MEDS ORDERED: ONDANSETRON 4 MG/2 ML INJ IV ONE (21:19)
[2022-02-18] MEDS ORDERED: MORPHINE 4 MG/1 ML INJ IV ONE (21:19)
--- NOTE | 2022-02-18 21:41 | XRay Report ---
CHEST 1 VIEW 02/18/2022 9:21 PM INDICATION / CLINICAL INFORMATION: Dyspnea. COMPARISON: 03/29/2021 FINDINGS: SUPPORT DEVICES: Cardiac loop recorder again noted. HEART / MEDIASTINUM: Stable cardiomegaly LUNGS / PLEURA: No significant pulmonary or pleural abnormality. No pneumothorax. ADDITIONAL FINDINGS: No significant additional findings. IMPRESSION: 1. Stable cardiomegaly without CHF Signer Name: Eleuterio Mix MD Signed: 02/18/2022 9:36 PM Workstation Name: [id number]
[2022-02-18] MEDS ORDERED: dexAMETHasone 4 MG/ML VIAL IM ONE (21:51)
[2022-02-18] MEDS ORDERED: MORPHINE 4 MG/1 ML INJ IM ONE (21:52)
[2022-02-18 22:03] LABS: Hematocrit 36.7 % (30.3-42.9); Mean Corpuscular HGB Conc 33 % (30-34); Mean Corpuscular Volume 86 fl (79-97); Platelet Count 346 K/mm3 (140-440); Red Blood Count 4.26 M/mm3 (3.65-5.03); Red Cell Distribution Width 14.4 % (13.2-15.2)
[2022-02-18 22:15] LABS: INR 0.86 (0.87-1.13)
[2022-02-18 22:22] LABS: Creatine Kinase MB 3.9 ng/mL (0.0-4.0)
[2022-02-18 22:24] LABS: Alanine Aminotransferase 32 units/L (7-56); Albumin 4.6 g/dL (3.9-5); BUN/Creatinine Ratio 18; Blood Urea Nitrogen 27 mg/dL (7-17); Calcium 10.5 mg/dL (8.4-10.2); Hemolysis Index 99
[2022-02-18 22:42] LABS: Bacteria,Urine 1+ /HPF (Negative); Bilirubin,Urine NEG (Negative); Blood,Urine NEG (Negative); Color,Urine Straw (Yellow); Protein,Urine <15 mg/dL mg/dL (Negative); Urobilinogen,Urine < 2.0 mg/dL (<2.0); WBC,Urine < 1.0 /HPF (0.0-6.0)
[2022-02-18 22:47] LABS: Amphetamine Screen,Urine PRESUMPTIVE NEGATIVE; Benzodiazepines Screen,Urine PRESUMPTIVE NEGATIVE; Cannabinoid Screen,Urine PRESUMPTIVE NEGATIVE; Cocaine Screen,Urine PRESUMPTIVE NEGATIVE; Methadone Screen,Urine PRESUMPTIVE NEGATIVE; Opiate Screen,Urine PRESUMPTIVE NEGATIVE
[2022-02-18 23:15] VITALS: BP 128/86
[2022-02-18] MEDS ORDERED: LIDOCAINE-MPF (1%) 10 MG/1 ML VIAL 5 ML INFILTRATI ONE (23:16)
[2022-02-18 23:20] LABS: Band Neutrophils # (Manual) 0.2 K/mm3; Basophils % (Manual) 0 % (0.0-1.8); Total Cells Counted 100
--- NOTE | 2022-02-18 23:20 | Emergency Department Report ---
ED Shortness of Breath HPI - General Chief Complaint: Dyspnea/Respdistress Stated Complaint: BACK PAIN/SOB Time Seen by Provider: 02/18/22 21:15 Source: patient Mode of arrival: Wheelchair Limitations: No Limitations - History of Present Illness Initial Comments: C/O OF SOB X 3 DAYS, STATES HURTS WHEN SHE BREATHES. CONTINOUS O2 USE AT home history of CHF and copd back pain history of back pain using tramadol for leticia last3 months Complaint: shortness of breath -: Gradual, days(s) Improves With: oxygen Worsens With: lying flat, exertion Known History Of: COPD, congestive heart failure, diabetes Treatments Prior to Arrival: oxygen - Related Data Home Medications Medication Instructions Recorded Confirmed Last Taken Albuterol Sulfate [Proventil HFA] 1 - 2 puff IH QID PRN 08/01/13 07/07/20 2 Days Ago ~05/17/20 Nitroglycerin 0.4 mg PO PRN 03/11/19 07/07/20 2 Days Ago ~05/17/20 Diclofenac 1% [Diclofenac 1% 2 gm TRANSDERMA PRN PRN 05/18/20 07/07/20 2 Days Ago topical gel] ~05/17/20 Previous Rx's Medication Instructions Recorded Last Taken Type Aspirin [Adult Aspirin] 81 mg PO DAILY #30 tablet. 07/10/20 Unknown Rx AtorvaSTATin [Lipitor] 40 mg PO QHS #30 tablet 07/10/20 Unknown Rx Blood Sugar Diagnostic [Test 1 each MC TID #90 strip 07/10/20 Unknown Rx Strips] Bumetanide [Bumex 1 mg tab] 1 mg PO 0600,1800 tablet 07/10/20 Unknown Rx Bumetanide [Bumex 1 mg tab] 1 mg PO BID #60 tab 07/10/20 Unknown Rx Fluticasone [Flonase] 2 spray NS BID #1 bottle 07/10/20 Unknown Rx Insulin Glargine [Lantus VIAL] 20 units SUB-Q DAILY units 07/10/20 Unknown Rx Ipratropium/Albuterol Sulfate 1 ampul IH Q6HR #90 ampul.neb 07/10/20 Unknown Rx [DUONEB *Not for PRN Use*] Metformin HCl [metFORMIN] 1,000 mg PO BID #60 07/10/20 Unknown Rx Metoprolol Xl [Metoprolol 25 mg PO DAILY #30 tablet 07/10/20 Unknown Rx SUCCINATE ER TAB] Prednisone [predniSONE 10 mg 10 mg PO .TAPER #1 tab.ds.pk 07/10/20 Unknown Rx (6-Day Pack, 21 Tabs)] Symbicort 160-4.5 Mcg Inhaler 1 - 2 puff INHALATION BID 30 Days 07/10/20 Unknown Rx hydrALAZINE [Apresoline TAB] 25 mg PO Q8HR PRN #90 07/10/20 Unknown Rx metFORMIN [Glucophage] 1,000 mg PO BIDDIAB tablet 07/10/20 Unknown Rx traMADoL [Ultram] 50 mg PO Q8H PRN #10 tablet 03/29/21 Unknown Rx Allergies Allergy/AdvReac Type Severity Reaction Status Date / Time Penicillins Allergy Mild Rash Verified 09/18/18 13:37 latex Allergy Unknown Unknown Verified 01/24/18 09:36 green tomato Allergy Rash Uncoded 01/24/18 09:36 ED Review of Systems ROS: Stated complaint: BACK PAIN/SOB Other details as noted in HPI Constitutional: denies: chills, fever Eyes: denies: eye pain, eye discharge, vision change ENT: denies: ear pain, throat pain Respiratory: denies: cough, shortness of breath, wheezing Cardiovascular: denies: chest pain, palpitations Endocrine: no symptoms reported Gastrointestinal: denies: abdominal pain, nausea, diarrhea Genitourinary: denies: urgency, dysuria, discharge Musculoskeletal: denies: back pain, joint swelling, arthralgia Skin: denies: rash, lesions Neurological: denies: headache, weakness, paresthesias Psychiatric: denies: anxiety, depression Hematological/Lymphatic: denies: easy bleeding, easy bruising ED Past Medical Hx - Past Medical History Hx Hypertension: Yes Hx CVA: Yes (x4,left-sided weakness) Hx Heart Attack/AMI: Yes Hx Congestive Heart Failure: Yes Hx Diabetes: Yes Hx Deep Vein Thrombosis: No Hx GERD: Yes Hx Arthritis: Yes Hx Kidney Stones: No Hx Asthma: Yes Hx COPD: Yes Hx Tuberculosis: No Hx HIV: No Additional medical history: high cholesterol - Surgical History Hx Coronary Stent: Yes Hx Pacemaker: No Hx Internal Defibrillator: No Hx Cholecystectomy: Yes Additional Surgical History: tonsillectomy, x2, right ankle. Loop recorder - Social History Smoking Status: Former Smoker Substance Use Type: None - Medications Home Medications: Home Medications Medication Instructions Recorded Confirmed Last Taken Type Albuterol Sulfate [Proventil HFA] 1 - 2 puff IH QID PRN 08/01/13 07/07/20 2 Days Ago History ~05/17/20 Nitroglycerin 0.4 mg PO PRN 03/11/19 07/07/20 2 Days Ago History ~05/17/20 Diclofenac 1% [Diclofenac 1% 2 gm TRANSDERMA PRN PRN 05/18/20 07/07/20 2 Days Ago History topical gel] ~05/17/20 Aspirin [Adult Aspirin] 81 mg PO DAILY #30 tablet.dr 07/10/20 Unknown Rx AtorvaSTATin [Lipitor] 40 mg PO QHS #30 tablet 07/10/20 Unknown Rx Blood Sugar Diagnostic [Test 1 each MC TID #90 strip 07/10/20 Unknown Rx Strips] Bumetanide [Bumex 1 mg tab] 1 mg PO 0600,1800 tablet 07/10/20 Unknown Rx Bumetanide [Bumex 1 mg tab] 1 mg PO BID #60 tab 07/10/20 Unknown Rx Fluticasone [Flonase] 2 spray NS BID #1 bottle 07/10/20 Unknown Rx Insulin Glargine [Lantus VIAL] 20 units SUB-Q DAILY units 07/10/20 Unknown Rx Ipratropium/Albuterol Sulfate 1 ampul IH Q6HR #90 ampul.neb 07/10/20 Unknown Rx [DUONEB *Not for PRN Use*] Metformin HCl [metFORMIN] 1,000 mg PO BID #60 07/10/20 Unknown Rx Metoprolol Xl [Metoprolol 25 mg PO DAILY #30 tablet 07/10/20 Unknown Rx SUCCINATE ER TAB] Prednisone [predniSONE 10 mg 10 mg PO .TAPER #1 tab.ds.pk 07/10/20 Unknown Rx (6-Day Pack, 21 Tabs)] Symbicort 160-4.5 Mcg Inhaler 1 - 2 puff INHALATION BID 30 Days 07/10/20 Unknown Rx hydrALAZINE [Apresoline TAB] 25 mg PO Q8HR PRN #90 07/10/20 Unknown Rx metFORMIN [Glucophage] 1,000 mg PO BIDDIAB tablet 07/10/20 Unknown Rx traMADoL [Ultram] 50 mg PO Q8H PRN #10 tablet 03/29/21 Unknown Rx ED Physical Exam - General Limitations: No Limitations General appearance: alert, obese - Head Head exam: Present: atraumatic, normocephalic - Eye Eye exam: Present: normal appearance - ENT ENT exam: Present: mucous membranes moist - Neck Neck exam: Present: normal inspection - Respiratory Respiratory exam: Present: normal lung sounds bilaterally. Absent: respiratory distress - Cardiovascular Cardiovascular Exam: Present: regular rate, normal rhythm. Absent: systolic murmur, diastolic murmur, rubs, gallop - GI/Abdominal GI/Abdominal exam: Present: soft, normal bowel sounds - Extremities Exam Extremities exam: Present: normal inspection - Back Exam Back exam: Present: normal inspection - Neurological Exam Neurological exam: Present: alert, oriented X3 - Psychiatric Psychiatric exam: Present: normal affect, normal mood - Skin Skin exam: Present: warm, dry, intact, normal color. Absent: rash ED Course Vital Signs 02/18/22 02/18/22 02/18/22 21:39 22:36 22:45 Pulse Rate 92 H 81 Respiratory 14 20 Rate Blood Pressure 127/62 O2 Sat by Pulse 100 99 Oximetry 02/18/22 23:01 Pulse Rate 95 H Respiratory 12 Rate Blood Pressure 128/86 O2 Sat by Pulse 99 Oximetry ED Medical Decision Making - Lab Data Result diagrams: 02/18/22 21:48 02/18/22 21:48 - EKG Data -: EKG Interpreted by Me EKG shows normal: sinus rhythm Rate: normal - EKG Data When compared to previous EKG there are: no significant change Interpretation: nonspecific ST-T wave michael - Radiology Data Radiology results: report reviewed, image reviewed - Medical Decision Making work up shwoed elevated wbc , some renal imapriment , and hypocholremia , x ray shwoed cardiomegaly without chf, lactic acid elevated , UA is clear no evidence of infection , abx given rt , steriods given pt has vss , pain meds given , o2 sat 99 on 2 litres she is on at home Critical care attestation.: If time is entered above; I have spent that time in minutes in the direct care of this critically ill patient, excluding procedure time. ED Disposition Clinical Impression: COPD exacerbation, Obesity, SOB (shortness of breath), Back pain, CHF (congestive heart failure) Disposition: HOME / SELF CARE / HOMELESS Is pt being admited?: No Does the pt Need Aspirin: No Condition: Stable Instructions: Chronic Bronchitis (ED), Shortness of Breath, Adult, Easy-to-Anju d, Heart Failure, Self Care, [id number], Chronic Obstructive Pulmonary Disease, [id number] Referrals: Aruna CASTRO [Other] - 3-5 Days
[2022-02-18 23:21] LABS: Platelet Estimate Consistent w Auto; RBC Morphology Normal
== END 2022-02-18 23:48 | disposition home or self-care (01) ==
LOC: ED 20:36
DX: J44.9 Chronic obstructive pulmonary disease, unspecified (principal); R06.02 Shortness of breath; M54.9 Dorsalgia, unspecified; I11.0 Hypertensive heart disease with heart failure; I50.9 Heart failure, unspecified; E11.9 Type 2 diabetes mellitus without complications; K21.9 Gastro-esophageal reflux disease without esophagitis; M19.90 Unspecified osteoarthritis, unspecified site; J45.909 Unspecified asthma, uncomplicated; Z90.49 Acquired absence of other specified parts of digestive tract; Z87.891 Personal history of nicotine dependence; Z88.0 Allergy status to penicillin; Z91.02 Food additives allergy status; Z91.040 Latex allergy status; Z79.899 Other long term (current) drug therapy
CPT/HCPCS: 36415; 71045; 80053; 80307; 81001; 82140; 82550; 82553; 83690; 83735; 84484; 85007; 85025; 85610; 93005; 94640; 96372; 99284; J0696; J1100; J2270; J3490

== ENCOUNTER 2022-03-04 14:08 | Emergency (ER) | payer MEDICARE ==
--- NOTE | 2022-03-04 17:36 | Emergency Department Report ---
ED General Adult HPI - General Chief complaint: Pain General Stated complaint: mouth pain, facial pain Time Seen by Provider: 03/04/22 17:33 Source: patient, RN notes reviewed Mode of arrival: Ambulatory Limitations: No Limitations - History of Present Illness Initial comments: This is a pleasant 61-year-old female. She presents to the ER today with a complaint of tongue pain, mouth pain, facial pain and facial swelling. She has taken some oxycodone acetaminophen at home, but has not taking additional pain medication. She states that she is supposed to be on a BiPAP/CPAP at night for sleep apnea, but she does not use it. She denies additional injury/acute complaints. Recently admitted to this hospital, had MRI of the brain which was negative, and echocardiogram which demonstrated EF of 55%. On review of systems, endorses that she has chronic lower extremity swelling, but indicates that this is not why she is here today. -: days(s) Location: mouth Consistency: constant Improves with: none Worsens with: none - Related Data Home Medications Medication Instructions Recorded Confirmed Last Taken Albuterol Sulfate [Proventil HFA] 1 - 2 puff IH QID PRN 08/01/13 07/07/20 2 Days Ago ~05/17/20 Nitroglycerin 0.4 mg PO PRN 03/11/19 07/07/20 2 Days Ago ~05/17/20 Diclofenac 1% [Diclofenac 1% 2 gm TRANSDERMA PRN PRN 05/18/20 07/07/20 2 Days Ago topical gel] ~05/17/20 Previous Rx's Medication Instructions Recorded Last Taken Type AtorvaSTATin [Lipitor] 40 mg PO QHS #30 tablet 07/10/20 Unknown Rx Blood Sugar Diagnostic [Test 1 each MC TID #90 strip 07/10/20 Unknown Rx Strips] Bumetanide [Bumex 1 mg tab] 1 mg PO 0600,1800 tablet 07/10/20 Unknown Rx Bumetanide [Bumex 1 mg tab] 1 mg PO BID #60 tab 07/10/20 Unknown Rx Fluticasone [Flonase] 2 spray NS BID #1 bottle 07/10/20 Unknown Rx Ipratropium/Albuterol Sulfate 1 ampul IH Q6HR #90 ampul.neb 07/10/20 Unknown Rx [DUONEB *Not for PRN Use*] Metformin HCl [metFORMIN] 1,000 mg PO BID #60 07/10/20 Unknown Rx Symbicort 160-4.5 Mcg Inhaler 1 - 2 puff INHALATION BID 30 Days 07/10/20 Unknown Rx metFORMIN [Glucophage] 1,000 mg PO BIDDIAB tablet 07/10/20 Unknown Rx traMADoL [Ultram 50 MG tab] 50 mg PO Q8H PRN #10 tablet 03/29/21 Unknown Rx Aspirin 325 mg PO QDAY 30 Days #30 tablet 02/27/22 Unknown Rx AtorvaSTATin [Lipitor] 40 mg PO QHS 30 Days #30 tablet 02/27/22 Unknown Rx Metoprolol Xl [Metoprolol 25 mg PO DAILY #30 tablet 02/27/22 Unknown Rx SUCCINATE ER TAB] hydrALAZINE [Apresoline TAB] 25 mg PO Q8HR 30 Days #90 tab 02/27/22 Unknown Rx levoFLOXacin [Levaquin TAB] 750 mg PO Q48H #4 tablet 02/27/22 Unknown Rx oxyCODONE /ACETAMINOPHEN [Percocet 1 tab PO Q4HR PRN 3 Days #18 tab 02/27/22 Unknown Rx 5/325] Acetaminophen [Non-Aspirin Extra 500 mg PO Q6HR PRN #30 tablet 03/04/22 Unknown Rx Strength] Chlorhexidine Mouthwash [Peridex] 15 ml MM BID #1 bottle 03/04/22 Unknown Rx Allergies Allergy/AdvReac Type Severity Reaction Status Date / Time Penicillins Allergy Mild Rash Verified 09/18/18 13:37 latex Allergy Unknown Unknown Verified 01/24/18 09:36 green tomato Allergy Rash Uncoded 01/24/18 09:36 ED Review of Systems ROS: Stated complaint: BODY PAIN/LIGHTHEADED Other details as noted in HPI Constitutional: denies: fever Eyes: denies: eye discharge ENT: as per HPI, other (Mouth pain, tongue pain, oral burn). denies: dental pain Respiratory: shortness of breath (Chronic shortness of breath) Cardiovascular: other (Chronic orthopnea) Gastrointestinal: denies: abdominal pain Musculoskeletal: myalgia ED Past Medical Hx - Past Medical History Hx Hypertension: Yes Hx CVA: Yes (x4,left-sided weakness) Hx Heart Attack/AMI: Yes Hx Congestive Heart Failure: Yes Hx Diabetes: Yes Hx Deep Vein Thrombosis: No Hx GERD: Yes Hx Arthritis: Yes Hx Kidney Stones: No Hx Asthma: Yes Hx COPD: Yes Hx Tuberculosis: No Hx HIV: No Additional medical history: high cholesterol - Surgical History Hx Coronary Stent: Yes Hx Pacemaker: No Hx Internal Defibrillator: No Hx Cholecystectomy: Yes Additional Surgical History: tonsillectomy, x2, right ankle. Loop recorder - Social History Smoking Status: Former Smoker - Medications Home Medications: Home Medications Medication Instructions Recorded Confirmed Last Taken Type Albuterol Sulfate [Proventil HFA] 1 - 2 puff IH QID PRN 08/01/13 07/07/20 2 Days Ago History ~05/17/20 Nitroglycerin 0.4 mg PO PRN 03/11/19 07/07/20 2 Days Ago History ~05/17/20 Diclofenac 1% [Diclofenac 1% 2 gm TRANSDERMA PRN PRN 05/18/20 07/07/20 2 Days Ago History topical gel] ~05/17/20 AtorvaSTATin [Lipitor] 40 mg PO QHS #30 tablet 07/10/20 Unknown Rx Blood Sugar Diagnostic [Test 1 each MC TID #90 strip 07/10/20 Unknown Rx Strips] Bumetanide [Bumex 1 mg tab] 1 mg PO 0600,1800 tablet 07/10/20 Unknown Rx Bumetanide [Bumex 1 mg tab] 1 mg PO BID #60 tab 07/10/20 Unknown Rx Fluticasone [Flonase] 2 spray NS BID #1 bottle 07/10/20 Unknown Rx Ipratropium/Albuterol Sulfate 1 ampul IH Q6HR #90 ampul.neb 07/10/20 Unknown Rx [DUONEB *Not for PRN Use*] Metformin HCl [metFORMIN] 1,000 mg PO BID #60 07/10/20 Unknown Rx Symbicort 160-4.5 Mcg Inhaler 1 - 2 puff INHALATION BID 30 Days 07/10/20 Unknown Rx metFORMIN [Glucophage] 1,000 mg PO BIDDIAB tablet 07/10/20 Unknown Rx traMADoL [Ultram 50 MG tab] 50 mg PO Q8H PRN #10 tablet 03/29/21 Unknown Rx Aspirin 325 mg PO QDAY 30 Days #30 tablet 02/27/22 Unknown Rx AtorvaSTATin [Lipitor] 40 mg PO QHS 30 Days #30 tablet 02/27/22 Unknown Rx Metoprolol Xl [Metoprolol 25 mg PO DAILY #30 tablet 02/27/22 Unknown Rx SUCCINATE ER TAB] hydrALAZINE [Apresoline TAB] 25 mg PO Q8HR 30 Days #90 tab 02/27/22 Unknown Rx levoFLOXacin [Levaquin TAB] 750 mg PO Q48H #4 tablet 02/27/22 Unknown Rx oxyCODONE /ACETAMINOPHEN [Percocet 1 tab PO Q4HR PRN 3 Days #18 tab 02/27/22 Unknown Rx 5/325] Acetaminophen [Non-Aspirin Extra 500 mg PO Q6HR PRN #30 tablet 03/04/22 Unknown Rx Strength] Chlorhexidine Mouthwash [Peridex] 15 ml MM BID #1 bottle 03/04/22 Unknown Rx ED Physical Exam - General Limitations: No Limitations General appearance: alert, in no apparent distress - Head Head exam: Present: atraumatic, normocephalic - Eye Eye exam: Present: normal appearance, EOMI. Absent: nystagmus - ENT ENT exam: Present: normal exam, normal orophraynx, mucous membranes moist, normal external ear exam, other (Patient speaking in full sentences. Patient is not stridulous. Patient is almost completely edentulous, with the exception of few mandibular teeth. There is no redness, pus or streaking. There is no abscess noted) - Neck Neck exam: Present: normal inspection, full ROM. Absent: tenderness, meningismus - Respiratory Respiratory exam: Present: normal lung sounds bilaterally. Absent: respiratory distress, wheezes, rales, rhonchi, stridor, decreased breath sounds - Cardiovascular Cardiovascular Exam: Present: regular rate, normal rhythm, normal heart sounds. Absent: bradycardia, tachycardia, irregular rhythm, systolic murmur, diastolic murmur, rubs, gallop - GI/Abdominal GI/Abdominal exam: Present: soft. Absent: distended, tenderness, guarding, rebound, rigid, pulsatile mass - Extremities Exam Extremities exam: Present: normal inspection, full ROM, pedal edema (2+ edema in the bilateral lower extremity), other (2+ pulses noted in the bilateral upper and lower extremities. There is no palpable cord. negative Homans sign. Muscular compartments are soft. The pelvis is stable.). Absent: calf tenderness - Back Exam Back exam: Present: normal inspection. Absent: tenderness, CVA tenderness (R), CVA tenderness (L), paraspinal tenderness, vertebral tenderness - Neurological Exam Neurological exam: Present: alert, oriented X3, other (No facial droop. Tongue midline. Extraocular movements intact bilaterally. Facial sensation intact to light touch in V1, V2, V3 distribution bilaterally. 5 and a 5 strength in 4 extremities. Sensation intact to light touch in 4 extremities.). Absent: motor sensory deficit - Psychiatric Psychiatric exam: Present: normal affect, normal mood - Skin Skin exam: Present: warm, dry, intact, normal color. Absent: rash ED Course Vital Signs 03/04/22 15:07 Temperature 97.4 F L Pulse Rate 109 H Respiratory 16 Rate Blood Pressure 143/62 [Left] O2 Sat by Pulse 96 Oximetry - Reevaluation(s) Reevaluation #1: 03/04/22 18:11 Heart rate currently 85 bpm ED Medical Decision Making - Lab Data Vital Signs 03/04/22 15:07 Temperature 97.4 F L Pulse Rate 109 H Respiratory 16 Rate Blood Pressure 143/62 [Left] O2 Sat by Pulse 96 Oximetry - Medical Decision Making Differential diagnosis, include but not limited to: Facial pain, oral pain, pain syndrome Assessment and plan: 61-year-old female, with resolved tachycardia, saturating 100% on chronic 2 L of oxygen, presenting to the ER with a complaint of facial pain, facial swelling, intraoral pain. Face is not specifically tender. There is no redness pus or streaking. EOMI. Tongue midline, not stridulous, edentulous, no redness, pus or streaking. Advised to take Tylenol [id number] for pain, be compliant with nocturnal CPAP/BiPAP, should follow-up with an outpatient dentist, start chlorhexidine, return precautions reviewed. Critical care attestation.: If time is entered above; I have spent that time in minutes in the direct care of this critically ill patient, excluding procedure time. ED Disposition Clinical Impression: Mouth pain, Facial pain, ALEXANDER (obstructive sleep apnea) Disposition: 01 HOME / SELF CARE / HOMELESS Is pt being admited?: No Does the pt Need Aspirin: No Condition: Good Additional Instructions: Please continue current outpatient medications. Please take the pain medication as needed and directed, and chlorhexidine as needed and directed. Follow-up with a dentist within the next month. Recommend that patient remain compliant with nocturnal BiPAP or CPAP for obstructive sleep apnea. Follow-up with your primary care doctor or a sleep specialist within the next month. Please return to the emergency room right away with new pain, worsened pain, migration of pain, projectile vomiting, change in mental status, confusion, inability tolerate liquid feeds, new, worsened or different symptoms not present on the initial emergency room evaluation Referrals: MOSES CASTRO MD [Other] - 3-5 Days [facility] [Outside] - 3-5 Days [facility] [Outside] - 3-5 Days
[2022-03-04] MEDS ORDERED: ACETAMINOPHEN 325 MG/10.15 ML ORAL LIQD UNIT DOSE PO ONE (17:55)
[2022-03-04] MEDS ORDERED: LIDOCAINE VISCOUS 2% 15 ML ORAL LIQD MM NR (18:00)
[2022-03-04 18:43] VITALS: BP 135/87
== END 2022-03-04 18:44 | disposition home or self-care (01) ==
LOC: ED 14:08
DX: G47.33 Obstructive sleep apnea (adult) (pediatric) (principal); R68.84 Jaw pain; G50.1 Atypical facial pain; I10 Essential (primary) hypertension; E11.8 Type 2 diabetes mellitus with unspecified complications; J45.909 Unspecified asthma, uncomplicated; Z88.0 Allergy status to penicillin; Z91.040 Latex allergy status; Z87.891 Personal history of nicotine dependence
CPT/HCPCS: 99282

== ENCOUNTER 2022-06-13 22:51 | Emergency (ER) | payer MEDICARE ==
[2022-06-14] MEDS ORDERED: ALBUTEROL 2.5 MG/3 ML NEBU IH ONE (09:38)
[2022-06-14] MEDS ORDERED: MORPHINE 4 MG/1 ML INJ IV ONE ×2 (09:39→11:43)
[2022-06-14] MEDS ORDERED: ONDANSETRON 4 MG/2 ML INJ IV ONE ×2 (09:39→11:42)
--- NOTE | 2022-06-14 10:38 | XRay Report ---
CHEST 1 VIEW 06/14/2022 9:11 AM INDICATION / CLINICAL INFORMATION: Chest Pain. COMPARISON: 02/25/2022 FINDINGS: SUPPORT DEVICES: A loop recorder projects over the mediastinum. HEART / MEDIASTINUM: No significant abnormality. LUNGS / PLEURA: No significant pulmonary or pleural abnormality. No pneumothorax. ADDITIONAL FINDINGS: No significant additional findings. IMPRESSION: 1. No acute findings. Signer Name: Yuan Escalante MD Signed: 06/14/2022 10:34 AM Workstation Name: [id number]
[2022-06-14 11:51] LABS: Basophils # (Auto) 0.1 K/mm3 (0.0-0.1); Basophils % (Auto) 0.6 % (0.0-1.8); Eosinophils # (Auto) 0.3 K/mm3 (0.0-0.4); Hematocrit 36.6 % (30.3-42.9); Hemoglobin 12.1 gm/dl (10.1-14.3); Lymphocytes # (Auto) 3.5 K/mm3 (1.2-5.4); Lymphocytes % (Auto) 33.3 % (13.4-35.0); Mean Corpuscular HGB Conc 33 % (30-34); Mean Corpuscular Volume 85 fl (79-97); Monocytes # (Auto) 0.9 K/mm3 (0.0-0.8); Monocytes % (Auto) 8.3 % (0.0-7.3); Platelet Count 253 K/mm3 (140-440); Red Blood Count 4.32 M/mm3 (3.65-5.03); Red Cell Distribution Width 13.8 % (13.2-15.2)
[2022-06-14 12:00] LABS: INR 0.9 (0.87-1.13)
[2022-06-14 12:16] LABS: Alanine Aminotransferase 38 units/L (7-56); Albumin 4.3 g/dL (3.9-5); BUN/Creatinine Ratio 20; Blood Urea Nitrogen 28 mg/dL (7-17); Calcium 9.5 mg/dL (8.4-10.2); Hemolysis Index 10
[2022-06-14] MEDS ORDERED: FUROSEMIDE 40 MG/4 ML INJ IV ONE (12:23)
[2022-06-14 13:19] VITALS: BP 122/61
--- NOTE | 2022-06-14 13:27 | Emergency Department Report ---
ED General Adult HPI - General Chief complaint: Chest Pain Stated complaint: CHEST PAIN Time Seen by Provider: 06/14/22 09:33 Source: patient, EMS Mode of arrival: Stretcher Limitations: No Limitations - History of Present Illness Initial comments: chest pain for 3 days , non specific , feels like it is tight many vists for the same , history of COPD and CHF -: days(s) Location: chest Radiation: non-radiation Severity scale (0 -10): 10 Quality: dull Consistency: intermittent Improves with: none Worsens with: none Associated Symptoms: chest pain. denies: headaches, loss of appetite Treatments Prior to Arrival: none - Related Data Home Medications Medication Instructions Recorded Confirmed Last Taken Albuterol Sulfate [Proventil HFA] 1 - 2 puff IH QID PRN 08/01/13 07/07/20 2 Days Ago ~05/17/20 Nitroglycerin 0.4 mg PO PRN 03/11/19 07/07/20 2 Days Ago ~05/17/20 Diclofenac 1% [Diclofenac 1% 2 gm TRANSDERMA PRN PRN 05/18/20 07/07/20 2 Days Ago topical gel] ~05/17/20 Previous Rx's Medication Instructions Recorded Last Taken Type AtorvaSTATin [Lipitor] 40 mg PO QHS #30 tablet 07/10/20 Unknown Rx Blood Sugar Diagnostic [Test 1 each MC TID #90 strip 07/10/20 Unknown Rx Strips] Bumetanide [Bumex 1 mg tab] 1 mg PO 0600,1800 tablet 07/10/20 Unknown Rx Bumetanide [Bumex 1 mg tab] 1 mg PO BID #60 tab 07/10/20 Unknown Rx Fluticasone [Flonase] 2 spray NS BID #1 bottle 07/10/20 Unknown Rx Ipratropium/Albuterol Sulfate 1 ampul IH Q6HR #90 ampul.neb 07/10/20 Unknown Rx [DUONEB *Not for PRN Use*] Metformin HCl [metFORMIN] 1,000 mg PO BID #60 07/10/20 Unknown Rx Symbicort 160-4.5 Mcg Inhaler 1 - 2 puff INHALATION BID 30 Days 07/10/20 Unknown Rx metFORMIN [Glucophage] 1,000 mg PO BIDDIAB tablet 07/10/20 Unknown Rx traMADoL [Ultram 50 MG tab] 50 mg PO Q8H PRN #10 tablet 03/29/21 Unknown Rx Aspirin 325 mg PO QDAY 30 Days #30 tablet 02/27/22 Unknown Rx AtorvaSTATin [Lipitor] 40 mg PO QHS 30 Days #30 tablet 02/27/22 Unknown Rx Metoprolol Xl [Metoprolol 25 mg PO DAILY #30 tablet 02/27/22 Unknown Rx SUCCINATE ER TAB] hydrALAZINE [Apresoline TAB] 25 mg PO Q8HR 30 Days #90 tab 02/27/22 Unknown Rx levoFLOXacin [Levaquin TAB] 750 mg PO Q48H #4 tablet 02/27/22 Unknown Rx oxyCODONE /ACETAMINOPHEN [Percocet 1 tab PO Q4HR PRN 3 Days #18 tab 02/27/22 Unknown Rx 5/325] Acetaminophen [Non-Aspirin Extra 500 mg PO Q6HR PRN #30 tablet 03/04/22 Unknown Rx Strength] Chlorhexidine Mouthwash [Peridex] 15 ml MM BID #1 bottle 03/04/22 Unknown Rx Allergies Allergy/AdvReac Type Severity Reaction Status Date / Time Penicillins Allergy Mild Rash Verified 09/18/18 13:37 latex Allergy Unknown Unknown Verified 01/24/18 09:36 green tomato Allergy Rash Uncoded 01/24/18 09:36 ED Review of Systems ROS: Stated complaint: CHEST PAIN Other details as noted in HPI Constitutional: denies: chills, fever Eyes: denies: eye pain, eye discharge, vision change ENT: denies: ear pain, throat pain Respiratory: denies: cough, shortness of breath, wheezing Cardiovascular: denies: chest pain, palpitations Endocrine: no symptoms reported Gastrointestinal: denies: abdominal pain, nausea, diarrhea Genitourinary: denies: urgency, dysuria, discharge Musculoskeletal: denies: back pain, joint swelling, arthralgia Skin: denies: rash, lesions Neurological: denies: headache, weakness, paresthesias Psychiatric: denies: anxiety, depression Hematological/Lymphatic: denies: easy bleeding, easy bruising ED Past Medical Hx - Past Medical History Hx Hypertension: Yes Hx CVA: Yes (x4,left-sided weakness) Hx Heart Attack/AMI: Yes Hx Congestive Heart Failure: Yes Hx Diabetes: Yes Hx Deep Vein Thrombosis: No Hx GERD: Yes Hx Arthritis: Yes Hx Kidney Stones: No Hx Asthma: Yes Hx COPD: Yes Hx Tuberculosis: No Hx HIV: No Additional medical history: high cholesterol - Surgical History Hx Coronary Stent: Yes Hx Pacemaker: No Hx Internal Defibrillator: No Hx Cholecystectomy: Yes Additional Surgical History: tonsillectomy, x2, right ankle. Loop recorder - Social History Smoking Status: Former Smoker - Medications Home Medications: Home Medications Medication Instructions Recorded Confirmed Last Taken Type Albuterol Sulfate [Proventil HFA] 1 - 2 puff IH QID PRN 08/01/13 07/07/20 2 Days Ago History ~05/17/20 Nitroglycerin 0.4 mg PO PRN 03/11/19 07/07/20 2 Days Ago History ~05/17/20 Diclofenac 1% [Diclofenac 1% 2 gm TRANSDERMA PRN PRN 05/18/20 07/07/20 2 Days Ago History topical gel] ~05/17/20 AtorvaSTATin [Lipitor] 40 mg PO QHS #30 tablet 07/10/20 Unknown Rx Blood Sugar Diagnostic [Test 1 each MC TID #90 strip 07/10/20 Unknown Rx Strips] Bumetanide [Bumex 1 mg tab] 1 mg PO 0600,1800 tablet 07/10/20 Unknown Rx Bumetanide [Bumex 1 mg tab] 1 mg PO BID #60 tab 07/10/20 Unknown Rx Fluticasone [Flonase] 2 spray NS BID #1 bottle 07/10/20 Unknown Rx Ipratropium/Albuterol Sulfate 1 ampul IH Q6HR #90 ampul.neb 07/10/20 Unknown Rx [DUONEB *Not for PRN Use*] Metformin HCl [metFORMIN] 1,000 mg PO BID #60 07/10/20 Unknown Rx Symbicort 160-4.5 Mcg Inhaler 1 - 2 puff INHALATION BID 30 Days 07/10/20 Unknown Rx metFORMIN [Glucophage] 1,000 mg PO BIDDIAB tablet 07/10/20 Unknown Rx traMADoL [Ultram 50 MG tab] 50 mg PO Q8H PRN #10 tablet 03/29/21 Unknown Rx Aspirin 325 mg PO QDAY 30 Days #30 tablet 02/27/22 Unknown Rx AtorvaSTATin [Lipitor] 40 mg PO QHS 30 Days #30 tablet 02/27/22 Unknown Rx Metoprolol Xl [Metoprolol 25 mg PO DAILY #30 tablet 02/27/22 Unknown Rx SUCCINATE ER TAB] hydrALAZINE [Apresoline TAB] 25 mg PO Q8HR 30 Days #90 tab 02/27/22 Unknown Rx levoFLOXacin [Levaquin TAB] 750 mg PO Q48H #4 tablet 02/27/22 Unknown Rx oxyCODONE /ACETAMINOPHEN [Percocet 1 tab PO Q4HR PRN 3 Days #18 tab 02/27/22 Unknown Rx 5/325] Acetaminophen [Non-Aspirin Extra 500 mg PO Q6HR PRN #30 tablet 03/04/22 Unknown Rx Strength] Chlorhexidine Mouthwash [Peridex] 15 ml MM BID #1 bottle 03/04/22 Unknown Rx ED Physical Exam - General Limitations: No Limitations General appearance: alert, in no apparent distress - Head Head exam: Present: atraumatic, normocephalic - Eye Eye exam: Present: normal appearance - ENT ENT exam: Present: mucous membranes moist - Neck Neck exam: Present: normal inspection - Respiratory Respiratory exam: Present: normal lung sounds bilaterally, rales. Absent: respiratory distress - Cardiovascular Cardiovascular Exam: Present: regular rate, normal rhythm. Absent: systolic murmur, diastolic murmur, rubs, gallop - GI/Abdominal GI/Abdominal exam: Present: soft, normal bowel sounds - Extremities Exam Extremities exam: Present: normal inspection - Back Exam Back exam: Present: normal inspection - Neurological Exam Neurological exam: Present: alert, oriented X3 - Psychiatric Psychiatric exam: Present: normal affect, normal mood - Skin Skin exam: Present: warm, dry, intact, normal color. Absent: rash ED Course Vital Signs 06/13/22 06/14/22 06/14/22 23:09 09:36 09:46 Temperature 98.6 F Pulse Rate 89 96 H Pulse Rate [ Anterior] Pulse Rate [ Posterior] Respiratory 16 18 Rate Respiratory Rate [Anterior] Respiratory Rate [Posterior ] Blood Pressure Blood Pressure 158/92 [Right] O2 Sat by Pulse 99 97 99 Oximetry 06/14/22 06/14/22 06/14/22 10:00 10:16 10:23 Temperature Pulse Rate 92 H 89 Pulse Rate [ Anterior] Pulse Rate [ Posterior] Respiratory 20 21 18 Rate Respiratory Rate [Anterior] Respiratory Rate [Posterior ] Blood Pressure 123/50 Blood Pressure [Right] O2 Sat by Pulse 99 100 100 Oximetry 06/14/22 06/14/22 06/14/22 10:30 10:46 11:00 Temperature Pulse Rate 94 H 103 H 112 H Pulse Rate [ Anterior] Pulse Rate [ Posterior] Respiratory 16 17 27 H Rate Respiratory Rate [Anterior] Respiratory Rate [Posterior ] Blood Pressure 123/50 110/40 129/56 Blood Pressure [Right] O2 Sat by Pulse 99 98 99 Oximetry 06/14/22 06/14/22 06/14/22 11:16 11:30 11:46 Temperature Pulse Rate 110 H 109 H 110 H Pulse Rate [ Anterior] Pulse Rate [ Posterior] Respiratory 13 15 20 Rate Respiratory Rate [Anterior] Respiratory Rate [Posterior ] Blood Pressure 129/56 129/56 129/56 Blood Pressure [Right] O2 Sat by Pulse 98 98 97 Oximetry 06/14/22 06/14/22 06/14/22 12:00 12:16 12:30 Temperature Pulse Rate 113 H 116 H 102 H Pulse Rate [ Anterior] Pulse Rate [ Posterior] Respiratory 19 24 16 Rate Respiratory Rate [Anterior] Respiratory Rate [Posterior ] Blood Pressure 137/76 137/76 137/76 Blood Pressure [Right] O2 Sat by Pulse 96 88 99 Oximetry 06/14/22 06/14/22 06/14/22 12:45 12:56 13:00 Temperature Pulse Rate 102 H 109 H Pulse Rate [ 24 L Anterior] Pulse Rate [ 110 H Posterior] Respiratory 20 17 Rate Respiratory 24 Rate [Anterior] Respiratory 22 Rate [Posterior ] Blood Pressure 119/61 122/61 Blood Pressure [Right] O2 Sat by Pulse 98 96 Oximetry ED Medical Decision Making - Lab Data Result diagrams: 06/14/22 09:57 06/14/22 09:57 - EKG Data -: EKG Interpreted by Me EKG shows normal: sinus rhythm Rate: normal - EKG Data When compared to previous EKG there are: no significant change - Radiology Data Radiology results: report reviewed, image reviewed - Medical Decision Making work up showed chf copd exacerbation lasix given , rt given vss no dstress, pt requests to be admitted but her work up as well maria luisa VSS doesn;t refelct need for inpatient recmmneeed cardiology follow up Critical care attestation.: If time is entered above; I have spent that time in minutes in the direct care of this critically ill patient, excluding procedure time. ED Disposition Clinical Impression: SOB (shortness of breath), CHF (congestive heart failure), COPD exacerbation, COPD (chronic obstructive pulmonary disease) Disposition: 01 HOME / SELF CARE / HOMELESS Is pt being admited?: No Does the pt Need Aspirin: No Condition: Stable Instructions: Chronic Bronchitis (ED), Chronic Obstructive Pulmonary Disease (ED) Referrals: [facility] CASTRO [Other] - 3-5 Days
[2022-06-14] MEDS ORDERED: traMADol 50 MG TAB PO ONE (14:17)
--- NOTE | 2022-06-15 11:15 | Electrocardiograph Report ---
[facility] Test Date: 2022-06-14 Test Time: 09:59:57 Pat Name: RAND HIDALGO Department: Room: Gender: F [employer]: NURSE : 1960 Requested By: MERLY RAM Order Number: [id number] Reading MD: Kamron Mena Measurements Intervals [place] Rate: 91 P: 50 NV: 143 QRS: 12 QRSD: 95 T: 20 QT: 375 QTc: 462 Interpretive Statements Sinus rhythm Compared to ECG 02/25/2022 18:18:35 No significant changes Electronically Signed On 06-15-2022 11:15:31 EDT by Kamron Mena
== END 2022-06-14 15:30 | disposition home or self-care (01) ==
LOC: ED 22:51
DX: R06.02 Shortness of breath (principal); I50.9 Heart failure, unspecified; J44.1 Chronic obstructive pulmonary disease with (acute) exacerbation; J45.901 Unspecified asthma with (acute) exacerbation; I10 Essential (primary) hypertension; Z87.891 Personal history of nicotine dependence; E11.9 Type 2 diabetes mellitus without complications
CPT/HCPCS: 36415; 71045; 80053; 82550; 83690; 83880; 84484; 85025; 85610; 93005; 94640; 96374; 96375; 96376; 99284; J1940; J2270; J2405; 94644